=== PATIENT | female | born 1955 | race African-American/Black ===

== ENCOUNTER 2016-12-15 13:09 | Observation (INO) | payer OTHER ==
--- NOTE | 2016-12-15 14:14 | EKG ---
Test Reason : Blood Pressure : / mmHG Vent. Rate : 072 BPM Atrial Rate : 072 BPM P-R Int : 154 ms QRS Dur : 084 ms QT Int : 410 ms P-R-T Axes : 057 020 060 degrees QTc Int : 448 ms NORMAL SINUS RHYTHM NORMAL ECG WHEN COMPARED WITH ECG OF 07-AUG-2016 17:18, NONSPECIFIC T WAVE ABNORMALITY NO LONGER EVIDENT IN INFERIOR LEADS T WAVE INVERSION NO LONGER EVIDENT IN LATERAL LEADS Confirmed by YUDITH BLAND, CECILIA ([id number]) on 12/15/2016 2:14:18 PM Referred By: Confirmed By:CECILIA ZURITA MD
[2016-12-15 14:16] LABS: MCH 26.9 pg (25.7-33.7); MCHC 31.7 g/dl (32.0-36.0); MEAN CELL VOLUME 84.8 fl (80-96); MEAN PLT VOLUME 7.9 fl (7.5-11.1); PLATELET COUNT 190 K/MM3 (134-434); RDW 14.3 % (11.6-15.6); WHITE BLOOD COUNT 8.1 K/mm3 (4.0-10.0)
[2016-12-15] MEDS ORDERED: morphine CARPU-JECT 4 MG/1 ML DISP.SYRIN IVPUSH ONE (14:30)
--- NOTE | 2016-12-15 14:31 | PDOC ---
History of Present Illness - General History Source: Patient Exam Limitations: No Limitations - History of Present Illness Initial Comments: 12/15/16 14:45 The patient is a 60-year-old woman with a significant past medical history of hypertension, hypercholesterolemia, coronary artery disease (status post stents x12) and cerebrovascular accident who was sent to the emergency department by her Human Resources Recruiter, Dr. Lieberman for further evaluation for chest pain. As per patient, she states that she typically experiences chest pain that are left sided and radiated down her left arm. She states that today, she experienced left sided, con radiating constant chest pain associated with shortness of breath, which is atypical for her. She admits that she took 6 sublingual Nitroglycerin tablets with little to no relief. Patient denies any associated symptoms of diaphoresis, visual changes, lightheadedness, dizziness, leg pain/ swelling,nausea, vomiting, diarrhea. Allergies: No Known Drug Allergies. Nuts. Shellfish Past Surgical History: Stent Placements Social History: Tobacco use (Currently on Nicotine patch). No ETOH or recreational drug use. Primary Care Physician: Dr. Artem Menezes [phone] Human Resources Recruiter: Dr. Irving Lieberman [phone] <Dinora Melchor - Last Filed: 12/15/16 14:44> <René Bedolla - Last Filed: 12/15/16 17:48> <Torri Silver - Last Filed: 12/17/16 07:50> - General Chief Complaint: Chest Pain Stated Complaint: CHEST PAIN Time Seen by Provider: 12/15/16 13:34 Past History <Dinora Melchor - Last Filed: 12/15/16 14:44> <René Bedolla - Last Filed: 12/15/16 17:48> - Past Medical History Anemia: No Asthma: Yes Cancer: No Cardiac Disorders: Yes (12 stents) CVA: Yes COPD: No CHF: No Dementia: No Diabetes: Yes GI Disorders: No Disorders: No HTN: Yes Hypercholesterolemia: Yes Liver Disease: No Suicide Attempt (Hx): No Seizures: No Thyroid Disease: No - Surgical History Abdominal Surgery: No Appendectomy: No Cardiac Surgery: Yes (12 cardiac stents) Cholecystectomy: No Lung Surgery: No Neurologic Surgery: No Orthopedic Surgery: No - Immunization History Immunization Up to Date: Yes - Psycho/Social/Smoking Cessation Hx Anxiety: No Suicidal Ideation: No Smoking History: Current every day smoker Have you smoked in the past 12 months: Yes Number of Cigarettes Smoked Daily: 5 Information on smoking cessation initiated: No 'Breaking Loose' booklet given: 08/07/16 Hx Alcohol Use: No Drug/Substance Use Hx: No Substance Use Type: None Hx Substance Use Treatment: No <Torri Silver - Last Filed: 12/17/16 07:50> - Past Medical History Allergies/Adverse Reactions: Allergies Allergy/AdvReac Type Severity Reaction Status Date / Time cashew nut Allergy Verified 12/15/16 13:14 shellfish derived Allergy Verified 12/15/16 13:14 Home Medications: Ambulatory Orders Metformin HCl [Glucophage -] 1,000 mg PO BID 01/09/14 Oxycodone HCl [Roxicodone] 30 mg PO Q6H PRN 01/09/14 Clopidogrel Bisulfate [Plavix -] 75 mg PO DAILY tablet 03/02/15 Gabapentin [Neurontin] 600 mg PO BID 03/02/15 Nitroglycerin Sublingual [Nitrostat -] 0.4 mg SL Q5M PRN #0 tab 03/02/15 Ranolazine [Ranexa] 1,000 mg PO BID 04/09/15 Aspirin Coated [Ecotrin -] 81 mg PO DAILY tablet.ec 03/14/16 Nicotine Patch [Nicoderm Patch -] 21 mg TD DAILY #20 patch 03/14/16 Amlodipine Besylate [Norvasc -] 10 mg PO DAILY 12/15/16 Budesonide/Formeterol Fumarate [SYMBICORT 160/4.5mcg -] 2 inh PO BID 12/15/16 Bupropion HCl [Wellbutrin Sr] 150 mg PO BID 12/15/16 Levalbuterol Tartrate [Xopenex Hfa] 2 puff IH PRN 12/15/16 Losartan Potassium [Cozaar] 50 mg PO DAILY 12/15/16 Metoprolol Succinate [Toprol XL -] 50 mg PO BID 12/15/16 Rosuvastatin Calcium [Crestor] 20 mg PO DAILY 12/15/16 Review of Systems - Review of Systems Able to Perform ROS?: Yes Comments:: 12/15/16 14:45 GENERAL/CONSTITUTIONAL: No fever or chills. No weakness. HEAD, EYES, EARS, NOSE AND THROAT: No change in vision. No ear pain or discharge. No sore throat. CARDIOVASCULAR: Yes: Shortness of breath. Chest Pain. RESPIRATORY: Yes: Shortness of breath. No cough, wheezing, or hemoptysis. GASTROINTESTINAL: No nausea, vomiting, diarrhea or constipation. GENITOURINARY: No dysuria, frequency, or change in urination. MUSCULOSKELETAL: No joint or muscle swelling or pain. No neck or back pain. SKIN: No rash NEUROLOGIC: No headache, vertigo, loss of consciousness, or change in strength/ sensation. ENDOCRINE: No increased thirst. No abnormal weight change. HEMATOLOGIC/LYMPHATIC: No anemia, easy bleeding, or history of blood clots. ALLERGIC/IMMUNOLOGIC: No hives or skin allergy. <Dinora Melchor - Last Filed: 12/15/16 14:44> *Physical Exam - Vital Signs Last Vital Signs Temp Pulse Resp BP Pulse Ox 97.6 F 70 19 118/69 96 12/15/16 13:11 12/15/16 14:11 12/15/16 14:11 12/15/16 14:11 12/15/16 14:11 - Physical Exam Comments: 12/15/16 14:45 GENERAL: Awake, alert, and fully oriented, in no acute distress HEAD: No signs of trauma EYES: PERRLA, EOMI, sclera anicteric, conjunctiva clear ENT: Auricles normal inspection, hearing grossly normal, nares patent, oropharynx clear without exudates. Moist mucosa NECK: Normal ROM, supple, no lymphadenopathy, JVD, or masses LUNGS: Breath sounds equal, clear to auscultation bilaterally. No wheezes, and no crackles HEART: Regular rate and rhythm, normal S1 and S2, no murmurs, rubs or gallops ABDOMEN: Soft, nontender, normoactive bowel sounds. No guarding, no rebound. No masses EXTREMITIES: Normal range of motion, no edema. No clubbing or cyanosis. No cords, erythema, or tenderness NEUROLOGICAL: Cranial nerves II through XII grossly intact. Normal speec <Dinora Melchor - Last Filed: 12/15/16 14:44> - Vital Signs Last Vital Signs Temp Pulse Resp BP Pulse Ox 97.6 F 66 18 147/85 96 12/15/16 13:11 12/15/16 17:02 12/15/16 17:02 12/15/16 17:02 12/15/16 17:02 <René Bedolla - Last Filed: 12/15/16 17:48> - Vital Signs Last Vital Signs Temp Pulse Resp BP Pulse Ox 97.6 F 70 19 118/69 96 12/15/16 13:11 12/15/16 14:11 12/15/16 14:11 12/15/16 14:11 12/15/16 14:11 <Torri Silver - Last Filed: 12/17/16 07:50> Heart Score/ECG Review - ECG Impressions Comment:: EKG 13:17- NSR 72 bpm, no acute ST/T changes <Torri Silver - Last Filed: 12/17/16 07:50> ED Treatment Course - LABORATORY CBC & Chemistry Diagram: 12/15/16 14:00 12/15/16 14:00 - ADDITIONAL ORDERS Additional order review: Laboratory Results 12/15/16 14:00 Sodium 144 Potassium 4.6 Chloride 106 Carbon Dioxide 29 Anion Gap 9 BUN 22 H D Creatinine 1.1 H Creat Clearance w eGFR 51.02 Random Glucose 133 H Calcium 9.2 Total Bilirubin 0.2 AST 15 D ALT 19 D Alkaline Phosphatase 128 H D Creatine Kinase 45 Troponin I 0.04 Total Protein 6.5 Albumin 3.0 L 12/15/16 14:00 RBC 4.48 MCV 84.8 MCHC 31.7 L RDW 14.3 MPV 7.9 Neutrophils % Y Lymphocytes % Y <Dinora Melchor - Last Filed: 12/15/16 14:44> - LABORATORY CBC & Chemistry Diagram: 12/15/16 14:00 12/15/16 14:00 - ADDITIONAL ORDERS Additional order review: Laboratory Results 12/15/16 12/15/16 14:00 14:00 INR 1.09 Sodium 144 Potassium 4.6 Chloride 106 Carbon Dioxide 29 Anion Gap 9 BUN 22 H D Creatinine 1.1 H Creat Clearance w eGFR 51.02 Random Glucose 133 H Calcium 9.2 Total Bilirubin 0.2 AST 15 D ALT 19 D Alkaline Phosphatase 128 H D Creatine Kinase 45 Troponin I 0.04 Total Protein 6.5 Albumin 3.0 L 12/15/16 14:00 RBC 4.48 MCV 84.8 MCHC 31.7 L RDW 14.3 MPV 7.9 Neutrophils % 33.0 L D Lymphocytes % 65.0 H Monocytes % 2.0 L - Medications Given in the ED: ED Medications Discontinued Medications Generic Name Dose Route Start Last Admin Trade Name Nina PRN Reason Stop Dose Admin Morphine Sulfate 4 mg 12/15/16 14:30 12/15/16 14:46 Morphine Injection - IVPUSH 12/15/16 14:31 4 mg ONCE ONE Administration <René Bedolla - Last Filed: 12/15/16 17:48> - LABORATORY CBC & Chemistry Diagram: 12/15/16 14:00 12/16/16 05:35 - ADDITIONAL ORDERS Additional order review: 12/15/16 14:00 RBC 4.48 MCV 84.8 MCHC 31.7 L RDW 14.3 MPV 7.9 Neutrophils % Y Lymphocytes % Y - RADIOLOGY Radiology Studies Ordered: Category Date Time Status CHEST X-RAY PORTABLE* [RAD] Stat Radiology 12/15/16 13:34 Taken <Torri Silver - Last Filed: 12/17/16 07:50> Medical Decision Making - Medical Decision Making 12/15/16 15:12 Case d/w Dr. 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 Recommended admission on tele. I have given morphine for pain, as she has already taken 6 nitroglycerin tabs prior to arrival. Will start nitro drip and upgrade to ICU if pain is not controlled, as per Dr. Oro. Will admit to hospitalist. <Torri Silver - Last Filed: 12/17/16 07:50> *DC/Admit/Observation/Transfer - Attestations Scribe Attestion: 12/15/16 14:46 Documentation prepared by Dinora Melchor, acting as medical record assistant for Torri Silver MD. <Dinora Melchor - Last Filed: 12/15/16 14:44> - Discharge Dispostion Admit: Yes <René Bedolla - Last Filed: 12/15/16 17:48> <Torri Silver - Last Filed: 12/17/16 07:50> Diagnosis at time of Disposition: Chest pain Qualifiers: Chest pain type: unspecified Qualified Code(s): R07.9 - Chest pain, unspecified - Discharge Dispostion Disposition: HOME Condition at time of disposition: Improved - Referrals
[2016-12-15 14:39] LABS: BILIRUBIN,TOTAL 0.2 mg/dL (0.2-1.0); CALCIUM 9.2 mg/dL (8.5-10.1); CREATININE 1.1 mg/dL (0.55-1.02); TOT PROT 6.5 g/dl (6.4-8.2)
[2016-12-15 14:41] LABS: INR 1.09 (0.82-1.09)
[2016-12-15 14:42] LABS: TROPONIN I 0.04 ng/ml (0.00-0.05)
[2016-12-15] MEDS ORDERED: morphine CARPU-JECT 4 MG/1 ML DISP.SYRIN ONE (14:43)
--- NOTE | 2016-12-15 15:52 | PN ---
Progress Note (short form) - Note Progress Note: Pt was seen in the office today. She came in with complaint of severe substernal --left sided chest pain that started this am while at rest. She had taken multiple doses of SL NTG with minimal relief. EKG in the office showed nonspecific ST abnl not c/w acute STEMI and not clearly c/w ischemia. Pt. has a history of severe recurrent CAD with multiple PCI's and recurrent in-stent restenosis tx with brachytherapy. Last PCI was 08/08/16 PTCA with atherectomy of mRamus, previously 03/02/16 brachytherapy [id number]. Otherwise treated with aggressive medical management of presumed small vessel cad and chronic stable angina. She had recently enrolled in cardiac rehab. Her continued smoking was felt to be a large contributing factor to her recurrent CAD. 1st set of cardiac enzymes in ER wnl Give morphine for chest pain and monitor for relief If no relief would start NTG gtt If chest pain continues or cardiac enzymes elevated would admit to ICU and if enzymes elevated start heparin gtt Case reviewed with interventionalist at [facility] that did her prior cardiac caths, the feeling is that her pain is primarily due to small vessel CAD and that further cardiac cath and PCI would unlikely benefit her. Also CABG would unlikely benefit her. Depending on her clinical course on this admission will decide if further intervention is needed. Resume all home medications which include Aspirin 81 mg daily, Plavix 75 mg daily, Crestor 20 mg daily, Toprol-XL 50 mg b.i.d., losartan 25 mg daily, Ranexa 1000 mg b.i.d., Norvasc 5 mg daily, nitroglycerin sublingual p.r.n., Wellbutrin 150 mg b.i.d., metformin 500 mg b.i.d. Check echo
--- NOTE | 2016-12-15 15:54 | HP ---
PCP: Artem Menezes CHIEF COMPLAINT: Chest pain HISTORY OF PRESENT ILLNESS: This is a 60-year-old woman with a history of CAD, multiple stents and recurrent restenosis requiring brachytherapy, who comes to the ER today complaining of chest pain. She said she had an episode of sharp chest pain several days ago. She has not been experiencing chest pain or shortness of breath with exertion. She had been going to cardiac rehab but has not gone in the last 3 weeks. This morning, she developed tightness in the middle and left side of her chest. It did not radiate. She did not have nausea, diaphoresis or palpitations. She felt short of breath. She took several nitroglycerin SL with slight relief. She saw Dr. Oro in the office. EKG showed non-specific ST abnormalities. She was advised to go to the ER PAST MEDICAL HISTORY Hypertension CAD RI Hyperlipidemia CVA Asthma Sleep apnea Type 2 diabetes mellitus Stage 3 CKD PAST SURGICAL HISTORY Cardiac stents Allergies cashew nut Allergy (Verified 12/15/16 13:14) shellfish derived Allergy (Verified 12/15/16 13:14) HOME MEDICATIONS 3 Medication Instructions Recorded Metformin HCl [Glucophage -] 500 mg PO BID 01/09/14 Oxycodone HCl [Roxicodone] 30 mg PO Q6H PRN 01/09/14 Clopidogrel Bisulfate [Plavix -] 75 mg PO DAILY tablet 03/02/15 Gabapentin [Neurontin] 100 mg PO TID 03/02/15 Nitroglycerin Sublingual 0.4 mg SL Q5M PRN #0 tab 03/02/15 [Nitrostat -] Ranolazine [Ranexa] 1,000 mg PO BID 04/09/15 Aspirin Coated [Ecotrin -] 81 mg PO DAILY tablet.ec 03/14/16 Nicotine Patch [Nicoderm Patch -] 21 mg TD DAILY #20 patch 03/14/16 Amlodipine Besylate [Norvasc -] 5 mg PO DAILY 12/15/16 Bupropion HCl [Wellbutrin Sr] 150 mg PO BID 12/15/16 Losartan Potassium [Cozaar] 25 mg PO DAILY 12/15/16 Metoprolol Succinate [Toprol XL -] 50 mg PO BID 12/15/16 Rosuvastatin Calcium [Crestor] 20 mg PO HS 12/15/16 Social History: Smoking: Smokes "a cigarette some days" Alcohol: Denies Drugs: Denies Recent Travel: No Family History: Denies REVIEW OF SYSTEMS CONSTITUTIONAL: Absent: fever, chills, diaphoresis, generalized weakness, malaise, loss of appetite, weight change HEENT: Absent: rhinorrhea, nasal congestion, throat pain, throat swelling, difficulty swallowing, mouth swelling, ear pain, eye pain, visual changes CARDIOVASCULAR: Present: chest pain, peripheral edema. Absent: syncope, palpitations, lightheadedness RESPIRATORY: Present: shortness of breath. Absent: cough, dyspnea with exertion , orthopnea, wheezing, stridor, hemoptysis GASTROINTESTINAL: Absent: abdominal pain, abdominal distension, nausea, vomiting , diarrhea, constipation, melena, hematochezia GENITOURINARY: Absent: dysuria, frequency, urgency, hesitancy, hematuria, flank pain MUSCULOSKELETAL: Absent: myalgia, arthralgia, joint swelling, back pain, neck pain SKIN: Absent: rash, itching, pallor HEMATOLOGIC/IMMUNOLOGIC: Absent: easy bleeding, easy bruising, lymphadenopathy, frequent infections ENDOCRINE: Absent: unexplained weight gain, unexplained weight loss, heat intolerance, cold intolerance NEUROLOGIC: Absent: headache, focal weakness, paresthesias, dizziness, unsteady gait, seizure, mental status changes, bladder or bowel incontinence PSYCHIATRIC: Absent: anxiety, depression, suicidal or homicidal ideation, hallucinations. PHYSICAL EXAMINATION Vital Signs - 24 hr 12/15/16 12/15/16 13:11 14:11 Temperature 97.6 F Pulse Rate 78 Pulse Rate [ 70 Apical] Respiratory 18 19 Rate Blood Pressure 134/79 Blood Pressure 118/69 [Right] O2 Sat by Pulse 96 96 Oximetry (%) GENERAL: Awake, alert, and fully oriented, in no acute distress. HEAD: Normal with no signs of trauma. EYES: Pupils equal, round and reactive to light, extraocular movements intact, sclerae anicteric, conjunctivae clear. EARS, NOSE, THROAT: Ears normal, nares patent, oropharynx clear without exudates. Moist mucous membranes. NECK: Normal range of motion, supple without lymphadenopathy, JVD, or masses. LUNGS: Breath sounds equal, clear to auscultation bilaterally. No wheezes, and no crackles. No accessory muscle use. HEART: Regular rate and rhythm, normal S1 and S2 without murmur, rub or gallop. ABDOMEN: Obese, soft, nontender, not distended, normoactive bowel sounds, no guarding, no rebound, no masses. No hepatomegaly or splenomegaly. MUSCULOSKELETAL: Normal range of motion at all joints. No bony deformities or tenderness. No CVA tenderness. UPPER EXTREMITIES: 2+ pulses, warm, well-perfused. No cyanosis. No clubbing. Cap refill <2 seconds. No peripheral edema. LOWER EXTREMITIES: 2+ pulses, warm, well-perfused. No calf tenderness. No peripheral edema. NEUROLOGICAL: Cranial nerves II-XII intact. Normal speech. Gait not observed. PSYCHIATRIC: Cooperative. Good eye contact. Appropriate mood and affect. SKIN: Warm, dry, normal turgor, no rashes or lesions noted. Laboratory Results - last 24 hr 12/15/16 12/15/16 12/15/16 14:00 14:00 14:00 WBC 8.1 RBC 4.48 Hgb 12.1 Hct 38.0 MCV 84.8 MCHC 31.7 L RDW 14.3 Plt Count 190 MPV 7.9 Neutrophils % Y Lymphocytes % Y INR 1.09 Sodium 144 Potassium 4.6 Chloride 106 Carbon Dioxide 29 Anion Gap 9 BUN 22 H D Creatinine 1.1 H Creat Clearance w eGFR 51.02 Random Glucose 133 H Calcium 9.2 Total Bilirubin 0.2 AST 15 D ALT 19 D Alkaline Phosphatase 128 H D Creatine Kinase 45 Troponin I 0.04 Total Protein 6.5 Albumin 3.0 L Chest x-ray: No acute process EKG: Sinus rhythm, rate 72, no ischemic changes. ASSESSMENT/PLAN: This is a 60-year-old woman with a history of CAD, stents with recurrent restenosis requiring brachytherapy, RI, HTN, hyperlipidemia, type 2 DM, CVA, stage 3 CKD, asthma, sleep apnea who presented to the ER with chest tightness that started at rest this morning. Troponin is 0.04. 1. Chest pain - Improved with SLNTG and morphine 4 mg IVP - Observe on telemetry - Serial troponins - Continue aspirin, Plavix, Toprol XL, Cozaar, Norvasc, Crestor, Ranexa - SLNTG/morphine as needed for pain - Smoking cessation - Cardiology evaluation 2. CAD, history of RI - Has multiple stents with recurrent restenosis treated with brachytherapy - Has been treated medically for presumed small vessel CAD and chronic stable angina 3. Hypertension - Continue Cozaar, Norvasc, Toprol XL 4. Hyperlipidemia - Continue Crestor 5. Type 2 diabetes mellitus - Hold metformin - Fingersticks with Novolog sliding scale 6. History of CVA - Continue aspirin 7. Stage 3 CKD - Stable 8. Asthma - Stable 9. Obstructive sleep apnea 10. Nicotine dependence - Smoking cessation discussed - Nicotine patch 11. Obesity with BMI 35.5
[2016-12-15] MEDS ORDERED: morphine CARPU-JECT 2 MG/1 ML DISP.SYRIN IVPUSH PRN (16:11)
[2016-12-15] MEDS ORDERED: ONDANSETRON 4 MG/2 ML VIAL IVPB PRN (16:11)
[2016-12-15] MEDS ORDERED: NITROGLYCERIN SUBLINGUAL 1/150 0.4 MG TAB SL PRN (16:16)
[2016-12-15 17:17] LABS: PLATELET ESTIMATE ADEQUATE (NORMAL)
[2016-12-15] MEDS ORDERED: INSULIN (NOVOLOG) ASPART 100 UNITS/ML 10ML VIAL ONE (18:09)
[2016-12-15] MEDS ORDERED: morphine CARPU-JECT 2 MG/1 ML DISP.SYRIN ONE (21:18)
[2016-12-15] MEDS ORDERED: ROSUVASTATIN CA 20 MG TABLET (FP) PO SCH (22:00)
[2016-12-15] MEDS: INSULIN SLIDING SCALE (NOVOLOG) 1 VIAL SQ SCH ×2 (22:30→22:58)
[2016-12-15] MEDS: METOPROLOL SUCCINATE 50 MG TAB.SR.24H (FP) PO SCH (22:58)
[2016-12-15] MEDS: RANOLAZINE E.R. 1,000 MG TABLET (FP) PO SCH (22:58)
[2016-12-15 23:21] VITALS: BMI 40.9
[2016-12-16] MEDS: INSULIN SLIDING SCALE (NOVOLOG) 1 VIAL SQ SCH ×2 (06:56→11:48)
[2016-12-16 07:16] LABS: CALCIUM 8.5 mg/dL (8.5-10.1); CREATININE 0.9 mg/dL (0.55-1.02)
[2016-12-16] MEDS: RANOLAZINE E.R. 1,000 MG TABLET (FP) PO SCH (09:45)
[2016-12-16] MEDS: METOPROLOL SUCCINATE 50 MG TAB.SR.24H (FP) PO SCH (09:45)
--- NOTE | 2016-12-16 09:45 | PN ---
Progress Note, Physician Chief Complaint: no further chest pain Cardiac enzymes negative History of Present Illness: Echo pending - Current Medication List Current Medications: Active Medications Amlodipine Besylate (Norvasc -) 5 mg PO DAILY [facility] Aspirin (Ecotrin -) 81 mg PO DAILY [facility] Bupropion HCl (Wellbutrin Xl -) 300 mg PO DAILY [facility] Clopidogrel Bisulfate (Plavix -) 75 mg PO DAILY [facility] Insulin Aspart (Novolog Vial Sliding Scale -) 1 vial SQ ACHS CELESTE PRN Reason: Protocol Last Admin: 12/16/16 06:56 Dose: 2 units Losartan Potassium (Cozaar -) 25 mg PO DAILY [facility] Metoprolol Succinate (Toprol Xl -) 50 mg PO BID [facility] Last Admin: 12/15/16 22:58 Dose: 50 mg Morphine Sulfate (Morphine Injection -) 2 mg IVPUSH Q4H PRN PRN Reason: PAIN Last Admin: 12/15/16 21:24 Dose: 2 mg Nicotine (Nicoderm Patch -) 21 mg TD DAILY [facility] Nitroglycerin (Nitrostat -) 0.4 mg SL Q5M PRN PRN Reason: FOR CHEST PAIN Ondansetron HCl (Zofran Injection) 4 mg IVPB Q6H PRN PRN Reason: NAUSEA Ranolazine (Ranexa -) 1,000 mg PO BID [facility] Last Admin: 12/15/16 22:58 Dose: 1,000 mg Rosuvastatin Calcium (Crestor -) 20 mg PO [facility] Last Admin: 12/15/16 22:21 Dose: Not Given - Objective Vital Signs: Vital Signs Temperature 98.0 F 12/16/16 06:00 Pulse Rate 67 12/16/16 06:00 Respiratory Rate 18 12/16/16 06:00 Blood Pressure 117/71 12/16/16 06:00 O2 Sat by Pulse Oximetry (%) 94 L 12/15/16 22:00 Constitutional: Yes: No Distress, Calm Eyes: Yes: Conjunctiva Clear Cardiovascular: Yes: Regular Rate and Rhythm Respiratory: Yes: CTA Bilaterally Gastrointestinal: Yes: Soft (nontender), Abdomen, Obese Edema: No Neurological: Yes: Alert, Oriented ...Motor Strength: WNL Labs: CBC, BMP 12/16/16 05:35 INR, PTT INR 1.09 (0.82-1.09) 12/15/16 14:00 - ....Imaging EKG: Image Reviewed (NSR 72bpm, no acute ST changes) Assessment/Plan History of severe recurrent CAD with multiple PCI's and recurrent in-stent restenosis tx with brachytherapy. Last PCI was 08/08/16 PTCA with atherectomy of mRamus, previously 03/02/16 brachytherapy LCX-OM1. Otherwise treated with aggressive medical management of presumed small vessel cad and chronic stable angina now admitted again with episode of angina triggered by emotional distress at home. Cardiac enzymes are negative and she has not had angina since presentation. From a coronary standpoint, interventional cardiology has advised that no further interventions are advisable (unless NSTEMI) and that anatomy is not suitable for CABG. She has been intolerant of long acting nitrates and is otherwise on maximal medical therapy. REC: Await echo, doubt pericardial disease or sig change in EF. BP does not allow up titration of Norvasc, but can try to push Toprol to 75mg BID and try to push heart rate into the 60s If no recurrent angina plan for d/c later today or in AM
[2016-12-16] MEDS ORDERED: LOSARTAN POTASSIUM 25 MG TABLET PO SCH (10:00)
[2016-12-16] MEDS ORDERED: amLODIPine BESYLATE 5 MG TABLET (FP) PO SCH (10:00)
[2016-12-16] MEDS ORDERED: NICOTINE 21 MG/24 HOURS TOPICAL PATCH TD SCH (10:00)
[2016-12-16] MEDS ORDERED: METOPROLOL SUCCINATE 50 MG TAB.SR.24H (FP) PO SCH (10:00)
[2016-12-16] MEDS ORDERED: CLOPIDOGREL BISULFATE 75 MG TABLET (FP) PO SCH (10:00)
[2016-12-16] MEDS ORDERED: ASPIRIN COATED 81 MG TABLET.EC PO SCH (10:00)
--- NOTE | 2016-12-16 10:19 | PN ---
Physical Exam: SUBJECTIVE: Patient seen and examined at bedside. Pt. reports that she feels better today and does not have any chest pain. She also states that she is breathing better than yesterday. OBJECTIVE: Vital Signs Period Temp Pulse Resp BP Sys/Adan Pulse Ox Last 24 Hr 97.7 F-98.2 F 66-72 16-21 117-144/64-77 94-95 GENERAL: The patient is awake, alert, and fully oriented, in no acute distress. HEAD: Normal with no signs of trauma. EYES: PERRL, extraocular movements intact, sclera anicteric, conjunctiva clear. No ptosis. ENT: Ears normal, nares patent, oropharynx clear without exudates, moist mucous membranes. NECK: Trachea midline, full range of motion, supple. LUNGS: Breath sounds equal, clear to auscultation bilaterally, no wheezes, no crackles, no accessory muscle use. HEART: Regular rate and rhythm, S1, S2 without murmur, rub or gallop. ABDOMEN: Soft, nontender, nondistended, normoactive bowel sounds, no guarding, no rebound, no hepatosplenomegaly, no masses. EXTREMITIES: 2+ pulses, warm, well-perfused, no edema. NEUROLOGICAL: Cranial nerves II through XII grossly intact. Normal speech, gait not observed. PSYCH: Normal mood, normal affect. SKIN: Warm, dry, normal turgor, no rashes or lesions noted Laboratory Results - last 24 hr 12/15/16 12/15/16 12/15/16 17:56 20:33 22:40 Sodium Potassium Chloride Carbon Dioxide Anion Gap BUN Creatinine POC Glucometer 219.57955 276 Random Glucose Calcium Troponin I 0.04 12/16/16 12/16/16 12/16/16 02:00 05:28 05:35 Sodium 141 Potassium 4.3 Chloride 104 Carbon Dioxide 29 Anion Gap 8 BUN 19 H Creatinine 0.9 POC Glucometer 172 Random Glucose 172 H D Calcium 8.5 Troponin I 0.04 Active Medications Generic Name Dose Route Start Last Admin Trade Name Freq PRN Reason Stop Dose Admin Amlodipine Besylate 5 mg 12/16/16 10:00 12/16/16 09:44 Norvasc - PO 5 mg DAILY CELESTE Administration Aspirin 81 mg 12/16/16 10:00 12/16/16 09:43 Ecotrin - PO 81 mg DAILY CELESTE Administration Bupropion HCl 300 mg 12/16/16 10:00 12/16/16 09:45 Wellbutrin Xl - PO 300 mg DAILY CELESTE Administration Clopidogrel Bisulfate 75 mg 12/16/16 10:00 12/16/16 09:44 Plavix - PO 75 mg DAILY CELESTE Administration Insulin Aspart 1 vial 12/15/16 16:30 12/16/16 06:56 Novolog Vial Sliding Scale - SQ 2 units ACHS CELESTE Administration Protocol Losartan Potassium 25 mg 12/16/16 10:00 12/16/16 09:43 Cozaar - PO 25 mg DAILY CELESTE Administration Metoprolol Succinate 75 mg 12/16/16 10:00 Toprol Xl - PO BID CELESTE Morphine Sulfate 2 mg 12/15/16 16:11 12/15/16 21:24 Morphine Injection - IVPUSH 2 mg Q4H PRN Administration PAIN Nicotine 21 mg 12/16/16 10:00 12/16/16 09:43 Nicoderm Patch - TD 21 mg DAILY [facility] Administration Nitroglycerin 0.4 mg 12/15/16 16:16 Nitrostat - SL Q5M PRN FOR CHEST PAIN Ondansetron HCl 4 mg 12/15/16 16:11 Zofran Injection IVPB Q6H PRN NAUSEA Ranolazine 1,000 mg 12/15/16 22:00 12/16/16 09:45 Ranexa - PO 1,000 mg BID CELESTE Administration Rosuvastatin Calcium 20 mg 12/15/16 22:00 12/15/16 22:21 Crestor - PO Not Given HS [facility] ASSESSMENT/PLAN: Pt. is a 60 y/o female with a significant PMH for CAD with numerous stents in place for recurrent restenosis (last stenting 08/01), HTN, HLD, DM type II, CVA , CKD, and asthma, is in obs for chest pain. 1. Unstable angina -- Resolved; troponin series negative. -- Echo results pending. -- Continue aspirin, Plavix, Toprol XL, Cozaar, Norvasc, Crestor, Ranexa -- SLNTG/morphine as needed for pain -- Smoking cessation -- If patient remains asymptomatic; can discharge home this afternoon. 2. CAD, history of UT -- Has multiple stents with recurrent restenosis treated with brachytherapy -- Has been treated medically for presumed small vessel CAD and chronic stable angina -- Per cardiology, anginal pain most likely d/t small vessel CAD. Pt. is not a candidate for further stenting at this time. 3. Hypertension -- Continue Cozaar, Norvasc, Toprol XL 4. Hyperlipidemia -- Continue Crestor 5. Type 2 diabetes mellitus -- Hold metformin -- Fingersticks with Novolog sliding scale 6. History of CVA -- Continue aspirin 7. Stage 3 CKD -- Stable 8. Asthma -- Stable
[2016-12-16] MEDS ORDERED: INSULIN (NOVOLOG) ASPART 100 UNITS/ML 10ML VIAL ONE (11:36)
[2016-12-16 11:42] LABS: URINE APPEARANCE SLCLOUDY; URINE BILIRUBIN NEGATIVE (NEGATIVE); URINE BLOOD NEGATIVE (NEGATIVE); URINE COLOR YELLOW; URINE GLUCOSE (UA) NEGATIVE (NEGATIVE); URINE KETONE NEGATIVE (NEGATIVE); URINE LEUK ESTERASE NEGATIVE (NEGATIVE); URINE NITRITE NEGATIVE (NEGATIVE); URINE PROTEIN NEGATIVE (NEGATIVE); URINE UROBILINOGEN NEGATIVE E.U./dl (0.2-1.0)
[2016-12-16 11:52] LABS: URINE MARIJUANA THC NEGATIVE ng/ml (CUTOFF=50)
[2016-12-16] MEDS ORDERED: oxyCODONE HCL 5 MG TABLET PO PRN (11:52)
[2016-12-16] MEDS ORDERED: ACETAMINOPHEN 325 MG TABLET (FP) PO PRN (12:14)
[2016-12-16 14:19] VITALS: BP 149/86; PULSE 65; TEMP 98.2
--- NOTE | 2016-12-16 14:31 | DS ---
Physical Exam: SUBJECTIVE: Patient seen and examined at bedside. She is reporting that she feels much better and has not had any chest pain since yesterday. She is asking about discharge. OBJECTIVE: Vital Signs Period Temp Pulse Resp BP Sys/Adan Pulse Ox Last 24 Hr 97.7 F-98.2 F 65-72 16-21 117-156/64-86 93-95 PHYSICAL EXAM GENERAL: The patient is awake, alert, and fully oriented, in no acute distress. HEAD: Normal with no signs of trauma. EYES: PERRL, extraocular movements intact, sclera anicteric, conjunctiva clear. ENT: Ears normal, nares patent, oropharynx clear without exudates, moist mucous membranes. NECK: Trachea midline, full range of motion, supple. LUNGS: Breath sounds equal, clear to auscultation bilaterally, no wheezes, no crackles, no accessory muscle use. HEART: Regular rate and rhythm, S1, S2 without murmur, rub or gallop. ABDOMEN: Soft, nontender, nondistended, normoactive bowel sounds, no guarding, no rebound, no hepatosplenomegaly, no masses. EXTREMITIES: 2+ pulses, warm, well-perfused, no edema. NEUROLOGICAL: Cranial nerves II through XII grossly intact. Normal speech, gait not observed. PSYCH: Normal mood, normal affect. SKIN: Warm, dry, normal turgor, no rashes or lesions noted. LABS Laboratory Results - last 24 hr 12/15/16 12/15/16 12/15/16 17:56 20:33 22:40 Sodium Potassium Chloride Carbon Dioxide Anion Gap BUN Creatinine POC Glucometer 219.08725 276 Random Glucose Calcium Troponin I 0.04 Urine Color Urine Appearance Urine pH Ur Specific [place] Urine Protein Urine Glucose (UA) Urine Ketones Urine Blood Urine Nitrite Urine Bilirubin Urine Urobilinogen Ur Leukocyte Esterase Opiates Screen Methadone Screen Barbiturate Screen Phencyclidine Screen Ur Amphetamines Screen Ur MDA Confirmation U MDMA Confirm (GC/MS) Urine MDEA Ur MDEA Confirmation Methylenedioxyamph MDA MDMA (Ecstasy) Screen MDMA & Metabolite Benzodiazepines Screen Cocaine Screen U Marijuana (THC) Screen 12/16/16 12/16/16 12/16/16 02:00 05:28 05:35 Sodium 141 Potassium 4.3 Chloride 104 Carbon Dioxide 29 Anion Gap 8 BUN 19 H Creatinine 0.9 POC Glucometer 172 Random Glucose 172 H D Calcium 8.5 Troponin I 0.04 Urine Color Urine Appearance Urine pH Ur Specific [place] Urine Protein Urine Glucose (UA) Urine Ketones Urine Blood Urine Nitrite Urine Bilirubin Urine Urobilinogen Ur Leukocyte Esterase Opiates Screen Methadone Screen Barbiturate Screen Phencyclidine Screen Ur Amphetamines Screen Ur MDA Confirmation U MDMA Confirm (GC/MS) Urine MDEA Ur MDEA Confirmation Methylenedioxyamph MDA MDMA (Ecstasy) Screen MDMA & Metabolite Benzodiazepines Screen Cocaine Screen U Marijuana (THC) Screen 12/16/16 12/16/16 12/16/16 10:00 10:29 10:30 Sodium Potassium Chloride Carbon Dioxide Anion Gap BUN Creatinine POC Glucometer Random Glucose Calcium Troponin I Urine Color Yellow Urine Appearance Slcloudy Urine pH 5.0 Ur Specific [place] 1.021 Urine Protein Negative Urine Glucose (UA) Negative Urine Ketones Negative Urine Blood Negative Urine Nitrite Negative Urine Bilirubin Negative Urine Urobilinogen Negative Ur Leukocyte Esterase Negative Opiates Screen Positive Methadone Screen Negative Barbiturate Screen Negative Phencyclidine Screen Negative Ur Amphetamines Screen Negative Ur MDA Confirmation Cancelled U MDMA Confirm (GC/MS) Cancelled Urine MDEA Cancelled Ur MDEA Confirmation Cancelled Methylenedioxyamph MDA Cancelled MDMA (Ecstasy) Screen Cancelled Positive MDMA & Metabolite Cancelled Benzodiazepines Screen Negative Cocaine Screen Positive U Marijuana (THC) Screen Negative 12/16/16 11:43 Sodium Potassium Chloride Carbon Dioxide Anion Gap BUN Creatinine POC Glucometer 196 Random Glucose Calcium Troponin I Urine Color Urine Appearance Urine pH Ur Specific [place] Urine Protein Urine Glucose (UA) Urine Ketones Urine Blood Urine Nitrite Urine Bilirubin Urine Urobilinogen Ur Leukocyte Esterase Opiates Screen Methadone Screen Barbiturate Screen Phencyclidine Screen Ur Amphetamines Screen Ur MDA Confirmation U MDMA Confirm (GC/MS) Urine MDEA Ur MDEA Confirmation Methylenedioxyamph MDA MDMA (Ecstasy) Screen MDMA & Metabolite Benzodiazepines Screen Cocaine Screen U Marijuana (THC) Screen HOSPITAL COURSE: Date of Admission:12/15/16 Date of Discharge: 12/16/16 Consults: Dr. Lieberman ED course: The patient is a 60-year-old woman with a significant past medical history of hypertension, hypercholesterolemia, coronary artery disease (status post stents x12) and cerebrovascular accident who was sent to the emergency department by her District Captain, Dr. Lieberman for further evaluation for chest pain. She took 6 nitroglycerin tablets with no relief of her symptoms. Her first troponin in the ED was negative. She was given morphine and nitro in the ED for her symptoms. Given her PMH and presenting symptoms, she was placed in observation with serial troponins. Hospital Course: Pt. was in obs over night. Her serial troponins were negative and her vitals remained stable. She was given an extra dose of Metoprolol for added rate control (per cardiology goal in the 60's). Her EKG was NSR with a rate in the 70 's. No acute ST-T wave changes. Her echo showed no changes from her echo in 2016 ; RV and LV function are WNL and there is trace tricuspid regurg. Pt. Utox came back positive for cocaine and ecstasy. Informed both Dr. Oliov and the pt. of the results. Discharge Course: Pt. is improved from ED visit and will be discharged at this time. She reports no active chest pain. No medication changes were made at this time. Pt. was told to resume all home medications as she usually takes them and to follow up with cardiology as an outpatient. Minutes to complete discharge: 35 Discharge Summary Reason For Visit: CHEST PAIN Current Active Problems Chest pain (Acute) Condition: Improved - Instructions Diet, Activity, Other Instructions: You had an episode of angina. Your workup including troponins were normal. Your EKG, and echocardiogram showed no changes. We made no changes to your medications. Take all of your home medications as prescribed. Please follow up with your small wind energy installer for further management of your angina. Return to the hospital if you experience worsening chest pain, light headedness , palpitations. Referrals: Artem Menezes [Primary Care Provider] - Disposition: HOME - Home Medications Comprehensive Discharge Medication List: Ambulatory Orders Metformin HCl [Glucophage -] 1,000 mg PO BID 01/09/14 Oxycodone HCl [Roxicodone] 30 mg PO Q6H PRN 01/09/14 Clopidogrel Bisulfate [Plavix -] 75 mg PO DAILY tablet 03/02/15 Gabapentin [Neurontin] 600 mg PO BID 03/02/15 Nitroglycerin Sublingual [Nitrostat -] 0.4 mg SL Q5M PRN #0 tab 03/02/15 Ranolazine [Ranexa] 1,000 mg PO BID 06/24/15 Aspirin Coated [Ecotrin -] 81 mg PO DAILY tablet.ec 03/14/16 Nicotine Patch [Nicoderm Patch -] 21 mg TD DAILY #20 patch 03/14/16 Amlodipine Besylate [Norvasc -] 10 mg PO DAILY 12/15/16 Budesonide/Formeterol Fumarate [SYMBICORT 160/4.5mcg -] 2 inh PO BID 12/15/16 Bupropion HCl [Wellbutrin Sr] 150 mg PO BID 12/15/16 Levalbuterol Tartrate [Xopenex Hfa] 2 puff IH PRN 12/15/16 Losartan Potassium [Cozaar] 50 mg PO DAILY 12/15/16 Metoprolol Succinate [Toprol XL -] 50 mg PO BID 12/15/16 Rosuvastatin Calcium [Crestor] 20 mg PO DAILY 12/15/16 This patient is new to me today: Yes Date on this admission: 12/16/16 Emergency Visit: Yes ED Registration Date: 12/15/16 Care time: The patient presented to the Emergency Department on the above date and was hospitalized for further evaluation of their emergent condition. Critical Care patient: No - Discharge Referral Referred to [facility] Med P.C.: No
== END 2016-12-16 15:41 | disposition home or self-care (01) ==
LOC: JER 13:09 → JERBED 17:49 → J4S 21:43
PROVIDERS: ADMIT Internal Medicine; ATTEND Nurse Practitioner Acute Care
DX: I25.119 Atherosclerotic heart disease of native coronary artery with unspecified angina pectoris (principal); Z95.5 Presence of coronary angioplasty implant and graft; J45.909 Unspecified asthma, uncomplicated; F17.210 Nicotine dependence, cigarettes, uncomplicated; I12.9 Hypertensive chronic kidney disease with stage 1 through stage 4 chronic kidney disease, or unspecified chronic kidney disease; E11.22 Type 2 diabetes mellitus with diabetic chronic kidney disease; N18.3 Chronic kidney disease, stage 3 (moderate); Z79.84 Long term (current) use of oral hypoglycemic drugs; G47.30 Sleep apnea, unspecified; E66.9 Obesity, unspecified; Z68.41 Body mass index [BMI] 40.0-44.9, adult
CPT/HCPCS: 36415; 71010-TC; 80048; 80053; 80307; 81003; 82550; 84484; 85025; 85610; 93005; 93010; 93306-TC; 99285-25; G0378; G0480

== ENCOUNTER 2017-04-26 15:31 | Emergency (ER) | payer OTHER ==
[2017-04-26 15:37] VITALS: BMI 38.2
--- NOTE | 2017-04-26 15:49 | PDOC ---
Attending Attestation - Resident Resident Name: Sergio Tariq - HPI HPI: 04/26/17 16:33 Pt comes with SOB; she has a hx of COPD. CAD, DM, Stents in place. Last week her PMD Preethi started her on lasix and she remains with the SOB today. SHe was sent to r/o PE - Physicial Exam PE: 04/26/17 18:54 as above - Medical Decision Making 04/26/17 16:34 portable chest: CHest XR appears clear EKG: CTA: will be ordered if d-dimer is elevated Labs: D dimer is elevated; pt has a normal WBC 04/26/17 18:15 Pt will be sent for CTA chest to r/o PE 04/26/17 18:18 Pt will be signed out to the night ER doc
--- NOTE | 2017-04-26 15:57 | PDOC ---
History of Present Illness - General Chief Complaint: Shortness of Breath Stated Complaint: SOB (PCP SENT) Time Seen by Provider: 04/26/17 15:46 - History of Present Illness Initial Comments: 04/26/17 15:47 Ms. De Leon is a 61 year old female with a significant past medical history of heart attack, pulmonary embolism, and multiple stents who presents to the emergency department with 2 days of chest pain and a one week history of shortness of breath. Says that pain improved with her home nitro and that it does not radiate. Saw primary care doctor today and was advised to go to ER to investigate possibility of blood clot. Reports that shortness of breath has been increasing for the past week. Denies headache and dizziness. Denies fever, chills, nausea, vomit, diarrhea and constipation. Denies dysuria, frequency, urgency and hematuria. Allergies: Cashews and shellfish Past surgical history: Umbilical hernia repair as an Social history: approximately 40 pack year history of smoking, currently smokes 10-12 cigarettes / week. Drinks socially 1-2 drinks at a time. 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 04/26/17 16:10 04/26/17 20:05 Past History - Past Medical History Allergies/Adverse Reactions: Allergies Allergy/AdvReac Type Severity Reaction Status Date / Time cashew nut Allergy Verified 04/26/17 15:31 shellfish derived Allergy Verified 04/26/17 15:31 Home Medications: Ambulatory Orders Metformin HCl [Glucophage -] 500 mg PO BID 01/09/14 Oxycodone HCl [Roxicodone] 30 mg PO Q6H PRN 01/09/14 Clopidogrel Bisulfate [Plavix -] 75 mg PO DAILY tablet 03/02/15 Nitroglycerin Sublingual [Nitrostat -] 0.4 mg SL Q5M PRN #0 tab 03/02/15 Aspirin Coated [Ecotrin -] 81 mg PO DAILY tablet.ec 03/14/16 Amlodipine Besylate [Norvasc -] 10 mg PO DAILY 12/15/16 Budesonide/Formeterol Fumarate [SYMBICORT 160/4.5mcg -] 2 inh PO BID 12/15/16 Levalbuterol Tartrate [Xopenex Hfa] 2 puff IH PRN PRN 12/15/16 Losartan Potassium [Cozaar] 50 mg PO DAILY 12/15/16 Metoprolol Succinate [Toprol XL -] 75 mg PO BID 12/15/16 Rosuvastatin Calcium [Crestor] 20 mg PO DAILY 12/15/16 Oxycodone HCl [Oxycontin] 80 mg PO ASDIR 04/26/17 Anemia: No Asthma: Yes Cancer: No Cardiac Disorders: Yes (12 stents) CVA: Yes COPD: Yes CHF: No Dementia: No Diabetes: Yes (niddm) GI Disorders: No Disorders: No HTN: Yes Hypercholesterolemia: Yes Liver Disease: No Suicide Attempt (Hx): No Seizures: No Thyroid Disease: No - Surgical History Abdominal Surgery: Yes (hernia as a child) Appendectomy: No Cardiac Surgery: Yes (12 cardiac stents) Cholecystectomy: No Lung Surgery: No Neurologic Surgery: No Orthopedic Surgery: No - Immunization History Immunization Up to Date: Yes - Psycho/Social/Smoking Cessation Hx Anxiety: No Suicidal Ideation: No Smoking History: Current some day smoker Have you smoked in the past 12 months: Yes Number of Cigarettes Smoked Daily: 2 Information on smoking cessation initiated: Yes 'Breaking Loose' booklet given: 04/26/17 Hx Alcohol Use: No Drug/Substance Use Hx: No Substance Use Type: None Hx Substance Use Treatment: No Review of Systems - Review of Systems Comments:: 04/26/17 15:47 GENERAL/CONSTITUTIONAL: No fever or chills. No weakness. HEAD, EYES, EARS, NOSE AND THROAT: No change in vision. No ear pain or discharge. No sore throat. CARDIOVASCULAR: +Central chest pain improved with nitro, growing shortness of breath RESPIRATORY: No cough, wheezing, or hemoptysis. GASTROINTESTINAL: No nausea, vomiting, diarrhea or constipation. GENITOURINARY: No dysuria, frequency, or change in urination. MUSCULOSKELETAL: No joint or muscle swelling or pain. No neck or back pain. SKIN: No rash NEUROLOGIC: No headache, vertigo, loss of consciousness, or change in strength/ sensation. ENDOCRINE: No increased thirst. No abnormal weight change HEMATOLOGIC/LYMPHATIC: No anemia, easy bleeding, or history of blood clots. ALLERGIC/IMMUNOLOGIC: No hives or skin allergy. 04/26/17 16:13 04/26/17 20:05 *Physical Exam - Vital Signs Last Vital Signs Temp Pulse Resp BP Pulse Ox 97.4 F L 77 18 142/93 98 04/26/17 15:32 04/26/17 15:32 04/26/17 15:32 04/26/17 15:32 04/26/17 15:32 04/26/17 16:14 - Physical Exam Comments: 04/26/17 15:47 GENERAL: Awake, alert, and fully oriented, in no acute distress HEAD: No signs of trauma, normocephalic, atraumatic EYES: PERRLA, EOMI, sclera anicteric, conjunctiva clear ENT: Auricles normal inspection, hearing grossly normal, nares patent, oropharynx clear without exudates. Moist mucosa NECK: Normal ROM, supple, no lymphadenopathy, JVD, or masses LUNGS: +Tripoding, speaks full sentences, expiratory wheezes in all [place] HEART: Regular rate and rhythm, normal S1 and S2, no murmurs, rubs or gallops, peripheral pulses normal and equal bilaterally. ABDOMEN: Soft, nontender, normoactive bowel sounds. No guarding, no rebound. No masses EXTREMITIES: Normal inspection, Normal range of motion, no edema. No clubbing or cyanosis. NEUROLOGICAL: Cranial nerves II through XII grossly intact. Normal speech, normal gait, no focal sensorimotor deficits SKIN: Warm, Dry, normal turgor, no rashes or lesions noted. 04/26/17 16:14 04/26/17 20:05 ED Treatment Course - LABORATORY CBC & Chemistry Diagram: 04/26/17 16:40 04/26/17 16:40 Medical Decision Making - Medical Decision Making 04/26/17 20:06 Patient arrived in minimal distress complaining of shortness of breath with some chest pain relieved by nitro. SOB has been present for a week. Patient was given duoneb and oxygen with relief of SOB. Presented on advice of PCP for concern of pulmonary embolism. CBC BMP unimpressive with d-dimer in 300's. CTA ordered and resulted as clear. Discharging to home. 04/26/17 20:09 *DC/Admit/Observation/Transfer Diagnosis at time of Disposition: Shortness of breath - Discharge Dispostion Disposition: HOME Condition at time of disposition: Improved - Patient Instructions Additional Instructions: Thank you for coming in today. Please return if symptoms worsen. Follow-up as discussed with PCP - Attestations Physician Attestion: 04/26/17 20:06 I, Dr. Sergio Tariq, attest that this document has been prepared under my direction and personally reviewed by me in its entirety. I further attest, that it accurately reflects all work, treatment, procedures and medical decision -making performed by me.
[2017-04-26] MEDS ORDERED: ALBUTEROL SO4 2.5/IPRATROPIUM 0.5 INH SOL 3 ML VIAL.NEB. NEB ONE (16:03)
--- NOTE | 2017-04-26 16:23 | EKG ---
Test Reason : Blood Pressure : / mmHG Vent. Rate : 068 BPM Atrial Rate : 068 BPM P-R Int : 162 ms QRS Dur : 092 ms QT Int : 408 ms P-R-T Axes : 032 030 063 degrees QTc Int : 433 ms SINUS RHYTHM WITH IACD. NONSPECIFIC ST AND T WAVE ABNORMALITY BASELINE ARTIFACTS. WHEN COMPARED WITH ECG OF 15-DEC-2016 13:17, NO SIGNIFICANT CHANGE WAS FOUND Confirmed by ELIZABETH COLLADO MD ([id number]) on 04/26/2017 4:23:27 PM Referred By: Confirmed By:ELIZABETH COLLADO MD
[2017-04-26 16:59] LABS: BASOPHIL 0.5 % (0-2.0); EOSINOPHIL 2.1 % (0-4.5); MCH 27.2 pg (25.7-33.7); MCHC 32.4 g/dl (32.0-36.0); MEAN PLT VOLUME 8.1 fl (7.5-11.1); NEUTROPHILS 24.6 % (42.8-82.8); PLATELET COUNT 253 K/MM3 (134-434); RDW 14.4 % (11.6-15.6); WHITE BLOOD COUNT 8.8 K/mm3 (4.0-10.0)
[2017-04-26 17:13] LABS: INR 1.02 (0.82-1.09); PROTHROMBIN TIME (PATIENT) 11.2 SEC (9.98-11.88)
[2017-04-26 17:15] LABS: ACTIVATED PTT 34.4 SECONDS (26.9-34.4)
[2017-04-26 17:36] LABS: ALBUMIN 3.7 g/dl (3.4-5.0); ALK PHOS 152 U/L (45-117); ANION GAP 9 (8-16); BILIRUBIN,TOTAL 0.3 mg/dL (0.2-1.0); CALCIUM 9.3 mg/dL (8.5-10.1); CO2 31 mmol/L (21-32); CREATININE 1.2 mg/dL (0.55-1.02); GLUCOSE,RANDOM 131 mg/dL (74-106); SGOT/AST 19 U/L (15-37); SGPT/ALT 24 U/L (12-78)
[2017-04-26 20:22] VITALS: BP 138/89; PULSE 74; TEMP 97.7
== END 2017-04-26 20:22 | disposition home or self-care (01) ==
LOC: JER 15:31
PROC: 3E0F7GC Introduction of Other Therapeutic Substance into Respiratory Tract, Via Natural or Artificial Opening (ICD-10-PCS; principal; 2017-04-26)
DX: R06.02 Shortness of breath (principal); I25.2 Old myocardial infarction; I25.10 Atherosclerotic heart disease of native coronary artery without angina pectoris; I25.83 Coronary atherosclerosis due to lipid rich plaque; I10 Essential (primary) hypertension; Z95.5 Presence of coronary angioplasty implant and graft; J45.909 Unspecified asthma, uncomplicated; J44.9 Chronic obstructive pulmonary disease, unspecified; E11.9 Type 2 diabetes mellitus without complications; Z79.84 Long term (current) use of oral hypoglycemic drugs; E78.00 Pure hypercholesterolemia, unspecified; Z86.73 Personal history of transient ischemic attack (TIA), and cerebral infarction without residual deficits; Z86.711 Personal history of pulmonary embolism
CPT/HCPCS: 36415; 71010-TC; 71275-TC; 80053; 85025; 85379; 85610; 85730; 93005; 93010; 94640; 99284-25

== ENCOUNTER 2018-12-27 12:23 | Observation (INO) | payer OTHER ==
--- NOTE | 2018-12-27 13:32 | PDOC ---
Attending Attestation - HPI HPI: 12/27/18 13:56 The patient is a 60-year-old woman with a significant past medical history of hypertension, hypercholesterolemia, coronary artery disease (s/p stents x12) and CVA, who presents to the emergency department for complaint of intermittent chest pain, shortness of breath, and bilateral leg swelling that has been going on for about 4-5 weeks and worsened in the past week. She states she saw her hospice manager yesterday who recommended that she come into the ED, however patient was not able to come until today. Allergies: No Known Drug Allergies. Nuts. Shellfish Past Surgical History: Stent Placement Social History: Tobacco use (Currently on Nicotine patch). No ETOH or recreational drug use. Primary Care Physician: Dr. Artem Menezes [phone] Supervisor Files: Dr. Irving Lieberman [phone] <Helena Ovalle - Last Filed: 12/27/18 14:45> - Resident Resident Name: Torri Dominguez - ED Attending Attestation I have performed the following: I have examined & evaluated the patient, The case was reviewed & discussed with the resident, I agree w/resident's findings & plan, Exceptions are as noted - Physicial Exam PE: 12/27/18 16:31 Patient is awake and alert, obese, tachypneic and dyspneic; Normocephalic and atraumatic PERRLA, EOMI No JVD. Decreased air entry bilaterally; and expiratory wheezing is noted bilaterally; RRR +2 pitting edema bilaterally + - Medical Decision Making 12/27/18 16:33 Patient is a morbidly obese 63-year-old female with history of CAD, COPD, who presents with persistent dyspnea and pleuritic chest discomfort 1 week after undergoing a cardiac catheter with stenting. Patient was referred for PE rule out. Will obtain CTA of chest and lower extremity Doppler ultrasound. We'll administer Combivent and will consider Solu-Medrol or prednisone therapy depending on disposition. Will reconsult Dr. Lieberman regarding the CT results. <René Bedolla - Last Filed: 12/27/18 16:39> Attestations - Attestations 12/27/18 13:57 Documentation prepared by Helena Ovalle, acting as biomedical repair technician for René Bedolla MD <Helena Ovalle - Last Filed: 12/27/18 14:45>
--- NOTE | 2018-12-27 14:20 | PDOC ---
History of Present Illness - General Chief Complaint: Edema Stated Complaint: CAD S/P MULTIVESSEL Time Seen by Provider: 12/27/18 12:51 - History of Present Illness Initial Comments: 63F with PMH of PE, DE s/p multiple stents, DM, HTN, HLD, COPD, ANTONY, CVA/TIA sent by her repair manager for evaluation for PE. Patient reports chest pain, shortness of breath, and bilateral leg swelling that has been going on for about 4-5 weeks, but has worsened in the past week. She had a recent cardiac catheterization procedure on 12/20/18. Since that time she endorses feeling worse. The patient saw her repair manager yesterday who recommended that she come into the ED, however patient was not able to come until today. Currently endorsing 2/10 chest pain. Patient endorses associated vomiting when she has chest pain. She takes nitroglycerin when she feels chest pain; she last took 2 or 3 tablets at 6am this morning. Patient has had a PE in the past, but is unable to specify when or if there were any exacerbating factors. Denies hemoptysis, history of malignancy, or hormone use. Reports immobilization, bilateral leg pain (which she notes is chronic and has worsened bilaterally in the past week), and recent procedure (the cath on 12/20/18). Denies fever or chills. Past History - Past Medical History Allergies/Adverse Reactions: Allergies Allergy/AdvReac Type Severity Reaction Status Date / Time cashew nut Allergy Verified 12/27/18 12:25 shellfish derived Allergy Verified 12/27/18 12:25 Home Medications: Ambulatory Orders Oxycodone HCl [Roxicodone] 30 mg PO Q6H PRN 01/09/14 Nitroglycerin Sublingual [Nitrostat -] 0.4 mg SL Q5M PRN #0 tab 03/02/15 Aspirin Coated [Ecotrin -] 81 mg PO DAILY tablet.ec 03/14/16 Fluticasone/Vilanterol [Breo Ellipta 200-25 Mcg INH] 1 each IH DAILY 12/27/18 Furosemide [Lasix] 40 mg PO DAILY 12/27/18 Gabapentin 600 mg PO BID 12/27/18 Insulin Degludec [Tresiba Flextouch U-100] 34 unit SQ ASDIR 12/27/18 Levalbuterol HCl [Xopenex] 0.31 mg IH ASDIR 12/27/18 Losartan Potassium 50 mg PO DAILY 12/27/18 Losartan Potassium 50 mg PO DAILY 12/27/18 Pantoprazole Sodium 40 mg PO DAILY 12/27/18 Ranolazine [Ranexa] 1,000 mg PO BID 12/27/18 Rosuvastatin [Crestor -] 40 mg PO DAILY 12/27/18 Varenicline Tartrate [Chantix] 1 mg PO BID 12/27/18 Amlodipine Besylate 5 mg PO DAILY 12/28/18 Bupropion HCl [Wellbutrin Xl -] 150 mg PO BID 12/28/18 Clopidogrel Bisulfate [Plavix] 75 mg PO DAILY 12/28/18 Diltiazem HCl [Diltiazem 24Hr ER] 120 mg PO DAILY 12/28/18 Insulin NPH Hum/Reg Insulin Hm [Novolin 70-30 100 Unit/ml Vial] 100 units IM BID 12/28/18 Isosorbide Mononitrate [Isosorbide Mononitrate ER] 140 mg PO DAILY 12/28/18 Olmesartan Medoxomil [Benicar] 20 mg PO DAILY 12/28/18 Oxycodone HCl [Oxycontin] 80 mg PO BID 12/28/18 Umeclidinium Hunter [Incruse Ellipta] 1 inh IH DAILY 12/28/18 Anemia: No Asthma: Yes Cancer: No Cardiac Disorders: Yes (12 stents) CVA: Yes COPD: Yes CHF: No Dementia: No Diabetes: Yes (niddm) GI Disorders: No Disorders: No HTN: Yes Hypercholesterolemia: Yes Liver Disease: No Seizures: No Thyroid Disease: No - Surgical History Abdominal Surgery: Yes (hernia as a child) Appendectomy: No Cardiac Surgery: Yes (12 cardiac stents) Cholecystectomy: No Lung Surgery: No Neurologic Surgery: No Orthopedic Surgery: No - Immunization History Immunization Up to Date: Yes - Suicide/Smoking/Psychosocial Hx Smoking History: Current some day smoker Have you smoked in the past 12 months: Yes Number of Cigarettes Smoked Daily: 2 Information on smoking cessation initiated: No 'Breaking Loose' booklet given: 04/26/17 Hx Alcohol Use: No Drug/Substance Use Hx: No Substance Use Type: None Hx Substance Use Treatment: No Review of Systems - Review of Systems Comments:: Constitutional: no fever, no chills HEENT: no throat pain, no dysphagia Cardiovascular: +chest pain, no palpitations Respiratory: +cough, +shortness of breath Gastrointestinal: no abdominal pain, +vomiting Genitourinary: no dysuria, no frequency Musculoskeletal: +bilateral leg pain, +L. hip pain Skin: no rash, no itching Neurologic: no headache, no dizziness *Physical Exam - Vital Signs Last Vital Signs Temp Pulse Resp BP Pulse Ox 97.9 F 81 18 115/58 L 97 12/27/18 12:25 12/27/18 12:25 12/27/18 12:25 12/27/18 12:25 12/27/18 12:25 - Physical Exam Comments: General: Awake, alert, and fully oriented, in no acute distress Head: No signs of trauma Eyes: EOMI, sclera anicteric ENT: Moist mucus membranes Neck: Normal ROM, supple Lungs: Wheezes present diffusely Cardio: Regular rhythm, S1 and S2 present Abdomen: Soft, nontender. No guarding, no rebound, no masses Extremities: Normal range of motion, Distal pulses present, 2+ pitting edema SKIN: Warm, Dry, normal turgor Neurologic: Cranial nerves II through XII grossly intact. Normal speech Moderate Sedation - Procedure Monitoring Vital Signs: Procedure Monitoring Vital Signs Temperature 97.9 F 12/27/18 12:25 Pulse Rate 81 12/27/18 12:25 Respiratory Rate 18 12/27/18 12:25 Blood Pressure 115/58 L 12/27/18 12:25 O2 Sat by Pulse Oximetry (%) 97 12/27/18 12:25 ED Treatment Course - LABORATORY CBC & Chemistry Diagram: 12/28/18 06:00 12/28/18 06:00 - RADIOLOGY Radiology Studies Ordered: Category Date Time Status CHEST X-RAY PORTABLE* [RAD] Stat Radiology 12/27/18 13:57 Ordered Medical Decision Making - Medical Decision Making 63F with PMH of PE, DE s/p multiple stents, DM, HTN, HLD, COPD, ANTONY, CVA/TIA sent by her repair manager for evaluation for PE. Patient reports chest pain, shortness of breath, and bilateral leg swelling that has been going on for about 4-5 weeks, but has worsened in the past week. DDX including but not limited to PE, COPD exacerbation, CHF, Asthma exacerbation CBC, CMP, Cardiac Profile, PT/INR, PTT EKG: rate 81, QTc 469, "Sinus rhythm with occasional PVCs, low voltage QRS, Abnormal QRS-T angle, consider primary T wave abnormality. Abnormal ECG" Patient reports she is allergic to IV Contrast. Pre-medicated with 50mg Diphenhydramine and 125 solu-medrol 12/27/18 14:20 No anemia or leukocytosis Tpn=0.55, elevated from 0.1 on 12/19/18, however this is likely due to the recent cardiac procedure UFB=532.5 CXR: "mild bibasilar atelectasis" CTA and DVT studies negative for PE Spoke with Dr. Lieberman who recommends telemetry observation for this patient 12/27/18 19:[address] Avendaño who accepted patient for telemetry observation under Dr. Feldman 12/27/18 20:39 *DC/Admit/Observation/Transfer Diagnosis at time of Disposition: Unstable angina Chest pain Qualifiers: Chest pain type: unspecified Qualified Code(s): R07.9 - Chest pain, unspecified CAD (coronary artery disease) Qualifiers: Coronary Disease-Associated Artery/Lesion type: unspecified vessel or lesion type [place] vs. transplanted heart: [place] heart Associated angina: with stable angina Qualified Code(s): I25.118 - Atherosclerotic heart disease of [place] coronary artery with other forms of angina pectoris - Discharge Dispostion Condition at time of disposition: Guarded Decision to Admit order: Yes - Referrals - Patient Instructions - Post Discharge Activity
[2018-12-27 14:31] LABS: BASO % 1.1 % (0-2.0); EOS % 3.9 % (0-4.5); HEMATOCRIT 35.6 % (32.4-45.2); HEMOGLOBIN 12.1 GM/dL (10.7-15.3); LYMPH % 60.3 % (8-40); MCH 29.2 pg (25.7-33.7); MCHC 33.8 g/dl (32.0-36.0); MEAN CELL VOLUME 86.2 fl (80-96); MEAN PLT VOLUME 8.5 fl (7.5-11.1); MONO % 9.1 % (3.8-10.2); NEUT % 25.6 % (42.8-82.8); PLATELET COUNT 195 K/MM3 (134-434); RBC 4.13 M/mm3 (3.60-5.2); RDW 14.4 % (11.6-15.6); WHITE BLOOD COUNT 6.7 K/mm3 (4.0-10.0)
[2018-12-27 15:00] LABS: INR 1.1 (0.83-1.09)
[2018-12-27 15:03] LABS: ACTIVATED PTT 31.6 SECONDS (25.2-36.5)
[2018-12-27] MEDS ORDERED: ALBUTEROL SO4 2.5/IPRATROPIUM 0.5 INH SOL 3 ML VIAL.NEB. NEB ONE ×2 (15:05→15:08)
[2018-12-27 15:09] LABS: ALBUMIN 3.3 g/dl (3.4-5.0); ALK PHOS 92 U/L (45-117); ANION GAP 5 MMOL/L (8-16); BILIRUBIN,TOTAL 0.3 mg/dL (0.2-1); BLOOD UREA NITROGEN 27 mg/dL (7-18); CALCIUM 8.6 mg/dL (8.5-10.1); CHLORIDE 110 mmol/L (98-107); CO2 28 mmol/L (21-32); CREATININE 1.2 mg/dL (0.55-1.3); GLUCOSE,RANDOM 83 mg/dL (74-106); N-TERMINAL BNP 216.5 pg/ml (5-125); POTASSIUM 4.1 mmol/L (3.5-5.1); SGOT/AST 14 U/L (15-37); SGPT/ALT 18 U/L (13-61); SODIUM 142 mmol/L (136-145); TOT PROT 6.6 g/dl (6.4-8.2)
[2018-12-27 15:38] LABS: ANISOCYTOSIS 0; HELMET CELLS 0; HOWELL-JOLLY BODIES 0; MACROCYTOSIS 0; OVALOCYTE 0; PLATELET ESTIMATE NORMAL; ROULEAU 0; SICKELED CELLS 0; TARGET CELLS 0; TEAR DROP CELLS 0; TOXIC GRANULATION 0
[2018-12-27] MEDS ORDERED: methylPREDNISolone NA SUCC 125 MG/2 ML VIAL IVPUSH ONE (16:36)
[2018-12-27] MEDS ORDERED: EPINEPHrine/PF 1 MG/1 ML (1:1,000) AMPULE ONE (16:39)
[2018-12-27] MEDS ORDERED: methylPREDNISolone NA SUCC 125 MG/2 ML VIAL ONE ×2 (16:40→16:43)
--- NOTE | 2018-12-27 18:02 | CON.CARD ---
Cardiology Consult (text) - Consultation Consultation Note: Patient was referred to ER for further evaluation of chest pain. Attached below is my office note from 12/26/18 for further history. 63-year-old woman with the history of hypertension, hyperlipidemia, coronary artery disease with multiple prior stents, chronic angina, multiple episodes of in-stent restenosis, heavy smoking, cocaine use, this year underwent another PCI with two drug-eluting stents to restenosis of her OM1 lesion followed by acute stent thrombosis. She had acute renal insufficiency at the time thus cardiac catheterization was postponed until that and when catheterization was done she was found to have 100% stent thrombosis the recent stents. They were not revascularized out of concern because of her ongoing smoking and cocaine use, concern for another event of stent thrombosis thus she was medically managed and discharged home. On 06/13/18, PCI RCA again, Switched off Coreg and onto Cardizem CD. Just had another ACS and stent at [facility] last week.Diffuse Moderate LAD. Severe apical stenosis. Severe ostial D1, D2. Flush occlusion of ramus (stent)- distal vessel fills left to left, patent stent OM; multiple stents RCA, diffuse ISR. Had Laser atherectomy of ISR in the RCA followed by ballon PCIUsing CPAPREVIEW OF SYSTEMS:She continues to have chest pain and is using SLNTG very often. PAST MEDICAL HISTORY/PAST SURGICAL HISTORY: Hypertension, hyperlipidemia, diabetes type II which is uncontrolled, smoking, cocaine abuse, COPD, coronary artery disease with multiple interventions and PR as above, COPD, chronic diastolic heart failure.. CURRENT MEDICATIONS: Aspirin 81 mg daily, Plavix 75 mg daily, Lasix 40 mg daily , Ranexa 1000 mg b.i.d., isosorbide mononitrate 120 mg daily, gabapentin, crestor 40mg daily, amlodipine 10 mg daily, olmesartan 25 mg daily, metformin, lasix, Protonix, Welbutrin 150 BIDNot on beta casa due to wheezing and intermittent cocaine use. ALLERGIES: No known drug allergies. SOCIAL HISTORY: heavy smoker, quit 3, no alcohol. FAMILY HISTORY: No known history of PR or sudden cardiac . PHYSICAL EXAMINATION:Vital Signs: Blood pressure is 114/70. Heart rate is 82beats per minute. Respiratory rate is 16. General: nad, comfortableHEENT: No JVD. No carotid bruits.CVS: S1 and S2 normal, regular rate and rhythm, no murmur.Chest: slight exp wheezes throughout, no rales, or rhonchi.Abdomen: Soft, nontender, and nondistended. Bowel sounds are positive and normal. Extremities: trace edema. DP and PT pulses are 2+ bilateral.Neuro: CN II through XII intact, no focal deficits.Skin: Moist, no rash. DATA: EKG: Today- nsr 81, nsst abnmlNSR 71bpm, no acute changes.EKG-11/30/17- NSR 79bpm, PVC, nonspecific St depressions V4-V6, II, III, aVF no sig change from prior ekgsEKG 06/21/2017 Normal sinus rhythm, 86 beats per minute, ST depressions V3, V4, V5, V6, II, III and AVF possible inferior and lateral ischemia and anterior as well. ECHO 06/23/17:PW/CW Spectral/Color Flow Doppler: Mild to moderate MR. No AR. Mild TR. No CA. The estimated RVSP is 16 mmHg assuming an RAP of 10 mmHg. Theaortic valve peak gradient is 9 mmHg. There is E:A reversal consistent with left ventricular impaired relaxation.IMPRESSION: Technically difficult study.1. No pericardial effusion.2. Mild to moderate mitral regurgitation and mild tricuspid regurgitation.3. Grossly normal right ventricular systolic function.4. There is paradoxical septal motion of the left ventricle. 5. E:A reversal consistent with left ventricular impaired relaxation.6. Grossly normal left ventricular systolic function.cardiac cath 08/08/2016 [facility] Two-vessel CAD, ramus intermedius mid 80% to 90% in-stent restenosis, underwent successful interventional with PTCA and atherectomy PTCA, other residual CAD with a distal LAD of 90% to 95%, mid LAD 30% to 50%, distal left main less than 30%, RCA mid less than 30%, left circumflex proximal less than 30%, OM1 less than 30%, patent stents in the mid-RCA, distal RCA, mid LAD OM1.Last stress 06/30/2016 Modified [facility] protocol, stress ECG was negative, but target rate not achieved.- Data reviewed from her hospitalization including cardiac catheterization. IMPRESSION: 1. Coronary artery disease severe multivessel disease with stent thrombosis: and recent ISR RCA-Cont maximal medical Rx as above.-Try d/c Amlodipine, switch back to Cardizem CD 120 for added benefit of pulse lowering. May need to return to ER if chest pain continues. 2. Hypertension Adequately controlled.- cont current medical regimen 3. Hyperlipidemia.- Continue crestor 40 mg daily for goal LDL less than 70. 4. Risk factor modification.- Diabetes She will follow up with her PMD. - Recommend low-salt, low-cholesterol, and low-carbohydrate diet. - Smoking and cocaine cessation as above. 5. Mild edema: Cont Lasix
--- NOTE | 2018-12-27 20:39 | PN ---
Teaching Attending Note Name of Resident: Kole Avendaño ATTENDING PHYSICIAN STATEMENT I saw and evaluated the patient. I reviewed the resident's note and discussed the case with the resident. I agree with the resident's findings and plan as documented. SUBJECTIVE: Patient is a 63 year old woman with PMH of NIDDM, CVA, morbid obesity, COPD/ANTONY (on CPAP), PE (not on anticoagulation), cocaine use, tobacco use, diastolic CHF , hypertension, hyperlipidemia, coronary artery disease with multiple prior stents, chronic angina, multiple episodes of in-stent restenosis, this year underwent another PCI with two drug-eluting stents to restenosis of her OM1 lesion followed by acute stent thrombosis. She presents to the ER for complaint of intermittent chest pain, shortness of breath, and bilateral leg swelling that has been going on for about 4-5 weeks and worsened in the past week. She states she saw her rabble furnace tender yesterday who recommended that she come into the ER, however patient was not able to come until today. OBJECTIVE: Alert Vital Signs Period Temp Pulse Resp BP Sys/Adan Pulse Ox Last 24 Hr 97.9 F 81 18 115/58 97 HEENT: No Jaundice, eye redness or discharge, PERRLA, EOMI. Normocephalic, atraumatic. External ears are normal and hearing is grossly intact. No nasal discharge. Neck: Supple, nontender. No palpable adenopathy or thyromegaly. No JVD Chest: Good effort. Clear to auscultation and percussion. Heart: Regular. No S3, rub or murmur Abdomen: Not distended, soft, nontender and no HSM. No rebound or guarding. Normal bowel sounds. Ext: Peripheral pulses intact. Leg edema. Skin: Warm and dry. No petechiae, rash or ecchymosis. Neuro: Alert. Oriented x3. CN 2-12 grossly intact. Sensation grossly intact in all four extremities and DTR are symmetric. Psych: Emotionally labile. Sad mood; appropriate affect. Good insight. Home Medications Medication Instructions Recorded Oxycodone HCl [Roxicodone] 30 mg PO Q6H PRN 01/09/14 Nitroglycerin Sublingual 0.4 mg SL Q5M PRN #0 tab 03/02/15 [Nitrostat -] Aspirin Coated [Ecotrin -] 81 mg PO DAILY tablet.ec 03/14/16 Fluticasone/Vilanterol [Breo 1 each IH DAILY 12/27/18 Ellipta 200-25 Mcg INH] Furosemide [Lasix] 40 mg PO DAILY 12/27/18 Gabapentin 600 mg PO BID 12/27/18 Insulin Degludec [Tresiba 0 unit SQ ASDIR 12/27/18 Flextouch U-100] Levalbuterol HCl [Xopenex] 0.31 mg IH ASDIR 12/27/18 Losartan Potassium 50 mg PO DAILY 12/27/18 Losartan Potassium 50 mg PO DAILY 12/27/18 Pantoprazole Sodium 40 mg PO DAILY 12/27/18 Ranolazine [Ranexa] 1,000 mg PO DAILY 12/27/18 Rosuvastatin [Crestor -] 40 mg PO DAILY 12/27/18 Varenicline Tartrate [Chantix] 0.5 mg PO BID 12/27/18 Abnormal Lab Results 12/27/18 12/27/18 12/27/18 14:07 14:07 14:07 Neutrophils % 25.6 L Neutrophils % (Manual) 23.2 L Lymphocytes % 60.3 H Lymphocytes % (Manual) 64.7 H INR 1.10 H Chloride 110 H Anion Gap 5 L BUN 27 H AST 14 L Troponin I 0.55 H B-Natriuretic Peptide 216.5 H Albumin 3.3 L 12/27/18 19:00 Neutrophils % Neutrophils % (Manual) Lymphocytes % Lymphocytes % (Manual) INR Chloride Anion Gap BUN AST Troponin I 0.53 H B-Natriuretic Peptide Albumin ASSESSMENT AND PLAN: 1. Chest pain - No PE on CTA and no DVT on leg doppler. No acute ST-T wave changes on EKG. Though elevated troponin may be due to recent stent placement, will admit to telemetry to rule out ACS. Get ECHO, UA, repeat EKG and trend troponin. Continue lasix, daily standing weight and low salt diet. Cardiology consulted. Her multiple comorbid issues are likely causing depression - will get psychiatry consult and provide generous emotional support. 2. Hypoalbuminemia - Possibly due to combined effects of malnutrition and inflammation associated with comorbid chronic conditions. Will ensure adequate dietary protein intake and also consult pipe straightener. Will rule out proteinuria. 3. DM For now, we will hold the home diabetes drugs and implement sliding scale insulin regimen. Provide comprehensive diabetes care with patient teaching and counseling about the importance of adherence to prescribed diabetes regimen, euglycemia, eye care and foot care. 4. Tobacco Use Counseled on risks associated with tobacco use. We will provide patient all the necessary assistance to facilitate smoking cessation and prescribe Nicotine patch. 5. Morbid Obesity Counseled on the risks associated with obesity. Will provide patient all the necessary assistance, counseling and positive reinforcement to facilitate weight loss. Consult pipe straightener. 6. Hypertension - Restart outpatient antihypertensive drugs and revise regimen to ensure smooth [id number] good BP control. Nonpharmacologic measures to control hypertension like weight loss, salt restriction and exercise discussed. 7. DVT prophylaxis - Lovenox 40 mg SQ q 24 hours. 8. Advance directives - Full code
--- NOTE | 2018-12-27 21:23 | HP ---
CHIEF COMPLAINT: chest pain PCP: Dr. Menezes HISTORY OF PRESENT ILLNESS: Pt. is a 63 y.o. F with extensive comorbidities presents with worsening chest pain for the last week. Pt. states that over the last month she has been having intermittent chest pain associated with dyspnea, and lower extremity swelling. Last week Pt. went for a PCI and had symptomatic improvement. Pt. had Echo at that time which showed diffuse LAD stenosis, EF of 62% and LVH. Pt. was re-stented with a drug eluting stent and started on continued Plavix and Asa 81. Pt. was referred to the ED by Dr. Lieberman for observation in telemetry. Pt. endorses that she checks her sugar everyday( usually 150-170) and states that she takes 32 units of insulin and if her sugar is under 200 she does not take any Novolog. Pt. states that she is very sad about her decreasing quality of life and her dependance on others for assistance. Pt. is anxious about her increasing difficulty walking 2/2 pain and numbness/tingling. Pt. endorses dark red urine yesterday but states that it cleared up this morning. ( Of note Pt. had ALMA 2 weeks ago which delayed her PCI by 1 week). Pt. endorses a colonoscopy at 52 which was benign. Pt. states she is up to date on all her vaccines. Pt. endorses improving lower extremity swelling. Pt. endorses chronic lower back pain that radiates down both legs. Pt. states food liquid gets stuck midway down esophagus. Pt endorses stress incontinence associated with the feeling of incomplete voiding. Pt. was prescribed Pessary by her CONVENTION SERVICES MANAGER to minimal effect. Pt. denies any chest pain, shortness of breath, changes in bowel habits fevers, abdominal pain or overt suicidal ideation. Pt. did mention that she does not care if she dies on the table for surgery to fix her lower back pain as her quality of life is already so low. Pt. lives at home with her family. ER course was notable for: (1)EKG, Duplex, CTA (2)Troponin, Albuterol Tx., Lasix (3)Labs, Cardiology consult Recent Travel: No PAST MEDICAL HISTORY: HTN, HLD, CAD(x12-13 stents), CVA(no residual deficits), COPD, ANTONY (on CPAP), DM2, PE, herniated disc, sciatica, and Depression PAST SURGICAL HISTORY: Stents ( Last ~1 week ago at [facility] Social History: Smoking: On Chantix Alcohol: Denies Drugs: Hx. of Cocaine use and Opiate dependence Family History: Mom-Stomach cancer, HTN and SD; Father()-Prostate cancer ; Grandfather-Throat cancer and SD; Cousins and Aunts- Breast Cancer Allergies cashew nut Allergy (Verified 12/27/18 12:25) shellfish derived Allergy (Verified 12/27/18 12:25) HOME MEDICATIONS: Home Medications Medication Instructions Recorded Oxycodone HCl [Roxicodone] 30 mg PO Q6H PRN 01/09/14 Nitroglycerin Sublingual 0.4 mg SL Q5M PRN #0 tab 03/02/15 [Nitrostat -] Aspirin Coated [Ecotrin -] 81 mg PO DAILY tablet.ec 03/14/16 Fluticasone/Vilanterol [Breo 1 each IH DAILY 12/27/18 Ellipta 200-25 Mcg INH] Furosemide [Lasix] 40 mg PO DAILY 12/27/18 Gabapentin 600 mg PO BID 12/27/18 Insulin Degludec [Tresiba 0 unit SQ ASDIR 12/27/18 Flextouch U-100] Levalbuterol HCl [Xopenex] 0.31 mg IH ASDIR 12/27/18 Losartan Potassium 50 mg PO DAILY 12/27/18 Losartan Potassium 50 mg PO DAILY 12/27/18 Pantoprazole Sodium 40 mg PO DAILY 12/27/18 Ranolazine [Ranexa] 1,000 mg PO DAILY 12/27/18 Rosuvastatin [Crestor -] 40 mg PO DAILY 12/27/18 Varenicline Tartrate [Chantix] 0.5 mg PO BID 12/27/18 REVIEW OF SYSTEMS CONSTITUTIONAL: Absent: fever, chills, diaphoresis, generalized weakness, malaise, loss of appetite, weight change HEENT: difficulty swallowing Absent: rhinorrhea, nasal congestion, throat pain, throat swelling, mouth swelling, ear pain, eye pain, visual changes CARDIOVASCULAR: chest pain Absent: syncope, palpitations, irregular heart rate, lightheadedness, peripheral edema RESPIRATORY: shortness of breath, dyspnea with exertion, Absent: cough, orthopnea, wheezing, stridor, hemoptysis GASTROINTESTINAL: Absent: abdominal pain, abdominal distension, nausea, vomiting, diarrhea, constipation, melena, hematochezia GENITOURINARY: hematuria Absent: dysuria, frequency, urgency, hesitancy, flank pain, genital pain MUSCULOSKELETAL: back pain Absent: myalgia, arthralgia, joint swelling, neck pain SKIN: Absent: rash, itching, pallor HEMATOLOGIC/IMMUNOLOGIC: Absent: easy bleeding, easy bruising, lymphadenopathy, frequent infections ENDOCRINE: Absent: unexplained weight gain, unexplained weight loss, heat intolerance, cold intolerance NEUROLOGIC: unsteady gait, bladder incontinence Absent: headache, focal weakness or paresthesias, dizziness, seizure, mental status changes, PSYCHIATRIC: depression Absent: anxiety, suicidal or homicidal ideation, hallucinations. PHYSICAL EXAMINATION Vital Signs - 24 hr 12/27/18 12:25 Temperature 97.9 F Pulse Rate 81 Respiratory 18 Rate Blood Pressure 115/58 L O2 Sat by Pulse 97 Oximetry (%) GENERAL: Awake, alert, and fully oriented, in mild psychiatric distress. HEAD: Normal with no signs of trauma. EYES: Pupils equal, round and reactive to light, sclera anicteric, conjunctiva clear. No lid lag. EARS, NOSE, THROAT: Ears normal, nares patent, oropharynx clear without exudates. Moist mucous membranes. NECK: Normal range of motion, supple without lymphadenopathy, JVD, carotid bruit or masses. LUNGS: Decreased BS( d/y body habitus), mild ronchi, no wheezing, no accessory muscle use HEART: Regular rate and rhythm, normal S1 and S2 without murmur- limited d/t body habitus ABDOMEN: Soft, nontender, not distended, normoactive bowel sounds MUSCULOSKELETAL: No CVA tenderness. UPPER EXTREMITIES: 2+ radial pulses, warm, well-perfused. No cyanosis. No clubbing. No peripheral edema. LOWER EXTREMITIES: warm, well-perfused. No calf tenderness. Trace edema. NEUROLOGICAL: Normal speech. Gait not observed PSYCHIATRIC: Cooperative. Good eye contact. Tearful, endorses feeling sad most days of the week. SKIN: Warm, dry, normal turgor, no rashes or lesions noted, normal capillary refill. Laboratory Results - last 24 hr 12/27/18 12/27/18 12/27/18 14:07 14:07 14:07 WBC 6.7 RBC 4.13 Hgb 12.1 Hct 35.6 D MCV 86.2 MCH 29.2 MCHC 33.8 RDW 14.4 Plt Count 195 D MPV 8.5 Absolute Neuts (auto) 1.7 Neutrophils % 25.6 L Neutrophils % (Manual) 23.2 L Band Neutrophils % 0.0 Lymphocytes % 60.3 H Lymphocytes % (Manual) 64.7 H Monocytes % 9.1 Monocytes % (Manual) 8 Eosinophils % 3.9 D Eosinophils % (Manual) 4.0 Basophils % 1.1 Basophils % (Manual) 0.0 Myelocytes % (Man) 0 Promyelocytes % (Man) 0 Blast Cells % (Manual) 0 Nucleated RBC % 0 Metamyelocytes 0 Hypochromia 0 Toxic Granulation 0 Dohle Bodies 0 Platelet Estimate Normal Polychromasia 0 Poikilocytosis 0 Basophilic Stippling 0 Anisocytosis 0 Microcytosis 0 Macrocytosis 0 Spherocytes 0 Sickle Cells 0 Target Cells 0 Tear Drop Cells 0 Ovalocytes 0 Stomatocytes 0 Helmet Cells 0 [place] Bodies 0 [place] Rings 0 [place] Cells 0 Acanthocytes (Spur) 0 Rouleaux 0 Fragmented RBCs 0 Schistocytes 0 PT with INR 13.00 INR 1.10 H PTT (Actin FS) 31.6 Sodium 142 Potassium 4.1 Chloride 110 H Carbon Dioxide 28 Anion Gap 5 L BUN 27 H Creatinine 1.2 Creat Clearance w eGFR 45.67 Random Glucose 83 Calcium 8.6 Total Bilirubin 0.3 AST 14 L ALT 18 Alkaline Phosphatase 92 Creatine Kinase 63 Troponin I 0.55 H B-Natriuretic Peptide 216.5 H Total Protein 6.6 Albumin 3.3 L 12/27/18 19:00 WBC RBC Hgb Hct MCV MCH MCHC RDW Plt Count MPV Absolute Neuts (auto) Neutrophils % Neutrophils % (Manual) Band Neutrophils % Lymphocytes % Lymphocytes % (Manual) Monocytes % Monocytes % (Manual) Eosinophils % Eosinophils % (Manual) Basophils % Basophils % (Manual) Myelocytes % (Man) Promyelocytes % (Man) Blast Cells % (Manual) Nucleated RBC % Metamyelocytes Hypochromia Toxic Granulation Dohle Bodies Platelet Estimate Polychromasia Poikilocytosis Basophilic Stippling Anisocytosis Microcytosis Macrocytosis Spherocytes Sickle Cells Target Cells Tear Drop Cells Ovalocytes Stomatocytes Helmet Cells [place] Bodies [place] Rings [place] Cells Acanthocytes (Spur) Rouleaux Fragmented RBCs Schistocytes PT with INR INR PTT (Actin FS) Sodium Potassium Chloride Carbon Dioxide Anion Gap BUN Creatinine Creat Clearance w eGFR Random Glucose Calcium Total Bilirubin AST ALT Alkaline Phosphatase Creatine Kinase 53 Troponin I 0.53 H B-Natriuretic Peptide Total Protein Albumin ASSESSMENT/PLAN: Pt. is a 63 y.o. F w/ PMHx. of HTN, HLD, CAD(x12-13 stents), CVA(no residual deficits), COPD, ANTONY (on CPAP), DM2, PE, herniated disc, sciatica, and Depression presents with worsening chest pain s/p 1 week after PCI. #R/o ACS case discussed with Dr. Lieberman by ED resident, will hold Heparin c/w ASA and Plavix c/w home medications EKG does not show any ST segment changes Troponins trending down ).55-->0.53 Would benefit from knowing if baseline Troponin was measured 1 week ago? Is this a slow decline from a higher Tropinemia? How long is the natural decline of Troponin? #R/O PE/ DVT CTA negative Duplex negative #Depression c/w Wellbutrin f/u Psych consult- would benefit from an SSRI in addition to Wellbutrin #ALMA on CKD f/u UA If CKD would be stage 3a as Pt. has eGFR of ~45 for last 2 years. #DM2 ISS TIDAC BGM TIDAC f/u A1c Pt. interested in seeing an butadiene converter operator #Dysphagia Pt. states food liquid gets stuck midway down esophagus May benefit from Barium Swallow f/u Speech and Sw[place] reccomendations #HTN/HLD c/w home medications #FEN encourgage PO intake monitor electrolyte replete as needed encourage PO intake #DVT Ppx. SCDs Visit type - Emergency Visit Emergency Visit: Yes ED Registration Date: 12/27/18 Care time: The patient presented to the Emergency Department on the above date and was hospitalized for further evaluation of their emergent condition. - New Patient This patient is new to me today: Yes Date on this admission: 12/28/18 - Critical Care Critical Care patient: No
[2018-12-27] MEDS ORDERED: NITROGLYCERIN SUBLINGUAL 1/150 0.4 MG TAB SL PRN (22:17)
[2018-12-27] MEDS ORDERED: LEVALBUTEROL HCL 0.31 MG/3 ML VIAL.NEB IH SCH (22:30)
[2018-12-27] MEDS ORDERED: ALBUTEROL SO4 0.083% IH SOL 2.5 MG/3 ML VIAL.NEB. NEB PRN (22:40)
[2018-12-28] MEDS ORDERED: RANOLAZINE E.R. 1,000 MG TABLET (FP) PO ONE (03:24)
[2018-12-28 04:42] VITALS: BMI 40.8
[2018-12-28] MEDS ORDERED: ALPRAZolam 0.25 MG TABLET PO ONE (05:10)
[2018-12-28] MEDS: INSULIN SLIDING SCALE (NOVOLOG) 1 VIAL SQ SCH ×3 (06:46→17:01)
[2018-12-28 07:36] LABS: HEMATOCRIT 33.7 % (32.4-45.2); HEMOGLOBIN 11.1 GM/dL (10.7-15.3); MCH 28.1 pg (25.7-33.7); MCHC 32.9 g/dl (32.0-36.0); MEAN CELL VOLUME 85.4 fl (80-96); MEAN PLT VOLUME 8.6 fl (7.5-11.1); PLATELET COUNT 198 K/MM3 (134-434); RBC 3.94 M/mm3 (3.60-5.2); RDW 14.7 % (11.6-15.6); WHITE BLOOD COUNT 5.4 K/mm3 (4.0-10.0)
[2018-12-28 08:12] LABS: ANION GAP 7 MMOL/L (8-16); BLOOD UREA NITROGEN 24 mg/dL (7-18); CALCIUM 8.7 mg/dL (8.5-10.1); CHLORIDE 104 mmol/L (98-107); CO2 25 mmol/L (21-32); CREATININE 1.2 mg/dL (0.55-1.3); GLUCOSE,RANDOM 294 mg/dL (74-106); PHOSPHOROUS 2.8 mg/dL (2.5-4.9); POTASSIUM 4.3 mmol/L (3.5-5.1); SODIUM 136 mmol/L (136-145)
--- NOTE | 2018-12-28 09:32 | PN ---
Progress Note, Physician Chief Complaint: Seen and examined. Episodes of chest pain last evening. Required SLNTG Enzymes are flat. ECG NSR, VPC, no acute ST changes. TELE: NSR, rare VPCs - Current Medication List Current Medications: Active Medications Albuterol Sulfate (Ventolin 0.083% Nebulizer Soln -) 1 amp NEB Q6H PRN PRN Reason: SHORT OF BREATH/WHEEZING Amlodipine Besylate (Norvasc -) 5 mg PO DAILY [facility] Aspirin (Ecotrin -) 81 mg PO DAILY [facility] Clopidogrel Bisulfate (Plavix -) 75 mg PO DAILY [facility] Furosemide (Lasix -) 40 mg PO DAILY [facility] Gabapentin (Neurontin -) 600 mg PO BID [facility] Insulin Aspart (Novolog Vial Sliding Scale -) 1 vial SQ TIDAC [facility]; Protocol Last Admin: 12/28/18 06:46 Dose: 8 units Isosorbide Dinitrate (Isordil -) 10 mg PO BID [facility] Losartan Potassium (Cozaar -) 50 mg PO DAILY [facility] Nitroglycerin (Nitrostat -) 0.4 mg SL Q5M PRN PRN Reason: FOR CHEST PAIN Non-Formulary Medication (Fluticasone/Vilanterol [Breo Ellipta 200-25 Mcg Inh]) 1 each IH DAILY [facility] Oxycodone HCl (Roxicodone -) 30 mg PO Q6H PRN PRN Reason: BREAKTHROUGH PAIN Oxycodone HCl (Oxycontin -) 80 mg PO BID [facility] Pantoprazole Sodium (Protonix -) 40 mg PO DAILY [facility] Ranolazine (Ranexa -) 1,000 mg PO BID [facility] Rosuvastatin Calcium (Crestor -) 40 mg PO HS [facility] Varenicline (Chantix -) 0.5 mg PO BID [facility] - Objective Vital Signs: Vital Signs Temperature 98.1 F 12/28/18 05:30 Pulse Rate 90 12/28/18 05:30 Respiratory Rate 20 12/28/18 05:30 Blood Pressure 121/60 12/28/18 05:30 O2 Sat by Pulse Oximetry (%) 97 12/28/18 04:10 Constitutional: Yes: No Distress Eyes: Yes: Conjunctiva Clear Cardiovascular: Yes: Regular Rate and Rhythm Respiratory: Yes: CTA Bilaterally (no active wheezing.) Gastrointestinal: Yes: Soft Edema: No Neurological: Yes: Alert, Oriented ...Motor Strength: WNL Labs: CBC, BMP 03/14/19 06:00 12/28/18 06:00 INR, PTT INR 1.10 (0.83-1.09) H 12/27/18 14:07 Laboratory Tests 12/27/18 12/27/18 12/27/18 14:07 19:00 23:20 Creatine Kinase 63 53 51 Troponin I 0.55 H 0.53 H 0.48 H - ....Imaging EKG: Image Reviewed Assessment/Plan IMP: 1. CAD, s/p multiple MIs and multivessel PCI most recently ISR RCA w/ laser atherectomy and ballon PCI ([facility] several weeks ago) (Moderate LAD stenosis, severe apical LAD lesion; severe stenosis D1/D2; occluded ramus filling from L-->L collaterals) 2. Chronic HTN 3. Substance abuse (cocaine, last 2 days ago) 4. Smoker 5. Chronic angina with escalating symptoms over last several days. 6. Chronic diastolic CHF Plan was to manage residual disease medically given size of vessels and distal disease, now admitted for chest pain. REC: 1. Beta blockers are relatively contraindicated with recent and ongoing cocaine use (concern for unopposed alpha constriction). 2. To continue ASA/Plavix and high intensity statin. 3. Continue Ranexa 1000mg BID. Cannot use Diltiazem as it interacts with Ranexa. Continue Amlodipine 5mg daily. 4. Change Imdur to Isordil and titrate as symptoms and BP allow. 5. Maintain Losartan and current Lasix dose, euvolemic. 6. Echo today for wall motion, EF, evaluate pericardium (r/o post AK effusion, although ECG not suggestive pericarditis). CTA negative for pulmonary embolism. 7. Continue telemetry. 8. Needs substance abuse counselling and strong consideration for rehab 9. Counselled on smoking cessation. 10. Will review cath and anatomy with interventional cardiology. If angina refractory to medical therapy, may need to repeat cath.
[2018-12-28] MEDS ORDERED: RANOLAZINE E.R. 1,000 MG TABLET (FP) PO SCH (10:00)
[2018-12-28] MEDS ORDERED: RANOLAZINE E.R. 500 MG TABLET (FP) PO SCH (10:00)
[2018-12-28] MEDS ORDERED: PATIENT'S OWN MEDICATION (NON-FORMULARY) (Fluticasone/Vilanterol [Breo Ellipta 200-25 Mcg IH SCH (10:00)
--- NOTE | 2018-12-28 10:49 | EKG ---
Test Reason : Blood Pressure : / mmHG Vent. Rate : 091 BPM Atrial Rate : 091 BPM P-R Int : 178 ms QRS Dur : 110 ms QT Int : 398 ms P-R-T Axes : 033 010 089 degrees QTc Int : 489 ms SINUS RHYTHM WITH OCCASIONAL PREMATURE VENTRICULAR COMPLEXES OTHERWISE NORMAL ECG WHEN COMPARED WITH ECG OF 27-DEC-2018 12:24, NO SIGNIFICANT CHANGE WAS FOUND Confirmed by MARCIA PEREZ MD ([id number]) on 12/28/2018 10:48:42 AM Referred By: Confirmed By:MARCIA PEREZ MD
--- NOTE | 2018-12-28 10:53 | EKG ---
Test Reason : Blood Pressure : / mmHG Vent. Rate : 081 BPM Atrial Rate : 081 BPM P-R Int : 172 ms QRS Dur : 098 ms QT Int : 404 ms P-R-T Axes : 029 002 103 degrees QTc Int : 469 ms SINUS RHYTHM WITH OCCASIONAL PREMATURE VENTRICULAR COMPLEXES LOW VOLTAGE QRS ABNORMAL QRS-T ANGLE, CONSIDER PRIMARY T WAVE ABNORMALITY ABNORMAL ECG WHEN COMPARED WITH ECG OF 26-APR-2017 15:44, PREMATURE VENTRICULAR COMPLEXES ARE NOW PRESENT Confirmed by MARCIA PEREZ MD ([id number]) on 12/28/2018 10:53:27 AM Referred By: Confirmed By:MARCIA PEREZ MD
[2018-12-28] MEDS: VARENICLINE TARTRATE 0.5 MG TAB PO SCH ×2 (11:04→21:21)
[2018-12-28] MEDS: ASPIRIN COATED 81 MG TABLET.EC PO SCH (11:05)
[2018-12-28] MEDS: LOSARTAN POTASSIUM 50 MG TABLET (FP) PO SCH (11:05)
[2018-12-28] MEDS: FUROSEMIDE 40 MG TABLET (FP) PO SCH (11:06)
[2018-12-28] MEDS: GABAPENTIN 300 MG CAPSULE (FP) PO SCH ×2 (11:06→21:21)
[2018-12-28] MEDS: ISOSORBIDE DINITRATE 10 MG TABLET (FP) PO SCH ×2 (11:06→21:21)
[2018-12-28] MEDS: amLODIPine BESYLATE 5 MG TABLET (FP) PO SCH (11:07)
[2018-12-28] MEDS: oxyCODONE HCL 20 MG SUSTAINED ACTING TABLET PO SCH ×2 (11:07→21:19)
[2018-12-28] MEDS: CLOPIDOGREL BISULFATE 75 MG TABLET (FP) PO SCH (11:10)
[2018-12-28] MEDS: PANTOPRAZOLE 40 MG TABLET (FP) PO SCH (11:10)
[2018-12-28] MEDS: RANOLAZINE E.R. 1,000 MG TABLET (FP) PO SCH ×2 (11:11→21:21)
--- NOTE | 2018-12-28 12:00 | CON.PULM ---
Consult Consult Specialty:: PULMONARY Referred by:: Dr Lieberman Reason for Consultation:: CPAP settings - History of Present Illness Chief Complaint: chest pain History of Present Illness: 63yo female with h/o HTN, DM, CAD, COPD, ANTONY on home CPAP, h/o CVA former long time smoker, recent stent placement who was admitted with chest pain and shortness of breath. Chest pain similar to prior anginal pain associated with shortness of breath. Also reports increase in her leg swelling. No fevers, chills or sweats. +nonproductive cough and wheezing during these episodes but none currently. Reports compliance with her inhalers at home and CPAP at night. Stopped smoking after starting Chantix. 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: CVA, TIA Cardio/Vascular: Yes: CAD, HTN, Hyperlipdemia, MD Pulmonary: Yes: Asthma, Sleep Apnea Endocrine: Yes: Diabetes Mellitus - Past Surgical History Past Surgical History: Yes: Stent - Alcohol/Substance Use Hx Alcohol Use: No History of Substance Use: reports: None, Cocaine - Smoking History Smoking history: Current some day smoker Have you smoked in the past 12 months: Yes Aproximately how many cigarettes per day: 2 - Social History ADL: Support Services History of Recent Travel: No Home Medications - Allergies Allergies/Adverse Reactions: Allergies Allergy/AdvReac Type Severity Reaction Status Date / Time cashew nut Allergy Verified 12/27/18 12:25 shellfish derived Allergy Verified 12/27/18 12:25 - Home Medications Home Medications: Ambulatory Orders Oxycodone HCl [Roxicodone] 30 mg PO Q6H PRN 01/09/14 Nitroglycerin Sublingual [Nitrostat -] 0.4 mg SL Q5M PRN #0 tab 03/02/15 Aspirin Coated [Ecotrin -] 81 mg PO DAILY tablet.ec 03/14/16 Fluticasone/Vilanterol [Breo Ellipta 200-25 Mcg INH] 1 each IH DAILY 12/27/18 Furosemide [Lasix] 40 mg PO DAILY 12/27/18 Gabapentin 600 mg PO BID 12/27/18 Insulin Degludec [Tresiba Flextouch U-100] 0 unit SQ ASDIR 12/27/18 Levalbuterol HCl [Xopenex] 0.31 mg IH ASDIR 12/27/18 Losartan Potassium 50 mg PO DAILY 12/27/18 Losartan Potassium 50 mg PO DAILY 12/27/18 Pantoprazole Sodium 40 mg PO DAILY 12/27/18 Ranolazine [Ranexa] 1,000 mg PO BID 12/27/18 Rosuvastatin [Crestor -] 40 mg PO DAILY 12/27/18 Varenicline Tartrate [Chantix] 0.5 mg PO BID 12/27/18 Oxycodone HCl [Oxycontin] 80 mg PO BID 12/28/18 Review of Systems - Review of Systems Constitutional: denies: Chills, Fever Eyes: denies: Recent Change in Vision HENT: denies: Nasal Congestion, Throat Pain Neck: denies: Tenderness Cardiovascular: reports: Chest Pain, Edema, Shortness of Breath. denies: Palpitations Respiratory: reports: Cough, SOB on Exertion, Wheezing. denies: Hemoptysis Gastrointestinal: denies: Abdominal Pain, Nausea, Vomiting Genitourinary: denies: Dysuria, Hematuria Neurological: denies: Dizziness, Headache Endocrine: denies: Unexplained Weight Loss Physical Exam Vital Sings: Vital Signs Temperature 97.8 F 12/28/18 09:00 Pulse Rate 82 12/28/18 09:00 Respiratory Rate 20 12/28/18 09:00 Blood Pressure 142/72 12/28/18 09:00 O2 Sat by Pulse Oximetry (%) 97 12/28/18 04:10 Constitutional: Yes: Calm Eyes: Yes: Conjunctiva Clear, EOM Intact HENT: Yes: Atraumatic, Normocephalic Neck: Yes: Supple, Trachea Midline Cardiovascular: Yes: Regular Rate and Rhythm Respiratory: Yes: Diminished (distant breath sounds) ...Clubbing: No Gastrointestinal: Yes: Normal Bowel Sounds, Soft. No: Tenderness Edema: No Neurological: Yes: Alert, Oriented Labs: CBC, BMP 12/28/18 06:00 12/28/18 06:00 Imaging - Results Chest X-ray: Report Reviewed, Image Reviewed Cat Scan: Report Reviewed, Image Reviewed (no PE, mild atelectasis, no infiltrates) Problem List - Problems (1) CAD (coronary artery disease) Code(s): I25.10 - ATHSCL HEART DISEASE OF [place] CORONARY ARTERY W/O ANG PCTRS Qualifiers: Coronary Disease-Associated Artery/Lesion type: unspecified vessel or lesion type [place] vs. transplanted heart: [place] heart Associated angina: with stable angina Qualified Code(s): I25.118 - Atherosclerotic heart disease of [place] coronary artery with other forms of angina pectoris (2) COPD (chronic obstructive pulmonary disease) Code(s): J44.9 - CHRONIC OBSTRUCTIVE PULMONARY DISEASE, UNSPECIFIED Qualifiers: COPD type: chronic bronchitis (3) Chest pain Code(s): R07.9 - CHEST PAIN, UNSPECIFIED Qualifiers: Chest pain type: unspecified Qualified Code(s): R07.9 - Chest pain, unspecified (4) Diabetes Code(s): E11.9 - TYPE 2 DIABETES MELLITUS WITHOUT COMPLICATIONS Qualifiers: Diabetes mellitus type: type 2 Diabetes mellitus prison insulin use: without anesthesiology faculty use Diabetes mellitus complication status: with circulatory complication (5) History of CVA (cerebrovascular accident) Code(s): Z86.73 - PRSNL HX OF TIA (TIA), AND CEREB INFRC W/O RESID DEFICITS (6) Hyperlipidemia Code(s): E78.5 - HYPERLIPIDEMIA, UNSPECIFIED Qualifiers: Hyperlipidemia type: unspecified Qualified Code(s): E78.5 - Hyperlipidemia , unspecified (7) Hypertension Code(s): I10 - ESSENTIAL (PRIMARY) HYPERTENSION Qualifiers: Hypertension type: essential hypertension Qualified Code(s): I10 - Essential (primary) hypertension (8) Obesity Code(s): E66.9 - OBESITY, UNSPECIFIED (9) Sleep apnea Code(s): G47.30 - SLEEP APNEA, UNSPECIFIED (10) Type 2 diabetes mellitus Code(s): E11.9 - TYPE 2 DIABETES MELLITUS WITHOUT COMPLICATIONS Qualifiers: Diabetes mellitus complication status: with neurologic complications Diabetes mellitus complication detail: with polyneuropathy Assessment/Plan Chest Pain Extensive CAD +Troponins COPD Morbid Obesity Obstructive Sleep Apnea HTN DM h/o CVA - cardiac work up in progress - pt normally on Breo and Incruse as outpt but not on formulary - will start on Symbicort and Spiriva while inpatient - received medrol in the ER, can defer further steroids at this time - will order CPAP at night - DVT prophylaxis Thank you for this consult Sander Salomon MD
[2018-12-28] MEDS ORDERED: LEVALBUTEROL HCL 0.31 MG/3 ML VIAL.NEB IH PRN (12:05)
--- NOTE | 2018-12-28 12:46 | PN ---
Physical Exam: SUBJECTIVE: Patient seen and examined at bedside. No chest or other pain at time of encounter, did experience waxing/waning chest pain throughout night. Restarted on home pain meds. OBJECTIVE: Vital Signs Period Temp Pulse Resp BP Sys/Adan Pulse Ox Last 24 Hr 97.8 F-98.3 F 81-90 18-20 115-142/58-80 97-97 GENERAL: A&Ox3, NAD HEENT: NC/AT, PERRLA, EOMI, MMM NECK: Trachea midline, full range of motion, supple. LUNGS: CTA b/l HEART: RRR no m/r/g ABDOMEN: +bs, soft, NT, obese EXTREMITIES: 2+ pulses, warm, well-perfused, no pitting edema appreciated, Pt states legs are chronically swollen NEUROLOGICAL: travel rn, motor, sensory systems w/o focal deficit PSYCH: Anxious, depressed SKIN: Warm, dry, normal turgor, no rashes or lesions noted Laboratory Results - last 24 hr 12/27/18 12/27/18 12/27/18 14:07 14:07 14:07 WBC 6.7 RBC 4.13 Hgb 12.1 Hct 35.6 D MCV 86.2 MCH 29.2 MCHC 33.8 RDW 14.4 Plt Count 195 D MPV 8.5 Absolute Neuts (auto) 1.7 Neutrophils % 25.6 L Neutrophils % (Manual) 23.2 L Band Neutrophils % 0.0 Lymphocytes % 60.3 H Lymphocytes % (Manual) 64.7 H Monocytes % 9.1 Monocytes % (Manual) 8 Eosinophils % 3.9 D Eosinophils % (Manual) 4.0 Basophils % 1.1 Basophils % (Manual) 0.0 Myelocytes % (Man) 0 Promyelocytes % (Man) 0 Blast Cells % (Manual) 0 Nucleated RBC % 0 Metamyelocytes 0 Hypochromia 0 Toxic Granulation 0 Dohle Bodies 0 Platelet Estimate Normal Polychromasia 0 Poikilocytosis 0 Basophilic Stippling 0 Anisocytosis 0 Microcytosis 0 Macrocytosis 0 Spherocytes 0 Sickle Cells 0 Target Cells 0 Tear Drop Cells 0 Ovalocytes 0 Stomatocytes 0 Helmet Cells 0 Agrawal-Evans Bodies 0 [place] Rings 0 Jose Luis Cells 0 Acanthocytes (Spur) 0 Rouleaux 0 Fragmented RBCs 0 Schistocytes 0 PT with INR 13.00 INR 1.10 H PTT (Actin FS) 31.6 Sodium 142 Potassium 4.1 Chloride 110 H Carbon Dioxide 28 Anion Gap 5 L BUN 27 H Creatinine 1.2 Creat Clearance w eGFR 45.67 POC Glucometer Random Glucose 83 Calcium 8.6 Phosphorus Magnesium Total Bilirubin 0.3 AST 14 L ALT 18 Alkaline Phosphatase 92 Creatine Kinase 63 Troponin I 0.55 H B-Natriuretic Peptide 216.5 H Total Protein 6.6 Albumin 3.3 L 12/27/18 12/27/18 12/27/18 19:00 23:20 23:20 WBC RBC Hgb Hct MCV MCH MCHC RDW Plt Count MPV Absolute Neuts (auto) Neutrophils % Neutrophils % (Manual) Band Neutrophils % Lymphocytes % Lymphocytes % (Manual) Monocytes % Monocytes % (Manual) Eosinophils % Eosinophils % (Manual) Basophils % Basophils % (Manual) Myelocytes % (Man) Promyelocytes % (Man) Blast Cells % (Manual) Nucleated RBC % Metamyelocytes Hypochromia Toxic Granulation Dohle Bodies Platelet Estimate Polychromasia Poikilocytosis Basophilic Stippling Anisocytosis Microcytosis Macrocytosis Spherocytes Sickle Cells Target Cells Tear Drop Cells Ovalocytes Stomatocytes Helmet Cells Agrawal-Evans Bodies [place] Rings Jose Luis Cells Acanthocytes (Spur) Rouleaux Fragmented RBCs Schistocytes PT with INR INR PTT (Actin FS) Sodium Potassium Chloride Carbon Dioxide Anion Gap BUN Creatinine Creat Clearance w eGFR POC Glucometer Random Glucose Calcium Phosphorus Magnesium Total Bilirubin AST ALT Alkaline Phosphatase Creatine Kinase 53 51 Troponin I 0.53 H 0.48 H Cancelled B-Natriuretic Peptide Total Protein Albumin 12/28/18 12/28/18 12/28/18 06:00 06:00 06:39 WBC 5.4 RBC 3.94 Hgb 11.1 Hct 33.7 MCV 85.4 MCH 28.1 MCHC 32.9 RDW 14.7 Plt Count 198 MPV 8.6 Absolute Neuts (auto) Neutrophils % Neutrophils % (Manual) Band Neutrophils % Lymphocytes % Lymphocytes % (Manual) Monocytes % Monocytes % (Manual) Eosinophils % Eosinophils % (Manual) Basophils % Basophils % (Manual) Myelocytes % (Man) Promyelocytes % (Man) Blast Cells % (Manual) Nucleated RBC % Metamyelocytes Hypochromia Toxic Granulation Dohle Bodies Platelet Estimate Polychromasia Poikilocytosis Basophilic Stippling Anisocytosis Microcytosis Macrocytosis Spherocytes Sickle Cells Target Cells Tear Drop Cells Ovalocytes Stomatocytes Helmet Cells Agrawal-Evans Bodies [place] Rings [place] Cells Acanthocytes (Spur) Rouleaux Fragmented RBCs Schistocytes PT with INR INR PTT (Actin FS) Sodium 136 Potassium 4.3 Chloride 104 Carbon Dioxide 25 Anion Gap 7 L BUN 24 H Creatinine 1.2 Creat Clearance w eGFR 45.67 POC Glucometer 310 Random Glucose 294 H Calcium 8.7 Phosphorus 2.8 Magnesium 2.0 Total Bilirubin AST ALT Alkaline Phosphatase Creatine Kinase Troponin I B-Natriuretic Peptide Total Protein Albumin Active Medications Generic Name Dose Route Start Last Admin Trade Name Freq PRN Reason Stop Dose Admin Amlodipine Besylate 5 mg 12/28/18 10:00 12/28/18 11:07 Norvasc - PO 5 mg DAILY CELESTE Administration Aspirin 81 mg 12/28/18 10:00 12/28/18 11:05 Ecotrin - PO 81 mg DAILY CELESTE Administration Budesonide/Formoterol Fumarate 2 puff 12/28/18 12:15 Symbicort 160/4.5mcg - IH BID [facility] Clopidogrel Bisulfate 75 mg 12/28/18 10:00 12/28/18 11:10 Plavix - PO 75 mg DAILY CELESTE Administration Furosemide 40 mg 12/28/18 10:00 12/28/18 11:06 Lasix - PO 40 mg DAILY CELESTE Administration Gabapentin 600 mg 12/28/18 10:00 12/28/18 11:06 Neurontin - PO 600 mg BID CELESTE Administration Insulin Aspart 1 vial 12/28/18 07:00 12/28/18 06:46 Novolog Vial Sliding Scale - SQ 8 units TIDAC CELESTE Administration Protocol Isosorbide Dinitrate 10 mg 12/28/18 10:00 12/28/18 11:06 Isordil - PO 10 mg BID CELESTE Administration Levalbuterol HCl 0.31 mg 12/28/18 12:05 Xopenex IH Q8H PRN ASTHMA Losartan Potassium 50 mg 12/28/18 10:00 12/28/18 11:05 Cozaar - PO 50 mg DAILY CELESTE Administration Nitroglycerin 0.4 mg 12/27/18 22:17 Nitrostat - SL Q5M PRN FOR CHEST PAIN Oxycodone HCl 30 mg 12/28/18 08:56 Roxicodone - PO Q6H PRN BREAKTHROUGH PAIN Oxycodone HCl 80 mg 12/28/18 10:00 12/28/18 11:07 Oxycontin - PO 80 mg BID CELESTE Administration Pantoprazole Sodium 40 mg 12/28/18 10:00 12/28/18 11:10 Protonix - PO 40 mg DAILY CELESTE Administration Ranolazine 1,000 mg 12/28/18 10:00 12/28/18 11:11 Ranexa - PO 1,000 mg BID CELESTE Administration Rosuvastatin Calcium 40 mg 12/28/18 22:00 Crestor - PO HS CELESTE Tiotropium [place] 2 puff 12/28/18 12:15 Spiriva Respimat IH DAILY CELESTE Varenicline 0.5 mg 12/28/18 10:00 12/28/18 11:04 Chantix - PO 0.5 mg BID CELESTE Administration ASSESSMENT/PLAN: 63 y/o F w/ PMHx with h/o HTN, HLD, CAD x 12-13 stents placed most recently 1 w/ a at [facility], CVA w/o deficit, DM, COPD, ANTONY on home CPAP, PE, former long time smoker now on Chantix, DJD, disc herniation, sciatica, depression, p/w anginal CP, dyspnea, worsening leg swelling 1 week s/p PCI at [facility], troponins positive but downtrending serially, EKG w/o acute changes. #CV -cardiology consulted -Bblockade relatively contraindicated d/t cocaine use -cont ASA/Plavix/Crestor, no AC -Isordil no further Imdur -cont Ranexa; diltiazem contraindicated d/t interaction w/ Ranexa -cont Losartan and amlodipine -CTA negative for PE -for echo today -NTG SL PRN -repeat cath if angina does not respond to medical therapy as per cardiology #pulmonary -pulmonology consulted -Xopenex PRN/Symbicort/Spiriva -no further steroids at this time -CPAP at night -CTA negative for PE #MSK -home oxycodone/oxycontin for DJD #endocrine -SSI, BGM -home neurontin for diabetic neuropathy #addiction medicine -consultation for counseling and management of cocaine cessation and relationship of drug use to cardiac exacerbations #FEN -no IVF -monitor and correct electrolytes -diabetic diet #PPx -DVT: SCDs -GI: home Protonix #code -full #dispo -cont to monitor on telemetry Visit type - Emergency Visit Emergency Visit: No - New Patient This patient is new to me today: Yes Date on this admission: 12/28/18 - Critical Care Critical Care patient: No
--- NOTE | 2018-12-28 14:39 | PN ---
S Progress Note (SOAP) Subjective: pt referred for consultation for cocaine use in the context of cardiac disease, intermittent chest pain . Patient reports 200 $ cocaine via inhalation weekly . Most recent utox during this hospitalization + cocaine, + opiates . Denies other illicits . reports successful smoking cessation since taking Chantix . PMHX : HTN, DM, CAD, COPD, ANTONY on home CPAP, h/o CVA , s/p cardiac stenting. Reference #: [id number] Others' Prescriptions Patient Name: Damon De Leon Date: 1955 Address: [address] [place] [address] Sex: Female Rx Written Rx Dispensed Drug Quantity Days Supply Prescriber Name 11/24/2018 12/14/2018 oxycodone hcl 30 mg tablet 180 30 CabArtem dueñas MD 11/24/2018 12/12/2018 oxycontin er 80 mg tablet 60 30 CabArtem dueñas MD 11/07/2018 11/14/2018 oxycodone hcl 30 mg tablet 180 30 CabagnArtem lofton MD 11/07/2018 11/09/2018 oxycodone hcl er 80 mg tablet 60 30 CabArtem dueñas MD 09/28/2018 10/16/2018 oxycodone hcl 30 mg tablet 180 30 CabArtem dueñas MD 09/29/2018 10/12/2018 oxycodone hcl er 80 mg tablet 60 30 CabArtem dueñas MD 08/26/2018 09/18/2018 oxycodone hcl 30 mg tablet 180 30 CabArtem dueñas MD 08/26/2018 09/13/2018 oxycontin er 80 mg tablet 60 30 CabagnArtem lofton MD 08/11/2018 08/21/2018 oxycodone hcl 30 mg tablet 180 30 CabagnArtem lofton MD 08/14/2018 08/16/2018 oxycontin 80 mg tablet 60 30 CabagnArtem lofton MD 07/04/2018 07/22/2018 oxycodone hcl 30 mg tablet 180 30 CabArtem dueñas MD 07/17/2018 07/18/2018 oxycontin 80 mg tablet 60 30 CabArtem dueñas MD 06/05/2018 06/24/2018 oxycodone hcl 30 mg tablet 180 30 CabArtem dueñas MD 06/05/2018 06/20/2018 oxycodone hcl er 80 mg tablet 60 30 CabagnotArtem MD 05/17/2018 05/24/2018 oxycodone hcl 30 mg tablet 180 30 [place] Artem MD 05/17/2018 05/20/2018 oxycodone hcl er 80 mg tablet 60 30 CabagnotArtem MD 04/17/2018 04/26/2018 oxycodone hcl 30 mg tablet 180 30 [place] Artem MD 04/17/2018 04/22/2018 oxycodone hcl er 80 mg tablet 60 30 CabagnotArtem MD 03/17/2018 03/30/2018 oxycodone hcl 30 mg tablet 180 30 [place] Artem MD 03/17/2018 03/24/2018 oxycodone hcl er 80 mg tablet 60 30 CabagnotArtem MD 02/15/2018 03/01/2018 oxycodone hcl 30 mg tablet 180 30 [place] Artem MD 02/15/2018 02/23/2018 oxycodone hcl er 80 mg tablet 60 30 CabagnotArtem MD 01/17/2018 02/01/2018 oxycodone hcl 30 mg tablet 180 30 [place] Artem MD 01/17/2018 01/24/2018 oxycodone hcl er 80 mg tablet 60 30 CabagnotArtem MD 12/26/2017 01/04/2018 oxycodone hcl 30 mg tablet 180 30 [place] Artem MD Active Medications Amlodipine Besylate (Norvasc -) 5 mg PO DAILY [facility] Last Admin: 12/28/18 11:07 Dose: 5 mg Aspirin (Ecotrin -) 81 mg PO DAILY [facility] Last Admin: 12/28/18 11:05 Dose: 81 mg Budesonide/Formoterol Fumarate (Symbicort 160/4.5mcg -) 2 puff IH BID [facility] Clopidogrel Bisulfate (Plavix -) 75 mg PO DAILY [facility] Last Admin: 12/28/18 11:10 Dose: 75 mg Furosemide (Lasix -) 40 mg PO DAILY [facility] Last Admin: 12/28/18 11:06 Dose: 40 mg Gabapentin (Neurontin -) 600 mg PO BID [facility] Last Admin: 12/28/18 11:06 Dose: 600 mg Insulin Aspart ([facility]olog Vial Sliding Scale -) [facility] Last Admin: 12/28/18 12:31 Dose: 2 units Isosorbide Dinitrate (Isordil -) 10 mg PO BID [facility] Last Admin: 12/28/18 11:06 Dose: 10 mg Levalbuterol HCl (Xopenex) 0.31 mg IH Q8H PRN PRN Reason: ASTHMA Losartan Potassium (Cozaar -) 50 mg PO DAILY [facility] Last Admin: 12/28/18 11:05 Dose: 50 mg Nitroglycerin (Nitrostat -) 0.4 mg SL Q5M PRN PRN Reason: FOR CHEST PAIN Oxycodone HCl (Roxicodone -) 30 mg PO Q6H PRN PRN Reason: BREAKTHROUGH PAIN Oxycodone HCl (Oxycontin -) 80 mg PO BID [facility] Last Admin: 12/28/18 11:07 Dose: 80 mg Pantoprazole Sodium (Protonix -) 40 mg PO DAILY [facility] Last Admin: 12/28/18 11:10 Dose: 40 mg Ranolazine (Ranexa -) 1,000 mg PO BID [facility] Last Admin: 12/28/18 11:11 Dose: 1,000 mg Rosuvastatin Calcium (Crestor -) 40 mg PO HS [facility] Tiotropium [place] (Spiriva Respimat) 2 puff IH DAILY [facility] Varenicline (Chantix -) 0.5 mg PO BID [facility] Last Admin: 12/28/18 11:04 Dose: 0.5 mg Objective: wnwd , resting comfortably in bed . HEENT : NCAT EOMI O2 via NC Resp : no distress noted or reported. CBC, BMP 12/28/18 06:00 12/28/18 06:00 Vital Signs - 24 hr 12/28/18 12/28/18 12/28/18 04:10 05:30 09:00 Temperature 98.3 F 98.1 F 97.8 F Pulse Rate 89 90 82 Respiratory 20 20 20 Rate Blood Pressure 124/80 121/60 142/72 O2 Sat by Pulse 97 Oximetry (%) 12/28/18 12:00 Temperature Pulse Rate Respiratory Rate Blood Pressure O2 Sat by Pulse 98 Oximetry (%) Assessment: cocaine abuse Plan: discussed at length with patient , agreeable to go to [facility] outpatient clinic, which is close to her residence, upon d/c from this facility .
[2018-12-28] MEDS: TIOTROPIUM BROMIDE 2.5 MCG (SPIRIVA) RESPIMAT INHALER IH SCH (14:58)
[2018-12-28] MEDS: BUDESONIDE/FORMETEROL FUMARATE 160/4.5 mcg INHALER IH SCH ×2 (14:59→21:29)
[2018-12-28] MEDS: oxyCODONE HCL 5 MG TABLET PO PRN (15:13)
--- NOTE | 2018-12-28 15:46 | PN ---
Teaching Attending Note Name of Resident: River Stephens ATTENDING PHYSICIAN STATEMENT I saw and evaluated the patient. I reviewed the resident's note and discussed the case with the resident. I agree with the resident's findings and plan as documented. SUBJECTIVE: Pain free currently. No palpitations/nausea/diaphoresis. No fever/ chills/cough/sputum OBJECTIVE: Afebrile, Hemodynamically Stable. Last Vital Signs Temp Pulse Resp BP Pulse Ox 98.6 F 82 20 143/62 98 12/28/18 14:00 12/28/18 14:00 12/28/18 14:00 12/28/18 14:00 12/28/18 12:00 HEENT - Atraumatic, Normocephalic Heart - S1, S2, RRR Lungs - clear to auscultation Abdomen - Soft, non-tender. Bowel Sounds normal. Extremities - no calf tenderness. Trace edema + Laboratory Results - last 24 hr 12/27/18 12/27/18 12/27/18 14:07 19:00 23:20 WBC RBC Hgb Hct MCV MCH MCHC RDW Plt Count MPV Neutrophils % (Manual) 23.2 L Band Neutrophils % 0.0 Lymphocytes % (Manual) 64.7 H Monocytes % (Manual) 8 Eosinophils % (Manual) 4.0 Basophils % (Manual) 0.0 Myelocytes % (Man) 0 Promyelocytes % (Man) 0 Blast Cells % (Manual) 0 Metamyelocytes 0 Hypochromia 0 Toxic Granulation 0 Dohle Bodies 0 Platelet Estimate Normal Polychromasia 0 Poikilocytosis 0 Basophilic Stippling 0 Anisocytosis 0 Microcytosis 0 Macrocytosis 0 Spherocytes 0 Sickle Cells 0 Target Cells 0 Tear Drop Cells 0 Ovalocytes 0 Stomatocytes 0 Helmet Cells 0 Agrawal[place] Bodies 0 [place] Rings 0 Jose Luis Cells 0 Acanthocytes (Spur) 0 Rouleaux 0 Fragmented RBCs 0 Schistocytes 0 Sodium Potassium Chloride Carbon Dioxide Anion Gap BUN Creatinine Creat Clearance w eGFR POC Glucometer Random Glucose Calcium Phosphorus Magnesium Creatine Kinase 53 51 Troponin I 0.53 H 0.48 H 12/27/18 12/28/18 12/28/18 23:20 06:00 06:00 WBC 5.4 RBC 3.94 Hgb 11.1 Hct 33.7 MCV 85.4 MCH 28.1 MCHC 32.9 RDW 14.7 Plt Count 198 MPV 8.6 Neutrophils % (Manual) Band Neutrophils % Lymphocytes % (Manual) Monocytes % (Manual) Eosinophils % (Manual) Basophils % (Manual) Myelocytes % (Man) Promyelocytes % (Man) Blast Cells % (Manual) Metamyelocytes Hypochromia Toxic Granulation Dohle Bodies Platelet Estimate Polychromasia Poikilocytosis Basophilic Stippling Anisocytosis Microcytosis Macrocytosis Spherocytes Sickle Cells Target Cells Tear Drop Cells Ovalocytes Stomatocytes Helmet Cells Agrawal-[place] Bodies [place] Rings [place] Cells Acanthocytes (Spur) Rouleaux Fragmented RBCs Schistocytes Sodium 136 Potassium 4.3 Chloride 104 Carbon Dioxide 25 Anion Gap 7 L BUN 24 H Creatinine 1.2 Creat Clearance w eGFR 45.67 POC Glucometer Random Glucose 294 H Calcium 8.7 Phosphorus 2.8 Magnesium 2.0 Creatine Kinase Troponin I Cancelled 12/28/18 12/28/18 06:39 12:29 WBC RBC Hgb Hct MCV MCH MCHC RDW Plt Count MPV Neutrophils % (Manual) Band Neutrophils % Lymphocytes % (Manual) Monocytes % (Manual) Eosinophils % (Manual) Basophils % (Manual) Myelocytes % (Man) Promyelocytes % (Man) Blast Cells % (Manual) Metamyelocytes Hypochromia Toxic Granulation Dohle Bodies Platelet Estimate Polychromasia Poikilocytosis Basophilic Stippling Anisocytosis Microcytosis Macrocytosis Spherocytes Sickle Cells Target Cells Tear Drop Cells Ovalocytes Stomatocytes Helmet Cells Agrawal[place] Bodies [place] Rings [place] Cells Acanthocytes (Spur) Rouleaux Fragmented RBCs Schistocytes Sodium Potassium Chloride Carbon Dioxide Anion Gap BUN Creatinine Creat Clearance w eGFR POC Glucometer 310 151 Random Glucose Calcium Phosphorus Magnesium Creatine Kinase Troponin I Current Medications Generic Name Dose Route Start Last Admin Trade Name Freq PRN Reason Stop Dose Admin Amlodipine Besylate 5 mg 12/28/18 10:00 12/28/18 11:07 Norvasc - PO 5 mg DAILY CELESTE Administration Aspirin 81 mg 12/28/18 10:00 12/28/18 11:05 Ecotrin - PO 81 mg DAILY CELESTE Administration Budesonide/Formoterol Fumarate 2 puff 12/28/18 12:15 12/28/18 14:59 Symbicort 160/4.5mcg - IH 2 puff BID CELESTE Administration Clopidogrel Bisulfate 75 mg 12/28/18 10:00 12/28/18 11:10 Plavix - PO 75 mg DAILY CELESTE Administration Furosemide 40 mg 12/28/18 10:00 12/28/18 11:06 Lasix - PO 40 mg DAILY CELESTE Administration Gabapentin 600 mg 12/28/18 10:00 12/28/18 11:06 Neurontin - PO 600 mg BID CELESTE Administration Insulin Aspart 1 vial 12/28/18 07:00 12/28/18 12:31 Novolog Vial Sliding Scale - SQ 2 units TIDAC CELESTE Administration Protocol Isosorbide Dinitrate 10 mg 12/28/18 10:00 12/28/18 11:06 Isordil - PO 10 mg BID CELESTE Administration Levalbuterol HCl 0.31 mg 12/28/18 12:05 Xopenex IH Q8H PRN ASTHMA Losartan Potassium 50 mg 12/28/18 10:00 12/28/18 11:05 Cozaar - PO 50 mg DAILY CELESTE Administration Nitroglycerin 0.4 mg 12/27/18 22:17 Nitrostat - SL Q5M PRN FOR CHEST PAIN Oxycodone HCl 30 mg 12/28/18 08:56 12/28/18 15:13 Roxicodone - PO 30 mg Q6H PRN Administration BREAKTHROUGH PAIN Oxycodone HCl 80 mg 12/28/18 10:00 12/28/18 11:07 Oxycontin - PO 80 mg BID CELESTE Administration Pantoprazole Sodium 40 mg 12/28/18 10:00 12/28/18 11:10 Protonix - PO 40 mg DAILY CELESTE Administration Ranolazine 1,000 mg 12/28/18 10:00 12/28/18 11:11 Ranexa - PO 1,000 mg BID CELESTE Administration Rosuvastatin Calcium 40 mg 12/28/18 22:00 Crestor - PO HS [facility] Tiotropium [place] 2 puff 12/28/18 12:15 12/28/18 14:58 Spiriva Respimat IH 2 puff DAILY [facility]LE[facility] Administration Varenicline 0.5 mg 12/28/18 10:00 12/28/18 11:04 Chantix - PO 0.5 mg BID CELESTE Administration ASSESSMENT AND PLAN: 1. Chest Pain in patient with CAD s/p MIs/Multivessel PCI with laser atherectomy and balloon PCI at [facility] a few weeks ago. Possible unstable angina, currently pain-free CTA neg for PE Continue Aspirin, Plavix, Cozaar, Norvasc, Statin - ISMN converted to Isordyl by Cardiology. Beta Keron held due to recent cocaine use. Continue Ranexa. Diltiazem held by Cardiology due to interaction with Ranexa Further management/intervention as per Cardiology. 2. Polysubstance abuse including cocaine and tobacco - counselled. Addiction Medicine consulted. Continue Chantix. 3. HTN - continue Cozaar, Isordyl, Norvasc 4. Chronic Diastolic CHF - Stable - continue Lasix 5. COPD - Stable - normally on Breo and Incruze Ellipta - substituted for Spiriva, Symbicort by Pulm. 6. DM 2 - Continue Novolog sliding scale. Normally on Tresiba and 70/30 - if no Cardiology intervention, should resume on home insulin regimen. DVT Px - Heparin SQ
--- NOTE | 2018-12-28 15:53 | CON.PSY ---
Psychiatry Consult Chief Complaint: 63 year old female with chronic apin and cardiac illness. cocaine and other pain med use and abuse seen for Psych eval. Patient reports getting depressed secondary to Pain but, she self medicates ... Symptoms: reports: Irritability, Anxiety - Previous Psychiatric Treatment Outpatient: None Inpatient: None - Previous Substance Abuse Treatment Outpatient: None Inpatient: None - Current Medications Current Medications: Active Medications Amlodipine Besylate (Norvasc -) 5 mg PO DAILY [facility] Last Admin: 12/28/18 11:07 Dose: 5 mg Aspirin (Ecotrin -) 81 mg PO DAILY [facility] Last Admin: 12/28/18 11:05 Dose: 81 mg Budesonide/Formoterol Fumarate (Symbicort 160/4.5mcg -) 2 puff IH BID [facility] Last Admin: 12/28/18 14:59 Dose: 2 puff Clopidogrel Bisulfate (Plavix -) 75 mg PO DAILY [facility] Last Admin: 12/28/18 11:10 Dose: 75 mg Furosemide (Lasix -) 40 mg PO DAILY [facility] Last Admin: 12/28/18 11:06 Dose: 40 mg Gabapentin (Neurontin -) 600 mg PO BID [facility] Last Admin: 12/28/18 11:06 Dose: 600 mg Heparin Sodium (Porcine) (Heparin -) 5,000 unit SQ TID [facility] Insulin Aspart (Novolog Vial Sliding Scale -) 1 vial SQ TIDAC [facility]; Protocol Last Admin: 12/28/18 12:31 Dose: 2 units Isosorbide Dinitrate (Isordil -) 10 mg PO BID [facility] Last Admin: 12/28/18 11:06 Dose: 10 mg Levalbuterol HCl (Xopenex) 0.31 mg IH Q8H PRN PRN Reason: ASTHMA Losartan Potassium (Cozaar -) 50 mg PO DAILY [facility] Last Admin: 12/28/18 11:05 Dose: 50 mg Nitroglycerin (Nitrostat -) 0.4 mg SL Q5M PRN PRN Reason: FOR CHEST PAIN Oxycodone HCl (Roxicodone -) 30 mg PO Q6H PRN PRN Reason: BREAKTHROUGH PAIN Last Admin: 12/28/18 15:13 Dose: 30 mg Oxycodone HCl (Oxycontin -) 80 mg PO BID [facility] Last Admin: 12/28/18 11:07 Dose: 80 mg Pantoprazole Sodium (Protonix -) 40 mg PO DAILY [facility] Last Admin: 12/28/18 11:10 Dose: 40 mg Ranolazine (Ranexa -) 1,000 mg PO BID [facility] Last Admin: 12/28/18 11:11 Dose: 1,000 mg Rosuvastatin Calcium (Crestor -) 40 mg PO [facility] Tiotropium [place] (Spiriva Respimat) 2 puff IH DAILY [facility] Last Admin: 12/28/18 14:58 Dose: 2 puff Varenicline (Chantix -) 0.5 mg PO BID [facility] Last Admin: 12/28/18 11:04 Dose: 0.5 mg - Allergies Allergies: Allergies Allergy/AdvReac Type Severity Reaction Status Date / Time cashew nut Allergy Verified 12/27/18 12:25 shellfish derived Allergy Verified 12/27/18 12:25 - Current Living Status Usual Living Arrangement: Alone - Current Mental Status Evaluation Appearance: Well Groomed Attitude: Cooperative - Affect Affect: Full Range Appropriateness: Appropriate to Content - Mood Mood: Irritable - Speech/Language Expressive: Coherent - Psychomotor Activity Psychomotor Activity: Normal - Thought Process Thought Process: Intact - Thought Content Hallucinations: Absent Delusions: Absent - Self Perception Self Perception: No Impairment - Cognition Attention: Alert Orientation: Time Memory, Immediate Recall: Intact Memory, Short Term: 3/3 Memory, Remote with Promptin/3 - Concentration Serial Sevens Intact: No Simple Calculations Intact: Yes - Abstraction Proverb Interpretation: Intact Judgement: Minimally Impaired - Insight Insight: Intact - Impulse Control Impulse Control: Minimally Impaired - Suicidal Ideation Suicidal Ideation: No - Homicidal Ideation Homicidal Ideation: No Assessment/Plan 1) patient want to seek therapy in [place]. Does not want any anti depressants at this time.
[2018-12-28] MEDS ORDERED: PT OWN MED DRAWER 7, Y5N ONE (21:16)
[2018-12-28] MEDS: HEPARIN NA (PORCINE) 5,000 UNITS/ML 1ML VIAL SQ SCH (21:19)
[2018-12-28] MEDS ORDERED: ROSUVASTATIN CA 20 MG TABLET (FP) PO SCH (22:00)
[2018-12-29] MEDS: oxyCODONE HCL 5 MG TABLET PO PRN (05:53)
[2018-12-29] MEDS: HEPARIN NA (PORCINE) 5,000 UNITS/ML 1ML VIAL SQ SCH (05:54)
[2018-12-29] MEDS: INSULIN SLIDING SCALE (NOVOLOG) 1 VIAL SQ SCH (06:50)
[2018-12-29 07:02] VITALS: PULSE 75
--- NOTE | 2018-12-29 07:05 | ECHO ---
Name: CREBHARATHI, SHERAL Exam:Adult Echocardiogram Study Date: 12/28/2018 09:49 AM Age: 63 yrs Reason For Study: recent mi, pci, recurrent chest pain Height: 66 in Weight: 250 lb BSA: 2.2 m2 MMode/2D Measurements & Calculations IVSd: 1.2 cm Ao root diam: 2.8 cm LVIDd: 5.0 cm LA dimension: 3.5 cm LVIDs: 3.3 cm LVPWd: 1.1 cm LVPWs: 1.3 cm EDV(Teich): 117.7 ml ESV(Teich): 44.1 ml LVOT diam: 2.2 cm RV S Lorne: 22.5 cm/sec Doppler Measurements & Calculations MV E max lorne: 42.2 cm/sec Ao V2 max: 162.6 cm/sec MV A max lorne: 84.9 cm/sec Ao max P.6 mmHg MV E/A: 0.50 Ao V2 mean: 106.2 cm/sec MV dec time: 0.09 sec Ao mean P.5 mmHg Ao V2 VTI: 31.6 cm SD(I,D): 2.7 cm2 SD(V,D): 2.5 cm2 LV V1 max P.3 mmHg SV(LVOT): 85.1 ml LV V1 mean P.0 mmHg LV V1 max: 103.6 cm/sec LV V1 mean: 65.9 cm/sec LV V1 VTI: 22.0 cm TR max lorne: 278.3 cm/sec PA V2 max: 116.2 cm/sec TR max P.0 mmHg PA max P.4 mmHg PA V2 mean: 70.8 cm/sec PA mean P.4 mmHg PA V2 VTI: 19.1 cm Med Peak E' Lorne: 9.6 cm/sec Med E/e': 4.4 Lat Peak E' Lorne: 10.8 cm/sec Lat E/e': 3.9 Procedure A complete two-dimensional transthoracic echocardiogram was performed (2D, M-mode, Doppler and color flow Doppler). Left Ventricle The left ventricular size, thickness and function are normal. The left ventricular ejection fraction is normal. Ejection Fraction = 55-60%. The left ventricular wall motion is normal. Right Ventricle The right ventricle is normal in size and function. Atria Normal left and right atrial size and function. Mitral Valve There is no mitral regurgitation noted. Tricuspid Valve There is trace tricuspid regurgitation. There was insufficient TR detected to calculate RV systolic p ressure. Aortic Valve No hemodynamically significant valvular aortic stenosis. No aortic regurgitation is present. Pulmonic Valve There is no pulmonic valvular regurgitation. Great Vessels The aortic root is normal size. Pericardium/Pleura There is no pericardial effusion. Interpretation Summary The left ventricular size, thickness and function are normal The right ventricle is normal in size and function. There is trace tricuspid regurgitation. MD Raj Dixon 12/28/2018 12:28 PM
[2018-12-29 07:39] LABS: BASO % 0.2 % (0-2.0); EOS % 0.2 % (0-4.5); HEMOGLOBIN 11.5 GM/dL (10.7-15.3); LYMPH % 40.3 % (8-40); MCH 28.2 pg (25.7-33.7); MCHC 32.7 g/dl (32.0-36.0); MEAN CELL VOLUME 86.2 fl (80-96); MEAN PLT VOLUME 7.9 fl (7.5-11.1); MONO % 6.3 % (3.8-10.2); PLATELET COUNT 209 K/MM3 (134-434); RBC 4.06 M/mm3 (3.60-5.2); RDW 14.7 % (11.6-15.6); WHITE BLOOD COUNT 9.4 K/mm3 (4.0-10.0)
[2018-12-29 08:16] LABS: ANION GAP 5 MMOL/L (8-16); BLOOD UREA NITROGEN 25 mg/dL (7-18); CALCIUM 8.8 mg/dL (8.5-10.1); CHLORIDE 106 mmol/L (98-107); CO2 30 mmol/L (21-32); CREATININE 0.9 mg/dL (0.55-1.3); GLUCOSE,RANDOM 143 mg/dL (74-106); MAGNESIUM 2.2 mg/dL (1.8-2.4); PHOSPHOROUS 3.5 mg/dL (2.5-4.9); POTASSIUM 4.1 mmol/L (3.5-5.1); SODIUM 140 mmol/L (136-145)
--- NOTE | 2018-12-29 09:32 | PN ---
Progress Note, Physician Chief Complaint: seen and examined. No further chest pain. Seen by rehab medicine. Plan for outpatient rehab. Was ambulating yesterday, chest pain free. - Current Medication List Current Medications: Active Medications Amlodipine Besylate (Norvasc -) 5 mg PO DAILY [facility] Last Admin: 12/28/18 11:07 Dose: 5 mg Aspirin (Ecotrin -) 81 mg PO DAILY [facility] Last Admin: 12/28/18 11:05 Dose: 81 mg Budesonide/Formoterol Fumarate (Symbicort 160/4.5mcg -) 2 puff IH BID [facility] Last Admin: 12/28/18 21:29 Dose: 2 puff Clopidogrel Bisulfate (Plavix -) 75 mg PO DAILY [facility] Last Admin: 12/28/18 11:10 Dose: 75 mg Furosemide (Lasix -) 40 mg PO DAILY [facility] Last Admin: 12/28/18 11:06 Dose: 40 mg Gabapentin (Neurontin -) 600 mg PO BID [facility] Last Admin: 12/28/18 21:21 Dose: 600 mg Heparin Sodium (Porcine) (Heparin -) 5,000 unit SQ TID [facility] Last Admin: 12/29/18 05:54 Dose: 5,000 unit Insulin Aspart (Novolog Vial Sliding Scale -) 1 vial SQ TIDAC [facility]; Protocol Last Admin: 12/29/18 06:50 Dose: 2 units Isosorbide Dinitrate (Isordil -) 10 mg PO BID [facility] Last Admin: 12/28/18 21:21 Dose: 10 mg Levalbuterol HCl (Xopenex) 0.31 mg IH Q8H PRN PRN Reason: ASTHMA Losartan Potassium (Cozaar -) 50 mg PO DAILY [facility] Last Admin: 12/28/18 11:05 Dose: 50 mg Nitroglycerin (Nitrostat -) 0.4 mg SL Q5M PRN PRN Reason: FOR CHEST PAIN Oxycodone HCl (Roxicodone -) 30 mg PO Q6H PRN PRN Reason: BREAKTHROUGH PAIN Last Admin: 12/29/18 05:53 Dose: 30 mg Oxycodone HCl (Oxycontin -) 80 mg PO BID [facility] Last Admin: 12/28/18 21:19 Dose: 80 mg Pantoprazole Sodium (Protonix -) 40 mg PO DAILY [facility] Last Admin: 12/28/18 11:10 Dose: 40 mg Ranolazine (Ranexa -) 1,000 mg PO BID [facility] Last Admin: 12/28/18 21:21 Dose: 1,000 mg Rosuvastatin Calcium (Crestor -) 40 mg PO HS [facility] Last Admin: 12/28/18 21:21 Dose: 40 mg Tiotropium [place] (Spiriva Respimat) 2 puff IH DAILY [facility] Last Admin: 12/28/18 14:58 Dose: 2 puff Varenicline (Chantix -) 0.5 mg PO BID [facility] Last Admin: 12/28/18 21:21 Dose: 0.5 mg - Objective Vital Signs: Vital Signs Temperature 97.8 F 12/29/18 06:00 Pulse Rate 75 12/29/18 06:00 Respiratory Rate 20 12/29/18 06:00 Blood Pressure 120/60 12/29/18 06:00 O2 Sat by Pulse Oximetry (%) 98 12/29/18 00:28 Constitutional: Yes: No Distress, Calm Eyes: Yes: Conjunctiva Clear Cardiovascular: Yes: Regular Rate and Rhythm Respiratory: Yes: CTA Bilaterally Gastrointestinal: Yes: Soft, Abdomen, Obese Edema: No Neurological: Yes: Alert, Oriented Labs: CBC, BMP 12/29/18 06:50 12/29/18 06:50 INR, PTT INR 1.10 (0.83-1.09) H 12/27/18 14:07 Laboratory Tests 12/29/18 12/29/18 06:50 06:50 WBC 9.4 Hgb 11.5 Plt Count 209 BUN 25 H Creatinine 0.9 Magnesium 2.2 - ....Imaging EKG: Image Reviewed Assessment/Plan IMP: 1. CAD, s/p multiple MIs and multivessel PCI most recently ISR RCA w/ laser atherectomy and ballon PCI ([facility] several weeks ago) (Moderate LAD stenosis, severe apical LAD lesion; severe stenosis D1/D2; occluded ramus filling from L-->L collaterals) 2. Chronic HTN 3. Substance abuse (cocaine, last 2 days ago) 4. Smoker 5. Chronic angina with escalating symptoms over last several days in setting of cocaine use. 6. Chronic diastolic CHF Plan was to manage residual disease medically given size of vessels and distal disease, now admitted for chest pain. REC: 1. Beta blockers are relatively contraindicated with recent and ongoing cocaine use (concern for unopposed alpha constriction). 2. To continue ASA/Plavix and high intensity statin. 3. Continue Ranexa 1000mg BID. Cannot use Diltiazem as it interacts with Ranexa. Continue Amlodipine 5mg daily. 4. Continue Isordil. D/C Imdur. 5. Maintain Losartan and current Lasix dose, euvolemic. 6. Echo was repeated, normal. 7. Can d/c telemetry. 8. Outpatient drug rehab planned. 9. Counselled on smoking cessation. 10. Case reviewed with interventional cardiology: plan is for continued medical therapy and efforts at smoking and cocaine cessation. Plan for d/c later today: Med changes will be--> 1. Amlodipine decreased to 5mg daily and Imdur changed to Isordil. Please send the changes to her outpatient pharmacy.
[2018-12-29] MEDS: RANOLAZINE E.R. 1,000 MG TABLET (FP) PO SCH (10:07)
[2018-12-29] MEDS: ASPIRIN COATED 81 MG TABLET.EC PO SCH (10:07)
[2018-12-29] MEDS: ISOSORBIDE DINITRATE 10 MG TABLET (FP) PO SCH (10:07)
[2018-12-29] MEDS: amLODIPine BESYLATE 5 MG TABLET (FP) PO SCH (10:07)
[2018-12-29] MEDS: GABAPENTIN 300 MG CAPSULE (FP) PO SCH (10:07)
[2018-12-29] MEDS: CLOPIDOGREL BISULFATE 75 MG TABLET (FP) PO SCH (10:07)
[2018-12-29] MEDS: VARENICLINE TARTRATE 0.5 MG TAB PO SCH (10:08)
[2018-12-29] MEDS: LOSARTAN POTASSIUM 50 MG TABLET (FP) PO SCH (10:08)
[2018-12-29] MEDS: TIOTROPIUM BROMIDE 2.5 MCG (SPIRIVA) RESPIMAT INHALER IH SCH (10:12)
[2018-12-29] MEDS: oxyCODONE HCL 20 MG SUSTAINED ACTING TABLET PO SCH (10:12)
[2018-12-29] MEDS: PANTOPRAZOLE 40 MG TABLET (FP) PO SCH (10:12)
[2018-12-29] MEDS: BUDESONIDE/FORMETEROL FUMARATE 160/4.5 mcg INHALER IH SCH (10:12)
[2018-12-29] MEDS: FUROSEMIDE 40 MG TABLET (FP) PO SCH (11:18)
[2018-12-29 11:47] VITALS: BP 145/52; TEMP 98.3
--- NOTE | 2018-12-29 12:02 | DS ---
Physical Exam: SUBJECTIVE: Patient seen and examined at bedside. Chest pain, respiratory symptoms, and swelling entirely resolved. Patient feeling well. OBJECTIVE: Vital Signs Period Temp Pulse Resp BP Sys/Adan Pulse Ox Last 24 Hr 97.7 F-98.6 F 68-83 18-20 110-145/52-90 98-99 PHYSICAL EXAM GENERAL: A&Ox3, NAD HEENT: NC/AT, PERRLA, EOMI, MMM NECK: Trachea midline, full range of motion, supple. 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, motor, sensory systems w/o focal deficit PSYCH: significantly improved mood and affect SKIN: Warm, dry, normal turgor, no rashes or lesions noted LABS Laboratory Results - last 24 hr 12/28/18 12/28/18 12/29/18 12:29 16:56 06:26 WBC RBC Hgb Hct MCV MCH MCHC RDW Plt Count MPV Absolute Neuts (auto) Neutrophils % Lymphocytes % Monocytes % Eosinophils % Basophils % Nucleated RBC % Sodium Potassium Chloride Carbon Dioxide Anion Gap BUN Creatinine Creat Clearance w eGFR POC Glucometer 151 240 172 Random Glucose Calcium Phosphorus Magnesium 12/29/18 12/29/18 06:50 06:50 WBC 9.4 RBC 4.06 Hgb 11.5 Hct 35.0 MCV 86.2 MCH 28.2 MCHC 32.7 RDW 14.7 Plt Count 209 MPV 7.9 Absolute Neuts (auto) 4.9 Neutrophils % 53.0 D Lymphocytes % 40.3 H D Monocytes % 6.3 Eosinophils % 0.2 D Basophils % 0.2 Nucleated RBC % 0 Sodium 140 Potassium 4.1 Chloride 106 Carbon Dioxide 30 Anion Gap 5 L BUN 25 H Creatinine 0.9 Creat Clearance w eGFR 63.65 POC Glucometer Random Glucose 143 H Calcium 8.8 Phosphorus 3.5 Magnesium 2.2 HOSPITAL COURSE: Date of Admission:12/27/18 Patient is a 63 y/o F w/ PMHx with h/o HTN, HLD, CAD x 12-13 stents placed most recently 1 w/a at [facility], CVA w/o deficit, DM, COPD, ANTONY on home CPAP, PE, former long time smoker now on Chantix, DJD, cocaine use, disc herniation, sciatica, depression, p/w anginal CP, dyspnea, worsening leg swelling 1 week s/p PCI at [facility], troponins positive but downtrending serially, EKG w/o acute changes. Cardiology, pulmonology, addiction medicine, and psychiatry were consulted. CTA was negative. Cardiology managed the acute presentation through medical therapy and optimization of medications without invasive intervention in the inpatient setting. Pulmonology optimized COPD therapy. Patient was discharged for outpatient followup with pulmonology, cardiology, and primary medical care. Date of Discharge: 12/29/18 Minutes to complete discharge: 40 Discharge Summary Reason For Visit: UNSTABLE ANGINA PECTORIA,CHEST PAIN Condition: Stable - Instructions Diet, Activity, Other Instructions: You were admitted because of your chest pain and shortness of breath. Your chemical processing supervisor saw you and is ok with sending you home with home rehab. We have changed some of your home medications: Please STOP taking your diltiazem. Please STOP taking your Isosorbide mononitrate (Imdur). Please STOP taking your Benicar. You will begin taking a medication called Isosorbide dinatrate (Isordil). You will begin taking a medication called Losartan (Cozaar). You will begin taking Amlodipine (Norvasc) at a reduced dosage. New prescriptions have been provided to your pharmacy. Otherwise resume your home medications. Please follow up with Dr. Lieberman and Dr. Salomon as an outpatient at your earliest opportunity. If you experience any new or worsening chest pain, shortness of breath, leg swelling, fever, chills, or any other concerning symptoms, please return to the Emergency Department. Referrals: Irving Lieberman MD [Staff Physician] - Sander Salomon MD, MD [Staff Physician] - Disposition: HOME - Home Medications Comprehensive Discharge Medication List: Ambulatory Orders Oxycodone HCl [Roxicodone] 30 mg PO Q6H PRN 01/09/14 Nitroglycerin Sublingual [Nitrostat -] 0.4 mg SL Q5M PRN #0 tab 03/02/15 Aspirin Coated [Ecotrin -] 81 mg PO DAILY tablet.ec 03/14/16 Fluticasone/Vilanterol [Breo Ellipta 200-25 Mcg INH] 1 each IH DAILY 12/27/18 Furosemide [Lasix] 40 mg PO DAILY 12/27/18 Gabapentin 600 mg PO BID 12/27/18 Insulin Degludec [Tresiba Flextouch U-100] 34 unit SQ ASDIR 12/27/18 Levalbuterol HCl [Xopenex] 0.31 mg IH ASDIR 12/27/18 Pantoprazole Sodium 40 mg PO DAILY 12/27/18 Ranolazine [Ranexa] 1,000 mg PO BID 12/27/18 Rosuvastatin [Crestor -] 40 mg PO DAILY 12/27/18 Varenicline Tartrate [Chantix] 1 mg PO BID 12/27/18 Bupropion HCl [Wellbutrin Xl -] 150 mg PO BID 12/28/18 Clopidogrel Bisulfate [Plavix] 75 mg PO DAILY 12/28/18 Insulin NPH Hum/Reg Insulin Hm [Novolin 70-30 100 Unit/ml Vial] 100 units IM BID 12/28/18 Oxycodone HCl [Oxycontin] 80 mg PO BID 12/28/18 Umeclidinium [place] [Incruse Ellipta] 1 inh IH DAILY 12/28/18 Amlodipine Besylate [Norvasc -] 5 mg PO DAILY #30 tablet 12/29/18 Budesonide/Formeterol Fumarate [SYMBICORT 160/4.5mcg -] 2 puff IH BID inhaler 12/29/18 Clopidogrel Bisulfate [Plavix -] 75 mg PO DAILY tablet 12/29/18 Isosorbide Dinitrate [Isordil -] 10 mg PO BID #60 tablet 12/29/18 Levalbuterol HCl [Xopenex] 0.31 mg IH Q8H PRN vial.neb 12/29/18 Losartan Potassium 50 mg PO DAILY #30 tablet 12/29/18 Ranolazine [Ranexa -] 1,000 mg PO BID tab 12/29/18 Tiotropium [place] [Spiriva Respimat] 2 puff IH DAILY inhaler 12/29/18 This patient is new to me today: No Emergency Visit: No Critical Care patient: No - Discharge Referral Referred to [facility] No
--- NOTE | 2018-12-29 13:06 | PN ---
Teaching Attending Note Name of Resident: River Stephens ATTENDING PHYSICIAN STATEMENT I saw and evaluated the patient. I reviewed the resident's note and discussed the case with the resident. I agree with the resident's findings and plan as documented. SUBJECTIVE: Pain free since admission. No palpitations/nausea/diaphoresis. No fever/chills/cough/sputum OBJECTIVE: Afebrile, Hemodynamically Stable. Last Vital Signs Temp Pulse Resp BP Pulse Ox 98.3 F 75 18 145/52 L 98 12/29/18 10:12/29/18 10:00 12/29/18 10:12/29/18 10:12/29/18 00:28 HEENT - Atraumatic, Normocephalic Heart - S1, S2, RRR Lungs - clear to auscultation Abdomen - Soft, non-tender. Bowel Sounds normal. Extremities - no calf tenderness. Trace edema + Laboratory Results - last 24 hr 12/28/18 12/29/18 12/29/18 16:56 06:26 06:50 WBC 9.4 RBC 4.06 Hgb 11.5 Hct 35.0 MCV 86.2 MCH 28.2 MCHC 32.7 RDW 14.7 Plt Count 209 MPV 7.9 Absolute Neuts (auto) 4.9 Neutrophils % 53.0 D Lymphocytes % 40.3 H D Monocytes % 6.3 Eosinophils % 0.2 D Basophils % 0.2 Nucleated RBC % 0 Sodium Potassium Chloride Carbon Dioxide Anion Gap BUN Creatinine Creat Clearance w eGFR POC Glucometer 240 172 Random Glucose Calcium Phosphorus Magnesium 12/29/18 06:50 WBC RBC Hgb Hct MCV MCH MCHC RDW Plt Count MPV Absolute Neuts (auto) Neutrophils % Lymphocytes % Monocytes % Eosinophils % Basophils % Nucleated RBC % Sodium 140 Potassium 4.1 Chloride 106 Carbon Dioxide 30 Anion Gap 5 L BUN 25 H Creatinine 0.9 Creat Clearance w eGFR 63.65 POC Glucometer Random Glucose 143 H Calcium 8.8 Phosphorus 3.5 Magnesium 2.2 ASSESSMENT AND PLAN: 1. Chest Pain in patient with CAD s/p MIs/Multivessel PCI with laser atherectomy and balloon PCI at [facility] a few weeks ago. Possible unstable angina, currently pain-free CTA neg for PE Continue Aspirin, Plavix, Cozaar, Norvasc, Statin - ISMN converted to Isordyl by Cardiology. Beta Keron held due to recent cocaine use. Continue Ranexa. Diltiazem held by Cardiology due to interaction with Ranexa, and substituted for Amlodipine 5mg. Medically stable for discharge - further management as per Cardiology as an out- patient. 2. Polysubstance abuse including cocaine and tobacco - counselled. Addiction Medicine consulted - recommend [facility] out-patient clinic. Continue Chantix. 3. HTN - continue Cozaar, Isordyl, Norvasc 4. Chronic Diastolic CHF - Stable - continue Lasix 5. COPD - Stable - normally on Breo and Incruze Ellipta - substituted for Spiriva, Symbicort by Pulm. 6. DM 2 - Continue Novolog sliding scale. Normally on Tresiba and 70/30 - if no Cardiology intervention, should resume on home insulin regimen. DVT Px - Heparin SQ
== END 2018-12-29 11:49 | disposition home or self-care (01) ==
LOC: JER 12:23 → JERBED 20:38 → J4W 12-28 00:33
PROVIDERS: ADMIT Internal Medicine
PROC: 3E0333Z Introduction of Anti-inflammatory into Peripheral Vein, Percutaneous Approach (ICD-10-PCS; principal; 2018-12-27)
PROC: 3E033GC Introduction of Other Therapeutic Substance into Peripheral Vein, Percutaneous Approach (ICD-10-PCS; 2018-12-27)
PROC: 3E013VG Introduction of Insulin into Subcutaneous Tissue, Percutaneous Approach (ICD-10-PCS; 2018-12-27)
PROC: 3E013GC Introduction of Other Therapeutic Substance into Subcutaneous Tissue, Percutaneous Approach (ICD-10-PCS; 2018-12-27)
PROC: 3E0F7GC Introduction of Other Therapeutic Substance into Respiratory Tract, Via Natural or Artificial Opening (ICD-10-PCS; 2018-12-27)
DX: I25.110 Atherosclerotic heart disease of native coronary artery with unstable angina pectoris (principal); R07.9 Chest pain, unspecified; E78.5 Hyperlipidemia, unspecified; I11.0 Hypertensive heart disease with heart failure; I50.32 Chronic diastolic (congestive) heart failure; E11.22 Type 2 diabetes mellitus with diabetic chronic kidney disease; I12.9 Hypertensive chronic kidney disease with stage 1 through stage 4 chronic kidney disease, or unspecified chronic kidney disease; N18.3 Chronic kidney disease, stage 3 (moderate); N17.9 Acute kidney failure, unspecified; E11.65 Type 2 diabetes mellitus with hyperglycemia; J44.9 Chronic obstructive pulmonary disease, unspecified; G47.33 Obstructive sleep apnea (adult) (pediatric); F17.210 Nicotine dependence, cigarettes, uncomplicated; F14.10 Cocaine abuse, uncomplicated; R60.9 Edema, unspecified; T82.867A Thrombosis due to cardiac prosthetic devices, implants and grafts, initial encounter; Y71.2 Prosthetic and other implants, materials and accessory cardiovascular devices associated with adverse incidents; Y92.9 Unspecified place or not applicable; E66.01 Morbid (severe) obesity due to excess calories; Z68.41 Body mass index [BMI] 40.0-44.9, adult; Z79.4 Long term (current) use of insulin; Z86.73 Personal history of transient ischemic attack (TIA), and cerebral infarction without residual deficits; Z95.5 Presence of coronary angioplasty implant and graft; Z91.010 Allergy to peanuts; Z91.013 Allergy to seafood; Z79.82 Long term (current) use of aspirin; Z99.89 Dependence on other enabling machines and devices; R77.0 Abnormality of albumin
CPT/HCPCS: 36415; 71045-TC-FY; 71275-TC; 80048; 80053; 82550; 82962; 83735; 83880; 84100; 84484; 85025; 85027; 85610; 85730; 93005; 93010; 93306-TC; 93970-TC; 94640; 94660; 96372; 96374; 96375; 99282-25; G0378; J1644

== ENCOUNTER 2019-02-22 09:10 | Inpatient (IN) | payer OTHER ==
[2019-02-12 12:14] VITALS: BMI 38.9
--- NOTE | 2019-02-21 15:42 | HP ---
Admitting History and Physical - Admission Chief Complaint: Left hip osteoarthritis x years History of Present Illness: 63 year old female presents today in regard to her left hip. Longstanding history of left hip osteoarthritis. Patient complains of pain, limited ROM, difficulty ambulating and difficulty completing activities of daily living. Patient has failed conservative treatment options including PO medications, injections, exercise program and activity modifications. At this point, patient would like to proceed with surgical intervention - left total hip arthroplasty, MAKOplasty. - Past Medical History METAL TRIMMER: Yes: CVA, TIA Cardiovascular: Yes: CAD, HTN, Hyperlipdemia, [place] Pulmonary: Yes: Asthma, Sleep Apnea Gastrointestinal: Yes: GERD Musculoskeletal: Yes: Osteoarthritis Endocrine: Yes: Diabetes Mellitus - Past Surgical History Past Surgical History: Yes: Stent Additional Past Surgical History: See written history & physical. - Smoking History Smoking history: Current some day smoker Have you smoked in the past 12 months: Yes Aproximately how many cigarettes per day: 2 - Alcohol/Substance Use Hx Alcohol Use: No History of Substance Use: reports: None, Cocaine - Social History ADL: Support Services History of Recent Travel: No Home Medications - Allergies Allergies/Adverse Reactions: Allergies Allergy/AdvReac Type Severity Reaction Status Date / Time cashew nut Allergy Severe Swelling Verified 02/12/19 11:50 shellfish derived Allergy Severe Swelling Verified 02/12/19 11:50 - Home Medications Home Medications: Ambulatory Orders Oxycodone HCl [Roxicodone] 30 mg PO Q6H PRN 01/09/14 Nitroglycerin Sublingual [Nitrostat -] 0.4 mg SL Q5M PRN #0 tab 03/02/15 Aspirin Coated [Ecotrin -] 81 mg PO DAILY tablet.ec 03/14/16 Fluticasone/Vilanterol [Breo Ellipta 200-25 Mcg INH] 1 each IH DAILY 12/27/18 Furosemide [Lasix] 40 mg PO DAILY 12/27/18 Gabapentin 600 mg PO BID 12/27/18 Insulin Degludec [Tresiba Flextouch U-100] 32 unit SQ DAILY 12/27/18 Levalbuterol HCl [Xopenex] 0.31 mg IH ASDIR 12/27/18 Pantoprazole Sodium 40 mg PO DAILY 12/27/18 Ranolazine [Ranexa] 1,000 mg PO BID 12/27/18 Rosuvastatin [Crestor -] 40 mg PO DAILY 12/27/18 Bupropion HCl [Wellbutrin Xl -] 150 mg PO BID 12/28/18 Clopidogrel Bisulfate [Plavix] 75 mg PO DAILY 12/28/18 Oxycodone HCl [Oxycontin] 80 mg PO BID 12/28/18 Umeclidinium [place] [Incruse Ellipta] 1 inh IH DAILY 12/28/18 Amlodipine Besylate [Norvasc -] 5 mg PO DAILY #30 tablet 12/29/18 Isosorbide Dinitrate [Isordil -] 10 mg PO BID #60 tablet 12/29/18 Diltiazem Cd [Cardizem Cd -] 120 mg PO DAILY 02/12/19 Insulin Aspart [Novolog] 10 unit SQ BID PRN 02/12/19 Montelukast Sodium [Singulair] 10 mg PO HS 02/12/19 Nicotine [Nicotine Patch 21 mg/24 hr] 1 each TD DAILY 02/12/19 Tramadol HCl [Ultram] 50 mg PO Q4H PRN 02/12/19 Review of Systems - Review of Systems Musculoskeletal: reports: Decreased ROM (left hip), Joint Pain (left) Physical Examination Constitutional: Yes: Well Nourished, No Distress Eyes: Yes: Conjunctiva Clear HENT: Yes: Atraumatic, Normocephalic Neck: Yes: Supple Cardiovascular: Yes: Regular Rate and Rhythm Respiratory: Yes: Regular Gastrointestinal: Yes: Soft ...Rectal Exam: Yes: Deferred Musculoskeletal: Yes: Joint Stiffness (left hip) Assessment/Plan 63 year old female presents today in regard to her left hip. Longstanding history of left hip osteoarthritis. Patient complains of pain, limited ROM, difficulty ambulating and difficulty completing activities of daily living. Patient has failed conservative treatment options including PO medications, injections, exercise program and activity modifications. At this point, patient would like to proceed with surgical intervention - left total hip arthroplasty, MAKOplasty. Pros, cons, risks, benefits and alternatives of a left total hip arthroplasty, MAKOplasty were discussed with the patient at length. Patient confirms her understanding and consents to proceed with a left total hip arthroplasty, MAKOplasty.
[~2019-02-22 09:10] MED LIST: CEFAZOLIN 2 GM in DEXTROSE 5%-WATER - 50 ML IVPB ONE; CELECOXIB 200 MG CAPSULE PO ONE; GABAPENTIN 300 MG CAPSULE (FP) PO ONE; PANTOPRAZOLE 40 MG TABLET (FP) PO ONE; ROPIVICAINE 0.2%/MORPH PF/KETOROLAC - 51ML DISP.SYRINGE IA ONE; TRANEXAMIC ACID 1000 MG/10 ML VIAL IVPUSH ONE; oxyCODONE HCL 10 MG SUSTAINED ACTING TABLET PO ONE
[2019-02-22] MEDS ORDERED: CELECOXIB 200 MG CAPSULE ONE (10:52)
[2019-02-22] MEDS ORDERED: PANTOPRAZOLE 40 MG TABLET (FP) ONE (10:52)
[2019-02-22] MEDS ORDERED: oxyCODONE HCL 10 MG SUSTAINED ACTING TABLET ONE (10:52)
[2019-02-22] MEDS ORDERED: GABAPENTIN 300 MG CAPSULE (FP) ONE (10:52)
[2019-02-22] MEDS ORDERED: MIDAZOLAM HCL 2 MG/2 ML SINGLE DOSE VIAL ONE (12:07)
[2019-02-22] MEDS ORDERED: BUPIVACAINE HCL/PF (5 MG/ML) 30 ML VIAL IJ ONE (12:07)
[2019-02-22] MEDS ORDERED: TRANEXAMIC ACID 1000 MG/10 ML VIAL ONE (12:15)
[2019-02-22] MEDS ORDERED: ceFAZolin SODIUM 1 GM VIAL ONE (12:15)
[2019-02-22] MEDS ORDERED: VANCOMYCIN 1,000 MG VIAL (RESTRICTED TO ID ONLY) ONE (12:15)
[2019-02-22] MEDS ORDERED: ROPIVICAINE 0.2%/MORPH PF/KETOROLAC - 51ML DISP.SYRINGE IA ONE ×2 (13:07→15:34)
[2019-02-22] MEDS ORDERED: VANCOMYCIN 1,000 MG VIAL (RESTRICTED TO ID ONLY) IVPB ONE (15:00)
[2019-02-22] MEDS ORDERED: TRANEXAMIC ACID 1000 MG/10 ML VIAL IVPB ONE (15:05)
[2019-02-22] MEDS ORDERED: ACETAMINOPHEN INJECTION 100 ML IVPB ONE (15:57)
[2019-02-22] MEDS ORDERED: KETOROLAC TROMETHAMINE 30 MG/1 ML VIAL ONE (15:58)
[2019-02-22] MEDS ORDERED: traMADol HCL 50 MG TABLET ONE (15:58)
[2019-02-22] MEDS ORDERED: NITROGLYCERIN SUBLINGUAL 1/150 0.4 MG TAB SL PRN (16:20)
[2019-02-22] MEDS ORDERED: INSULIN (NOVOLOG) ASPART 100 UNITS/ML 10ML VIAL SQ PRN (16:20)
--- NOTE | 2019-02-22 16:20 | OP ---
Operative Note - Note: Operative Date: 02/22/19 Pre-Operative Diagnosis: left hip OA Operation: left ZOË DARWIN Post-Operative Diagnosis: Same as Pre-op Surgeon: Kwan [employer] Floorperson: Katrin Guzmán Anesthesia: Spinal Estimated Blood Loss (mls): 200
[2019-02-22] MEDS ORDERED: ONDANSETRON 4 MG/2 ML VIAL IVPUSH PRN ×2 (16:26→16:48)
[2019-02-22] MEDS ORDERED: MAGNESIUM HYDROX 2400MG/30ML ORAL SUSPENSION 30 ML CUP PO PRN (16:26)
[2019-02-22] MEDS ORDERED: MAG HYDROX/AL HYDROX/SIMETH 30 ML UNIT-DOSE CUP PO PRN (16:26)
[2019-02-22] MEDS: ACETAMINOPHEN 1000 MG/100 ML VIAL (NON FORMULARY) IVPB ONE ×2 (16:30→17:07)
[2019-02-22] MEDS ORDERED: LEVALBUTEROL HCL 0.31 MG/3 ML VIAL.NEB IH SCH (16:30)
[2019-02-22] MEDS ORDERED: LACTATED RINGERS SOLUTION 1,000 ML IV SCH (16:30)
[2019-02-22] MEDS: traMADol HCL 50 MG TABLET PO SCH ×3 (16:45→23:01)
[2019-02-22] MEDS ORDERED: PROMETHAZINE HCL 25 MG/1 ML VIAL IVPUSH PRN (16:48)
[2019-02-22] MEDS ORDERED: HYDROmorphone HCL CARPU-JECT 1 MG/1 ML DISP.SYRIN IVPB PRN (16:51)
[2019-02-22] MEDS ORDERED: oxyCODONE HCL 5 MG TABLET PO PRN (16:52)
[2019-02-22] MEDS: ACETAMINOPHEN 325 MG TABLET (FP) PO SCH ×2 (17:08→23:02)
[2019-02-22] MEDS ORDERED: ISOSORBIDE DINITRATE 20 MG TABLET (FP) PO SCH (18:00)
[2019-02-22] MEDS: CEFAZOLIN 2 GM/D5W 2 GM/50 ML ML IVPB SCH (18:01)
[2019-02-22] MEDS: ISOSORBIDE DINITRATE 10 MG TABLET (FP) PO SCH (19:20)
[2019-02-22] MEDS ORDERED: RANOLAZINE E.R. 500 MG TABLET (FP) ONE (20:55)
[2019-02-22] MEDS: GABAPENTIN 300 MG CAPSULE (FP) PO SCH (21:17)
[2019-02-22] MEDS: oxyCODONE HCL 40 MG SUSTAINED ACTING TABLET PO SCH (21:17)
[2019-02-22] MEDS: SENNOSIDES/DOCUSATE COMBO (SENNA PLUS) TABLET (UD) PO SCH (21:17)
[2019-02-22] MEDS: ASCORBIC ACID 500 MG TABLET (FP) PO SCH (21:18)
[2019-02-22] MEDS: MONTELUKAST NA 10 MG TABLET PO SCH (21:18)
[2019-02-22] MEDS: INSULIN (NOVOLOG) ASPART 100 UNITS/ML 10ML VIAL SQ SCH (21:18)
[2019-02-22] MEDS: RANOLAZINE E.R. 1,000 MG TABLET (FP) PO SCH (21:18)
[2019-02-23] MEDS: CEFAZOLIN 2 GM/D5W 2 GM/50 ML ML IVPB SCH (01:23)
[2019-02-23] MEDS: traMADol HCL 50 MG TABLET PO SCH ×4 (05:28→22:17)
[2019-02-23] MEDS: ACETAMINOPHEN 325 MG TABLET (FP) PO SCH ×4 (05:29→22:18)
[2019-02-23] MEDS: INSULIN (NOVOLOG) ASPART 100 UNITS/ML 10ML VIAL SQ SCH ×4 (08:23→22:16)
[2019-02-23] MEDS: ASPIRIN 325 MG TABLET PO SCH (08:24)
[2019-02-23 08:26] LABS: HEMOGLOBIN 11.3 GM/dl (10.7-15.3); MCHC 32.2 g/dl (32.0-36.0); MEAN CELL VOLUME 86.8 fl (80-96); MEAN PLT VOLUME 8.8 fl (7.5-11.1); PLATELET COUNT 199 K/MM3 (134-434); RBC 4.03 M/mm3 (3.60-5.2); RDW 13.5 % (11.6-15.6); WHITE BLOOD COUNT 10.3 K/mm3 (4.0-10.8)
[2019-02-23 08:32] LABS: CALCIUM 9.1 mg/dl (8.5-10); CREATININE 1.2 mg/dl (0.55-1.3); POTASSIUM 4.9 mmol/L (3.5-5.1)
[2019-02-23] MEDS ORDERED: RANOLAZINE E.R. 500 MG TABLET (FP) ONE ×2 (09:30→21:08)
[2019-02-23] MEDS ORDERED: PT OWN MED DRAWER 7, Y5N ONE ×3 (09:33→18:59)
[2019-02-23] MEDS: NICOTINE 21 MG/24 HOURS TOPICAL PATCH TD SCH ×2 (09:45→09:58)
[2019-02-23] MEDS: oxyCODONE HCL 40 MG SUSTAINED ACTING TABLET PO SCH ×2 (09:45→21:12)
[2019-02-23] MEDS: GABAPENTIN 300 MG CAPSULE (FP) PO SCH ×2 (09:45→21:12)
[2019-02-23] MEDS: ASCORBIC ACID 500 MG TABLET (FP) PO SCH ×2 (09:46→21:14)
[2019-02-23] MEDS: MULTIVITAMINS (DAILY MVI) TABLET (FP) PO SCH (09:46)
[2019-02-23] MEDS: FUROSEMIDE 40 MG TABLET (FP) PO SCH (09:46)
[2019-02-23] MEDS: PANTOPRAZOLE 40 MG TABLET (FP) PO SCH (09:46)
[2019-02-23] MEDS: SENNOSIDES/DOCUSATE COMBO (SENNA PLUS) TABLET (UD) PO SCH ×2 (09:46→21:13)
[2019-02-23] MEDS: CLOPIDOGREL BISULFATE 75 MG TABLET (FP) PO SCH (09:47)
[2019-02-23] MEDS: ROSUVASTATIN CA 40 MG TABLET PO SCH (09:47)
[2019-02-23] MEDS: amLODIPine BESYLATE 5 MG TABLET (FP) PO SCH (09:47)
[2019-02-23] MEDS: RANOLAZINE E.R. 1,000 MG TABLET (FP) PO SCH ×2 (09:47→21:13)
[2019-02-23] MEDS: ISOSORBIDE DINITRATE 10 MG TABLET (FP) PO SCH ×2 (09:48→18:30)
[2019-02-23] MEDS ORDERED: UMECLIDINIUM BROMIDE IH SCH (10:00)
[2019-02-23] MEDS ORDERED: PATIENT'S OWN MEDICATION (NON-FORMULARY) (Fluticasone/Vilanterol [Breo Ellipta 200-25 Mcg IH SCH (10:00)
[2019-02-23] MEDS ORDERED: INSULIN DEGLUDEC SQ SCH (10:00)
--- NOTE | 2019-02-23 10:52 | PN ---
Progress Note (short form) - Note Progress Note: ANESTHESIA POSTOP 63 YO female POD#1 s/p LTHA, Spinal anesthesia and PNB Patient sitting in chair in PT. No complaints. Tolerating PO. No pain. VSS, Afebrile Continue current care. Encouraged active participation in PT and use of IS. No anesthetic complications.
[2019-02-23] MEDS: MONTELUKAST NA 10 MG TABLET PO SCH (21:13)
[2019-02-24] MEDS: traMADol HCL 50 MG TABLET PO SCH ×3 (05:48→10:39)
[2019-02-24] MEDS: ACETAMINOPHEN 325 MG TABLET (FP) PO SCH ×2 (05:49→10:24)
[2019-02-24] MEDS: INSULIN (NOVOLOG) ASPART 100 UNITS/ML 10ML VIAL SQ SCH ×2 (07:00→11:36)
[2019-02-24 08:21] LABS: HEMATOCRIT 33.2 % (32.4-45.2); HEMOGLOBIN 10.8 GM/dl (10.7-15.3); MCH 28.2 pg (25.7-33.7); MCHC 32.6 g/dl (32.0-36.0); MEAN CELL VOLUME 86.6 fl (80-96); MEAN PLT VOLUME 8.5 fl (7.5-11.1); PLATELET COUNT 187 K/MM3 (134-434); RBC 3.83 M/mm3 (3.60-5.2); RDW 13.4 % (11.6-15.6); WHITE BLOOD COUNT 10.1 K/mm3 (4.0-10.8)
[2019-02-24] MEDS: ASPIRIN 325 MG TABLET PO SCH (08:55)
[2019-02-24 09:21] VITALS: TEMP 98.4
[2019-02-24] MEDS ORDERED: RANOLAZINE E.R. 500 MG TABLET (FP) ONE (10:19)
[2019-02-24] MEDS ORDERED: PT OWN MED DRAWER 7, Y5N ONE (10:21)
[2019-02-24] MEDS: ROSUVASTATIN CA 40 MG TABLET PO SCH (10:25)
[2019-02-24] MEDS: GABAPENTIN 300 MG CAPSULE (FP) PO SCH (10:26)
[2019-02-24] MEDS: ISOSORBIDE DINITRATE 10 MG TABLET (FP) PO SCH (10:26)
[2019-02-24] MEDS: FUROSEMIDE 40 MG TABLET (FP) PO SCH (10:26)
[2019-02-24] MEDS: NICOTINE 21 MG/24 HOURS TOPICAL PATCH TD SCH (10:27)
[2019-02-24] MEDS: oxyCODONE HCL 40 MG SUSTAINED ACTING TABLET PO SCH (10:27)
[2019-02-24] MEDS: amLODIPine BESYLATE 5 MG TABLET (FP) PO SCH (10:27)
[2019-02-24] MEDS: CLOPIDOGREL BISULFATE 75 MG TABLET (FP) PO SCH (10:28)
[2019-02-24] MEDS: SENNOSIDES/DOCUSATE COMBO (SENNA PLUS) TABLET (UD) PO SCH (10:28)
[2019-02-24] MEDS: ASCORBIC ACID 500 MG TABLET (FP) PO SCH (10:29)
[2019-02-24] MEDS: RANOLAZINE E.R. 1,000 MG TABLET (FP) PO SCH (10:29)
[2019-02-24] MEDS: MULTIVITAMINS (DAILY MVI) TABLET (FP) PO SCH (10:29)
[2019-02-24] MEDS: PANTOPRAZOLE 40 MG TABLET (FP) PO SCH (10:29)
--- NOTE | 2019-02-24 11:40 | PN ---
Progress Note (short form) - Note Progress Note: Pt seen and examined Tuesday (02/23/19) evening. Doing well. C/o pain but manageable. Ambulated with PT. Afebrile Selected Entries 02/25/19 20:02 Temperature 97.8 F Pulse Rate 78 Respiratory 18 Rate Blood Pressure 89/52 L Laboratory Tests 02/23/19 02/23/19 02/24/19 07:33 07:33 07:03 WBC 10.3 10.1 Hgb 11.3 10.8 Hct 35.0 33.2 Plt Count 199 187 Sodium 137 Potassium 4.9 Chloride 104 Carbon Dioxide 24 Anion Gap 9 BUN 26 H Creatinine 1.2 Gen: NAD LLE: c/d/i, NVID A/P 63yo female PDO#1 s/p ZOË DARWIN PT/OOB - WBAT LLE D/C home Tuesday
--- NOTE | 2019-02-24 11:54 | DS ---
Physical Examination Vital Signs: Vital Signs Temperature 98.4 F 02/24/19 08:15 Pulse Rate 87 02/24/19 08:15 Respiratory Rate 18 02/24/19 08:15 Blood Pressure 128/69 02/24/19 08:15 O2 Sat by Pulse Oximetry (%) 96 02/24/19 08:15 Labs: CBC, BMP 02/24/19 07:03 02/23/19 07:33 Discharge Summary Reason For Visit: LEFT HIP OSTEOARTHRITIS Current Active Problems Osteoarthritis of left hip (Acute) Procedures: Principal: left Ugo DARWIN Hospital Course: Admitted for elective surgery. Procedure performed without complications. Pt received postoperative antibiotic prophylaxis and DVT ppx. Ambulated with physical therapy. Stable for discharge home with outpatient followup. Condition: Stable - Instructions Diet, Activity, Other Instructions: Dr Sierra - Hip Replacement Instructions Keep the Aquacel dressing on until removed by Dr. Sierra in 10-14 days - it is antibacterial and waterproof and you can shower with it on. Call the office for a follow-up appointment with Dr. Sierra in 10-14 days. Take one Aspirin 325mg daily for 6 weeks to prevent blood clots in your legs. After 6 weeks resume your preop dose of 81mg daily. Take one Pantoprazole 40mg daily for 6 weeks to protect against heartburn and ulcers. Take Cephalexin (antibiotic) 3x/day for 10 days to help prevent skin infection. Take a multivitamin, stool softener and extra Vitamin C supplement daily. For pain: Resume your preoperative pain regimen. Call your pain management doctor for a follow up appointment. Activity: You can put as much weight on the operative leg as you want. For the first 6 weeks, all you need to do is walk around the house, go up/down stairs, and sit down/get up. After 6 weeks when everything is healed (and bone has grown into the implant) you will be sent for more intensive outpatient physical therapy. Always use a walker or cane for balance and to prevent falls. Expect to see swelling / bruising from the operative site all the way down to your toes. Wear the Compression stocking on the operative side during the day to minimize how much swelling there is in your foot/ankle. Don't wear the stocking at night. You don't have to wear the stocking on the other side. Disposition: [facility]/HOME HEALTH CARE - Home Medications Comprehensive Discharge Medication List: Ambulatory Orders Oxycodone HCl [Roxicodone] 30 mg PO Q6H PRN 01/09/14 Nitroglycerin Sublingual [Nitrostat -] 0.4 mg SL Q5M PRN #0 tab 03/02/15 Fluticasone/Vilanterol [Breo Ellipta 200-25 Mcg INH] 1 each IH DAILY 12/27/18 Furosemide [Lasix] 40 mg PO DAILY 12/27/18 Gabapentin 600 mg PO BID 12/27/18 Insulin Degludec [Tresiba Flextouch U-100] 32 unit SQ DAILY 12/27/18 Levalbuterol HCl [Xopenex] 0.31 mg IH ASDIR 12/27/18 Pantoprazole Sodium 40 mg PO DAILY 12/27/18 Ranolazine [Ranexa] 1,000 mg PO BID 12/27/18 Rosuvastatin [Crestor -] 40 mg PO DAILY 12/27/18 Bupropion HCl [Wellbutrin Xl -] 150 mg PO BID 12/28/18 Clopidogrel Bisulfate [Plavix] 75 mg PO DAILY 12/28/18 Umeclidinium [place] [Incruse Ellipta] 1 inh IH DAILY 12/28/18 Amlodipine Besylate [Norvasc -] 5 mg PO DAILY #30 tablet 12/29/18 Isosorbide Dinitrate [Isordil -] 10 mg PO BID #60 tablet 12/29/18 Diltiazem Cd [Cardizem Cd -] 120 mg PO DAILY 02/12/19 Insulin Aspart [Novolog] 10 unit SQ BID PRN 02/12/19 Montelukast Sodium [Singulair] 10 mg PO HS 02/12/19 Nicotine [Nicotine Patch 21 mg/24 hr] 1 each TD DAILY 02/12/19 Ascorbic Acid [Vitamin C -] 500 mg PO BID tablet 02/24/19 Aspirin [ASA -] 325 mg PO DAILY@0800 tablet 02/24/19 Cephalexin Monohydrate [Keflex -] 500 mg PO TID #30 capsule 02/24/19 Multivitamins [Multivit ([facility] Formulary)] 1 tab PO DAILY tab 02/24/19 Oxycodone HCl 30 mg PO Q6H PRN #30 tablet MDD 4 02/24/19 Oxycodone HCl [Oxycontin] 80 mg PO BID #30 tab.er.12h MDD 2 02/24/19 Pantoprazole Sodium [Protonix -] 40 mg PO DAILY #40 tablet.ec 02/24/19 Sennosides/Docusate Sodium [Pericolace -] 2 tablet PO BID tablet 02/24/19
[2019-02-24] MEDS ORDERED: BUDESONIDE 0.5 MG/2 ML INH SUSP VIAL NEB ONE (12:30)
[2019-02-24] MEDS ORDERED: LEVALBUTEROL HCL 0.31 MG/3 ML VIAL.NEB IH PRN (12:37)
[2019-02-24 13:36] VITALS: BP 100/64; PULSE 89
--- NOTE | 2019-02-27 08:37 | SPEC ---
DATE OF OPERATION: 02/22/2019 PREOPERATIVE DIAGNOSIS: Left hip osteoarthritis. POSTOPERATIVE DIAGNOSIS: Left hip osteoarthritis. PROCEDURE PERFORMED: Left total hip replacement with MAKOplasty robotic navigation. SURGEON: Alvarado Cueto M.D. VP GLOBAL: HCAZ Garner ANESTHESIA: Spinal plus sedation. ESTIMATED BLOOD LOSS: 200 mL. COMPLICATIONS: None. DISPOSITION: The patient was transferred to the PACU in stable condition. IMPLANTS USED: Antoinette Accolade II size 11 femoral component, Antoinette Trident II 56-mm acetabular component with acetabular screws, MDM bipolar head ball and liner with inner 28-mm ceramic +0-mm offset head ball. INDICATIONS: This is a 63-year-old female who presented to the office complaining of severe bilateral hip pain, which she has had for years. The patient was diagnosed with severe bilateral hip osteoarthritis. The left was more painful than the right, but both hips had severely degenerated, and she had significant pain and ambulatory dysfunction despite years of conservative management. She was therefore indicated for a total hip replacement. The risks, benefits and alternatives to the procedure were explained to the patient in great detail, and she elected to proceed with the surgery. DESCRIPTION OF PROCEDURE: On the day of surgery, the patient was taken to the operating room and placed on the OR table. Spinal anesthesia was administered by the anesthesiologist. The patient was then positioned in the lateral decubitus position on the table and all bony prominences were padded. An axillary roll was placed. The operative hip was then prepped and draped in the usual sterile fashion and intravenous antibiotics were given for infection prophylaxis. A surgical time-out was then performed with the team, and the patients identity, procedure, side, availability of implants, and the administration of antibiotics were confirmed. An approximately 15-cm longitudinal incision was made through the skin centered on the greater trochanter of the hip. This dissection was carried down through the subcutaneous tissues to the deep fascia. This fascia was then incised and a Cobra was placed around the inferior femoral neck. Electrocautery was used to reflect the anterior 40% of the gluteus medius and minimus starting at the musculotendinous junction and leaving a cuff for closure. This was reflected to reveal the capsule of the hip joint. An anterior capsulectomy was performed and the femoral head and neck were visualized. Grade 4 changes were noted diffusely throughout the joint. At this point, three small stab incisions were made superior to the main incision along the iliac crest. Three self-drilling Steinmann pins were then placed and the HistoPathway pelvic array was attached. Reference points on the limb were then entered into the robotic device and the limb length deficiency, offset, and femoral neck resection level were then calculated by the software. The hip was then dislocated with traction and external rotation. An oscillating saw was used to make the femoral neck cut at the level previously templated, and the femoral head was removed. Attention was then turned to the acetabulum. Retractors were then placed around the acetabulum and the labrum was removed. An acetabular checkpoint pin and the HistoPathway software were used to register the contours of the acetabulum. The acetabulum was then reamed in a single stage to the preoperatively templated size using the HistoPathway robotic arm. The appropriately sized cup was then impacted and had solid fixation as well as the preset inclination and version of 40 and 20 degrees, respectively. A polyethylene liner was then placed in the cup. Attention was then turned back to the femur, which was externally rotated for improved visualization. A femoral neck elevator was used to present the femoral neck cut, a box osteotome was used to enter the femoral canal, and a canal finder was used to go down the femoral shaft. The Carlos broaches were used sequentially until the optimal scratch fit was achieved. This correlated with the preoperatively templated size. From here, several different offset head and neck configurations were tested until excellent stability and length were obtained. These measurements were quantified using the HistoPathway software. All trial components were then removed, the femur was copiously irrigated, and the final components were placed. Leg length and stability were checked again and found to be excellent. Irrigation was performed again. Wound closure was started by repairing the abductor muscles with a no. 2 FiberWire stitch in a Krackow configuration passed through bone tunnels in the greater trochanter and tied over a bony bridge. This repair was then reinforced with a 0 V-Loc 180 barbed suture. Next, no. 1 Polysorb and 0 V-Loc 180 were used to close the fascia. The deep subcutaneous tissue was closed with no. 1 Polysorb sutures, and 2-0 Polysorb was used for the superficial subcutaneous tissue. The skin was closed using both 3-0 V-Loc 90 suture in a running subcuticular fashion and SwiftSet skin adhesive. The HistoPathway array and pins were removed from the iliac crest and the stab incision sites were irrigated and closed with 4-0 Polysorb sutures and SwiftSet skin adhesive. Once this was completed, a sterile dressing was applied. The patient was then awakened and taken to the PACU in stable condition. ALVARADO CUETO M.D. [id number]
--- NOTE | 2019-02-27 13:06 | PATH ---
Surgical Pathology Report Patient Name: IAN MANCINI Med. Rec. #: [id number] /Age/Gender: 1955 (Age: 63) / F Account: [id number] Location: [facility] Taken: 02/22/2019 Received: 02/22/2019 Reported: 02/26/2019 Physicians: Kwan Sierra M.D. Specimen(s) Received LEFT FEMORAL HEAD Clinical History Left hip osteoarthritis Final Diagnosis BONE, FEMORAL HEAD, LEFT, TOTAL HIP REPLACEMENT MAKOPASTY: BONE WITH DEGENERATIVE JOINT DISEASE, SYNOVIUM, AND SCANT SKELETAL MUSCLE. Electronically Signed Desi Larikn M.D. Gross Description Received in formalin, labeled "left femoral head," is a 5 x 5 x 3 cm. femoral head with attached 1 cm femoral neck. The margin of resection is smooth. Focal areas of eburnation measuring 3 x 2 cm are identified. The remaining articular surface is smooth. The underlying trabecular bone is yellow and hard. A credit representative section is submitted in one cassette, following decalcification. MLAliciaZ/02/23/2019 alexandrea/02/23/2019
== END 2019-02-24 13:40 | disposition home health service (06) | DRG 470 ==
LOC: FM/S 09:10
PROVIDERS: ADMIT Student in an Organized Health Care Education/Training Program; ATTEND Student in an Organized Health Care Education/Training Program
PROC: 8E0W0CZ Robotic Assisted Procedure of Trunk Region, Open Approach (ICD-10-PCS; 2019-02-22)
PROC: 0SRB0JZ Replacement of Left Hip Joint with Synthetic Substitute, Open Approach (ICD-10-PCS; principal; 2019-02-22 13:57)
DX: M16.12 Unilateral primary osteoarthritis, left hip (principal); I25.10 Atherosclerotic heart disease of native coronary artery without angina pectoris; E11.9 Type 2 diabetes mellitus without complications; I10 Essential (primary) hypertension; E78.5 Hyperlipidemia, unspecified; I25.2 Old myocardial infarction; G47.30 Sleep apnea, unspecified; K21.9 Gastro-esophageal reflux disease without esophagitis; M19.90 Unspecified osteoarthritis, unspecified site; F17.210 Nicotine dependence, cigarettes, uncomplicated; Z86.73 Personal history of transient ischemic attack (TIA), and cerebral infarction without residual deficits
CPT/HCPCS: 36415; 73502-TC-LT-FY; 73700-TC-RT; 80048; 82962; 85027; 86803; 87389; 88305-TC; 88311-TC; 94640; 94760; 97116-GP; 97163-GP; J0131

== ENCOUNTER 2019-02-25 19:06 | Inpatient (IN) | payer OTHER ==
[2019-02-25] MEDS ORDERED: PATIENT'S OWN MEDICATION (NON-FORMULARY) (Insulin Aspart [Novolog] 10 UNIT) SQ PRN (20:18)
[2019-02-25] MEDS ORDERED: PATIENT'S OWN MEDICATION (NON-FORMULARY) (Oxycodone Hcl [Roxicodone] 30 MG) PO PRN (20:18)
[2019-02-25] MEDS ORDERED: NITROGLYCERIN SUBLINGUAL 1/150 0.4 MG TAB SL PRN (20:18)
[2019-02-25] MEDS ORDERED: PATIENT'S OWN MEDICATION (NON-FORMULARY) (Oxycodone Hcl [Oxycodone Hcl] 30 MG) PO PRN (20:18)
[2019-02-25] MEDS ORDERED: GABAPENTIN 300 MG CAPSULE (FP) PO ONE (20:18)
[2019-02-25] MEDS ORDERED: MAGNESIUM HYDROX 2400MG/30ML ORAL SUSPENSION 30 ML CUP PO PRN (20:25)
[2019-02-25] MEDS ORDERED: ONDANSETRON 4 MG/2 ML VIAL IVPUSH PRN (20:25)
[2019-02-25] MEDS ORDERED: MAG HYDROX/AL HYDROX/SIMETH 30 ML UNIT-DOSE CUP PO PRN (20:25)
[2019-02-25] MEDS ORDERED: LACTATED RINGERS SOLUTION 1,000 ML IV SCH (20:30)
[2019-02-25] MEDS ORDERED: LEVALBUTEROL HCL 0.31 MG/3 ML VIAL.NEB IH SCH (20:30)
[2019-02-25] MEDS ORDERED: oxyCODONE HCL 5 MG TABLET PO PRN (21:09)
[2019-02-25] MEDS: ASCORBIC ACID 500 MG TABLET (FP) PO SCH (21:20)
[2019-02-25] MEDS: SENNOSIDES/DOCUSATE COMBO (SENNA PLUS) TABLET (UD) PO SCH (21:20)
[2019-02-25] MEDS: RANOLAZINE E.R. 500 MG TABLET (FP) PO SCH (21:20)
[2019-02-25] MEDS: CEPHALEXIN MONOHYDRATE 500 MG CAPSULE (UD) PO SCH (21:21)
[2019-02-25] MEDS: MONTELUKAST NA 10 MG TABLET PO SCH (21:21)
[2019-02-25] MEDS ORDERED: INSULIN (NOVOLOG) ASPART 100 UNITS/ML 10ML VIAL SQ PRN (21:26)
--- NOTE | 2019-02-25 21:34 | CONSULT ---
Consult Consult Specialty:: Hospital Medicine Referred by:: Dr. Sierra Reason for Consultation:: Hypotension, Inability to ambulate - History of Present Illness Chief Complaint: R- Hip Pain, Frequent Falls History of Present Illness: This is a 63 y/o woman s/p L- THR (02/23/12). Who was transferred from [facility] ED to [place] M/S floor s/p fall x2 today with right hip pain and difficulty ambulating. Patient was uncooperative during the exam, unwilling to provide further HPI. Per transfer records- patient reports falling twice while ambulating to the bathroom. Patient reported right hip pain. Patient denied hitting head or LOC. 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: CVA (no residual deficits), TIA Cardio/Vascular: Yes: CAD, CHF, HTN, Hyperlipdemia, OR, Other (PE) Pulmonary: Yes: Asthma, COPD, Sleep Apnea Gastrointestinal: Yes: GERD Psych: Yes: Depression Musculoskeletal: Yes: Osteoarthritis, Other (herniated discs) Endocrine: Yes: Diabetes Mellitus - Past Surgical History Past Surgical History: Yes: Stent (x13) - Alcohol/Substance Use Hx Alcohol Use: No History of Substance Use: reports: Cocaine, Prescription - Smoking History Smoking history: Current some day smoker Have you smoked in the past 12 months: Yes Aproximately how many cigarettes per day: 2 - Social History Usual Living Arrangement: Alone ADL: Support Services History of Recent Travel: No Home Medications - Allergies Allergies/Adverse Reactions: Allergies Allergy/AdvReac Type Severity Reaction Status Date / Time cashew nut Allergy Severe Swelling Verified 02/12/19 11:50 shellfish derived Allergy Severe Swelling Verified 02/12/19 11:50 - Home Medications Home Medications: Ambulatory Orders Oxycodone HCl [Roxicodone] 30 mg PO Q6H PRN 01/09/14 Nitroglycerin Sublingual [Nitrostat -] 0.4 mg SL Q5M PRN #0 tab 03/02/15 Fluticasone/Vilanterol [Breo Ellipta 200-25 Mcg INH] 1 each IH DAILY 12/27/18 Furosemide [Lasix] 40 mg PO DAILY 12/27/18 Gabapentin 600 mg PO BID 12/27/18 Insulin Degludec [Tresiba Flextouch U-100] 32 unit SQ DAILY 12/27/18 Levalbuterol HCl [Xopenex] 0.31 mg IH ASDIR 12/27/18 Pantoprazole Sodium 40 mg PO DAILY 12/27/18 Ranolazine [Ranexa] 1,000 mg PO BID 12/27/18 Rosuvastatin [Crestor -] 40 mg PO DAILY 12/27/18 Bupropion HCl [Wellbutrin Xl -] 150 mg PO BID 12/28/18 Clopidogrel Bisulfate [Plavix] 75 mg PO DAILY 12/28/18 Umeclidinium [place] [Incruse Ellipta] 1 inh IH DAILY 12/28/18 Amlodipine Besylate [Norvasc -] 5 mg PO DAILY #30 tablet 12/29/18 Isosorbide Dinitrate [Isordil -] 10 mg PO BID #60 tablet 12/29/18 Diltiazem Cd [Cardizem Cd -] 120 mg PO DAILY 02/12/19 Insulin Aspart [Novolog] 10 unit SQ BID PRN 02/12/19 Montelukast Sodium [Singulair] 10 mg PO HS 02/12/19 Nicotine [Nicotine Patch 21 mg/24 hr] 1 each TD DAILY 02/12/19 Ascorbic Acid [Vitamin C -] 500 mg PO BID tablet 02/24/19 Aspirin [ASA -] 325 mg PO DAILY@0800 tablet 02/24/19 Cephalexin Monohydrate [Keflex -] 500 mg PO TID #30 capsule 02/24/19 Multivitamins [Multivit ([facility] Formulary)] 1 tab PO DAILY tab 02/24/19 Oxycodone HCl 30 mg PO Q6H PRN #30 tablet MDD 4 02/24/19 Oxycodone HCl [Oxycontin] 80 mg PO BID #30 tab.er.12h MDD 2 02/24/19 Pantoprazole Sodium [Protonix -] 40 mg PO DAILY #40 tablet.ec 02/24/19 Sennosides/Docusate Sodium [Pericolace -] 2 tablet PO BID tablet 02/24/19 Family Disease History - Family Disease History Family History: Unable to Obtain Review of Systems - Review of Systems Constitutional: reports: No Symptoms Eyes: reports: No Symptoms HENT: reports: No Symptoms Neck: reports: No Symptoms Cardiovascular: reports: No Symptoms Respiratory: reports: No Symptoms Gastrointestinal: reports: No Symptoms Genitourinary: reports: No Symptoms Breasts: reports: No Symptoms Reported Musculoskeletal: reports: Joint Pain Integumentary: reports: Bruising (b/l knees) Neurological: reports: Weakness Endocrine: reports: No Symptoms Hematology/Lymphatic: reports: No Symptoms Psychiatric: reports: No Symptoms Pain Intensity: 4 Physical Exam Vital Signs: Vital Signs Temperature 97.8 F 02/25/19 20:02 Pulse Rate 74 02/25/19 20:26 Respiratory Rate 18 02/25/19 20:26 Blood Pressure 88/46 L 02/25/19 20:26 O2 Sat by Pulse Oximetry (%) Constitutional: Yes: No Distress, Obese, Other (uncooperative) Eyes: Yes: Conjunctiva Clear, PERRL HENT: Yes: WNL, Atraumatic, Normocephalic Neck: Yes: WNL, Supple, Trachea Midline Cardiovascular: Yes: WNL, Regular Rate and Rhythm, S1, S2 Respiratory: Yes: Diminished (base), On Nasal O2, Rhonchi Gastrointestinal: Yes: WNL, Normal Bowel Sounds, Soft, Abdomen, Obese Renal/: Yes: WNL Breast(s): Yes: WNL Musculoskeletal: Yes: Other Edema: No Peripheral Pulses WNL: Yes Integumentary: Yes: Other (abrasion to B/L Knees) Wound/Incision: Yes: Dressing Dry and Intact Neurological: Yes: Lethargy ...Motor Strength: WNL Psychiatric: Yes: Agitated Imaging - Results Chest X-ray: Image Reviewed EKG: Image Reviewed Problem List - Problems (1) Hypotension Code(s): I95.9 - HYPOTENSION, UNSPECIFIED (2) Fall at home Code(s): W19.XXXA - UNSPECIFIED FALL, INITIAL ENCOUNTER; Y92.009 - UNSP PLACE IN UNSP NON-INSTITUT (PRIVATE) RESIDENCE PLACE (3) CAD (coronary artery disease) Code(s): I25.10 - ATHSCL HEART DISEASE OF [place] CORONARY ARTERY W/O ANG PCTRS Qualifiers: Coronary Disease-Associated Artery/Lesion type: unspecified vessel or lesion type [place] vs. transplanted heart: [place] heart Associated angina: with stable angina Qualified Code(s): I25.118 - Atherosclerotic heart disease of [place] coronary artery with other forms of angina pectoris (4) Chronic diastolic congestive heart failure Code(s): I50.32 - CHRONIC DIASTOLIC (CONGESTIVE) HEART FAILURE (5) Asthma Code(s): J45.909 - UNSPECIFIED ASTHMA, UNCOMPLICATED Qualifiers: Asthma severity: mild intermittent Asthma complication type: uncomplicated (6) Diabetes Code(s): E11.9 - TYPE 2 DIABETES MELLITUS WITHOUT COMPLICATIONS Qualifiers: Diabetes mellitus type: type 2 Diabetes mellitus care home insulin use: without care home use Diabetes mellitus complication status: with circulatory complication (7) Hyperlipidemia Code(s): E78.5 - HYPERLIPIDEMIA, UNSPECIFIED Qualifiers: Hyperlipidemia type: unspecified Qualified Code(s): E78.5 - Hyperlipidemia , unspecified (8) Hypertension Code(s): I10 - ESSENTIAL (PRIMARY) HYPERTENSION Qualifiers: Hypertension type: essential hypertension Qualified Code(s): I10 - Essential (primary) hypertension (9) Sleep apnea Code(s): G47.30 - SLEEP APNEA, UNSPECIFIED (10) History of CVA (cerebrovascular accident) Code(s): Z86.73 - PRSNL HX OF TIA (TIA), AND CEREB INFRC W/O RESID DEFICITS (11) Status post angioplasty with stent Code(s): Z95.9 - PRESENCE OF CARDIAC AND VASCULAR IMPLANT AND GRAFT, UNSP Assessment/Plan This is a 63 y/o woman with a PMHx of: HTN, CAD, OR x2 (Stents x13), Chronic Diastolic HF, DM, CVA (no residual deficits), Asthma, ANTONY, PE, Depression, Herniated Discs, Sciatica. Who was admitted for s/p fall, difficulty ambulating s/p L-THR (02/22/19), Postural Hypotension. Plan: 1. Ortho: R- Hip Pain s/p L- THR Xrays done at [facility]: right hip degenerative changes, left hip s/p THR no acute injury Continue Ortho regimen PT Incentive Spirometer Would avoid Opioids secondary to patient's lethargy and hypotension Consider STR Fall Precautions DVT ppx- SCDs, Asa 2. Cardiovascular: Postural Hypotension Chronic Diastolic HF CAD HTN OR Likely secondary to medication use vs dehydration Cardiac Monitoring NS bolus given in [facility]ED Continue gentle IVF monitor closely for fluid overload Hold Antihypertensive meds secondary to Postural Hypotension Orthostatics Chest Xray image- increased interstitial markings EKG- NSR with prolonged QT Avoid prolonged QT meds Continue Plavix, Rosuvastatin Repeat CBC, BMP in am 3. Endocrine: Diabetes Mellitus stable Monitor BGMs Continue home meds 4. Pulmonary: Asthma ANTONY stable Continue home meds CPAP HS 5. Psych: Depression Continue Wellbutrin Visit type - Emergency Visit Emergency Visit: No - New Patient This patient is new to me today: Yes Date on this admission: 02/25/19 - Critical Care Critical Care patient: No
[2019-02-25] MEDS ORDERED: PATIENT'S OWN MEDICATION (NON-FORMULARY) (Gabapentin [Gabapentin] 600 MG) PO SCH (22:00)
[2019-02-25] MEDS: INSULIN SLIDING SCALE (NOVOLOG) 1 VIAL SQ SCH (22:31)
[2019-02-26] MEDS: GABAPENTIN 300 MG CAPSULE (FP) PO SCH ×3 (03:30→21:09)
[2019-02-26] MEDS: SENNOSIDES/DOCUSATE COMBO (SENNA PLUS) TABLET (UD) PO SCH ×3 (03:30→21:10)
[2019-02-26] MEDS: CEPHALEXIN MONOHYDRATE 500 MG CAPSULE (UD) PO SCH ×4 (03:30→21:09)
[2019-02-26] MEDS: oxyCODONE HCL 40 MG SUSTAINED ACTING TABLET PO SCH ×3 (03:30→21:10)
[2019-02-26] MEDS ORDERED: LACTATED RINGERS SOLUTION 1,000 ML IV SCH (03:44)
[2019-02-26] MEDS: INSULIN SLIDING SCALE (NOVOLOG) 1 VIAL SQ SCH ×4 (06:27→22:33)
[2019-02-26] MEDS ORDERED: ACETAMINOPHEN 1000 MG/100 ML VIAL (NON FORMULARY) IVPB PRN (07:56)
[2019-02-26] MEDS ORDERED: ASPIRIN 325 MG TABLET PO SCH (08:00)
[2019-02-26] MEDS ORDERED: SODIUM CHLORIDE 500 ML IV STA (08:11)
[2019-02-26 08:29] LABS: HEMATOCRIT 26.5 % (32.4-45.2); HEMOGLOBIN 8.4 GM/dl (10.7-15.3); MCH 27.3 pg (25.7-33.7); MCHC 31.7 g/dl (32.0-36.0); MEAN CELL VOLUME 85.9 fl (80-96); MEAN PLT VOLUME 8.5 fl (7.5-11.1); PLATELET COUNT 142 K/MM3 (134-434); RBC 3.08 M/mm3 (3.60-5.2); RDW 13.6 % (11.6-15.6); WHITE BLOOD COUNT 9.2 K/mm3 (4.0-10.8)
[2019-02-26 08:42] LABS: CALCIUM 8.4 mg/dl (8.5-10); CREATININE 2.5 mg/dl (0.55-1.3); POTASSIUM 4.5 mmol/L (3.5-5.1)
[2019-02-26] MEDS ORDERED: PT OWN MED DRAWER 7, Y5N ONE (09:44)
[2019-02-26] MEDS: CLOPIDOGREL BISULFATE 75 MG TABLET (FP) PO SCH (09:55)
[2019-02-26] MEDS: ROSUVASTATIN CA 40 MG TABLET PO SCH (09:55)
[2019-02-26] MEDS: PANTOPRAZOLE 40 MG TABLET (FP) PO SCH (09:57)
[2019-02-26] MEDS: ASCORBIC ACID 500 MG TABLET (FP) PO SCH ×2 (09:57→21:10)
[2019-02-26] MEDS ORDERED: amLODIPine BESYLATE 5 MG TABLET (FP) PO SCH (10:00)
[2019-02-26] MEDS ORDERED: ISOSORBIDE DINITRATE 10 MG TABLET (FP) PO SCH (10:00)
[2019-02-26] MEDS ORDERED: MULTIVITAMINS (DAILY MVI) TABLET (FP) PO SCH (10:00)
[2019-02-26] MEDS ORDERED: PATIENT'S OWN MEDICATION (NON-FORMULARY) (Fluticasone/Vilanterol [Breo Ellipta 200-25 Mcg IH SCH (10:00)
[2019-02-26] MEDS ORDERED: UMECLIDINIUM BROMIDE IH SCH (10:00)
[2019-02-26] MEDS ORDERED: FUROSEMIDE 40 MG TABLET (FP) PO SCH (10:00)
[2019-02-26] MEDS ORDERED: INSULIN DEGLUDEC SQ SCH (10:00)
[2019-02-26] MEDS: NICOTINE 21 MG/24 HOURS TOPICAL PATCH TD SCH (10:01)
[2019-02-26] MEDS: RANOLAZINE E.R. 500 MG TABLET (FP) PO SCH ×2 (10:17→21:09)
[2019-02-26] MEDS ORDERED: SODIUM CHLORIDE 1,000 ML IV STA (11:28)
--- NOTE | 2019-02-26 14:10 | CON.CARD ---
Consult Consult Specialty:: Cardiology Referred by:: Medicine Reason for Consultation:: hypotension - History of Present Illness Chief Complaint: fall History of Present Illness: 63F h/o CAD, diastolic CHF, HTN, HLD, prior [place] s/p L THR 02/22 presents with fall , hypotension, anemia. Recently discharged, s/p fall x 2 and difficulty ambulating, R hip pain and pain/heavy weight in her leg. No dizziness, lightheadedness, syncope. sees Dr. Lieberman for cardio. Received IVF, Hgb 11.3->8.4 with [facility]. 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: CVA (no residual deficits), TIA Cardio/Vascular: Yes: CAD, CHF, HTN, Hyperlipdemia, [place], Other (PE) Pulmonary: Yes: Asthma, COPD, Sleep Apnea Gastrointestinal: Yes: GERD Psych: Yes: Depression Musculoskeletal: Yes: Osteoarthritis, Other (herniated discs) Endocrine: Yes: Diabetes Mellitus - Past Surgical History Past Surgical History: Yes: Stent (x13) - Alcohol/Substance Use Hx Alcohol Use: No History of Substance Use: reports: Cocaine, Prescription - Smoking History Smoking history: Current some day smoker Have you smoked in the past 12 months: Yes Aproximately how many cigarettes per day: 2 - Social History Usual Living Arrangement: Alone ADL: Support Services History of Recent Travel: No Home Medications - Allergies Allergies/Adverse Reactions: Allergies Allergy/AdvReac Type Severity Reaction Status Date / Time cashew nut Allergy Severe Swelling Verified 02/12/19 11:50 shellfish derived Allergy Severe Swelling Verified 02/12/19 11:50 - Home Medications Home Medications: Ambulatory Orders Oxycodone HCl [Roxicodone] 30 mg PO Q6H PRN 01/09/14 Nitroglycerin Sublingual [Nitrostat -] 0.4 mg SL Q5M PRN #0 tab 03/02/15 Fluticasone/Vilanterol [Breo Ellipta 200-25 Mcg INH] 1 each IH DAILY 12/27/18 Furosemide [Lasix] 40 mg PO DAILY 12/27/18 Gabapentin 600 mg PO BID 12/27/18 Insulin Degludec [Tresiba Flextouch U-100] 32 unit SQ DAILY 12/27/18 Levalbuterol HCl [Xopenex] 0.31 mg IH ASDIR 12/27/18 Pantoprazole Sodium 40 mg PO DAILY 12/27/18 Ranolazine [Ranexa] 1,000 mg PO BID 12/27/18 Rosuvastatin [Crestor -] 40 mg PO DAILY 12/27/18 Bupropion HCl [Wellbutrin Xl -] 150 mg PO BID 12/28/18 Clopidogrel Bisulfate [Plavix] 75 mg PO DAILY 12/28/18 Umeclidinium [place] [Incruse Ellipta] 1 inh IH DAILY 12/28/18 Amlodipine Besylate [Norvasc -] 5 mg PO DAILY #30 tablet 12/29/18 Isosorbide Dinitrate [Isordil -] 10 mg PO BID #60 tablet 12/29/18 Diltiazem Cd [Cardizem Cd -] 120 mg PO DAILY 02/12/19 Insulin Aspart [Novolog] 10 unit SQ BID PRN 02/12/19 Montelukast Sodium [Singulair] 10 mg PO HS 02/12/19 Nicotine [Nicotine Patch 21 mg/24 hr] 1 each TD DAILY 02/12/19 Ascorbic Acid [Vitamin C -] 500 mg PO BID tablet 02/24/19 Aspirin [ASA -] 325 mg PO DAILY@0800 tablet 02/24/19 Cephalexin Monohydrate [Keflex -] 500 mg PO TID #30 capsule 02/24/19 Multivitamins [Multivit ([facility] Formulary)] 1 tab PO DAILY tab 02/24/19 Oxycodone HCl 30 mg PO Q6H PRN #30 tablet MDD 4 02/24/19 Oxycodone HCl [Oxycontin] 80 mg PO BID #30 tab.er.12h MDD 2 02/24/19 Pantoprazole Sodium [Protonix -] 40 mg PO DAILY #40 tablet.ec 02/24/19 Sennosides/Docusate Sodium [Pericolace -] 2 tablet PO BID tablet 02/24/19 Family Disease History - Family Disease History Family History: Unremarkable Review of Systems - Review of Systems Constitutional: reports: No Symptoms Eyes: reports: No Symptoms HENT: reports: No Symptoms Neck: reports: No Symptoms Cardiovascular: reports: No Symptoms Respiratory: reports: No Symptoms Gastrointestinal: reports: No Symptoms Genitourinary: reports: No Symptoms Musculoskeletal: reports: Joint Pain Integumentary: reports: No Symptoms Neurological: reports: No Symptoms Endocrine: reports: No Symptoms Hematology/Lymphatic: reports: No Symptoms Psychiatric: reports: No Symptoms Vital Signs: Vital Signs Temperature 98.8 F 02/26/19 06:23 Pulse Rate 88 02/26/19 11:28 Respiratory Rate 18 02/26/19 10:00 Blood Pressure 96/46 L 02/26/19 11:28 O2 Sat by Pulse Oximetry (%) 97 02/26/19 08:05 Constitutional: Yes: Well Nourished, No Distress, Calm Eyes: Yes: Conjunctiva Clear, EOM Intact HENT: Yes: Atraumatic, Normocephalic Neck: Yes: Supple, Trachea Midline Respiratory: Yes: Regular, CTA Bilaterally Gastrointestinal: Yes: Normal Bowel Sounds, Soft Cardiovascular: Yes: Regular Rate and Rhythm JVD: No Carotid Bruit: No PMI: Non-Displaced Heart Sounds: Yes: S1, S2 Musculoskeletal: Yes: Back Pain Extremities: No: Cold Edema: No Peripheral Pulses WNL: Yes Peripheral Pulses: 2+ Left Doralis Pedis, 2+ Right Dorsalis Pedis Integumentary: No: Jaundice Neurological: Yes: Alert, Oriented Psychiatric: No: Agitated - Other Data Labs, Other Data: CBC, BMP 02/26/19 07:03 02/26/19 07:03 Assessment/Plan EKG: sinus, nl intervals, no ischemic changes Tele: sinus hypotension, anemia - likely due to anemia, post op 02/22 from [facility]R - s/p IVF, plan to transfuse PRBC as well - hold antihypertensives for low BP s/p L THR - on 02/22 - manage per ortho [facility] - likely prerenal in setting of anemia Chronic diastolic HF - appears euvolemic - monitor volume status, receiving IVF, PRBC - IV lasix PRN - hold home lasix CAD s/p multiple PCI - asymptomatic - continue aspirin, plavix, ranexa, statin - hold isordil for low BP HTN - holding home meds for low BPs DM - manage per primary
--- NOTE | 2019-02-26 14:29 | PN ---
"Physical Exam: Patient was admitted by Dr. Kwan Sierra. He has requested the hospitalist service assume the care of this patient. SUBJECTIVE: Patient seen and examined oob to chair. Feels achy all over which she attributes to falling at home. Denies chest pain, SOB. Admits when she was home she ate and drank very little. She had a cup of coconut water and no other fluids that she can recall. She cannot recall any food that she ate. She denies fever, sweats, chills. Says she vomited at home, no diarrhea. OBJECTIVE: Vital Signs Period Temp Pulse Resp BP Sys/Adan Pulse Ox Last 24 Hr 97.8 F-99 F 74-143 17-18 80-119/31-70 95-97 GENERAL: The patient is awake, alert, and fully oriented, in no acute distress. LUNGS: Mild diffuse wheezing HEART: Regular rate and rhythm, S1, S2 ABDOMEN: Soft, nontender, nondistended LOWER EXTREMITIES: 2+ pulses, warm, well-perfused, no edema; superficial abrasions to both knees NEUROLOGICAL: Cranial nerves II through XII grossly intact. Normal speech, gait not observed. PSYCH: Normal mood, normal affect. Laboratory Results - last 24 hr 02/25/19 02/26/19 02/26/19 21:00 06:16 07:03 WBC 9.2 RBC 3.08 L Hgb 8.4 L Hct 26.5 L D MCV 85.9 MCH 27.3 MCHC 31.7 L RDW 13.6 Plt Count 142 MPV 8.5 Sodium Potassium Chloride Carbon Dioxide Anion Gap BUN Creatinine Est GFR (CKD-EPI)AfAm Est GFR (CKD-EPI)NonAf POC Glucometer 132 153 Random Glucose Calcium Blood Type Antibody Screen Crossmatch 02/26/19 02/26/19 02/26/19 07:03 10:30 11:41 WBC RBC Hgb Hct MCV MCH MCHC RDW Plt Count MPV Sodium 132 L Potassium 4.5 Chloride 103 Carbon Dioxide 20 L Anion Gap 9 BUN 51 H D Creatinine 2.5 H Est GFR (CKD-EPI)AfAm 23.26 Est GFR (CKD-EPI)NonAf 20.07 POC Glucometer 148 Random Glucose 158 H Calcium 8.4 L Blood Type A POSITIVE Antibody Screen Negative Crossmatch See Detail Active Medications Generic Name Dose Route Start Last Admin Trade Name Freq PRN Reason Stop Dose Admin Acetaminophen 1,000 mg 02/26/19 07:56 Ofirmev Injection - IVPB Q6H PRN PAIN LEVEL 1-5 Al Hydroxide/Mg Hydroxide 30 ml 02/25/19 20:25 Mylanta Oral Suspension - PO Q4H PRN DYSPEPSIA Amlodipine Besylate 5 mg 02/26/19 10:00 02/26/19 09:57 Norvasc - PO Not Given DAILY [facility] Ascorbic Acid 500 mg 02/25/19 22:00 02/26/19 09:57 Vitamin C - PO 500 mg BID [facility] Administration Aspirin 325 mg 02/26/19 08:00 02/26/19 09:00 Asa - PO 325 mg DAILY@0800 [facility] Administration Bupropion HCl 150 mg 02/25/19 22:00 02/26/19 09:57 Wellbutrin Xl - PO 150 mg BID [facility] Administration Cephalexin HCl 500 mg 02/25/19 22:00 02/26/19 06:26 Keflex - PO 500 mg TID [facility] Administration Clopidogrel Bisulfate 75 mg 02/26/19 10:00 02/26/19 09:55 Plavix - PO 75 mg DAILY [facility] Administration Diltiazem HCl 120 mg 02/26/19 10:00 02/26/19 09:55 Cardizem Cd - PO Not Given DAILY [facility] Furosemide 40 mg 02/26/19 10:00 02/26/19 09:59 Lasix - PO Not Given DAILY [facility] Gabapentin 600 mg 02/25/19 22:00 02/26/19 09:59 Neurontin - PO 600 mg BID [facility] Administration Insulin Aspart 1 vial 02/25/19 22:00 02/26/19 11:42 Novolog Vial Sliding Scale - SQ Not Given ACHS [facility] Protocol Insulin Aspart 10 units 02/25/19 21:26 Novolog Vial SQ BIDAC PRN GIVE IF GLUCOSE OVER 200 Isosorbide Dinitrate 10 mg 02/26/19 10:00 02/26/19 10:00 Isordil - PO 10 mg BIDISORDIL [facility] Administration Levalbuterol HCl 0.31 mg 02/25/19 20:30 Xopenex IH ASDIR [facility] Magnesium Hydroxide 30 ml 02/25/19 20:25 Milk Of Magnesia - PO PRN PRN CONSTIPATION Montelukast Sodium 10 mg 02/25/19 22:00 02/25/19 21:21 Singulair - PO 10 mg HS [facility] Administration Multivitamins/Minerals/Vitamin C 1 tab 02/26/19 10:00 02/26/19 10:17 Tab-A-Vit - PO 1 tab DAILY [facility] Administration Nicotine 21 mg 02/26/19 10:00 02/26/19 10:01 Nicoderm Patch - TD Not Given DAILY [facility] Nitroglycerin 0.4 mg 02/25/19 20:18 Nitrostat - SL Q5M PRN FOR CHEST PAIN Non-Formulary Medication 1 each 02/26/19 10:00 Fluticasone/Vilanterol [Breo Ellipta 200-25 Mcg Inh] IH DAILY [facility] Non-Formulary Medication 32 unit 02/26/19 10:00 Insulin Degludec [Tresiba Flextouch U-100] SQ DAILY [facility] Non-Formulary Medication 1 inh 02/26/19 10:00 Umeclidinium Gunlock [Incruse Ellipta] IH DAILY [facility] Ondansetron HCl 4 mg 02/25/19 20:25 Zofran Injection IVPUSH Q6H PRN NAUSEA Oxycodone HCl 80 mg 02/25/19 22:00 02/26/19 09:56 Oxycontin - PO Not Given BID [facility] Oxycodone HCl 30 mg 02/25/19 21:09 Roxicodone - PO Q6H PRN PAIN LEVEL 4 - 6 Pantoprazole Sodium 40 mg 02/26/19 10:00 02/26/19 09:57 Protonix - PO 40 mg DAILY [facility] Administration Ranolazine 1,000 mg 02/25/19 22:00 02/26/19 10:17 Ranexa - PO 1,000 mg BID [facility] Administration Rosuvastatin Calcium 40 mg 02/26/19 10:00 02/26/19 09:55 Crestor - PO 40 mg DAILY [facility] Administration Senna/Docusate Sodium 2 tablet 02/25/19 22:00 02/26/19 09:56 Pericolace - PO 2 tablet BID [facility] Administration ASSESSMENT/PLAN 63 year-old female with a PMH significant for HTN, HLD, CAD s/p IA x 2, multiple stents, recurrent stenosis, CVA, Type II NIDDM, COPD (current smoker), ANTONY, and cocaine/opioid dependency. Underwent left total hip arthroplasty on 02/[address] Sierra and was discharged on 02/24/19. On 02/25/19 patient presented to the [facility] ED after several falls at home. She was transferred from [facility] to [facility] on 02/25/19. s/p Left total hip arthroplasty --POD #4 --imaging at [facility] reviewed by Dr. Sierra:pelvis and bilateral hip/femur xrays reviewed in [facility] PACS system - no fracture or dislocation. No acute changes left hip. Severe arthritis right hip. Acute blood loss anemia Hypotension --Hgb 8.4 on admission in hemoconcentrated state, was 10.8 two days ago --given 1.5L NS --transfuse 2U PRBC, goal Hgb >8 due to cardiac history --monitor respiratory status closely --cxr in am Acute kidney injury --BUN/Cr 51/2.5 on admission; Cr 1.2 baseline --likely low volume (dehydration +/- anemia)-->low BP-->renal hypoperfusion --IV fluids, transfuse 2U --repeat labs in am Coronary artery disease s/p multiple stents --12/28/18 Echo: LV normal, EF 55-60%; RV normal; trace TR --continue aspirin, plavix, ranexa, statin --hold isosordil for low BP Hypertension --hypotensive, hold home anti-hypertensives Hyperlipidemia --continue statin COPD --mild wheezing on exam --duonebs TID scheduled Type II NIDDM --Novolog sliding scale coverage FEN Fluids: PO intake adequate Electrolytes: replete as indicated Nutrition: low sodium, diabetic DVT prophylaxis: ASA 325mg + Plavix per surgery Physical therapy Dispo: continues to require inpatient care. Full code. 9.5 at [facility], 8.4 on admission; was 10.8 on 02/24 --given cardiac history, will transfuse 2U PRBC 1. CAD, s/p multiple MIs and multivessel PCI most recently ISR RCA w/ laser atherectomy and ballon PCI ([facility] several weeks ago) (Moderate LAD stenosis, severe apical LAD lesion; severe stenosis D1/D2; occluded ramus filling from L-->L collaterals) 2. Chronic HTN 3. Substance abuse (cocaine, last 2 days ago) 4. Smoker 5. Chronic angina with escalating symptoms over last several days in setting of cocaine use. 6. Chronic diastolic CHF Plan was to manage residual disease medically given size of vessels and distal disease, now admitted for chest pain. REC: 1. Beta blockers are relatively contraindicated with recent and ongoing cocaine use (concern for unopposed alpha constriction). 2. To continue ASA/Plavix and high intensity statin. 3. Continue Ranexa 1000mg BID. Cannot use Diltiazem as it interacts with Ranexa. Continue Amlodipine 5mg daily. 4. Continue Isordil. D/C Imdur. 5. Maintain Losartan and current Lasix dose, euvolemic. 6. Echo was repeated, normal. 7. Can d/c telemetry. 8. Outpatient drug rehab planned. 9. Counselled on smoking cessation. 10. Case reviewed with interventional cardiology: plan is for continued medical therapy and efforts at smoking and cocaine cessation. Plan for d/c later today: Med changes will be--> 1. Amlodipine decreased to 5mg daily and Imdur changed to Isordil. Please send the changes to her outpatient pharmacy. The Drug Utilization Report below displays all of the controlled substance prescriptions, if any, that your patient has filled in the last twelve months. The information displayed on this report is compiled from pharmacy submissions to the Department, and accurately reflects the information as submitted by the pharmacies. This report was requested by: Ani Dexter | Reference #: [id number] Others' Prescriptions Patient Name: Damon De Leon Date: 1955 Address: [address] [place] [address] Sex: Female Rx Written Rx Dispensed Drug Quantity Days Supply Prescriber Name 02/09/2019 02/10/2019 tramadol hcl 50 mg tablet 30 5 Kwan Sierra) 01/19/2019 02/09/2019 oxycodone hcl 30 mg tablet 180 30 Artem Menezes MD 01/19/2019 02/05/2019 oxycontin er 80 mg tablet 60 30 Artem Menezes MD 12/27/2018 01/11/2019 oxycodone hcl 30 mg tablet 180 30 Artem Menezes MD 12/27/2018 01/06/2019 oxycontin er 80 mg tablet 60 30 CabagnotArtem MD 11/24/2018 12/14/2018 oxycodone hcl 30 mg tablet 180 30 CabagnotArtem MD 11/24/2018 12/12/2018 oxycontin er 80 mg tablet 60 30 CabagnotArtem MD 11/07/2018 11/14/2018 oxycodone hcl 30 mg tablet 180 30 CabagnotArtem MD 11/07/2018 11/09/2018 oxycodone hcl er 80 mg tablet 60 30 CabagnotArtem MD 09/28/2018 10/16/2018 oxycodone hcl 30 mg tablet 180 30 CabagnotArtem MD 09/29/2018 10/12/2018 oxycodone hcl er 80 mg tablet 60 30 CabagnotArtem MD 08/26/2018 09/18/2018 oxycodone hcl 30 mg tablet 180 30 CabagnotArtem MD 08/26/2018 09/13/2018 oxycontin er 80 mg tablet 60 30 CabagnotArtem MD 08/11/2018 08/21/2018 oxycodone hcl 30 mg tablet 180 30 CabagnotArtem MD 08/14/2018 08/16/2018 oxycontin er 80 mg tablet 60 30 CabagnotArtem MD 07/04/2018 07/22/2018 oxycodone hcl 30 mg tablet 180 30 CabagnotArtem MD 07/17/2018 07/18/2018 oxycontin er 80 mg tablet 60 30 CabagnotArtem MD 06/05/2018 06/24/2018 oxycodone hcl 30 mg tablet 180 30 CabagnotArtem MD 06/05/2018 06/20/2018 oxycodone hcl er 80 mg tablet 60 30 CabagnotArtem MD 05/17/2018 05/24/2018 oxycodone hcl 30 mg tablet 180 30 CabagnotArtem MD 05/17/2018 05/20/2018 oxycodone hcl er 80 mg tablet 60 30 CabagnotArtem MD 04/17/2018 04/26/2018 oxycodone hcl 30 mg tablet 180 30 CabagnotArtem MD 04/17/2018 04/22/2018 oxycodone hcl er 80 mg tablet 60 30 CabagnotArtem MD 03/17/2018 03/30/2018 oxycodone hcl 30 mg tablet 180 30 Artem Menezes MD 03/17/2018 03/24/2018 oxycodone hcl er 80 mg tablet 60 30 Artem Menezes MD 02/15/2018 03/01/2018 oxycodone hcl 30 mg tablet 180 30 Artem Menezes MD Visit type - Emergency Visit Emergency Visit: Yes ED Registration Date: 02/25/19 Care time: The patient presented to the Emergency Department on the above date and was hospitalized for further evaluation of their emergent condition. - New Patient This patient is new to me today: Yes Date on this admission: 02/26/19 - Critical Care Critical Care patient: No"
--- NOTE | 2019-02-26 14:35 | PN ---
Progress Note (short form) - Note Progress Note: 63 yo female s/p Pat CAMP DARWIN 02/22/19, did well postop and discharged home . At home she had weakness of the legs and inability to ambulate and fell twice. BIBA to [facility] and transferred back to [facility]. From [facility] ER attending note: Patient is a 63 y/o woman with a PMH of DM, HTN, asthma, AK x 2 and cardiac stents x 13. She was BIBA to the ED s/p falling twice this morning while attempting to ambulate to the bathroom. She fell down to her knees in the bathroom, but she did not directly impact either hip. Patient presented with bilateral superficial abrasions to her knees and right hip pain. Pt was hypotensive to 87/50 upon ED arrival. Patient was discharged from [facility] yesterday s/p left hip replacement performed this past . Denies LOC or head strike. Re-evaluation time: 14:46 Re-evaluation Initially came in crying and screaming b/c she was in pain, but now after 4mg of Morphine she is a bit sleepy. Able to arouse pt, and she follows commands appropriately. Significant other and pt both feel uncomfortable going home, and she feels unsafe at home due to fall risk. Re-evaluation time: 15:00 Re-evaluation Surgeon Dr. Kwan Sierra at [facility] performed the patient's hip replacement surgery, pt does not feel comfortable going home, will discuss plan of care with surgeon. Re-evaluation time: 15:03 Re-evaluation Received call from Dr. Sierra, discussed case and recommends transfer back to [facility]. Re-evaluation time: 15:18 Re-evaluation Patient signed transfer paper. Re-evaluation time: 15:51 Re-evaluation Case discussed with orthopedist Lennie HILL at [facility] who is master control engineer for practice, but she does not have admitting privileges at [facility]. She will talk to Dr. Sierra. Re-evaluation time: 16:52 Re-evaluation Spoke to the nurse fish hatchery manager at [facility]. She received report from visiting home RN this morning and was under the impression that patient would be sent directly to [facility]. Explained to her that EMS brought her to [facility] and that she needs transfer for continuity of care. Re-evaluation time: 18:05 Re-evaluation Patient's BP was 94/58, I personally gave report to EMS crew for transport. Re-evaluation time: 18:14 Re-evaluation Patient and family now stating that she may have taken wrong medications/doses at home, she can not say which medication she may have taken incorrectly. Will relay this to Dr. Sierra. Pt continues to be sleepy but arousable and is oriented when she is not asleep. Re-evaluation time: 18:28 Re-evaluation Discussed case with patient's sister over the phone. She also thinks patient may have taken extra medications but cannot tell me which. Re-evaluation time: 19:44 Re-evaluation Waited for Dr. Sierra to call back. No answer. Spoke to Susan Davis RN who has received patient. Relayed to her that family and patient told as she was leaving that pt may have taken more medications than she was supposed to. RN had already been aware because pt's partner mentioned to her what he had told me. Pt seen and examined by me on the floor. Awake/alert. Comfortable in chair eating lunch. Cardiology consulted and is seeing patient. 1U PRBC pending. Pt states he left hip feels OK. The right (arthritic) hip hurts more. Was able to stand and get OOB today. BP improved after fluid bolus. Afebrile Selected Entries 02/26/19 14:00 Temperature 99.2 F Pulse Rate 87 Respiratory 19 Rate Blood Pressure 102/53 L O2 Sat by Pulse 96 Oximetry (%) Oxygen Delivery Room Air Method Laboratory Tests 02/23/19 02/23/19 02/24/19 07:33 07:33 07:03 WBC 10.3 10.1 Hgb 11.3 10.8 Hct 35.0 33.2 Plt Count 199 187 Sodium 137 Potassium 4.9 Chloride 104 Carbon Dioxide 24 Anion Gap 9 BUN 26 H Creatinine 1.2 Random Glucose 223 H 02/26/19 02/26/19 07:03 07:03 WBC 9.2 Hgb 8.4 L Hct 26.5 L D Plt Count 142 Sodium 132 L Potassium 4.5 Chloride 103 Carbon Dioxide 20 L Anion Gap 9 BUN 51 H D Creatinine 2.5 H Random Glucose 158 H Gen: NAD LLE: c/d/i, NVID Bilateral knees - superficial prepatellar abrasions with dry gauze dressings in place. Pelvis and bilateral hip/femur xrays reviewed in [facility] PACS system - no fracture or dislocation. No acute changes left hip. Severe arthritis right hip. A/P 63yo female s/p L DARWIN 02/22/19, with postop weakness/falls, acute blood loss anemia from major surgery, obesity, opioid dependence, acute renal insufficiency , hypotension Medical and cardiology input appreciated. 1U PRBC pending Will need eventual SNF placement as she cannot manage at home PT when able - WBAT LLE Continue ASA 325mg + Plavix for DVT ppx
[2019-02-26] MEDS ORDERED: FUROSEMIDE 40 MG/4 ML INJECTABLE VIAL IVPUSH ONE ×3 (14:45→21:00)
[2019-02-26] MEDS ORDERED: MAGNESIUM SULF 50% (8.12 MEQ/2 ML-1 GM VIAL) IVPB ONE (16:43)
[2019-02-26] MEDS ORDERED: ALBUTEROL SO4 2.5/IPRATROPIUM 0.5 INH SOL 3 ML VIAL.NEB. NEB SCH (20:00)
--- NOTE | 2019-02-26 20:31 | HP ---
The consultation performed by SERGIO Cortes on 02/25/19 is incorporated herein as a History and Physical. Visit type - Emergency Visit Emergency Visit: Yes ED Registration Date: 02/25/19 Care time: The patient presented to the Emergency Department on the above date and was hospitalized for further evaluation of their emergent condition. - New Patient This patient is new to me today: Yes Date on this admission: 02/26/19 - Critical Care Critical Care patient: No
[2019-02-26] MEDS: MONTELUKAST NA 10 MG TABLET PO SCH (21:09)
[2019-02-27] MEDS: INSULIN SLIDING SCALE (NOVOLOG) 1 VIAL SQ SCH (06:39)
--- NOTE | 2019-02-27 07:58 | PN ---
Physical Exam: SUBJECTIVE: Patient seen and examined OBJECTIVE: Vital Signs Period Temp Pulse Resp BP Sys/Adan Pulse Ox Last 24 Hr 98.1 F-99.2 F 80-143 18-20 91-131/31-70 95-98 GENERAL: The patient is awake, alert, and fully oriented, in no acute distress. HEAD: Normal with no signs of trauma. EYES: PERRL, extraocular movements intact, sclera anicteric, conjunctiva clear. No ptosis. ENT: Ears normal, nares patent, oropharynx clear without exudates, moist mucous membranes. NECK: Trachea midline, full range of motion, supple. LUNGS: Breath sounds equal, clear to auscultation bilaterally, no wheezes, no crackles, no accessory muscle use. HEART: Regular rate and rhythm, S1, S2 without murmur, rub or gallop. ABDOMEN: Soft, nontender, nondistended, normoactive bowel sounds, no guarding, no rebound, no hepatosplenomegaly, no masses. EXTREMITIES: 2+ pulses, warm, well-perfused, no edema. NEUROLOGICAL: Cranial nerves II through XII grossly intact. Normal speech, gait not observed. PSYCH: Normal mood, normal affect. SKIN: Warm, dry, normal turgor, no rashes or lesions noted Laboratory Results - last 24 hr 02/26/19 02/26/19 02/26/19 07:03 07:03 10:30 WBC 9.2 RBC 3.08 L Hgb 8.4 L Hct 26.5 L D MCV 85.9 MCH 27.3 MCHC 31.7 L RDW 13.6 Plt Count 142 MPV 8.5 Sodium 132 L Potassium 4.5 Chloride 103 Carbon Dioxide 20 L Anion Gap 9 BUN 51 H D Creatinine 2.5 H Est GFR (CKD-EPI)AfAm 23.26 Est GFR (CKD-EPI)NonAf 20.07 POC Glucometer Random Glucose 158 H Calcium 8.4 L Magnesium Blood Type A POSITIVE Antibody Screen Negative Crossmatch See Detail 02/26/19 02/26/19 02/26/19 11:41 15:17 17:02 WBC RBC Hgb Hct MCV MCH MCHC RDW Plt Count MPV Sodium Potassium Chloride Carbon Dioxide Anion Gap BUN Creatinine Est GFR (CKD-EPI)AfAm Est GFR (CKD-EPI)NonAf POC Glucometer 148 219 Random Glucose Calcium Magnesium 1.9 Blood Type Antibody Screen Crossmatch 02/26/19 02/27/19 22:31 06:34 WBC RBC Hgb Hct MCV MCH MCHC RDW Plt Count MPV Sodium Potassium Chloride Carbon Dioxide Anion Gap BUN Creatinine Est GFR (CKD-EPI)AfAm Est GFR (CKD-EPI)NonAf POC Glucometer 177 156 Random Glucose Calcium Magnesium Blood Type Antibody Screen Crossmatch Active Medications Generic Name Dose Route Start Last Admin Trade Name Freq PRN Reason Stop Dose Admin Acetaminophen 1,000 mg 02/26/19 07:56 Ofirmev Injection - IVPB Q6H PRN PAIN LEVEL 1-5 Al Hydroxide/Mg Hydroxide 30 ml 02/25/19 20:25 Mylanta Oral Suspension - PO Q4H PRN DYSPEPSIA Albuterol/Ipratropium 1 amp 02/26/19 20:00 02/26/19 20:03 Duoneb - NEB 1 amp RTID [facility] Administration Aspirin 325 mg 02/27/19 10:00 Asa - PO DAILY [facility] Bupropion HCl 150 mg 02/25/19 22:00 02/26/19 21:10 Wellbutrin Xl - PO 150 mg BID [facility] Administration Clopidogrel Bisulfate 75 mg 02/26/19 10:00 02/26/19 09:55 Plavix - PO 75 mg DAILY [facility] Administration Gabapentin 600 mg 02/25/19 22:00 02/26/19 21:09 Neurontin - PO 600 mg BID [facility] Administration Insulin Aspart 1 vial 02/25/19 22:00 02/27/19 06:39 Novolog Vial Sliding Scale - SQ 1 units ACHS [facility] Administration Protocol Magnesium Hydroxide 30 ml 02/25/19 20:25 Milk Of Magnesia - PO PRN PRN CONSTIPATION Montelukast Sodium 10 mg 02/25/19 22:00 02/26/19 21:09 Singulair - PO 10 mg HS [facility] Administration Nicotine 21 mg 02/26/19 10:00 02/26/19 10:01 Nicoderm Patch - TD Not Given DAILY [facility] Nitroglycerin 0.4 mg 02/25/19 20:18 Nitrostat - SL Q5M PRN FOR CHEST PAIN Ondansetron HCl 4 mg 02/25/19 20:25 Zofran Injection IVPUSH Q6H PRN NAUSEA Oxycodone HCl 30 mg 02/25/19 21:09 Roxicodone - PO Q6H PRN PAIN LEVEL 4 - 6 Oxycodone HCl 40 mg 02/26/19 14:01 02/26/19 21:10 Oxycontin - PO 40 mg BID [facility] Administration Pantoprazole Sodium 40 mg 02/26/19 10:00 02/26/19 09:57 Protonix - PO 40 mg DAILY [facility] Administration Ranolazine 1,000 mg 02/25/19 22:00 02/26/19 21:09 Ranexa - PO 1,000 mg BID [facility] Administration Rosuvastatin Calcium 40 mg 02/26/19 10:00 02/26/19 09:55 Crestor - PO 40 mg DAILY [facility] Administration Senna/Docusate Sodium 2 tablet 02/25/19 22:00 02/26/19 21:10 Pericolace - PO 2 tablet BID [facility] Administration ASSESSMENT/PLAN:
[2019-02-27 08:20] LABS: HEMATOCRIT 31.7 % (32.4-45.2); HEMOGLOBIN 10.6 GM/dl (10.7-15.3); MCH 29.5 pg (25.7-33.7); MCHC 33.6 g/dl (32.0-36.0); MEAN CELL VOLUME 87.8 fl (80-96); MEAN PLT VOLUME 8.2 fl (7.5-11.1); PLATELET COUNT 166 K/MM3 (134-434); RBC 3.61 M/mm3 (3.60-5.2); RDW 13.2 % (11.6-15.6); WHITE BLOOD COUNT 11.2 K/mm3 (4.0-10.8)
[2019-02-27 08:51] LABS: CALCIUM 8.5 mg/dl (8.5-10); CREATININE 1.3 mg/dl (0.55-1.3); MAGNESIUM 1.9 mg/dL (1.8-2.4); POTASSIUM 4.1 mmol/L (3.5-5.1)
[2019-02-27] MEDS: ROSUVASTATIN CA 40 MG TABLET PO SCH (09:48)
[2019-02-27] MEDS: CLOPIDOGREL BISULFATE 75 MG TABLET (FP) PO SCH (09:49)
[2019-02-27] MEDS: RANOLAZINE E.R. 500 MG TABLET (FP) PO SCH (09:49)
[2019-02-27] MEDS: PANTOPRAZOLE 40 MG TABLET (FP) PO SCH (09:49)
[2019-02-27] MEDS: oxyCODONE HCL 40 MG SUSTAINED ACTING TABLET PO SCH (09:49)
[2019-02-27] MEDS: GABAPENTIN 300 MG CAPSULE (FP) PO SCH (09:49)
[2019-02-27] MEDS: SENNOSIDES/DOCUSATE COMBO (SENNA PLUS) TABLET (UD) PO SCH (09:49)
[2019-02-27] MEDS: NICOTINE 21 MG/24 HOURS TOPICAL PATCH TD SCH (09:51)
[2019-02-27] MEDS ORDERED: ASPIRIN 325 MG TABLET PO SCH (10:00)
[2019-02-27] MEDS ORDERED: ASPIRIN 81 MG CHEWABLE TABLETS PO SCH (10:00)
--- NOTE | 2019-02-27 11:24 | DS ---
Physical Exam: SUBJECTIVE: Patient seen and examined oob to chair. Feels much stronger today following transfusion of 2 units. Nursing staff reports steady gait compared to yesterday. OBJECTIVE: Vital Signs Period Temp Pulse Resp BP Sys/Adan Pulse Ox Last 24 Hr 98.1 F-99.2 F 80-88 18-20 96-131/46-67 96-98 PHYSICAL EXAM GENERAL: The patient is awake, alert, and fully oriented, in no acute distress. LUNGS: Mild diffuse wheezing HEART: Regular rate and rhythm, S1, S2 ABDOMEN: Soft, nontender, nondistended LOWER EXTREMITIES: 2+ pulses, warm, well-perfused, no edema; superficial abrasions to both knees NEUROLOGICAL: Cranial nerves II through XII grossly intact. Normal speech, gait not observed. PSYCH: Normal mood, normal affect. LABS Laboratory Results - last 24 hr 02/26/19 02/26/19 02/26/19 10:30 11:41 15:17 WBC RBC Hgb Hct MCV MCH MCHC RDW Plt Count MPV Sodium Potassium Chloride Carbon Dioxide Anion Gap BUN Creatinine Est GFR (CKD-EPI)AfAm Est GFR (CKD-EPI)NonAf POC Glucometer 148 Random Glucose Calcium Magnesium 1.9 Blood Type A POSITIVE Antibody Screen Negative Crossmatch See Detail 02/26/19 02/26/19 02/27/19 17:02 22:31 06:34 WBC RBC Hgb Hct MCV MCH MCHC RDW Plt Count MPV Sodium Potassium Chloride Carbon Dioxide Anion Gap BUN Creatinine Est GFR (CKD-EPI)AfAm Est GFR (CKD-EPI)NonAf POC Glucometer 219 177 156 Random Glucose Calcium Magnesium Blood Type Antibody Screen Crossmatch 02/27/19 02/27/19 07:58 07:58 WBC 11.2 H RBC 3.61 Hgb 10.6 L Hct 31.7 L D MCV 87.8 MCH 29.5 MCHC 33.6 RDW 13.2 Plt Count 166 MPV 8.2 Sodium 138 Potassium 4.1 Chloride 105 Carbon Dioxide 24 Anion Gap 9 BUN 33 H Creatinine 1.3 Est GFR (CKD-EPI)AfAm 51.28 Est GFR (CKD-EPI)NonAf 44.24 POC Glucometer Random Glucose 160 H Calcium 8.5 Magnesium 1.9 Blood Type Antibody Screen Crossmatch HOSPITAL COURSE: Date of Admission:02/25/19 Date of Discharge: 02/27/19 Pre hospital course 63 year-old female with a PMH significant for HTN, HLD, CAD s/p AK x 2, multiple stents, recurrent stenosis, CVA, Type II NIDDM, COPD (current smoker), ANTONY, and cocaine/opioid dependency. Underwent left total hip arthroplasty on 02/[address] Sierra and was discharged on 02/24/19. On 02/25/19 patient presented to the [place] ED after several falls at home. She was [facility] from [facility] to [facility] on 02/25/19. Subsequent hospital course s/p Left total hip arthroplasty --POD #4 --imaging at [facility] reviewed by Dr. Sierra:pelvis and bilateral hip/femur xrays reviewed in [facility] PACS system - no fracture or dislocation. No acute changes left hip. Severe arthritis right hip. Acute blood loss anemia Hypotension --Hgb 8.4 on admission, was 10.8 two days ago --transfused 2U PRBC with good response-->10.6, BP improved, weakness resolved Acute kidney injury --Cr 2.5 on admission, likely low volume (dehydration +/- anemia)-->low BP--> renal hypoperfusion --IV fluids, transfused 2U --Cr 1.3 at time of discharge Coronary artery disease s/p multiple stents --12/28/18 Echo: LV normal, EF 55-60%; RV normal; trace TR --continued aspirin, plavix, ranexa, statin --held isosordil for low BP Hypertension --hypotensive on admission but normotensive after transfusion --continued to hold isosordil, diltiazem, and amlodipine at the time of discharge; instructions given to SNF medical team to monitor BP closely and restart meds as indicated Hyperlipidemia --continued statin COPD --mild wheezing --duonebs TID scheduled Type II NIDDM --Novolog sliding scale coverage Minutes to complete discharge: 35 Discharge Summary Reason For Visit: LEFT HIP PAIN Current Active Problems Chronic diastolic congestive heart failure (Acute) Fall at home (Acute) Hypotension (Acute) Condition: Improved - Instructions Diet, Activity, Other Instructions: Please make your attending physician/provider aware: patient is normally on three anti-hypertensives that were held during this admission due to low blood pressure. These medications are: diltiazem 120mg daily, amlodipine 5mg daily, and isosorbide 10mg BID. Disposition: RETIREMENT FACILITY - Home Medications Comprehensive Discharge Medication List: Ambulatory Orders Oxycodone HCl [Roxicodone] 30 mg PO Q6H PRN 01/09/14 Nitroglycerin Sublingual [Nitrostat -] 0.4 mg SL Q5M PRN #0 tab 03/02/15 Fluticasone/Vilanterol [Breo Ellipta 200-25 Mcg INH] 1 each IH DAILY 12/27/18 Furosemide [Lasix] 40 mg PO DAILY 12/27/18 Gabapentin 600 mg PO BID 12/27/18 Insulin Degludec [Tresiba Flextouch U-100] 32 unit SQ DAILY 12/27/18 Levalbuterol HCl [Xopenex] 0.31 mg IH ASDIR 12/27/18 Pantoprazole Sodium 40 mg PO DAILY 12/27/18 Ranolazine [Ranexa] 1,000 mg PO BID 12/27/18 Rosuvastatin [Crestor -] 40 mg PO DAILY 12/27/18 Bupropion HCl [Wellbutrin Xl -] 150 mg PO BID 12/28/18 Clopidogrel Bisulfate [Plavix] 75 mg PO DAILY 12/28/18 Umeclidinium [place] [Incruse Ellipta] 1 inh IH DAILY 12/28/18 Insulin Aspart [Novolog] 10 unit SQ BID PRN 02/12/19 Montelukast Sodium [Singulair] 10 mg PO HS 02/12/19 Nicotine [Nicotine Patch 21 mg/24 hr] 1 each TD DAILY 02/12/19 Ascorbic Acid [Vitamin C -] 500 mg PO BID tablet 02/24/19 Aspirin [ASA -] 325 mg PO DAILY@0800 tablet 02/24/19 Multivitamins [Multivit ([facility] Formulary)] 1 tab PO DAILY tab 02/24/19 Pantoprazole Sodium [Protonix -] 40 mg PO DAILY #40 tablet.ec 02/24/19 Sennosides/Docusate Sodium [Pericolace -] 2 tablet PO BID tablet 02/24/19 oxyCODONE SR [Oxycontin] 40 mg PO BID #60 tab.er.12h MDD 2 02/27/19 This patient is new to me today: No Emergency Visit: Yes ED Registration Date: 02/25/19 Care time: The patient presented to the Emergency Department on the above date and was hospitalized for further evaluation of their emergent condition. Critical Care patient: No - Discharge Referral Referred to [facility] No
--- NOTE | 2019-02-27 12:14 | EKG ---
Test Reason : Blood Pressure : / mmHG Vent. Rate : 080 BPM Atrial Rate : 080 BPM P-R Int : 188 ms QRS Dur : 112 ms QT Int : 434 ms P-R-T Axes : 036 003 076 degrees QTc Int : 500 ms NORMAL SINUS RHYTHM PROLONGED QT ABNORMAL ECG WHEN COMPARED WITH ECG OF 28-DEC-2018 02:50, PREMATURE VENTRICULAR COMPLEXES ARE NO LONGER PRESENT Confirmed by MD Augustine Daniel ([id number]) on 02/27/2019 12:13:42 PM Referred By: Confirmed By:River Augustine MD
[2019-02-27 13:12] VITALS: BP 133/64; PULSE 64; TEMP 98.6
== END 2019-02-27 13:15 | DRG 315 ==
LOC: FM/S 19:06
PROVIDERS: ADMIT Internal Medicine; ATTEND Student in an Organized Health Care Education/Training Program
DX: I95.89 Other hypotension (principal); I50.32 Chronic diastolic (congestive) heart failure; D62 Acute posthemorrhagic anemia; E87.1 Hypo-osmolality and hyponatremia; N17.9 Acute kidney failure, unspecified; Z68.41 Body mass index [BMI] 40.0-44.9, adult; F11.20 Opioid dependence, uncomplicated; F14.20 Cocaine dependence, uncomplicated; E66.8 Other obesity; I25.10 Atherosclerotic heart disease of native coronary artery without angina pectoris; E78.5 Hyperlipidemia, unspecified; I25.2 Old myocardial infarction; J45.909 Unspecified asthma, uncomplicated; E86.0 Dehydration; F32.9 Major depressive disorder, single episode, unspecified; G47.33 Obstructive sleep apnea (adult) (pediatric); J44.9 Chronic obstructive pulmonary disease, unspecified; I45.81 Long QT syndrome; K21.9 Gastro-esophageal reflux disease without esophagitis; E11.9 Type 2 diabetes mellitus without complications; I11.0 Hypertensive heart disease with heart failure; S80.212A Abrasion, left knee, initial encounter; S80.211A Abrasion, right knee, initial encounter; W18.39XA Other fall on same level, initial encounter; Y92.098 Other place in other non-institutional residence as the place of occurrence of the external cause; Z96.642 Presence of left artificial hip joint; Z95.9 Presence of cardiac and vascular implant and graft, unspecified; Z86.711 Personal history of pulmonary embolism
CPT/HCPCS: 36415; 36430; 36511; 71045-TC-FY; 80048; 82962; 83735; 85027; 86850; 86900; 86901; 86922; 93005; 94640; 97116-GP; 97163-GP; J7030; P9038; P9058

== ENCOUNTER 2019-03-06 06:46 | Observation (INO) | payer OTHER ==
[2019-03-06 07:04] VITALS: BMI 32.3
--- NOTE | 2019-03-06 07:30 | PDOC ---
History of Present Illness - General Chief Complaint: Chest Pain Stated Complaint: CHEST PAIN Time Seen by Provider: 03/06/19 07:29 History Source: Patient Exam Limitations: No Limitations - History of Present Illness Initial Comments: 03/06/19 07:39 63 yo F with PMhx of CAD (12 stents), IDDM, HTN, HLD, and TIA presents with two day history of worsening chest pain. SHe describes constant 7/10 substernal chest tightness that radiates down left arm that worsens with activity to and can occur at rest. She took some nitro today prior to arrival with minimal improvement. Pain is not associated with diaphoresis, nausea or relieved by rest. She is on ASA and Plavix at home. Pain not related to food. Pain is not reproducible on palpation. She had recent left hip replacement 02/22/19 and was sent here from rehab. Her last stent was [address] 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 Last echo was recent prior to surgery. Unsure of her last stress test. She denies RAMOS, SOB, abdominal pain, fever, chills, recent illness, or sick contacts. Presenting Symptoms: Chest Pain Timing/Duration: reports: constant, getting worse Severity/Quality: reports: moderate Location: reports: substernal Chest Pain Radiation: reports: arms, shoulders Activities at Onset: reports: exertion Prior Chest Pain/Cardiac Workup: reports: Echocardiography, Heart Attack, Stress Test Modifying Factors: improves with: exercise, nitroglycerin Nitro Today/Relief: Yes: 0.4 mg x 2 Aspirin Received prior to arrival (Core Measure): Yes: 81 mg x 1, provided by EMS Beta Keron given by EMS (Core Measure): No Beta Keron taken at Home (Core Measure): No Beta Keron indicated at this time? (Core Measure): No Associated Symptoms: Yes: Shortness of Breath Past History - Travel Traveled outside of the country in the last 30 days: No Close contact w/someone who was outside of country & ill: No - Past Medical History Allergies/Adverse Reactions: Allergies Allergy/AdvReac Type Severity Reaction Status Date / Time cashew nut Allergy Severe Swelling Verified 03/06/19 07:04 shellfish derived Allergy Severe Swelling Verified 03/06/19 07:04 Home Medications: Ambulatory Orders Oxycodone HCl [Roxicodone] 30 mg PO Q6H PRN 01/09/14 Nitroglycerin Sublingual [Nitrostat -] 0.4 mg SL Q5M PRN #0 tab 03/02/15 Furosemide [Lasix] 40 mg PO DAILY 12/27/18 Gabapentin 600 mg PO BID 12/27/18 Insulin Degludec [Tresiba Flextouch U-100] 32 unit SQ DAILY 12/27/18 Levalbuterol HCl [Xopenex] 0.31 mg IH ASDIR 12/27/18 Pantoprazole Sodium 40 mg PO DAILY 12/27/18 Ranolazine [Ranexa] 1,000 mg PO BID 12/27/18 Rosuvastatin [Crestor -] 40 mg PO DAILY 12/27/18 Bupropion HCl [Wellbutrin Xl -] 150 mg PO BID 12/28/18 Clopidogrel Bisulfate [Plavix] 75 mg PO DAILY 12/28/18 Umeclidinium [place] [Incruse Ellipta] 1 inh IH DAILY 12/28/18 Montelukast Sodium [Singulair] 10 mg PO HS 02/12/19 Ascorbic Acid [Vitamin C -] 500 mg PO BID tablet 02/24/19 Aspirin [ASA -] 325 mg PO DAILY@0800 tablet 02/24/19 Multivitamins [Multivit ([facility] Formulary)] 1 tab PO DAILY tab 02/24/19 oxyCODONE SR [Oxycontin] 40 mg PO BID #60 tab.er.12h MDD 2 02/27/19 Docusate Sodium [Colace] 200 mg PO BID 03/06/19 Melatonin 3 mg PO HS 03/06/19 Sennosides [Senna] 2 tab PO BID 03/06/19 Anemia: No Asthma: Yes Cancer: No Cardiac Disorders: Yes (12 STENTS) CVA: Yes (TIA IN THE PAST) COPD: Yes CHF: No Dementia: No Diabetes: Yes (IDDM) GI Disorders: No Disorders: No HTN: Yes Hypercholesterolemia: Yes Liver Disease: No Seizures: No Thyroid Disease: No - Surgical History Abdominal Surgery: Yes (HERNIA ACHILD) Appendectomy: No Cardiac Surgery: Yes (12 cardiac stents-LAST STENT 1 YEAR AGO) Cholecystectomy: No Lung Surgery: No Neurologic Surgery: No Orthopedic Surgery: No - Reproductive History Is Patient Now?: No - Immunization History Immunization Up to Date: Yes - Suicide/Smoking/Psychosocial Hx Smoking History: Former smoker Have you smoked in the past 12 months: Yes Number of Cigarettes Smoked Daily: 3 Information on smoking cessation initiated: No 'Breaking Loose' booklet given: 04/26/17 Hx Alcohol Use: No Drug/Substance Use Hx: No Substance Use Type: None Hx Substance Use Treatment: No Patient Lives Alone: No Lives with/in: spouse/SO Cardiac Specific PMH - Complaint Specific PMHX Angina: Yes Cardiac Arrhythmia: No Cardiac Stent: Yes Myocardial Infarction: Yes Pacemaker: No Pulmonary Embolus: No Valvular Heart Disease: No Review of Systems - Review of Systems Able to Perform ROS?: Yes Is the patient limited Icelandic proficient: No Constitutional: No: Diaphoresis, Fever, Loss of Appetite HEENTM: No: Recent change in vision Respiratory: Yes: SOB with Exertion. No: Cough, Orthopnea Cardiac (ROS): Yes: Chest Pain, Edema, Chest Tightness ABD/GI: No: Diarrhea, Nausea, Vomiting : No: Burning, Dysuria Musculoskeletal: Yes: Joint Pain (s/p hip replacement 02/22/19) *Physical Exam - Vital Signs Last Vital Signs Temp Pulse Resp BP Pulse Ox 97.9 F 109 H 18 115/88 100 03/06/19 11:34 03/06/19 11:34 03/06/19 11:34 03/06/19 11:34 03/06/19 11:34 - Physical Exam General Appearance: Yes: Appropriately Dressed, Mild Distress HEENT: positive: K[place]HI[place], Normal Voice Neck: positive: Supple Respiratory/Chest: positive: Lungs Clear, Normal Breath Sounds. negative: Respiratory Distress, Accessory Muscle Use Cardiovascular: positive: Regular Rhythm, Regular Rate, S1, S2, Edema. negative : JVD, Murmur Vascular Pulses: Dorsalis-Pedis (R): 2+, Doralis-Pedis (L): 2+ Gastrointestinal/Abdominal: positive: Normal Bowel Sounds, Soft. 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 NML intact, Fully Oriented, Alert, Normal Mood/ Affect Heart Score/ECG Review - History History: Moderately suspicious - Electrocardiogram EKG: Normal - Age Age: 45-65 - Risk Factors Risk Factors Heart Score: Yes Hx Hypercholesterolemia, Yes Hx Hypertension, Yes Hx Diabetes, Yes Smoking History, Yes Positive family hx of cardiac disease, Yes Hx Obesity Based on the list above the patient has:: >/=3 risk factors or Hx atherosclerotic disease - ECG Intrepretation Rhythm: PVC(s) - [place]: Normal - ECG Impressions Normal ECG: No Eligibility Checklist For AMI - INCLUSION CRITERIA Prolonged (>30 minutes)ischemic pain: Yes 12 Lead ECG indicates AMI: No ST elevation >1 mm in at least 2 limb leads: No ST elevation>2 mm in at least 2 contiguous precordial leads: No LBBB with clinical symptoms consistent with an AMI: No - EXCLUSION CRITERIA Active internal bleeding or hx of hemorrhagic diathesis: No Known bleeding diathesis: No Major surgery or serious trauma within the previous 6 weeks: Yes History of cerebrovascular accident(CVA): Yes History of central nervous system structural abnormality: No History of malignant hypertension or uncontrolled HTN: No Hemostatic defects secondary to severe hepatic/renal disease: No Diabetic hemorrhagic retinopathy: No or recent delivery(within 6 weeks): No Patients currently receiving oral anticoagulants(INR>2): No ED Treatment Course - LABORATORY CBC & Chemistry Diagram: 03/06/19 08:16 03/06/19 08:16 - ADDITIONAL ORDERS Additional order review: Laboratory Results 03/06/19 03/06/19 03/06/19 08:16 08:16 08:16 PT with INR 14.10 H INR 1.19 H Sodium 139 Potassium 3.9 Chloride 106 Carbon Dioxide 28 Anion Gap 5 L BUN 14 Creatinine 0.9 Est GFR (CKD-EPI)AfAm 79.98 Est GFR (CKD-EPI)NonAf 69.01 Random Glucose 118 H Calcium 8.7 Magnesium Total Bilirubin 0.3 AST 18 ALT 22 Alkaline Phosphatase 91 Creatine Kinase 82 Troponin I 0.12 H Total Protein 5.9 L Albumin 2.5 L Blood Type A POSITIVE Antibody Screen Negative 03/06/19 08:00 PT with INR INR Sodium Potassium Chloride Carbon Dioxide Anion Gap BUN Creatinine Est GFR (CKD-EPI)AfAm Est GFR (CKD-EPI)NonAf Random Glucose Calcium Magnesium 1.5 L Total Bilirubin AST ALT Alkaline Phosphatase Creatine Kinase Troponin I Total Protein Albumin Blood Type Antibody Screen 03/06/19 08:16 RBC 3.91 MCV 86.1 MCHC 32.9 RDW 14.6 MPV 7.9 Neutrophils % 52.9 Lymphocytes % 37.0 Monocytes % 7.7 Eosinophils % 1.5 D Basophils % 0.9 D - RADIOLOGY Radiology Studies Ordered: Category Date Time Status CHEST CTA [CT] Stat CT Scan 03/06/19 09:14 Completed DUPLEX VASCUL US-1 LEG [US] Stat Ultrasound 03/06/19 07:58 Completed - Medications Given in the ED: ED Medications Discontinued Medications Generic Name Dose Route Start Last Admin Trade Name Freq PRN Reason Stop Dose Admin Aspirin 162 mg 03/06/19 08:00 03/06/19 08:18 Asa - PO 03/06/19 08:01 162 mg ONCE ONE Administration Hydromorphone HCl 0.5 mg 03/06/19 10:32 03/06/19 10:39 Dilaudid Injection - IVPUSH 03/06/19 10:33 0.5 mg ONCE ONE Administration Morphine Sulfate 4 mg 03/06/19 08:00 03/06/19 08:18 Morphine Injection - IVPUSH 03/06/19 08:01 4 mg ONCE ONE Administration Morphine Sulfate 2 mg 03/06/19 09:20 03/06/19 09:27 Morphine Injection - IVPUSH 03/06/19 09:21 2 mg ONCE ONE Administration Medical Decision Making - Medical Decision Making 03/06/19 08:08 63 yo F with extensive cardiac history and multiple ACS factors presents with chest pain. Will begin work up to r/o ACS. * shelter monitor, EKG done. * Nitro x 3 and AsA given by EMS. * Cardiac profile, CBC, CMP, PT/INR and Mag sent. * CXR * LE swellling; will obtain LE doppler r/o DVT. * Morphine 4mg x1 for pain. * Nitro PRN * House Mover Helper consulted; Dr. Lieberman 03/06/19 09:14 * patient is high risk for PE and sinus arrhythmia on EKG; will send for CTA * troponin 0.12 , Mag 1.5 03/06/19 12:50 -patient signed out to Dr. Erica Hays. *DC/Admit/Observation/Transfer Diagnosis at time of Disposition: Chest pain Qualifiers: Chest pain type: unspecified Qualified Code(s): R07.9 - Chest pain, unspecified - Discharge Dispostion Condition at time of disposition: Fair - Referrals Referrals: Ricardo Olivas MD [Primary Care Provider] - - Patient Instructions - Post Discharge Activity
[2019-03-06] MEDS ORDERED: morphine CARPU-JECT 4 MG/1 ML DISP.SYRIN IVPUSH ONE (08:00)
[2019-03-06] MEDS ORDERED: ASPIRIN 81 MG CHEWABLE TABLETS PO ONE (08:00)
--- NOTE | 2019-03-06 08:03 | PDOC ---
Attending Attestation - Resident Resident Name: Gary Tate - ED Attending Attestation I have performed the following: I have examined & evaluated the patient, The case was reviewed & discussed with the resident, I agree w/resident's findings & plan - HPI HPI: 03/06/19 07:58 63-year-old female with history of hypertension, diabetes, high cholesterol, known extensive CAD with 12 stents in the past most recently earlier this year, status post left total hip replacement on 02/22 complicated by falls and hemoglobin drop, admitted 02/25 through 02/27 for transfusion, presents now from rehabilitation facility with worsening chest pain and dyspnea on exertion. Patient first started feeling these symptoms about 4-5 weeks ago, before her surgery. Describes her usual chest pressure radiating to her left arm, no loss of consciousness. Left leg has been more swollen since the surgery, denies any fevers or chills. - Physicial Exam PE: 03/06/19 08:00 Blood pressure normal, O2 sat 100% on room air, respiratory rate 18, heart rate about 100 Alert, speaking full sentences, obese, lying in stretcher in no acute distress No notable JVD Heart is overall irregular to auscultation, lungs with wheezes at the bases Abdomen benign Left hip surgical sites without obvious surrounding evidence of infection, dressings in place 2+ pitting edema to the left leg versus trace on the right, no tenderness 2+ distal pulses. - Medical Decision Making 03/06/19 08:01 63-year-old female with known extensive CAD with stents in the past presents with chest pain and dyspnea on exertion progressive over the last few weeks. Hemodynamically stable here but with slight irregular tachycardia, question ectopy versus new onset atrial fibrillation, given history rule out ACS, given recent surgical intervention consider PE. Labs, EKG, chest x-ray Aspirin Left lower extremity Doppler --> CTA chest Will need telemetry admission, consultation with Dr. Lieberman her terminal supervisor 03/06/19 08:20 repeat EKG with notable sinus arrhythmia. 03/06/19 09:21 trop 0.12, has had elevated trop in the past. Cr normal, proceed with CTA still with some CP, will give additional morphine. HD unchanged. 03/06/19 12:57 negative PE, clinically unchanged. 2nd trop ordered. proceed with tele admit. 03/06/19 13:30 case d/w Dr. Lieberman, who knows patient well. Agrees with obs tele for trop trending. Heart Score/ECG Review #1 ECG reviewed & interpreted by me at: 06:53 General ECG Interpretation: Sinus Rhythm (PVC and APC noted), Normal Rate (78), Normal Intervals (qtc 421), No acute ischemic changes Compared to previous ECG there are: No significant change (c/w 02/25/19) #2 ECG reviewed & interpreted by me at: 07:59 03/06/19 08:17 irregular sinus rhythm at 84, ? sinus arrhythmia. PVC again noted, no acute ischemic changes
[2019-03-06] MEDS ORDERED: ASPIRIN 81 MG CHEWABLE TABLETS ONE (08:08)
[2019-03-06] MEDS ORDERED: morphine SULFATE 4 MG/ML VIAL ONE ×2 (08:08→21:08)
[2019-03-06 08:32] LABS: BASO % 0.9 % (0-2.0); EOS % 1.5 % (0-4.5); HEMATOCRIT 33.6 % (32.4-45.2); HEMOGLOBIN 11.1 GM/dL (10.7-15.3); MCH 28.3 pg (25.7-33.7); MCHC 32.9 g/dl (32.0-36.0); MEAN CELL VOLUME 86.1 fl (80-96); MEAN PLT VOLUME 7.9 fl (7.5-11.1); MONO % 7.7 % (3.8-10.2); NEUT % 52.9 % (42.8-82.8); PLATELET COUNT 279 K/MM3 (134-434); RBC 3.91 M/mm3 (3.60-5.2); RDW 14.6 % (11.6-15.6); WHITE BLOOD COUNT 8.6 K/mm3 (4.0-10.0)
[2019-03-06 08:49] LABS: INR 1.19 (0.83-1.09); PROTHROMBIN TIME (PATIENT) 14.1 SEC (9.7-13.0)
[2019-03-06 09:04] LABS: ALBUMIN 2.5 g/dl (3.4-5.0); BILIRUBIN,TOTAL 0.3 mg/dL (0.2-1); CALCIUM 8.7 mg/dL (8.5-10.1); CREATININE 0.9 mg/dL (0.55-1.3); POTASSIUM 3.9 mmol/L (3.5-5.1); TOT PROT 5.9 g/dl (6.4-8.2)
[2019-03-06] MEDS ORDERED: morphine CARPU-JECT 2 MG/1 ML DISP.SYRIN IVPUSH ONE (09:20)
[2019-03-06] MEDS ORDERED: MORPHINE SULFATE 2 MG/ML VIAL ONE (09:22)
[2019-03-06] MEDS ORDERED: HYDROmorphone HCL CARPU-JECT 2 MG/1 ML DISP.SYRIN IVPUSH ONE (10:32)
[2019-03-06] MEDS ORDERED: HYDROmorphone HCl 2 MG/ML VIAL ONE (10:37)
--- NOTE | 2019-03-06 13:32 | EKG ---
Test Reason : Blood Pressure : / mmHG Vent. Rate : 084 BPM Atrial Rate : 084 BPM P-R Int : 178 ms QRS Dur : 106 ms QT Int : 374 ms P-R-T Axes : 031 028 067 degrees QTc Int : 441 ms SINUS RHYTHM WITH MARKED SINUS ARRHYTHMIA WITH OCCASIONAL PREMATURE VENTRICULAR COMPLEXES OTHERWISE NORMAL ECG WHEN COMPARED WITH ECG OF 06-MAR-2019 06:53, PREMATURE ATRIAL COMPLEXES ARE NO LONGER PRESENT Confirmed by MD WILBER, JUS ([id number]) on 03/06/2019 1:31:32 PM Referred By: Confirmed By:JUS MERINO MD
--- NOTE | 2019-03-06 13:34 | HP ---
CHIEF COMPLAINT: Chest pain PCP: Dr. Menezes [employer] Tester: Dr. Lieberman HISTORY OF PRESENT ILLNESS: 63yo F with significant history of known CAD s/p multiple PCI, HLD, HTN, T2DM , and previous cocaine abuse who presents today after experiencing L anterior sharp severe chest pain which woke her up during the night. Pt reports she normally has stable anginal symptoms that resolve with rest, however this episode was not resolving. She reports it feels similar to when she needed coronary stenting prior. Pt states her chest pain started to progress and she experienced some radiation of her chest pain down her arm. She also endorsed some diaphoresis during this episode. When seen in the ED pt has had continuous chest pain since initiation, however it has subsided slightly since her the beginning of her visit here. Pt reports in October 2018 she received a coronary catherization for angiography and did not receive any coronary stents at the time. Pt was seen in December 2018 for chest pain which at the time it was decided to medically manage her symptoms by optimizing her Ranexa and other cardiac medications. Since then pt had received a L hip replacement in 02/22/2019 for which she has been attending SNF rehab for. She denies any shortness of breath during this time, however she does note that she has had some increasing CARNES which has worsened her exercise tolerance. Pt has been compliant with her medications and has not used any cocaine since her previous time in Pt denies RAMOS, diplopia, f/c/n/v/diarrhea/constipation, lightheadedness, shortness of breath, cough, palpitations, abdominal pain, worsened back pain, dysuria, polyuria, current LExt edema. 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 of Cocaine use and Opiate dependence; has not used cocaine since end of January 2019 Family History: Mom-Stomach cancer, HTN and [place] Father()-Prostate cancer Grandfather-Throat cancer and [place] Cousins and Aunts- Breast Cancer Allergies cashew nut Allergy (Severe, Verified 03/06/19 07:04) Swelling shellfish derived Allergy (Severe, Verified 03/06/19 07:04) Swelling HOME MEDICATIONS: Home Medications Medication Instructions Recorded Oxycodone HCl [Roxicodone] 30 mg PO Q6H PRN 01/09/14 Nitroglycerin Sublingual 0.4 mg SL Q5M PRN #0 tab 03/02/15 [Nitrostat -] Furosemide [Lasix] 40 mg PO DAILY 12/27/18 Gabapentin 600 mg PO BID 12/27/18 Insulin Degludec [Tresiba 32 unit SQ DAILY 12/27/18 Flextouch U-100] Levalbuterol HCl [Xopenex] 0.31 mg IH ASDIR 12/27/18 Pantoprazole Sodium 40 mg PO DAILY 12/27/18 Ranolazine [Ranexa] 1,000 mg PO BID 12/27/18 Rosuvastatin [Crestor -] 40 mg PO DAILY 12/27/18 Bupropion HCl [Wellbutrin Xl -] 150 mg PO BID 12/28/18 Clopidogrel Bisulfate [Plavix] 75 mg PO DAILY 12/28/18 Umeclidinium [place] [Incruse 1 inh IH DAILY 12/28/18 Ellipta] Montelukast Sodium [Singulair] 10 mg PO HS 02/12/19 Ascorbic Acid [Vitamin C -] 500 mg PO BID tablet 02/24/19 Aspirin [ASA -] 325 mg PO DAILY@0800 tablet 02/24/19 Multivitamins [Multivit ([facility] 1 tab PO DAILY tab 02/24/19 Formulary)] oxyCODONE SR [Oxycontin] 40 mg PO BID #60 tab.er.12h MDD 2 02/27/19 Docusate Sodium [Colace] 200 mg PO BID 03/06/19 Melatonin 3 mg PO HS 03/06/19 Sennosides [Senna] 2 tab PO BID 03/06/19 REVIEW OF SYSTEMS As per HPI PHYSICAL EXAMINATION Vital Signs - 24 hr 03/06/19 03/06/19 06:52 11:34 Temperature 98.1 F 97.9 F Pulse Rate 101 H Pulse Rate [ 109 H Right] Respiratory 18 18 Rate Blood Pressure 131/87 Blood Pressure 115/88 [Right Arm] O2 Sat by Pulse 100 100 Oximetry (%) GENERAL: NAD, awake, alert, and fully oriented HEENT: NC/AT, EOMI, CHIKI, sclera anicteric, MMM NECK: No JVD, no carotid bruit LUNGS: CTA bilaterally. No wheezes, and no crackles. No accessory muscle use. HEART: RRR, normal S1 and S2 without murmur. Nonreproducible pain with palpation of chest wall ABDOMEN: Soft, nontender, not distended, normoactive bowel sounds, no guarding, no hepatojugular reflux EXTREMITIES: 2+ pulses, warm, well-perfused. No calf tenderness. No peripheral edema. NEUROLOGICAL: Nonfocal exam with strength and sensation intact. Normal speech. Normal gait. PSYCHIATRIC: Cooperative. Good eye contact. Appropriate mood and affect. SKIN: Warm, dry, no rashes or lesions noted Laboratory Results - last 24 hr 03/06/19 03/06/19 03/06/19 08:00 08:16 08:16 WBC 8.6 RBC 3.91 Hgb 11.1 Hct 33.6 MCV 86.1 MCH 28.3 MCHC 32.9 RDW 14.6 Plt Count 279 D MPV 7.9 Absolute Neuts (auto) 4.6 Neutrophils % 52.9 Lymphocytes % 37.0 Monocytes % 7.7 Eosinophils % 1.5 D Basophils % 0.9 D Nucleated RBC % 0 PT with INR INR Sodium 139 Potassium 3.9 Chloride 106 Carbon Dioxide 28 Anion Gap 5 L BUN 14 Creatinine 0.9 Est GFR (CKD-EPI)AfAm 79.98 Est GFR (CKD-EPI)NonAf 69.01 Random Glucose 118 H Calcium 8.7 Magnesium 1.5 L Total Bilirubin 0.3 AST 18 ALT 22 Alkaline Phosphatase 91 Creatine Kinase 82 Troponin I 0.12 H Total Protein 5.9 L Albumin 2.5 L Blood Type Antibody Screen 03/06/19 03/06/19 08:16 08:16 WBC RBC Hgb Hct MCV MCH MCHC RDW Plt Count MPV Absolute Neuts (auto) Neutrophils % Lymphocytes % Monocytes % Eosinophils % Basophils % Nucleated RBC % PT with INR 14.10 H INR 1.19 H Sodium Potassium Chloride Carbon Dioxide Anion Gap BUN Creatinine Est GFR (CKD-EPI)AfAm Est GFR (CKD-EPI)NonAf Random Glucose Calcium Magnesium Total Bilirubin AST ALT Alkaline Phosphatase Creatine Kinase Troponin I Total Protein Albumin Blood Type A POSITIVE Antibody Screen Negative ASSESSMENT/PLAN: ? Unstable angina CAD s/p 12 stents T2DM HTn HLD Hx of substance abuse Recent L Hip Replacement --Dr. Lieberman consulted; okay with admitting for medical management --Troponin 0.12 x2; continue to trend to peak --ASA 81mg and Plavix 75mg qdaily to continue --Nitrostat PRN ordered with BP parameters for chest pain --Lovenox 90mg BID ordered --Continue Ranexa 1gm BID --Pt normally on Tresiba; no real substitution --Will BGM ACHS alongside of sliding scale --Consider starting Levemir for long-term coverage once 24h insulin requirements noted --Continue Crestor 40mg qDaily --Continue rest of home medications FEN: Fluids: none currently Electrolyte abnormalities: HypoMg (replete 1 gm) Nutrition: Diabetic/Sodium controlled PPX: DVT - Already on therapeutic lovenox GI - Alreadyo n Protonix therapy Dispo: Telemetry Case discussed with Dr. Troy Rebollar, DO - IM PGY-2 Visit type - Emergency Visit Emergency Visit: Yes ED Registration Date: 03/06/19 Care time: The patient presented to the Emergency Department on the above date and was hospitalized for further evaluation of their emergent condition. - New Patient This patient is new to me today: Yes Date on this admission: 03/06/19 - Critical Care Critical Care patient: No
--- NOTE | 2019-03-06 13:54 | PDOC ---
*Physical Exam - Vital Signs Last Vital Signs Temp Pulse Resp BP Pulse Ox 97.9 F 109 H 18 115/88 100 03/06/19 11:34 03/06/19 11:34 03/06/19 11:34 03/06/19 11:34 03/06/19 11:34 - Physical Exam Comments: 03/06/19 13:14 Patient's care endorsed to me by Dr. Tate at the end of his shift. 63YOF with extensive h/o CAD, s/p 12 stents placed, HTN, HLD, smoking, TIA, and recent hip replacement (has been in rehab) who p/w 10/10 chest pain radiating to LUE. Needs to be admitted given her history. ED Treatment Course - LABORATORY CBC & Chemistry Diagram: 03/06/19 08:16 03/07/19 06:00 - ADDITIONAL ORDERS Additional order review: Laboratory Results 03/06/19 03/06/19 03/06/19 08:16 08:16 08:16 PT with INR 14.10 H INR 1.19 H Sodium 139 Potassium 3.9 Chloride 106 Carbon Dioxide 28 Anion Gap 5 L BUN 14 Creatinine 0.9 Est GFR (CKD-EPI)AfAm 79.98 Est GFR (CKD-EPI)NonAf 69.01 Random Glucose 118 H Calcium 8.7 Magnesium Total Bilirubin 0.3 AST 18 ALT 22 Alkaline Phosphatase 91 Creatine Kinase 82 Troponin I 0.12 H Total Protein 5.9 L Albumin 2.5 L Blood Type A POSITIVE Antibody Screen Negative 03/06/19 08:00 PT with INR INR Sodium Potassium Chloride Carbon Dioxide Anion Gap BUN Creatinine Est GFR (CKD-EPI)AfAm Est GFR (CKD-EPI)NonAf Random Glucose Calcium Magnesium 1.5 L Total Bilirubin AST ALT Alkaline Phosphatase Creatine Kinase Troponin I Total Protein Albumin Blood Type Antibody Screen 03/06/19 08:16 RBC 3.91 MCV 86.1 MCHC 32.9 RDW 14.6 MPV 7.9 Neutrophils % 52.9 Lymphocytes % 37.0 Monocytes % 7.7 Eosinophils % 1.5 D Basophils % 0.9 D - Medications Given in the ED: ED Medications Discontinued Medications Generic Name Dose Route Start Last Admin Trade Name Freq PRN Reason Stop Dose Admin Aspirin 162 mg 03/06/19 08:00 03/06/19 08:18 Asa - PO 03/06/19 08:01 162 mg ONCE ONE Administration Hydromorphone HCl 0.5 mg 03/06/19 10:32 03/06/19 10:39 Dilaudid Injection - IVPUSH 03/06/19 10:33 0.5 mg ONCE ONE Administration Morphine Sulfate 4 mg 03/06/19 08:00 03/06/19 08:18 Morphine Injection - IVPUSH 03/06/19 08:01 4 mg ONCE ONE Administration Morphine Sulfate 2 mg 03/06/19 09:20 03/06/19 09:27 Morphine Injection - IVPUSH 03/06/19 09:21 2 mg ONCE ONE Administration *DC/Admit/Observation/Transfer Diagnosis at time of Disposition: Chest pain - Discharge Dispostion Condition at time of disposition: Stable - Referrals - Patient Instructions - Post Discharge Activity
[2019-03-06] MEDS ORDERED: NITROGLYCERIN SUBLINGUAL 1/150 0.4 MG TAB SL PRN ×2 (13:59→19:21)
[2019-03-06] MEDS ORDERED: ENOXAPARIN NA (PORCINE) 100 MG/1 ML DISP.SYRIN SQ ONE ×2 (15:00→15:49)
[2019-03-06] MEDS ORDERED: MAGNESIUM SULF 50% (8.12 MEQ/2 ML-1 GM VIAL) IVPB ONE (15:00)
--- NOTE | 2019-03-06 15:43 | CON.CARD ---
Cardiology Consult (text) - Consultation Consultation Note: Chief Complaint: cp History of Present Illness: 63F h/o CAD, diastolic CHF, HTN, HLD, prior SC/pci (nstemi and pci about 2 mos ago s/p L THR 02/22 presents with cp from rehab. Reports chronic anginal cp sxs with left chest heaviness but past 1-2 days has been worse with some radiation to left arm as well. Intermittent episodes, no cp now. No sob palps dizzy loc pnd orthopnea le edema. Sees Dr. Lieberman for cardio. - Past Medical History [employer]: Yes: CVA (no residual deficits), TIA Cardio/Vascular: Yes: CAD, CHF, HTN, Hyperlipdemia, SC, Other (PE) Pulmonary: Yes: Asthma, COPD, Sleep Apnea Gastrointestinal: Yes: GERD Psych: Yes: Depression Musculoskeletal: Yes: Osteoarthritis, Other (herniated discs) Endocrine: Yes: Diabetes Mellitus - Past Surgical History Past Surgical History: Yes: Stent (x13) - Alcohol/Substance Use Hx Alcohol Use: No History of Substance Use: reports: Cocaine, Prescription - Smoking History Smoking history: Current some day smoker Have you smoked in the past 12 months: Yes Aproximately how many cigarettes per day: 2 - Social History Usual Living Arrangement: Alone ADL: Support Services History of Recent Travel: No Home Medications - Allergies Allergies/Adverse Reactions: Allergies Allergy/AdvReac Type Severity Reaction Status Date / Time cashew nut Allergy Severe Swelling Verified 03/06/19 07:04 shellfish derived Allergy Severe Swelling Verified 03/06/19 07:04 - Home Medications Home Medications Medication Instructions Recorded Oxycodone HCl [Roxicodone] 30 mg PO Q6H PRN 01/09/14 Nitroglycerin Sublingual 0.4 mg SL Q5M PRN #0 tab 03/02/15 [Nitrostat -] Furosemide [Lasix] 40 mg PO DAILY 12/27/18 Gabapentin 600 mg PO BID 12/27/18 Insulin Degludec [Tresiba 32 unit SQ DAILY 12/27/18 Flextouch U-100] Levalbuterol HCl [Xopenex] 0.31 mg IH ASDIR 12/27/18 Pantoprazole Sodium 40 mg PO DAILY 12/27/18 Ranolazine [Ranexa] 1,000 mg PO BID 12/27/18 Rosuvastatin [Crestor -] 40 mg PO DAILY 12/27/18 Bupropion HCl [Wellbutrin Xl -] 150 mg PO BID 12/28/18 Clopidogrel Bisulfate [Plavix] 75 mg PO DAILY 12/28/18 Umeclidinium [place] [Incruse 1 inh IH DAILY 12/28/18 Ellipta] Montelukast Sodium [Singulair] 10 mg PO HS 02/12/19 Ascorbic Acid [Vitamin C -] 500 mg PO BID tablet 02/24/19 Aspirin [ASA -] 325 mg PO DAILY@0800 tablet 02/24/19 Multivitamins [Multivit ([facility] 1 tab PO DAILY tab 02/24/19 Formulary)] oxyCODONE SR [Oxycontin] 40 mg PO BID #60 tab.er.12h MDD 2 02/27/19 Docusate Sodium [Colace] 200 mg PO BID 03/06/19 Melatonin 3 mg PO HS 03/06/19 Sennosides [Senna] 2 tab PO BID 03/06/19 Family Disease History - Family Disease History Family History: Unremarkable Review of Systems - Review of Systems Constitutional: reports: No Symptoms Eyes: reports: No Symptoms HENT: reports: No Symptoms Neck: reports: No Symptoms Gastrointestinal: reports: No Symptoms Genitourinary: reports: No Symptoms Musculoskeletal: reports: Joint Pain Integumentary: reports: No Symptoms Neurological: reports: No Symptoms Endocrine: reports: No Symptoms Hematology/Lymphatic: reports: No Symptoms Psychiatric: reports: No Symptoms Vital Signs: Vital Signs Period Temp Pulse Resp BP Sys/Adan Pulse Ox Last 24 Hr 97.9 F-98.1 F 101-109 18-18 115-131/87-88 100-100 Constitutional: Yes: Well Nourished, No Distress, Calm Eyes: Yes: Conjunctiva Clear HENT: Yes: Atraumatic, Normocephalic Neck: Yes: Supple, Trachea Midline Respiratory: Yes: Regular, CTA Bilaterally Gastrointestinal: Yes: Normal Bowel Sounds, Soft Cardiovascular: Yes: Regular Rate and Rhythm JVD: No Carotid Bruit: No PMI: Non-Displaced Heart Sounds: Yes: S1, S2 Extremities: No: Cold Edema: No Peripheral Pulses: 2+ Left Doralis Pedis, 2+ Right Dorsalis Pedis Integumentary: No: Jaundice diaphoresis Neurological: Yes: Alert, Oriented Psychiatric: No: Agitated - Other Data Labs, Other Data: Laboratory Last Values WBC 8.6 K/mm3 (4.0-10.0) 03/06/19 08:16 RBC 3.91 M/mm3 (3.60-5.2) 03/06/19 08:16 Hgb 11.1 GM/dL (10.7-15.3) 03/06/19 08:16 Hct 33.6 % (32.4-45.2) 03/06/19 08:16 MCV 86.1 fl (80-96) 03/06/19 08:16 MCH 28.3 pg (25.7-33.7) 03/06/19 08:16 MCHC 32.9 g/dl (32.0-36.0) 03/06/19 08:16 RDW 14.6 % (11.6-15.6) 03/06/19 08:16 Plt Count 279 K/MM3 (134-434) D 03/06/19 08:16 MPV 7.9 fl (7.5-11.1) 03/06/19 08:16 Absolute Neuts (auto) 4.6 K/mm3 (1.5-8.0) 03/06/19 08:16 Neutrophils % 52.9 % (42.8-82.8) 03/06/19 08:16 Lymphocytes % 37.0 % (8-40) 03/06/19 08:16 Monocytes % 7.7 % (3.8-10.2) 03/06/19 08:16 Eosinophils % 1.5 % (0-4.5) D 03/06/19 08:16 Basophils % 0.9 % (0-2.0) D 03/06/19 08:16 Nucleated RBC % 0 % (0-0) 03/06/19 08:16 PT with INR 14.10 SEC (9.7-13.0) H 03/06/19 08:16 INR 1.19 (0.83-1.09) H 03/06/19 08:16 Sodium 139 mmol/L (136-145) 03/06/19 08:16 Potassium 3.9 mmol/L (3.5-5.1) 03/06/19 08:16 Chloride 106 mmol/L (98-107) 03/06/19 08:16 Carbon Dioxide 28 mmol/L (21-32) 03/06/19 08:16 Anion Gap 5 MMOL/L (8-16) L 03/06/19 08:16 BUN 14 mg/dL (7-18) 03/06/19 08:16 Creatinine 0.9 mg/dL (0.55-1.3) 03/06/19 08:16 Est GFR (CKD-EPI)AfAm 79.98 03/06/19 08:16 Est GFR (CKD-EPI)NonAf 69.01 03/06/19 08:16 Random Glucose 118 mg/dL (74-106) H 03/06/19 08:16 Calcium 8.7 mg/dL (8.5-10.1) 03/06/19 08:16 Magnesium 1.5 mg/dL (1.8-2.4) L 03/06/19 08:00 Total Bilirubin 0.3 mg/dL (0.2-1) 03/06/19 08:16 AST 18 U/L (15-37) 03/06/19 08:16 ALT 22 U/L (13-61) 03/06/19 08:16 Alkaline Phosphatase 91 U/L (45-117) 03/06/19 08:16 Creatine Kinase 82 U/L (26-192) 03/06/19 08:16 Troponin I 0.12 ng/ml (0.00-0.05) H 03/06/19 13:20 Total Protein 5.9 g/dl (6.4-8.2) L 03/06/19 08:16 Albumin 2.5 g/dl (3.4-5.0) L 03/06/19 08:16 Blood Type A POSITIVE 03/06/19 08:16 Antibody Screen Negative 03/06/19 08:16 EKG: sinus, nl intervals, no ischemic changes, pvc cta chest: no pe, no chf a/p: 63F h/o CAD, diastolic CHF, HTN, HLD, prior SC/pci (nstemi and pci about 2 mos ago s/p L THR 02/22 presents with cp from rehab. cp, CAD s/p multiple PCI: -here anginal cp symptoms. No signs acs. Trops borderline range with flat trend and nl ck, similar to prior baseline values, not c/w acs. -ecg w/o ischemic changes -continue aspirin, plavix, ranexa, statin -prior admit norvasc and nitrate held due to low bp in setting of anemia. bp improved now, will resume these meds as may help her anginal sxs. -monitor on tele Chronic diastolic HF - appears euvolemic - cont prior home lasix dose HTN -cont home meds
[2019-03-06] MEDS ORDERED: MAGNESIUM 1GM/D5W - 1 GM/100 ML IVPB IVPB ONE (15:49)
[2019-03-06 16:06] VITALS: TEMP 97.8
[2019-03-06] MEDS ORDERED: amLODIPine BESYLATE 5 MG TABLET (FP) ONE (16:26)
[2019-03-06] MEDS ORDERED: ISOSORBIDE MONONITRATE 60 MG TAB.SR.24H (FP) PO ONE (16:26)
[2019-03-06] MEDS: amLODIPine BESYLATE 2.5 MG TABLET (FP) PO SCH (16:33)
[2019-03-06] MEDS: ISOSORBIDE MONONITRATE 30 MG TAB.SR.24H (FP) PO SCH (16:33)
--- NOTE | 2019-03-06 16:41 | PN ---
Teaching Attending Note Name of Resident: Mack Rebollar ATTENDING PHYSICIAN STATEMENT I saw and evaluated the patient. I reviewed the resident's note and discussed the case with the resident. I agree with the resident's findings and plan as documented. SUBJECTIVE: No Chest Pain currently. No palpitations/cough/sputum/hemoptysis/ fever/chills/dyspnea. OBJECTIVE: Afebrile, Hemodynamically Stable. Last Vital Signs Temp Pulse Resp BP Pulse Ox 97.8 F 96 H 18 153/92 98 03/06/19 16:05 03/06/19 16:05 03/06/19 16:05 03/06/19 16:05 03/06/19 16:05 HEENT - Atraumatic, Normocephalic. Heart - S1, S2, RRR Lungs - clear to auscultations. Abdomen - soft, non-tender. Bowel Sounds normal. Extremities - soft, non-tender. Bowel Sounds normal. Extremities - mild edema. No calf tenderness MS - L hip surgical dressing. Decreased ROM about L hip. Laboratory Results - last 24 hr 03/06/19 03/06/19 03/06/19 08:00 08:16 08:16 WBC 8.6 RBC 3.91 Hgb 11.1 Hct 33.6 MCV 86.1 MCH 28.3 MCHC 32.9 RDW 14.6 Plt Count 279 D MPV 7.9 Absolute Neuts (auto) 4.6 Neutrophils % 52.9 Lymphocytes % 37.0 Monocytes % 7.7 Eosinophils % 1.5 D Basophils % 0.9 D Nucleated RBC % 0 PT with INR INR Sodium 139 Potassium 3.9 Chloride 106 Carbon Dioxide 28 Anion Gap 5 L BUN 14 Creatinine 0.9 Est GFR (CKD-EPI)AfAm 79.98 Est GFR (CKD-EPI)NonAf 69.01 Random Glucose 118 H Calcium 8.7 Magnesium 1.5 L Total Bilirubin 0.3 AST 18 ALT 22 Alkaline Phosphatase 91 Creatine Kinase 82 Troponin I 0.12 H Total Protein 5.9 L Albumin 2.5 L Blood Type Antibody Screen 03/06/19 03/06/19 03/06/19 08:16 08:16 13:20 WBC RBC Hgb Hct MCV MCH MCHC RDW Plt Count MPV Absolute Neuts (auto) Neutrophils % Lymphocytes % Monocytes % Eosinophils % Basophils % Nucleated RBC % PT with INR 14.10 H INR 1.19 H Sodium Potassium Chloride Carbon Dioxide Anion Gap BUN Creatinine Est GFR (CKD-EPI)AfAm Est GFR (CKD-EPI)NonAf Random Glucose Calcium Magnesium Total Bilirubin AST ALT Alkaline Phosphatase Creatine Kinase Troponin I 0.12 H Total Protein Albumin Blood Type A POSITIVE Antibody Screen Negative Current Medications Generic Name Dose Route Start Last Admin Trade Name Freq PRN Reason Stop Dose Admin Amlodipine Besylate 2.5 mg 03/06/19 15:45 Norvasc - PO DAILY [facility] Aspirin 81 mg 03/07/19 10:00 Ecotrin - PO DAILY [facility] Bupropion HCl 150 mg 03/06/19 22:00 Wellbutrin Xl - PO BID [facility] Clopidogrel Bisulfate 75 mg 03/07/19 10:00 Plavix - PO DAILY [facility] Docusate Sodium 200 mg 03/06/19 22:00 Colace - PO BID [facility] Enoxaparin Sodium 90 mg 03/06/19 22:00 Lovenox - SQ BID [facility] Gabapentin 600 mg 03/06/19 22:00 Neurontin - PO BID [facility] Insulin Aspart 1 vial 03/06/19 16:30 Novolog Vial Sliding Scale - SQ ACHS [facility] Protocol Isosorbide Mononitrate 30 mg 03/06/19 15:45 Imdur - PO DAILY [facility] Melatonin 3 mg 03/06/19 22:00 Melatonin PO HS [facility] Montelukast Sodium 10 mg 03/06/19 22:00 Singulair - PO HS [facility] Nitroglycerin 0.4 mg 03/06/19 08:45 Nitrostat - SL Q5M PRN FOR CHEST PAIN Oxycodone HCl 5 mg 03/06/19 13:57 Roxicodone - PO Q6H PRN PAIN LEVEL 6-10 Pantoprazole Sodium 40 mg 03/07/19 10:00 Protonix - PO DAILY [facility] Ranolazine 1,000 mg 03/06/19 22:00 Ranexa - PO BID [facility] Rosuvastatin Calcium 40 mg 03/06/19 22:00 Crestor - PO HS [facility] Senna 2 tab 03/06/19 22:00 Senna - PO BID [facility] Home Medications Medication Instructions Recorded Oxycodone HCl [Roxicodone] 30 mg PO Q6H PRN 01/09/14 Nitroglycerin Sublingual 0.4 mg SL Q5M PRN #0 tab 03/02/15 [Nitrostat -] Furosemide [Lasix] 40 mg PO DAILY 12/27/18 Gabapentin 600 mg PO BID 12/27/18 Insulin Degludec [Tresiba 32 unit SQ DAILY 12/27/18 Flextouch U-100] Levalbuterol HCl [Xopenex] 0.31 mg IH ASDIR 12/27/18 Pantoprazole Sodium 40 mg PO DAILY 12/27/18 Ranolazine [Ranexa] 1,000 mg PO BID 12/27/18 Rosuvastatin [Crestor -] 40 mg PO DAILY 12/27/18 Bupropion HCl [Wellbutrin Xl -] 150 mg PO BID 12/28/18 Clopidogrel Bisulfate [Plavix] 75 mg PO DAILY 12/28/18 Umeclidinium [place] [Incruse 1 inh IH DAILY 12/28/18 Ellipta] Montelukast Sodium [Singulair] 10 mg PO HS 02/12/19 Ascorbic Acid [Vitamin C -] 500 mg PO BID tablet 02/24/19 Aspirin [ASA -] 325 mg PO DAILY@0800 tablet 02/24/19 Multivitamins [Multivit ([facility] 1 tab PO DAILY tab 02/24/19 Formulary)] oxyCODONE SR [Oxycontin] 40 mg PO BID #60 tab.er.12h MDD 2 02/27/19 Docusate Sodium [Colace] 200 mg PO BID 03/06/19 Melatonin 3 mg PO HS 03/06/19 Sennosides [Senna] 2 tab PO BID 03/06/19 ASSESSMENT AND PLAN: 63 year old female with history of HTN, DM 2, HLD, TIA, COPD, ANTONY (uses CPAP at night), CAD s/p PCI/Stents (12), 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 1. ACS/Unstable Angina on background of CAD s/p PCI/Stents ECG - Sinus Arrhythmia. PVCs, no acute changes. Troponin 0.12 CTA - negative for PE. LE Duplex neg for DVT. These studies done due to recent Orthopedic hip surgery 02/22/19 Started on ACS treatment with Lovenox, Nitrostat, Morphine. Continue Aspirin, Plavix, Imdur, Crestor, Ranexa. Does not appear to be on BB or WILLIAM-I. Further management as per Cardiology 2. DM 2 - Maintain on sliding scale insulin. Tresiba held. 3. HLD - Continue Crestor. 4. s/p L THR 02/22/19 - Oxy PRN. Will consult Dr. Sierra (was scheduled for out- patient appt with him today but unable to make it due to this ED visit and admission) for post op eval, surgical dressing change, and incision site evaluation. 5. COPD - appears stable. Continue Bronchodilator Inhalers. 6. Hx Substance Abuse (cocaine) - denies recent use - will request Utox. 7. Hypomagnesemia - will replete. 8. ANTONY - Continue CPAP at night. Continue CPAP at night. 9. Depression - stable. Continue Wellbutrin. 10. HTN - resumed on home meds Imdur and Norvasc (held on prior admission due to borderline BP). 11. Bilateral Renal Cysts and 4mm non-obstructing L renal stone on Imaging - Asymptomatic. For out-patient Urology follow up. DVT Px - on Lovenox (treatment dose) GI Px - PPI.
[2019-03-06] MEDS: INSULIN SLIDING SCALE (NOVOLOG) 1 VIAL SQ SCH ×2 (17:00→23:48)
[2019-03-06] MEDS ORDERED: NITROGLYCERIN SUBLINGUAL 1/150 0.4 MG TAB ONE ×2 (17:11→18:25)
[2019-03-06] MEDS: NITROGLYCERIN SUBLINGUAL 1/150 0.4 MG TAB SL PRN ×2 (17:15→18:29)
[2019-03-06] MEDS ORDERED: oxyCODONE HCL 5 MG TABLET ONE (20:17)
[2019-03-06] MEDS: oxyCODONE HCL 5 MG TABLET PO PRN (20:20)
[2019-03-06] MEDS ORDERED: morphine SULFATE 4 MG/ML VIAL IVPUSH ONE (20:42)
[2019-03-06] MEDS ORDERED: MELATONIN 5 MG TABLETS PO ONE (20:59)
[2019-03-06] MEDS ORDERED: NITROPRUSSIDE SODIUM 50,000 MCG in SODIUM CHLORIDE 248 ML IVPB SCH (21:00)
--- NOTE | 2019-03-06 21:04 | PN ---
Progress Note (short form) - Note Progress Note: Evaluated patient and she reports she is still having pain. Pain did not get better with pushes of nitro. Spoke with Dr. huitron, started patient on nitro drip and gave one time morphine. Will continue to monitor patient. Troponin .12> .12> .13, EKG without any acute changes Patient slept through the night, woke up with pain, another morphine 3 mg given. repeat EKG ordered. Please follow up with Cardiology.
[2019-03-06] MEDS ORDERED: NITROPRUSSIDE SODIUM 50,000 MCG in DEXTROSE 5%-WATER - 248 ML IVPB SCH (21:15)
[2019-03-06] MEDS ORDERED: NITROGLYCERIN 25MG/D5W 250ML 25 MG/250 ML ML IVPB SCH (21:15)
[2019-03-06] MEDS ORDERED: ROSUVASTATIN CA 40 MG TABLET PO SCH (22:00)
[2019-03-06] MEDS ORDERED: MELATONIN 1 MG TABLET PO SCH (22:00)
[2019-03-06] MEDS ORDERED: MONTELUKAST NA 10 MG TABLET PO SCH (22:00)
[2019-03-06] MEDS ORDERED: DOCUSATE SODIUM 100 MG CAPSULE (FP) PO ONE (22:46)
[2019-03-06] MEDS ORDERED: MONTELUKAST NA 10 MG TABLET ONE (22:46)
[2019-03-06] MEDS: DOCUSATE SODIUM 100 MG CAPSULE (FP) PO SCH (23:55)
[2019-03-06] MEDS: ENOXAPARIN NA (PORCINE) 100 MG/1 ML DISP.SYRIN SQ SCH (23:55)
[2019-03-06] MEDS: RANOLAZINE E.R. 1,000 MG TABLET (FP) PO SCH (23:55)
[2019-03-06] MEDS: GABAPENTIN 300 MG CAPSULE (FP) PO SCH (23:55)
[2019-03-06] MEDS: SENNOSIDES 8.6MG TABLET (FP) PO SCH (23:55)
[2019-03-07] MEDS ORDERED: NITROGLYCERIN SUBLINGUAL 1/150 0.4 MG TAB ONE (03:37)
[2019-03-07] MEDS ORDERED: oxyCODONE HCL 5 MG TABLET ONE (03:37)
[2019-03-07] MEDS: oxyCODONE HCL 5 MG TABLET PO PRN (03:39)
[2019-03-07] MEDS ORDERED: morphine SULFATE 4 MG/ML VIAL IVPUSH ONE (04:25)
[2019-03-07] MEDS ORDERED: morphine SULFATE 4 MG/ML VIAL ONE (04:44)
[2019-03-07] MEDS: INSULIN SLIDING SCALE (NOVOLOG) 1 VIAL SQ SCH ×2 (06:24→11:33)
[2019-03-07 07:20] LABS: CREATININE 0.9 mg/dL (0.55-1.3); MAGNESIUM 1.6 mg/dL (1.8-2.4); POTASSIUM 4.2 mmol/L (3.5-5.1)
[2019-03-07] MEDS ORDERED: MAGNESIUM SULF 50% (8.12 MEQ/2 ML-1 GM VIAL) IVPB ONE ×2 (08:06→09:30)
[2019-03-07] MEDS ORDERED: amLODIPine BESYLATE 5 MG TABLET (FP) ONE (08:31)
[2019-03-07] MEDS ORDERED: ENOXAPARIN NA (PORCINE) 100 MG/1 ML DISP.SYRIN SQ ONE (09:00)
[2019-03-07] MEDS: ISOSORBIDE MONONITRATE 30 MG TAB.SR.24H (FP) PO SCH (09:04)
[2019-03-07] MEDS: RANOLAZINE E.R. 1,000 MG TABLET (FP) PO SCH (09:04)
[2019-03-07] MEDS: SENNOSIDES 8.6MG TABLET (FP) PO SCH (09:04)
[2019-03-07] MEDS: GABAPENTIN 300 MG CAPSULE (FP) PO SCH (09:04)
[2019-03-07] MEDS: amLODIPine BESYLATE 2.5 MG TABLET (FP) PO SCH (09:04)
[2019-03-07] MEDS: DOCUSATE SODIUM 100 MG CAPSULE (FP) PO SCH (09:04)
[2019-03-07] MEDS: ENOXAPARIN NA (PORCINE) 100 MG/1 ML DISP.SYRIN SQ SCH (09:04)
[2019-03-07] MEDS ORDERED: MAGNESIUM SULF 50% (8.12 MEQ/2 ML-1 GM VIAL) ONE (09:09)
[2019-03-07] MEDS ORDERED: CLOPIDOGREL BISULFATE 75 MG TABLET (FP) PO SCH (10:00)
[2019-03-07] MEDS ORDERED: ASPIRIN COATED 81 MG TABLET.EC PO SCH (10:00)
[2019-03-07] MEDS ORDERED: PANTOPRAZOLE 40 MG TABLET (FP) PO SCH (10:00)
--- NOTE | 2019-03-07 10:42 | PN ---
Progress Note (short form) - Note Progress Note: s: denies chest pain this AM. Had episodes overnight, improved with morphine. is on nitro gtt. no sob, palps, dizziness Denies recent cocaine use Current Medications Amlodipine Besylate (Norvasc -) 2.5 mg PO DAILY [facility] Last Admin: 03/07/19 09:04 Dose: 2.5 mg Aspirin (Ecotrin -) 81 mg PO DAILY [facility] Last Admin: 03/07/19 09:04 Dose: 81 mg Bupropion HCl (Wellbutrin Xl -) 150 mg PO BID [facility] Last Admin: 03/07/19 09:04 Dose: 150 mg Clopidogrel Bisulfate (Plavix -) 75 mg PO DAILY [facility] Last Admin: 03/07/19 09:04 Dose: 75 mg Docusate Sodium (Colace -) 200 mg PO BID [facility] Last Admin: 03/07/19 09:04 Dose: 200 mg Enoxaparin Sodium (Lovenox -) 90 mg SQ BID [facility] Last Admin: 03/07/19 09:04 Dose: 90 mg Gabapentin (Neurontin -) 600 mg PO BID [facility] Last Admin: 03/07/19 09:04 Dose: 600 mg Insulin Aspart (Novolog Vial Sliding Scale -) 1 vial SQ [facility]; Protocol Last Admin: 03/07/19 06:24 Dose: Not Given Isosorbide Dinitrate (Isordil -) 10 mg PO BID [facility] Melatonin (Melatonin) 3 mg PO [facility] Last Admin: 03/06/19 23:55 Dose: Not Given Montelukast Sodium (Singulair -) 10 mg PO [facility] Last Admin: 03/06/19 23:55 Dose: 10 mg Nitroglycerin (Nitrostat -) 0.4 mg SL Q5M PRN PRN Reason: FOR CHEST PAIN Oxycodone HCl (Roxicodone -) 5 mg PO Q6H PRN PRN Reason: PAIN LEVEL 6-10 Last Admin: 03/07/19 03:39 Dose: 5 mg Pantoprazole Sodium (Protonix -) 40 mg PO DAILY [facility] Last Admin: 03/07/19 09:04 Dose: 40 mg Ranolazine (Ranexa -) 1,000 mg PO BID [facility] Last Admin: 03/07/19 09:04 Dose: 1,000 mg Rosuvastatin Calcium (Crestor -) 40 mg PO [facility] Last Admin: 03/06/19 23:55 Dose: 40 mg Senna (Senna -) 2 tab PO BID [facility] Last Admin: 03/07/19 09:04 Dose: 2 tab Vital Signs Period Temp Pulse Resp BP Sys/Adan Pulse Ox Last 24 Hr 97.8 F-97.9 F 91-119 18-25 91-170/50-105 94-100 Constitutional: Yes: Well Nourished, No Distress, Calm Eyes: Yes: Conjunctiva Clear HENT: Yes: Atraumatic, Normocephalic Neck: Yes: Supple, Trachea Midline Respiratory: Yes: Regular, CTA Bilaterally Gastrointestinal: Yes: Normal Bowel Sounds, Soft Cardiovascular: Yes: Regular Rate and Rhythm JVD: No Carotid Bruit: No PMI: Non-Displaced Heart Sounds: Yes: S1, S2 Extremities: No: Cold Edema: No Peripheral Pulses: 2+ Left Doralis Pedis, 2+ Right Dorsalis Pedis Integumentary: No: Jaundice diaphoresis Neurological: Yes: Alert, Oriented Psychiatric: No: Agitated EKG: sinus, nl intervals, no ischemic changes, pvc cta chest: no pe, no chf tele: sinus, sinus tachycardia a/p: 63F h/o CAD, diastolic CHF, HTN, HLD, prior NH/pci (nstemi and pci about 2 mos ago s/p L THR 02/22 presents with cp from rehab. cp, CAD s/p multiple PCI: -here anginal cp symptoms. No signs acs. Trops borderline range with flat trend and nl ck, similar to prior baseline values, not c/w acs. -ecg w/o ischemic changes -continue aspirin, plavix, ranexa, statin - unlikely ACS - dc lovenox, nitro gtt - changed imdur to isordil - was on in the past for medical management. uptitrate as tolerated after nitro gtt weaned off - prior similar episodes have been in setting of cocaine use. denies, utox pending - d/w interventional cardiology - defer cath at this point, medical management recommended - echo - monitoring on tele Chronic diastolic HF - appears euvolemic - cont prior home lasix dose HTN -cont home meds
[2019-03-07] MEDS ORDERED: ISOSORBIDE MONONITRATE 60 MG TAB.SR.24H (FP) PO ONE (11:52)
--- NOTE | 2019-03-07 12:58 | EKG ---
Test Reason : Blood Pressure : / mmHG Vent. Rate : 078 BPM Atrial Rate : 078 BPM P-R Int : 164 ms QRS Dur : 096 ms QT Int : 370 ms P-R-T Axes : 027 011 087 degrees QTc Int : 421 ms POOR DATA QUALITY, INTERPRETATION MAY BE ADVERSELY AFFECTED SINUS RHYTHM WITH OCCASIONAL PREMATURE VENTRICULAR COMPLEXES AND PREMATURE ATRIAL COMPLEXES NONSPECIFIC T WAVE ABNORMALITY ABNORMAL ECG WHEN COMPARED WITH ECG OF 25-FEB-2019 20:48, PREMATURE VENTRICULAR COMPLEXES ARE NOW PRESENT PREMATURE ATRIAL COMPLEXES ARE NOW PRESENT QT HAS SHORTENED Confirmed by YUDITH BLAND, CECILIA ([id number]) on 03/07/2019 12:57:58 PM Referred By: Confirmed By:CECILIA ZURITA MD
--- NOTE | 2019-03-07 13:03 | EKG ---
Test Reason : Blood Pressure : / mmHG Vent. Rate : 117 BPM Atrial Rate : 117 BPM P-R Int : 178 ms QRS Dur : 102 ms QT Int : 352 ms P-R-T Axes : 017 030 092 degrees QTc Int : 491 ms SINUS TACHYCARDIA T WAVE ABNORMALITY, CONSIDER LATERAL ISCHEMIA ABNORMAL ECG WHEN COMPARED WITH ECG OF 06-MAR-2019 07:59, PREMATURE VENTRICULAR COMPLEXES ARE NO LONGER PRESENT T WAVE INVERSION NOW EVIDENT IN LATERAL LEADS Confirmed by YUDITH BLAND, CECILIA ([id number]) on 03/07/2019 1:02:40 PM Referred By: Confirmed By:CECILIA ZURITA MD
--- NOTE | 2019-03-07 13:04 | EKG ---
Test Reason : Blood Pressure : / mmHG Vent. Rate : 112 BPM Atrial Rate : 112 BPM P-R Int : 170 ms QRS Dur : 100 ms QT Int : 338 ms P-R-T Axes : 021 -03 097 degrees QTc Int : 461 ms SINUS TACHYCARDIA NONSPECIFIC T WAVE ABNORMALITY ABNORMAL ECG WHEN COMPARED WITH ECG OF 06-MAR-2019 18:54, NO SIGNIFICANT CHANGE WAS FOUND Confirmed by CECILIA ZURITA MD ([id number]) on 03/07/2019 1:04:39 PM Referred By: Confirmed By:CECILIA ZURITA MD
[2019-03-07 14:56] VITALS: BP 115/63; PULSE 108
--- NOTE | 2019-03-07 16:26 | ECHO ---
Name: IAN MANCINI Exam:Adult Echocardiogram Study Date: 03/07/2019 01:49 PM Age: 63 yrs Reason For Study: CHEST PAIN Height: 66 in Weight: 238 lb BSA: 2.2 m2 MMode/2D Measurements & Calculations IVSd: 1.2 cm Ao root diam: 3.6 cm LVIDd: 4.4 cm LA dimension: 3.9 cm LVIDs: 3.0 cm ACS: 2.0 cm LVPWd: 0.91 cm IVSs: 1.3 cm LVPWs: 1.3 cm EDV(Teich): 86.0 ml ESV(Teich): 34.5 ml Doppler Measurements & Calculations MV E max avery: 32.6 cm/sec Ao V2 max: 146.9 cm/sec Ao max P.7 mmHg Ao V2 mean: 112.5 cm/sec Ao mean P.5 mmHg Ao V2 VTI: 24.2 cm TR max avery: 255.5 cm/sec TR max P.2 mmHg Procedure A two-dimensional transthoracic echocardiogram with color flow and Doppler was performed. The study w as technically difficult with many images being suboptimal in quality. Left Ventricle The left ventricular size, thickness and function are normal. The left ventricle is not well visualiz ed. The left ventricular ejection fraction is normal. Septal motion is consistent with conduction abnormality . Regional wall motion abnormalities cannot be excluded due to limited visualization. Right Ventricle The right ventricle is not well visualized. Atria The left atrium is mildly dilated. The right atrium is mildly dilated. Mitral Valve There is mild mitral valve thickening. There is no mitral valve stenosis. There is mild mitral regurg itation. Tricuspid Valve The tricuspid valve is not well visualized. There is no tricuspid stenosis. There is mild tricuspid regurgitation. Right ventricular systolic pressure is normal. Aortic Valve The aortic valve is not well visualized. There is mild to moderate aortic valve thickening. No hemody namically significant valvular aortic stenosis. No aortic regurgitation is present. Pulmonic Valve The pulmonic valve is not well visualized. Great Vessels The aortic root is normal size. Pericardium/Pleura There is no pericardial effusion. Interpretation Summary Septal motion is consistent with conduction abnormality. The left ventricular ejection fraction is normal. The left ventricular size, thickness and function are normal The left atrium is mildly dilated. The right atrium is mildly dilated. There is mild to moderate aortic valve thickening. The aortic valve is not well visualized. There is mild tricuspid regurgitation. Right ventricular systolic pressure is normal. The right ventricle is not well visualized. The study was technically difficult with many images being suboptimal in quality. Regional wall motion abnormalities cannot be excluded due to limited visualization. The left ventricle is not well visualized. There is mild mitral regurgitation. MD Fernando Bowers 03/07/2019 04:26 PM
--- NOTE | 2019-03-07 16:38 | DS ---
Physical Exam: SUBJECTIVE: Patient seen and examined at bedside- no acute events overnight patient had CP ovvernight however was relieved by nitro drip; patients trops peaked - OBJECTIVE: Vital Signs Period Temp Pulse Resp BP Sys/Adan Pulse Ox Last 24 Hr 91-119 18-25 91-170/50-105 94-100 PHYSICAL EXAM GENERAL: The patient is awake, alert, and fully oriented, in no acute distress. EYES:PEERLA: EOMI no scleral icterus NECK:no JVD; no lymphadenoapthy LUNGS: CTA B/L; no rales, rhonchi or wheezing ABDOMEN: Soft, nontender, nondistended, normoactive bowel sounds, no guarding, no rebound, no hepatosplenomegaly, no masses. EXTREMITIES: 2+ pulses, warm, well-perfused, no edema. PSYCH: Normal mood, normal affect. SKIN: Warm, dry, normal turgor, no rashes or lesions noted. LABS Laboratory Results - last 24 hr 03/06/19 03/06/19 03/06/19 16:37 18:40 23:45 Sodium Potassium Chloride Carbon Dioxide Anion Gap BUN Creatinine Est GFR (CKD-EPI)AfAm Est GFR (CKD-EPI)NonAf POC Glucometer 115 114 Random Glucose Calcium Magnesium Creatine Kinase 95 Troponin I 0.13 H 03/07/19 03/07/19 03/07/19 06:00 06:00 06:23 Sodium 140 Potassium 4.2 Chloride 105 Carbon Dioxide 29 Anion Gap 6 L BUN 10 Creatinine 0.9 Est GFR (CKD-EPI)AfAm 79.98 Est GFR (CKD-EPI)NonAf 69.01 POC Glucometer 126 Random Glucose 125 H Calcium 9.0 Magnesium 1.6 L Creatine Kinase Troponin I 0.12 H 03/07/19 11:31 Sodium Potassium Chloride Carbon Dioxide Anion Gap BUN Creatinine Est GFR (CKD-EPI)AfAm Est GFR (CKD-EPI)NonAf POC Glucometer 106 Random Glucose Calcium Magnesium Creatine Kinase Troponin I HOSPITAL COURSE: Date of Admission:03/06/19 63yo F with significant history of known CAD s/p multiple PCI, HLD, HTN, T2DM, and previous cocaine abuse who presents today after experiencing L anterior sharp severe chest pain which woke her up during the night. Pt reports she normally has stable anginal symptoms that resolve with rest, however this episode was not resolving. She reports it feels similar to when she needed coronary stenting prior. Pt states her chest pain started to progress and she experienced some radiation of her chest pain down her arm. She also endorsed some diaphoresis during this episode. When seen in the ED pt has had continuous chest pain since initiation, however it has subsided slightly since her the beginning of her visit here. Pt reports in October 2018 she received a coronary catherization for angiography and did not receive any coronary stents at the time. Pt was seen in December 2018 for chest pain which at the time it was decided to medically manage her symptoms by optimizing her Ranexa and other cardiac medications. Since then pt had received a L hip replacement in 02/22/2019 for which she has been attending SNF rehab for. She denies any shortness of breath during this time, however she does note that she has had some increasing CARNES which has worsened her exercise tolerance. Pt has been compliant with her medications and has not used any cocaine since her previous time in Pt denies RAMOS, diplopia, f/c/n/v/diarrhea/constipation, lightheadedness, shortness of breath, cough, palpitations, abdominal pain, worsened back pain, dysuria, polyuria, current LExt edema. pateints troponins peaked at 0.13 and pateint has no EKG changes- she was seen by her cardiolgosit patient was placed on a nitro drip with improvement; she was switched from imdur to isordil and amlodipine was restarted. echo showed slight conduction abnormality however spoke to patients cushion gum applicator who said it was fine and to f/u within one week- patient was d/c back to rehab Date of Discharge: 03/07/19 Minutes to complete discharge: 35 Discharge Summary Reason For Visit: CORONARY ART DISEASE,ELEVATED TROPONIN LEVEL Condition: Stable - Instructions Diet, Activity, Other Instructions: You came to the hospital with complaints of worsening chest pains. We did multiple EKGS and monitored your cardiac enzymes, which were slightly elevated however, remained the same each time. You were seen by the cushion gum applicator who did not feel any intervention was necessary at this time and to treat you medically. We did an echocardiogram of your heart We gave you medication, your symptoms improved and you were stable to be discharged home Please resume all of your home medications except: Do not take your Imdur, instead please take Isordil 10mg twice a day We added another medication Amlodipine 2.5mg to be taken daily Please follow up with Dr. Olivas, within one week Please follow up with Dr. Lieberman within one week Please avoid beta blockers *if you begin to experience worsening chest pains, shortness of breath, nausea/ vomiting please return to the emergency room immediately Referrals: Irving Lieberman MD [Staff Physician] - 1 Week Ricardo Olivas MD [Primary Care Provider] - 1 Week Disposition: HOME - Home Medications Comprehensive Discharge Medication List: Ambulatory Orders Oxycodone HCl [Roxicodone] 30 mg PO Q6H PRN 01/09/14 Nitroglycerin Sublingual [Nitrostat -] 0.4 mg SL Q5M PRN #0 tab 03/02/15 Furosemide [Lasix] 40 mg PO DAILY 12/27/18 Gabapentin 600 mg PO BID 12/27/18 Insulin Degludec [Tresiba Flextouch U-100] 32 unit SQ DAILY 12/27/18 Levalbuterol HCl [Xopenex] 0.31 mg IH ASDIR 12/27/18 Pantoprazole Sodium 40 mg PO DAILY 12/27/18 Ranolazine [Ranexa] 1,000 mg PO BID 12/27/18 Rosuvastatin [Crestor -] 40 mg PO DAILY 12/27/18 Bupropion HCl [Wellbutrin Xl -] 150 mg PO BID 12/28/18 Clopidogrel Bisulfate [Plavix] 75 mg PO DAILY 12/28/18 Umeclidinium [place] [Incruse Ellipta] 1 inh IH DAILY 12/28/18 Montelukast Sodium [Singulair] 10 mg PO HS 02/12/19 Ascorbic Acid [Vitamin C -] 500 mg PO BID tablet 02/24/19 Aspirin [ASA -] 325 mg PO DAILY@0800 tablet 02/24/19 Multivitamins [Multivit ([facility] Formulary)] 1 tab PO DAILY tab 02/24/19 oxyCODONE SR [Oxycontin] 40 mg PO BID #60 tab.er.12h MDD 2 02/27/19 Docusate Sodium [Colace] 200 mg PO BID 03/06/19 Melatonin 3 mg PO HS 03/06/19 Sennosides [Senna] 2 tab PO BID 03/06/19 Amlodipine Besylate [Norvasc -] 2.5 mg PO DAILY #30 tablet 03/07/19 Isosorbide Dinitrate [Isordil] 10 mg PO BID #60 tablet 03/07/19 Problem List - Problems (1) Chest pain Code(s): R07.9 - CHEST PAIN, UNSPECIFIED (2) Angina at rest Code(s): I20.8 - OTHER FORMS OF ANGINA PECTORIS This patient is new to me today: Yes Date on this admission: 03/07/19 Emergency Visit: Yes ED Registration Date: 03/06/19 Care time: The patient presented to the Emergency Department on the above date and was hospitalized for further evaluation of their emergent condition. Critical Care patient: No - Discharge Referral Referred to [facility] Med [facility] No
[2019-03-07] MEDS ORDERED: ISOSORBIDE DINITRATE 10 MG TABLET (FP) PO SCH (18:00)
--- NOTE | 2019-03-07 18:58 | PN ---
Teaching Attending Note Name of Resident: Arely Mayorga ATTENDING PHYSICIAN STATEMENT I saw and evaluated the patient. I reviewed the resident's note and discussed the case with the resident. I agree with the resident's findings and plan as documented. SUBJECTIVE: Chest pain overnight requiring Nitro drip. No palpitations/cough/ sputum/hemoptysis/fever/chills/dyspnea. OBJECTIVE: Afebrile, Hemodynamically Stable. Last Vital Signs Temp Pulse Resp BP Pulse Ox 97.8 F 108 H 18 115/63 98 03/06/19 16:05 03/07/19 14:56 03/07/19 14:56 03/07/19 14:56 03/07/19 14:56 Heart - S1, S2, RRR Lungs - clear to auscultations. Abdomen - soft, non-tender. Bowel Sounds normal. Extremities - soft, non-tender. Bowel Sounds normal. Extremities - mild edema. No calf tenderness MS - L hip surgical dressing. Decreased ROM about L hip. Laboratory Results - last 24 hr 03/06/19 03/06/19 03/07/19 18:40 23:45 06:00 Sodium 140 Potassium 4.2 Chloride 105 Carbon Dioxide 29 Anion Gap 6 L BUN 10 Creatinine 0.9 Est GFR (CKD-EPI)AfAm 79.98 Est GFR (CKD-EPI)NonAf 69.01 POC Glucometer 114 Random Glucose 125 H Calcium 9.0 Magnesium 1.6 L Creatine Kinase 95 Troponin I 0.13 H 03/07/19 03/07/19 03/07/19 06:00 06:23 11:31 Sodium Potassium Chloride Carbon Dioxide Anion Gap BUN Creatinine Est GFR (CKD-EPI)AfAm Est GFR (CKD-EPI)NonAf POC Glucometer 126 106 Random Glucose Calcium Magnesium Creatine Kinase Troponin I 0.12 H Discharge Medications Medication Instructions Recorded Oxycodone HCl [Roxicodone] 30 mg PO Q6H PRN 01/09/14 Nitroglycerin Sublingual 0.4 mg SL Q5M PRN #0 tab 03/02/15 [Nitrostat -] Furosemide [Lasix] 40 mg PO DAILY 12/27/18 Gabapentin 600 mg PO BID 12/27/18 Insulin Degludec [Tresiba 32 unit SQ DAILY 12/27/18 Flextouch U-100] Levalbuterol HCl [Xopenex] 0.31 mg IH ASDIR 12/27/18 Pantoprazole Sodium 40 mg PO DAILY 12/27/18 Ranolazine [Ranexa] 1,000 mg PO BID 12/27/18 Rosuvastatin [Crestor -] 40 mg PO DAILY 12/27/18 Bupropion HCl [Wellbutrin Xl -] 150 mg PO BID 12/28/18 Clopidogrel Bisulfate [Plavix] 75 mg PO DAILY 12/28/18 Umeclidinium [place] [Incruse 1 inh IH DAILY 12/28/18 Ellipta] Montelukast Sodium [Singulair] 10 mg PO HS 02/12/19 Ascorbic Acid [Vitamin C -] 500 mg PO BID tablet 02/24/19 Aspirin [ASA -] 325 mg PO DAILY@0800 tablet 02/24/19 Multivitamins [Multivit ([facility] 1 tab PO DAILY tab 02/24/19 Formulary)] oxyCODONE SR [Oxycontin] 40 mg PO BID #60 tab.er.12h MDD 2 02/27/19 Docusate Sodium [Colace] 200 mg PO BID 03/06/19 Melatonin 3 mg PO HS 03/06/19 Sennosides [Senna] 2 tab PO BID 03/06/19 Amlodipine Besylate [Norvasc -] 2.5 mg PO DAILY #30 tablet 03/07/19 Isosorbide Dinitrate [Isordil] 10 mg PO BID #60 tablet 03/07/19 ASSESSMENT AND PLAN: 63 year old female with history of HTN, DM 2, HLD, TIA, COPD, ANTONY (uses CPAP at night), CAD s/p PCI/Stents (12), 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 1. ACS/Unstable Angina on background of CAD s/p PCI/Stents ECG - Sinus Arrhythmia. PVCs, no acute changes. Troponin 0.12 - Flat CTA - negative for PE. LE Duplex neg for DVT. Started on ACS treatment with Lovenox, Nitrostat, Morphine. Continue Aspirin, Plavix, Crestor, Ranexa. Imdur changed to Isordil by Cardiology. Given recurrent CP overnight, patient was started on Nitro gtt, stopped by Cardio this AM. Cardio recommends no further intervention with flat troponins suggestive of non- ischemic cause for elevated troponins as per Cardio. Echo - normal LV and EF, septal wall motion suggestive of conduction abnormality - discussed with Cardio - recommends discharge with out-patient follow up. BB and WILLIAM-I deferred by Cardiology 2. DM 2 - resume home medications 3. HLD - Continue Crestor. 4. s/p L THR 02/22/19 - Oxy PRN. Will refer to Dr. Sierra (was scheduled for out- patient appt with him today but unable to make it due to this ED visit and admission) for post op eval, surgical dressing change, and incision site evaluation. 5. COPD - appears stable. Continue Bronchodilator Inhalers. 6. Hx Substance Abuse (cocaine) - denies recent use - refuses Utox. 7. Hypomagnesemia - will replete 8. ANTONY - Continue CPAP at night. Continue CPAP at night. 9. Depression - stable. Continue Wellbutrin. 10. HTN - resumed on home med Norvasc. Imdur changed to Isordil. 11. Bilateral Renal Cysts and 4mm non-obstructing L renal stone on Imaging - Asymptomatic. For out-patient Urology follow up. 12. Chronic Diastolic CHF - Continue Lasix. Evaluated by Cardiology and cleared for discharge.
== END 2019-03-07 17:30 | disposition home or self-care (01) ==
LOC: JER 06:46 → JERBED 13:30
PROC: 3E033NZ Introduction of Analgesics, Hypnotics, Sedatives into Peripheral Vein, Percutaneous Approach (ICD-10-PCS; principal; 2019-03-06)
PROC: 3E033GC Introduction of Other Therapeutic Substance into Peripheral Vein, Percutaneous Approach (ICD-10-PCS; 2019-03-06)
PROC: 3E013GC Introduction of Other Therapeutic Substance into Subcutaneous Tissue, Percutaneous Approach (ICD-10-PCS; 2019-03-06)
DX: R07.9 Chest pain, unspecified (principal); E11.9 Type 2 diabetes mellitus without complications; E78.5 Hyperlipidemia, unspecified; I50.32 Chronic diastolic (congestive) heart failure; I25.10 Atherosclerotic heart disease of native coronary artery without angina pectoris; I25.2 Old myocardial infarction; G47.33 Obstructive sleep apnea (adult) (pediatric); F32.9 Major depressive disorder, single episode, unspecified; J44.9 Chronic obstructive pulmonary disease, unspecified; E83.42 Hypomagnesemia; F14.21 Cocaine dependence, in remission; N28.1 Cyst of kidney, acquired; N20.0 Calculus of kidney; R77.8 Other specified abnormalities of plasma proteins; Z99.89 Dependence on other enabling machines and devices; Z87.891 Personal history of nicotine dependence; Z91.013 Allergy to seafood; Z91.048 Other nonmedicinal substance allergy status; Z79.4 Long term (current) use of insulin; Z95.5 Presence of coronary angioplasty implant and graft; Z86.73 Personal history of transient ischemic attack (TIA), and cerebral infarction without residual deficits; Z79.01 Long term (current) use of anticoagulants; Z98.2 Presence of cerebrospinal fluid drainage device; Z96.642 Presence of left artificial hip joint
CPT/HCPCS: 36415; 71275-TC; 80048; 80053; 82550; 82962; 83735; 84484; 85025; 85610; 86850; 86900; 86901; 93005; 93010; 93306-TC; 93971-TC; 96372; 96374; 96375; 96376; 99285-25; G0378

== ENCOUNTER 2020-07-03 09:06 | Inpatient (IN) | payer OTHER ==
--- NOTE | 2020-07-03 09:26 | PDOC ---
History of Present Illness - General Chief Complaint: Chest Pain Stated Complaint: CHEST PAIN Time Seen by Provider: 07/03/20 09:25 History Source: Patient Exam Limitations: No Limitations - History of Present Illness Initial Comments: 07/03/20 09:26 Cards: Dr. Luisana Em: Dr. Salomon HPI: 64yo F hx CAD s/p PCI with 13 stents, diastolic CHF (on lasix), COPD (nebs, CPAP, no home O2) presenting with progressively worsening anginal symptoms and exertional fatigue over the past 2 weeks. Patient was seen yesterday by cardiology, dynamic T wave inversions in I and aVF, anginal symptoms. Sent in due to acute worsening of her anginal symptoms today. Reports intermittent trouble with her COPD / wheezing, but does not feel that this is c/w her COPD exacerbations. Progressively worsening CARNES (breathing comfortably in bed) that has progressed to stopping after 5-10 steps to catcher her breath. She also reports being unable to carry any weight without worsening shortness of breath. Denies any fevers, chills, cough (baseline with clear sputum), leg swelling / pain (edema is actually improved). Sent in by her porter sample case for tele monitoring and cardiac workup given concern for ACS vs CHF vs COPD. All: NKDA Meds: Per chart PMH: As above PSH: Per chart SHx: +Cocaine and tobacco Past History - Travel History Traveled outside of the country in the last 30 days: No Close contact w/someone who was outside of country & ill: No - Medical History Allergies/Adverse Reactions: Allergies Allergy/AdvReac Type Severity Reaction Status Date / Time cashew nut Allergy Severe Swelling Verified 07/03/20 10:24 shellfish derived Allergy Severe Swelling Verified 07/03/20 10:24 Home Medications: Ambulatory Orders Furosemide [Lasix] 40 mg PO DAILY 12/27/18 Gabapentin 600 mg PO BID 12/27/18 Pantoprazole Sodium 40 mg PO DAILY 12/27/18 Ranolazine [Ranexa] 1,000 mg PO BID 12/27/18 Rosuvastatin [Crestor -] 40 mg PO DAILY 12/27/18 Montelukast Sodium [Singulair] 10 mg PO HS 02/12/19 Amlodipine Besylate [Norvasc -] 10 mg PO DAILY 07/03/20 Aspirin 81 mg PO DAILY 07/03/20 Bupropion HCl [Wellbutrin Xl] 300 mg PO DAILY 07/03/20 Carvedilol 12.5 mg PO BID 07/03/20 Insulin Degludec [Tresiba Flextouch U-100] 34 unit SQ DAILY 07/03/20 Isosorbide Mononitrate [Isosorbide Mononitrate ER] 30 mg PO BID 07/03/20 Levalbuterol HCl [Xopenex] 0.31 mg IH DAILY 07/03/20 Melatonin 3 mg PO HS 07/03/20 Nitroglycerin Sublingual [Nitrostat -] 0.4 mg SL ASDIR 07/03/20 Oxycodone HCl [Oxycontin] 80 mg PO BID 07/03/20 Oxycodone HCl [Roxicodone] 30 mg PO Q6H 07/03/20 Ticagrelor [Brilinta] 90 mg PO BID 07/03/20 Umeclidinium [place] [Incruse Ellipta] 62.5 mcg IH DAILY 07/03/20 Anemia: No Asthma: Yes Cancer: No Cardiac Disorders: Yes (12 STENTS) CVA: Yes (TIA IN THE PAST) COPD: Yes CHF: No Dementia: No Diabetes: Yes GI Disorders: No Disorders: No HTN: Yes Hypercholesterolemia: Yes Liver Disease: No Seizures: No Thyroid Disease: No - Surgical History Abdominal Surgery: Yes (HERNIA ACHILD) Appendectomy: No Cardiac Surgery: Yes (12 cardiac stents-LAST STENT 1 YEAR AGO) Cholecystectomy: No Lung Surgery: No Neurologic Surgery: No Orthopedic Surgery: No - Reproductive History Is Patient Now?: No - Immunization History Immunization Up to Date: Yes - Psycho-Social/Smoking History Smoking History: Unknown if ever smoked Have you smoked in the past 12 months: No Number of Cigarettes Smoked Daily: 3 Information on smoking cessation initiated: No 'Breaking Loose' booklet given: 04/26/17 - Substance Abuse Hx (Audit-C & DAST Scrn) How often the patient has a drink containing alcohol: Never Score: In Men: 4 or > Positive; In Women: 3 or > Positive: 0 Screen Result (Pos requires Nsg. Audit-10AR): Negative In the last yr the pt used illegal drug/Rx for NonMed reason: No Score: Yes response is considered Positive: 0 Screen Result (Positive result requires Nsg. DAST-10): Negative Review of Systems - Review of Systems Able to Perform ROS?: Yes Is the patient limited Croatian proficient: Yes Constitutional: No: Chills, Fever, Weakness HEENTM: No: Recent change in vision, Nose Congestion, Throat Pain Respiratory: Yes: Shortness of Breath, SOB with Exertion, Productive cough (clear sputum). No: Cough, SOB at Rest, Wheezing Cardiac (ROS): Yes: Chest Pain, Edema (improved today). No: Irregular Heart Rate, Lightheadedness, Palpitations, Syncope, Chest Tightness ABD/GI: No: Constipated, Diarrhea, Nausea, Vomiting : No: Burning, Dysuria, Frequency Musculoskeletal: No: Back Pain, Muscle Pain, Muscle Weakness, Neck Pain Integumentary: No: Bruising, Pruritus, Rash Neurological: No: Headache, Numbness, Tingling, Weakness Psychiatric: No: Stressors, Change in Appetite Endocrine: No: Increased Thirst, Increased Urine, Change in Weight Hematologic/Lymphatic: No: Anemia, Blood Clots, Easy Bleeding All Other Systems: Reviewed and Negative *Physical Exam - Vital Signs Last Vital Signs Temp Pulse Resp BP Pulse Ox 98.2 F 67 16 102/62 97 07/03/20 09:10 07/03/20 09:10 07/03/20 09:10 07/03/20 09:10 07/03/20 09:10 - Physical Exam 07/03/20 09:38 Vitals reviewed, notable for AFHDS GEN: Well appearing, appears stated age, NAD, comfortable. AAOx3. HEENT: NCAT, EOMI, PERRL. Sclera anicteric, non-injected. No facial asymmetry. Moist mucous membranes. Normal voice. Trachea midline. CV: RRR, S1/S2, no murmurs / rubs / gallops appreciated. Chest wall non-tender. LUNG: CTABL, normal work of breathing. Scattered intermittent wheezes. No rales or rhonchi. No cough. Speaking full sentences. GI: Soft, NTND, +BS, no guarding, no rebound. No masses. EXTREMITIES: 2+ distal pulses. No clubbing / cyanosis / edema. No gross deformity in any extremity. SKIN: Warm, dry, no rashes appreciated, non-jaundiced. PSYCH: Normal mood and affect. Cooperative and appropriate. NEURO: CN grossly intact. Moving all extremities well. Normal strength and sensation grossly. ED Treatment Course - LABORATORY CBC & Chemistry Diagram: 07/04/20 08:55 07/04/20 08:55 Medical Decision Making - Medical Decision Making 07/03/20 09:39 64yo F hx CAD s/p PCI, diastolic CHF (on lasix), COPD presenting with progressively worsening anginal symptoms and exertional fatigue. Cornering for r/o ACS, CHF exacerbation, vs COPD exacerbation. - CBC, CMP, Cardiac Profile, BNP - CXR, EKG - Tele Monitoring - Utox - COVID EKbpm, NSR with PVCs, normal axis, QTc 437, no ST elevations t-wave inversion in lead I consistent with prior Dispo: Admit Tele Discharge - Discharge Information Problems reviewed: Yes Clinical Impression/Diagnosis: Chest pain, rule out acute myocardial infarction Condition: Guarded - Admission Yes - Follow up/Referral - Patient Discharge Instructions - Post Discharge Activity
[2020-07-03 09:44] LABS: BASO % 0.8 % (0-2.0); EOS % 1.3 % (0-4.5); HEMATOCRIT 39.5 % (32.4-45.2); HEMOGLOBIN 12.5 GM/dL (10.7-15.3); LYMPH % 57.3 % (8-40); MCHC 31.6 g/dl (32.0-36.0); MEAN CELL VOLUME 85.3 fl (80-96); MEAN PLT VOLUME 7.9 fl (7.5-11.1); MONO % 9.3 % (3.8-10.2); NEUT % 31.3 % (42.8-82.8); PLATELET COUNT 225 K/MM3 (134-434); RBC 4.63 M/mm3 (3.60-5.2); RDW 15.2 % (11.6-15.6); WHITE BLOOD COUNT 7.2 K/mm3 (4.0-10.0)
--- NOTE | 2020-07-03 10:04 | PN ---
Progress Note (short form) - Note Progress Note: Patient referred to ER for 1-2 months worsening CARNES and exertional fatigue she feels is a "blockage". This has continued despite efforts to manage as outpatient with progressive titration of her antianginal regimen. PMH: CAD s/p multivessel PCIs and NSTEMIS, history of smoking, HTN, COPD In office yesterday, mild expiratory wheezing, ECG unchanged with Nonspecific T wave changes I, AvL, V5/V6 I'm not sure if her sx represent mild volume overload ("cardiac asthma") vs exacerbation of her COPD vs true unstable angina and management of this persistent sx has become difficult and no longer manageable as outpatient. REC: 1. Labs with BNP/cardiac enzymes and CXR 2. Full consult to follow with Dr. Dixon. Case d/w ER attending.
--- OUTSIDE RECORDS SUMMARY | 2020-07-03 10:06 | XMS ---
:1955 Author Organization [facility] Care Team Providers Name Role Phone Yovanny Jones MD Unavailable Unavailable Stanton Starr MD Unavailable Unavailable Viri Jimenez MD Unavailable Unavailable Leah Fortune DO Unavailable Unavailable Yunus, Adnan Unavailable Yunus, Adnan Unavailable Yunus, Adnan Unavailable Yunus, Adnan Unavailable Yunus, Adnan Unavailable Yunus, Adnan Unavailable Yunus, Adnan Unavailable Marcio Kaba MD Unavailable Unavailable SAMANTHA BENAVIDES Unavailable Unavailable Josh Barbosa MD Unavailable Unavailable Tona Ayala MD Unavailable Unavailable MD Anisha Unavailable Unavailable MD Eryn Unavailable Unavailable MIKEY Cabral Unavailable Unavailable MD Josey Unavailable Unavailable Anupama Ashraf MD Unavailable Unavailable MIKEY CASON Unavailable Unavailable MD Kamini Unavailable Unavailable Re-disclosure Warning The records that you are about to access may contain information from federally- assisted alcohol or drug abuse programs. If such information is present, then the following federally mandated warning applies: This information has been disclosed to you from records protected by federal confidentiality rules (42 CFR part 2). The federal rules prohibit you from making any further disclosure of this information unless further disclosure is expressly permitted by the written consent of the person to whom it pertains or as otherwise permitted by 42 CFR part 2. A general authorization for the release of medical or other information is NOT sufficient for this purpose. The Federal rules restrict any use of the information to criminally investigate or prosecute any alcohol or drug abuse patient.The records that you are about to access may contain highly sensitive health information, the redisclosure of which is protected by Article 27-F of the [facility] Public Health law. If you continue you may haveaccess to information: Regarding HIV / AIDS; Provided by facilities licensed or operated by the [facility] Office of Mental Health; or Provided by the [facility] Office for People With Developmental Disabilities. If such information is present, then the following [facility] mandated warning applies: This information has been disclosed to you from confidential records which are protected by state law. State law prohibits you from making any further disclosure of this information without the specific written consent of the person to whom it pertains, or as otherwise permitted by law. Any unauthorized further disclosure in violation of state law may result in a fine or chcf sentence or both. A general authorization for the release of medical or other information is NOT sufficient authorization for further disclosure. 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 Observation Data S ource(s) Description CPR [place]art CPR [facility]MAC[facility] (The Skilled [facility]) Advance No completed [place] [facility] Advance No completed [place] [facility] Advance No completed [place] [facility] Allergies and Adverse Reactions Type Description Substance Reaction Status Data Source(s ) Food allergy Shellfish Shellfish [facility] Food allergy Cashew Cashew FACE [place] [facility] Miscellaneous shellfish shellfish SIGMACARE ( The allergy derived derived [facility] Home of the [facility]) Miscellaneous cashew nut cashew nut SIGMACARE ( The allergy [place] of the [facility]) Drug allergy Iodinated Iodinated LIP SWELLING [place] Contrast- Oral Contrast- Oral [place] Hospit al and IV Dye and IV Dye Drug allergy Shellfish Shellfish [facility] Drug allergy IV Dye, Iodine IV Dye, Iodine [facility] Food allergy Shellfish Shellfish [facility] Encounters Encounter Providers Location Date Indications Data Source(s ) Outpatient Attender: 04/02/2020 Z00.00 Z12.31 [facility] [address] MAKAYLA, 06:00:00 AM N64.89 [facility] Care ZVIAdmitter: EDT [facility] MAKAYLAZinaer: SAMANTHA BENAVIDES Z00. Z12. N64.89 Inpatient Attender: Nathanaeltyler [address] [place] [address] 11/30/2019 07:20:00 SIGMACARE (The nus PM EST - 12/10/2019 [place] [facility] of the 11:16:00 AM EST [facility]) Patient discharged. Inpatient Attender: Marcio Kaba 10/15/2019 05:26:00 CP R/O ACS [place] MDAttender: Leah PM EST - 10/16/[address] [facility] DOAttender: 05:24:00 PM EST Jerry CabralAdmitter: Leah [facility]O [facility] Patient discharged. Inpatient Attender: Josh Suárez 10/06/2019 07:47:00 CHES T PAIN [place] MDAttender: Augusto VELAZQUEZ [facility] 10/07/2019 [facility] MDAdmitter: 06:29:00 PM EST Josh Suárez MD CHEST PAIN Patient discharged. Inpatient Attender: Tona Ayala 04/30/2019 CHEST PAIN [place] MDAttender: Oziel Lancaster 10:26:00 PM EDT - [facility] MDAttender: Sarah Ashraf 05/03/2019 MDAttender: MITA 08:51:00 PM EDT [facility] Sarah Ashraf MD CHEST PAIN AL Patient discharged. Inpatient Attender: Ricardo Santillan [address] 02/27/2019 01:00:00 SIGMACARE (The n PM EDT - 03/06/2019 [place] [facility] of the 06:05:00 AM EDT [facility]) Patient discharged. Emergency Attender: Stanton Starr 02/25/2019 LEG PAIN, ASTHMA [place] MDConsultant: Cecil 12:25:00 PM EDT - ([facility]) [facility] Eryn BLAND 02/25/2019 06:59:00 PM EDT LEG PAIN, ASTHMA ([facility]) Inpatient Attender: Josh Barbosa 12/19/2018 10:25:00 CHEST PAIN [place] MDAttender: Viri VELAZQUEZ EST - 12/21/2018 [place] [facility] MDAttender: 04:33:00 PM EST Yovanny Jones MDAdmitter: Viri Jimenez MD CHEST PAIN [place] [facility] Functional Status Medications Medication Brand Start Product Dose Route Administrative Pharmacy [facility] Indications Reaction Description Data Name Date Form Instructions Instructions Source(s) isosorbide 342956 isosorb ken SIGMACARE mononitrate 17693 2019 ed mononitrate (The ER 30 mg 06:56: ER 30 mg [place] tablet,exte 26 AM tablet,exten Home of nded EST ded release the release 24 24 hr [facility]) bupropion 362577 bupropio n SIGMACARE HCl XL 150 45982 2019 ed HCl XL 150 (T he mg 24 hr 06:54: mg 24 hr [place] tablet, 57 AM tablet, Home of extended EST extended the release release [facility]) Tuberculin 649802 Tubercu allie SIGMACARE Syringe 14397 2019 ed Syringe 1 mL ( e (syringe 02:27: Rampart (disposable 07 AM Home of )) 1 mL [facility]) furosemide Furose furosem ken SIGMACARE 40 mg mide 2019 ed 40 mg tablet (The tablet 40 MG 02:00: Rampart Oral 00 PM Home of Tablet EST [facility]) docusate 966371 docusate SIGMACARE sodium 100 19459 2019 ed sodium 100 (T he mg tablet 02:00: mg tablet [place] 00 PM Home of EST [facility]) senna 8.6 998983 senna 8. 6 mg SIGMACARE mg tablet 11513 2019 ed tablet (The 02:00: Rampart 00 PM Home of [facility]) rosuvastati 031534 rosuva statin SIGMACARE n 40 mg 24981 2019 ed 40 mg tablet (Th e tablet 02:00: Rampart 00 PM Home of [facility] the [facility]) montelukast 764015 mani ukast SIGMACARE 10 mg 52472 2019 ed 10 mg tablet (The tablet 02:00: Rampart 00 PM Home of [facility] the [facility]) Fleet Enema Sodium Fleet Enema SIGMACARE (sodium Phosph 2019 ed 19 gram-7 (The phosphates) ate, 01:34: gram/118 mL [place]ampart 19 gram-7 Dibasi 21 PM Home of gram/118 mL c 59.3 EST the MG/ML [facility]) Phosph ate, Monoba sic 161 MG/ML Enema [Fleet Enema] oxycodone 980264 oxycodon e ER SIGMACARE ER 80 mg 49891 2019 ed 80 mg (The tablet,jeremi 10:16: tablet,jeremi h [place] h 36 AM resistant,ex Home o f resistant,e EST tended the xtended release 12 Evange lica release 12 hr [facility] n hr [facility]) oxycodone 384945 oxycodon e 30 SIGMACARE 30 mg 53125 2019 ed mg tablet (The tablet 10:16: [place]art 35 AM Home of [facility]) Incruse 465509 Incruse SI GMACARE Ellipta 18467 2019 ed Ellipta 62.5 (Th e (umeclidini 10:08: mcg/actuati o [place] ) 62.5 14 AM n powder for Ho me of mcg/actuati EST inhalation th e on powder angelica [facility] inhalation [facility]) tizanidine 324307 tizanid ine 4 SIGMACARE 4 mg tablet 69151 2019 ed mg tablet (T he 10:08: [place]ampart 14 AM Home of [facility]) Brilinta 675298 Brilinta 90 SIGMACARE (ticagrelor 70256 2020 ed mg tablet (T he ) 90 mg 10:08: [place]ampart tablet 14 AM Home of EST [facility]) ranolazine 094600 ranolaz ine SIGMACARE ER 1,000 mg 10643 2019 ed ER 1,000 mg (The tablet,exte 10:08: tablet,exte n [place] nded 14 AM ded Home of release,12 EST release,12 the hr hr [facility]) levalbutero 638433 levalb uterol SIG[facility]ARE l HFA 45 78607 2019 ed HFA 45 (The mcg/actuati 10:08: mcg/actuati o [place] on aerosol 14 AM n aerosol Angie e of inhaler EST inhaler [facility]) pantoprazol pantop pantop razole SIGMACARE e 40 mg razole 2019 ed 40 mg (The tablet,henrry 40 MG 10:08: tablet,del ay [place]art yed release Delaye 14 AM ed release Home of d EST [facility] e Oral [facility]) nitroglycer 373503 nitrog lyceri SIGMACARE in 0.4 mg 59875 2019 ed n 0.4 mg (The sublingual 10:08: sublingual [place] tablet 14 AM tablet Home of EST [facility]) isosorbide 284655 isosorb ken SIGMACARE mononitrate 47669 2019 ed mononitrate (The ER 30 mg 10:08: ER 30 mg [place] tablet,exte 14 AM tablet,exten Home of nded EST ded release the release 24 24 hr [facility]) aspirin 81 467864 aspirin 81 SIGMACARE mg 45874 2019 ed mg (The tablet,henrry 10:08: tablet,henrry y [place] yed release 13 AM ed release H ome of EST the [facility]) bupropion 612507 bupropio n SIGMACARE HCl XL 150 18891 2019 ed HCl XL 150 (T he mg 24 hr 10:08: mg 24 hr [place] tablet, 13 AM tablet, Home of extended EST extended the release release angelic a [facility]) Breo 105060 Breo Ellipta SIGMACARE Ellipta 66392 2019 ed 200 mcg-25 (The (fluticason 10:08: mcg/dose [place] e 13 AM powder for Home of furoate-tera EST inhalation th e anterol) Evangelica 200 mcg-25 l Luthera n mcg/dose [facility]) powder for inhalation esomeprazol 404038 esomep razole [facility] e magnesium 45694 2019 ed magnesium 20 (The 20 mg 10:08: mg [place] capsule,del 13 AM capsule,henrry Home of ayed EST yed release the release [facility]) carvedilol carved carvedi lol SIGMACARE 3.125 mg ilol 2019 ed 3.125 mg (The tablet 3.125 10:08: tablet [place] MG 13 AM Home of Oral EST the Tablet [facility]) Tresiba 3 ML Tresiba SIGM ACARE FlexTouch insuli 2019 ed FlexTouch (Th e U-200 n 10:08: U-200 [place] (insulin deglud 13 AM insulin 200 H ome of degludec) ec 200 EST unit/mL (3 th e insulin 200 UNT/ML mL) Evange lica unit/mL (3 Pen subcutaneous l Cheondoism mL) Inject pen [facility]) subcutaneou or s pen [Tresi ba] Admelog 302142 Admelog SI GMACARE SoloStar 66682 2019 ed SoloStar (The U-100 10:08: U-100 [place] Insulin 13 AM Insulin Home of (insulin EST lispro 100 the lispro) unit/mL Evangelic a lispro 100 subcutaneous l Cheondoism unit/mL pen [facility]) subcutaneou s pen gabapentin 349834 gabapen tin SIGMACARE 600 mg 96371 2019 ed 600 mg (The tablet 10:08: tablet [place] 13 AM Home of EST the [facility]) amlodipine 172931 amlodip ine 5 SIGMACARE 5 mg tablet 99179 2019 ed mg tablet (T he 10:08: Rampart 12 AM Home of [facility]) fondaparinu 069816 fondap arinux SIGMACARE x 2.5 51398 2019 ed 2.5 mg/0.5 (The mg/0.5 mL 10:08: mL [place] subcutaneou 12 AM subcutaneous Home of s solution EST solution the syringe syringe [facility] a [facility]) ipratropium 178640 ipratr opium SIGMACARE 0.5 03939 2019 ed 0.5 (The mg-albutero 10:08: mg-albutero l [place] l 3 mg (2.5 12 AM 3 mg (2.5 mg Home of mg base)/3 EST base)/3 mL the mL nebulization [facility] ica nebulizatio [facility]) celecoxib 433407 celecoxi b SIGMACARE 100 mg 96133 2019 ed 100 mg (The capsule 10:08: capsule [place] 11 AM Home of [facility]) acetaminoph 714891 acetam inophe SIGMACARE en 325 mg 14263 2019 ed n 325 mg (The tablet 10:08: tablet [place] 11 AM Home of [facility]) Tuberculin 752557 Tubercu allie SIGMACARE Syringe 80496 2019 ed Syringe 1 mL ( e (syringe 09:45: Rampart (disposable 02 AM Home of )) 1 mL [facility]) 12 HR Oxycod 10/16/ TABLET 80 mg ORAL active White Oxycodone one 2018 12 HR [place] Hydrochlori Hcl 03:23: SUSTAINE Ho spital de 80 MG 00 PM D Extended EST RELEASE Release Oral Tablet [Oxycontin] Oxycodone Hcl 12 HR Oxycod 10/16/ TABLET 30 mg ORAL active White Oxycodone one 2018 [place] Hydrochlori Hcl 03:23: Hospit al de 30 MG 00 PM Extended EST Release Oral Tablet [Oxycontin] Oxycodone Hcl 24 HR Metopr 10/16/ TABLET 100 ORAL active White metoprolol olol 2018 24 HR mg [place] succinate Succin 03:23: SUSTAINE Ho spital 100 MG ate 00 PM D Extended EST RELEASE Release Oral Tablet Metoprolol Succinate Heparin complet White 2019 ed [place] 07:20: Hospital 00 PM EDT Heparin complet White 2019 ed [place] 07:20: Hospital 00 PM EDT melatonin 3 100888 melato cody 3 SIGMACARE mg tablet 10183 2018 ed mg tablet (The 10:45: [place] 35 AM Home of EDT the [facility]) Aspercreme Lidoca 02/28/ complet Aspercr pancho SIGMACARE (lidocaine) ine 2018 ed (lidocaine) ( The (lidocaine) 0.04 06:01: 4 % topical [place] 4 % topical MG/MG 10 AM patch Home of patch Medica EDT the [place] Evangelica Patch l [facility]) creme with Lidoca ine] Aspercreme Lidoca 02/28/ complet Aspercr pancho SIGMACARE (lidocaine) ine 2018 ed (lidocaine) ( The (lidocaine) 0.04 06:01: 4 % topical [place] 4 % topical MG/MG 09 AM patch Home of patch Medica EDT the [place] Evangelica Patch [facility]) creme with Lidoca ine] Pro-Stat 880102 complet Pro-Stat [facility]ARE Sugar Free 07529 2018 ed Sugar Free (T he (amino 05:55: 15 gram-100 [place] acids-prote 03 AM kcal/30 mL H ome of in EDT oral liquid the hydrolys) Evangelica 15 gram-100 l Delta an kcal/30 mL [facility]) oral liquid oxycodone 806774 complet oxycodon e 30 SIGMACARE 30 mg 40999 2018 ed mg tablet (The tablet 03:55: [place]ampart 09 AM Home of EDT the [facility]) oxycodone 5 Oxycod complet oxycod one 5 SIGMACARE mg tablet one 2018 ed mg tablet (The Hydroc 03:45: [place] hlorid 32 AM Home of e 5 MG EDT the Oral angelica Tablet [facility]) Nitrostat Nitrog Nitrosta t SIGMACARE (nitroglyce lyceri 2019 ed 0.4 mg (The rin) 0.4 mg n 0.4 11:37: sublingual [place] sublingual MG 29 AM tablet Home o f tablet [place] EDT the gual Evangelica Tablet [facility] [Nitro [facility]) stat] Tresiba 126627 Tresiba SI GMACARE FlexTouch 53956 2018 ed FlexTouch (The U-100 11:37: U-100 [place] (insulin 28 AM insulin 100 Angie e of degludec) EDT unit/mL (3 the insulin 100 mL) Evangeli ca unit/mL (3 subcutaneous l Cheondoism mL) [facility]) subcutaneou s pen Vitamin C Ascorb Vitamin C SIGMACARE (ascorbic ic 2019 ed 500 mg (The acid Acid 11:37: tablet [place] (vitamin 500 MG 28 AM Home of c)) 500 mg Oral EDT the tablet Tablet [facility]) aspirin 325 Aspiri aspiri n 325 SIGMACARE mg tablet n 325 2018 ed mg tablet (The MG 11:37: [place] Oral 28 AM Home of Tablet EDT [facility]) multivitami 259961 multiv itamin SIGMACARE n tablet 29940 2019 ed tablet (The 11:37: [place] 28 AM Home of EDT the [facility]) [place]but[place] 928933 [place] [address] 2018 ed SR 150 mg (The (bupropion 11:37: tablet, 12 [place] hcl) 150 mg 28 AM hr Home of tablet, 12 EDT sustained-re t he hr lease [facility] sustained-r [facility] an [facility]) montelukast mani mani ukast SIGMACARE 10 mg ukast 2019 ed 10 mg tablet (The tablet 10 MG 11:37: [place] Oral 28 AM Home of Tablet EDT the [facility]) clopidogrel clopid clopid ogrel SIGMACARE 75 mg ogrel 2018 ed 75 mg tablet (The tablet 75 MG 11:37: [place] Oral 28 AM Home of Tablet EDT the Evangelica [facility]) Novolog 3 ML 02/27/ complet Novolog SIGM ACARE PenFill Insuli 2019 ed PenFill (The U-100 n, 11:37: U-100 Insulin Aspart 28 AM Insulin Home o f (insulin , EDT aspart 100 the aspart Human unit/mL Evangelic a u-100) 100 subcutaneous l Lut heran aspart 100 UNT/ML cartridg [facility]) unit/mL Cartri subcutaneou dge s cartridg [NovoL og] Incruse 7 02/27/ complet Incruse SIGM ACARE Ellipta ACTUAT 2019 ed Ellipta 62.5 (T he (umeclidini umecli 11:37: mcg/actua greta [place] ) 62.5 dinium 28 AM n powder for Home of mcg/actuati 0.0625 EDT inhalation the on powder MG/ACT Evangeli ca for UAT [facility] inhalation [facility]) Powder Inhale r [Incru se] Crestor Rosuva 02/27/ complet Crestor 40 SIGMACARE (rosuvastat statin 2018 ed mg tablet ( The in) 40 mg calciu 11:37: rg tablet m 40 28 AM Home of MG EDT the Oral Evangelica Tablet [facility] [[facility]) or] Ranexa 12 HR 02/27/ complet Ranexa 1,000 [facility] (ranolazine ranola 2019 ed mg (The ) 1,000 mg zine 11:37: tablet,exten tablet,exte 1000 28 AM ded release Home of nded MG EDT the release Extend Evangelica ed [facility]) e Oral Tablet [Ranex a] Xopenex [id number] 02/27/ Xopenex 0. 31 [facility] (levalbuter 53440 2019 ed mg/3 mL (The ol hcl) 11:37: solution for [place] 0.31 mg/3 28 AM nebulization H ome of mL solution EDT the for Evangelica nebulizatio [facility]) furosemide Furose 02/27/ complet furosem ken SIGMACARE 40 mg mide 2018 ed 40 mg tablet (The tablet 40 MG 11:37: [place] Oral 28 AM Home of Tablet EDT the [facility]) gabapentin gabape 02/27/ complet gabapen tin SIGMACARE 600 mg ntin 2019 ed 600 mg (The tablet 600 MG 11:37: tablet [place] Oral 28 AM Home of Tablet EDT the [facility]) OxyContin 522544 02/27/ complet OxyConti n 40 SIGMACARE (oxycodone) 74599 2019 ed mg (The 40 mg 11:37: tablet,crush [place] tablet,jeremi 27 AM resistant,ex Home of h EDT tended the resistant,e release [facility]ang [facility]ica [facility]) senna 8.6 sennos complet senna 8. 6 mg SIGMACARE mg tablet ides, 2019 ed tablet (The FDC 11:37: [place] 8.6 MG 27 AM Home of Oral EDT the Tablet [facility]) pantoprazol pantop complet pantop razole SIGMACARE e 40 mg razole 2019 ed 40 mg (The tablet,henrry 40 MG 11:37: tablet,del ay [place] yed release Delaye 27 AM ed release Home of d EDT the Releas [facility] e Oral [facility]) docusate 457508 complet docusate SIG[facility]ARE sodium 100 59006 2018 ed sodium 100 (T he mg tablet 11:37: mg tablet [place] 26 AM Home of EDT the [facility]) Losartan Losart 08/20/ TABLET 50 mg ORAL complet W ann marie Potassium an 2017 ed [place] 50 MG Oral Potass 11:27: Hospi eli Tablet ium 00 AM [Cozaar] EST Losartan Losart 08/20/ TABLET 50 mg ORAL complet W ann [place] Potassium an 2018 ed [place] 50 MG Oral Potass 11:27: Hospi eli Tablet ium 00 AM [Cozaar] EST 24 HR Nicoti 08/20/ PATCH 1 TRANSD complet Whit e Nicotine ne 2018 {[facility] ed [place] 0.875 MG/HR 11:27: h} Hospit al Transdermal 00 AM Patch EST 24 HR Nicoti 08/20/ PATCH 1 TRANSD complet Whit e Nicotine ne 2018 {Pat ERMAL ed [place] 0.875 MG/HR 11:27: h} Hospit al Transdermal 00 AM Patch EST 24 HR Nicoti 08/20/ PATCH 1 TRANSD complet Whit e Nicotine ne 2018 {[facility] ERMAL ed [place] 0.875 MG/HR 11:27: h} Hospit al Transdermal 00 AM Patch EST 24 HR Diltia 08/20/ CAPSULE 240 ORAL complet Whit e Diltiazem zem 2018 mg ed [place] Hydrochlori Hcl 11:27: Hospit al de 240 MG 00 AM Extended EST Release Oral Capsule Diltiazem Hcl 24 HR [place] 08/20/ CAPSULE 240 ORAL complet Whit e Diltiazem zem 2018 mg ed [place] Hydrochlori Hcl 11:27: Hospit al de 240 MG 00 AM Extended EST Release Oral Capsule Diltiazem Hcl Losartan [place]art 08/20/ TABLET 50 mg ORAL complet W ann marie Potassium an 2017 ed [place] 50 MG Oral Potass 11:27: Hospi eli Tablet ium 00 AM [Cozaar] EST 24 HR [place]ilt[place] 08/20/ CAPSULE 240 ORAL complet Whit e Diltiazem zem 2018 mg ed [place] Hydrochlori Hcl 11:27: Hospit al de 240 MG 00 AM Extended EST Release Oral Capsule Diltiazem Hcl 24 HR Nicoti 08/20/ PATCH 1 complet Daily White Nicotine ne 2018 {[facility] ed [place] 0.875 MG/HR (Nicod 12:00: h} Hosp ital Transdermal erm 00 AM Patch 21MG/2 EDT Nicotine 4 Hr (Nicoderm Patch* 21MG/24 Hr ) 21 Patch*) 21 Mg/24 Mg/24 Hour Hour Patch.td24, Patch. 1 Patch td24, Transderm. 1 Patch Transd erm. 24 HR Diltia 08/20/ CAPSULE 240 complet Daily Whi te Diltiazem zem 2018 mg ed [place] Hydrochlori Hcl 12:00: Hospit al de 240 MG (Tiaza 00 AM Extended c EDT Release 240MG Oral Capsa* Capsule ) 240 Diltiazem Mg Hcl (Tiazac Capsul 240MG e.sa, Capsa*) 240 240 Mg Mg Oral Capsule.sa, 240 Mg Oral 24 HR [place]ilt[place] 08/20/ CAPSULE 240 complet Daily Whi te Diltiazem zem 2018 mg ed [place] Hydrochlori Hcl 12:00: Hospit al de 240 MG (Tiaza 00 AM Extended c EDT Release 240MG Oral Capsa* Capsule ) 240 Diltiazem Mg Hcl (Tiazac Capsul 240MG e.sa, Capsa*) 240 240 Mg Mg Oral Capsule.sa, 240 Mg Oral 24 HR Nicoti 08/20/ PATCH 1 complet Daily White Nicotine ne 2018 {[facility] ed [place] 0.875 MG/HR (Nicod 12:00: h} Hosp ital Transdermal erm 00 AM Patch 21MG/2 EDT Nicotine 4 Hr (Nicoderm Patch* 21MG/24 Hr ) 21 Patch*) 21 Mg/24 Mg/24 Hour Hour Patch.td24, Patch. 1 Patch td24, Transderm. 1 Patch Transd erm. Losartan Losart 08/20/ TABLET 50 mg complet Daily White Potassium an 2017 ed [place] 50 MG Oral Potass 12:00: Hospi eli Tablet ium 00 AM [Cozaar] (Cozaa EDT Losartan r*) 50 Potassium Mg Tab (Cozaar*) 50 Mg Tab Losartan Losart 08/20/ TABLET 50 mg complet Daily White Potassium an 2017 ed [place] 50 MG Oral Potass 12:00: Hospi eli Tablet ium 00 AM [Cozaar] (Cozaa EDT Losartan r*) 50 Potassium Mg Tab (Cozaar*) 50 Mg Tab Rosuvastati Rosuva 07/23/ TABLET 40 mg ORAL active White n calcium statin 2016 [place] 40 MG Oral Calciu 10:34: Hospi eli Tablet m 00 AM [Crestor] EDT Rosuvastati n Calcium Rosuvastati Rosuva 07/23/ TABLET 40 mg ORAL active White n calcium statin 2016 [place] 40 MG Oral Calciu 10:34: Hospi eli Tablet m 00 AM [Crestor] EDT Rosuvastati n Calcium carvedilol Carved 07/23/ TABLET 25 mg ORAL complet White 25 MG Oral ilol 2016 ed [place] Tablet 08:47: Hospital [Coreg] 00 AM Carvedilol EDT 24 HR Isosor 07/23/ TABLET, 30 mg ORAL complet Whi te Isosorbide bide 2017 EXTENDED ed Plain s Mononitrate Mononi 08:47: RELEASE H ospital 30 MG trate 00 AM Extended EDT Release Oral Tablet carvedilol Carved 07/23/ TABLET 25 mg ORAL complet White 25 MG Oral ilol 2016 ed [place] Tablet 08:47: Hospital [Coreg] 00 AM Carvedilol EDT 24 HR Isosor 07/23/ TABLET, 30 mg ORAL complet Whi te Isosorbide bide 2016 EXTENDED ed Plain [place] Mononitrate Mononi 08:47: RELEASE H ospital 30 MG trate 00 AM Extended EDT Release Oral Tablet 24 HR Isosor 07/23/ TABLET, 30 mg ORAL complet Whi te Isosorbide bide 2016 EXTENDED ed [place] Mononitrate Mononi 08:47: RELEASE H ospital 30 MG trate 00 AM Extended EDT Release Oral Tablet carvedilol Carved 07/23/ TABLET 25 mg ORAL complet White 25 MG Oral ilol 2016 ed [place] Tablet 08:47: Hospital [Coreg] 00 AM Carvedilol EDT Aspirin 81 Aspiri 10/ TABLET, 81 mg ORAL active White MG Delayed n 2016 DELAYED [place] Release 08:47: RELEASE Hospita l Oral Tablet 00 AM EDT Aspirin 81 Aspiri 07/23/ TABLET, 81 mg ORAL active White MG Delayed n 2016 DELAYED [place] Release 08:47: RELEASE Hospita l Oral Tablet 00 AM EDT clopidogrel Clopid 07/23/ TABLET 75 mg ORAL complet White 75 MG Oral ogrel 2017 ed [place] Tablet Bisulf 08:47: Hospital Clopidogrel ate 00 AM Bisulfate EDT clopidogrel Clopid 07/23/ TABLET 75 mg ORAL complet White 75 MG Oral ogrel 2017 ed [place] Tablet Bisulf 08:47: Hospital Clopidogrel ate 00 AM Bisulfate EDT clopidogrel Clopid 07/23/ TABLET 75 mg complet Malia ly White 75 MG Oral ogrel 2017 ed [place] Tablet [facility]ulf 12:00: Hospital Clopidogrel ate 00 AM Bisulfate (Clopi EDT (Clopidogre dogrel l) 75 Mg ) 75 Tablet Mg Tablet clopidogrel Clopid 07/23/ TABLET 75 mg complet Malia ly White 75 MG Oral ogrel 2017 ed [place] Tablet Bisulf 12:00: Hospital Clopidogrel ate 00 AM Bisulfate (Clopi EDT (Clopidogre dogrel l) 75 Mg ) 75 Tablet Mg Tablet carvedilol Carved 07/23/ TABLET 25 mg complet Twic e A Day White 25 MG Oral ilol 2016 ed [place] Tablet (Coreg 12:00: Hospital [Coreg] *) 25 00 AM Carvedilol Mg EDT (Coreg*) 25 Tab, Mg Tab, 25 25 Mg Mg Oral Oral Aspirin 81 Aspiri 10/ TABLET, 81 mg complet Malia ly White MG Delayed n 2016 DELAYED ed [place] Release (Ecotr 12:00: RELEASE Hospi eli Oral Tablet in 00 AM Aspirin 81MG EDT (Ecotrin Tablet 81MG *) 81 Tablet*) 81 Mg Mg Tablet Tablet.dr jaime 24 HR Isosor 07/23/ TABLET, 30 mg complet Daily it Isosorbide bide 2016 EXTENDED ed [place] Mononitrate Mononi 12:00: RELEASE H ospital 30 MG trate 00 AM Extended (Imdur EDT Release 30MG*) Oral Tablet 30 Mg Isosorbide Tab.er Mononitrate .24h, (Imdur 30 Mg 30MG*) 30 Oral Mg Tab.er.24h, 30 Mg Oral Aspirin 81 Aspiri 07/23/ TABLET, 81 mg complet Malia ly White MG Delayed n 2016 DELAYED ed [place] Release (Ecotr 12:00: RELEASE Hospi eli Oral Tablet in 00 AM Aspirin 81MG EDT (Ecotrin Tablet 81MG *) 81 Tablet*) 81 Mg Mg Tablet Tablet.dr jaime carvedilol Carved 07/23/ TABLET 25 mg complet Twic e A Day White 25 MG Oral ilol 2016 ed [place] Tablet (Coreg 12:00: Hospital [Coreg] *) 25 00 AM Carvedilol Mg EDT (Coreg*) 25 Tab, Mg Tab, 25 25 Mg Mg Oral Oral 24 HR Isosor 07/23/ TABLET, 30 mg complet Daily it Isosorbide bide 2016 EXTENDED ed [place] Mononitrate Mononi 12:00: RELEASE H ospital 30 MG trate 00 AM Extended (Imdur EDT Release 30MG*) Oral Tablet 30 Mg Isosorbide Tab.er Mononitrate .24h, (Imdur 30 Mg 30MG*) 30 Oral Mg Tab.er.24h, 30 Mg Oral Rosuvastati Rosuva 07/23/ TABLET 40 mg complet Malia ly White n calcium statin 2016 ed [place] 40 MG Oral Calciu 12:00: Hospi eli Tablet m 00 AM [Crestor] (Crest EDT Rosuvastati or*) n Calcium 40 Mg (Crestor*) Tablet 40 Mg Tablet Rosuvastati Rosuva 07/23/ TABLET 40 mg complet Malia ly White n calcium statin 2016 ed [place] 40 MG Oral Calciu 12:00: Hospi eli Tablet m 00 AM [Crestor] (Crest EDT Rosuvastati or*) n Calcium 40 Mg (Crestor*) Tablet 40 Mg Tablet Fluticasone 1 RESPIR active Whit e /Vilanterol ATORY [place] ([facility] ATION) clopidogrel Clopid TABLET 75 mg ORAL complet White 75 MG Oral ogrel ed [place] Tablet [facility] Clopidogrel ate Bisulfate 24 HR Buprop TABLET, 300 ORAL active White Bupropion ion EXTENDED mg [place] Hydrochlori Hcl RELEASE Hospi eli de 300 MG Extended Release Oral Tablet Bupropion Hcl Oxycodone Oxycod TABLET 1 complet Every 4 White Hydrochlori one {Caps ed Hours as Ethan ins de 30 MG Hcl 30 ule} needed for Hos pital Oral Tablet Mg Back Pain Oxycodone Tablet Hcl 30 Mg Tablet celecoxib Celeco CAPSULE 200 ORAL complet Wh ite 200 MG Oral xib mg ed [place] [facility] [Celebrex] Celecoxib carvedilol Carved TABLET 25 mg ORAL complet W ann marie 25 MG Oral ilol ed [place] [facility]t [facility] [Coreg] Carvedilol Losartan Losart TABLET 1 ORAL complet Whit e Potassium an {Caps ed [place] 25 MG Oral Potass ule} Hospita l Tablet ium [Cozaar] 12 HR Buprop SUSTAINE 150 complet Daily Whit e Bupropion ion D mg ed [place] Hydrochlori Hcl RELEASE Hospi eli de 150 MG (Wellb TABLET Extended utrin Release Sr*) Oral Tablet 150 Mg [Wellbutrin Tabsr ] Bupropion Hcl (Wellbutrin Sr*) 150 Mg Tabsr Prednisone Predni TABLET 20 mg ORAL complet W ann marie 20 MG Oral sone ed [place] [facility] Fluticasone 1 RESPIR active Whit e /Vilanterol ATORY [place] ([facility] ATION) Amlodipine Amlodi TABLET 5 mg ORAL active Whi te 5 MG Oral pine [place] Tablet [facility] [Norvasc] te Amlodipine Besylate benzonatate Benzon CAPSULE 100 ORAL complet White 100 MG Oral atate mg ed [place] Capsule [facility] [Tessalon Perles] Benzonatate Umeclidiniu Umecli 1 RESPIR complet W nan marie m [place] dinium ATORY ed [place] Bromid ([facility] e ATION) montelukast Mani TABLET 10 mg ORAL complet White 10 MG Oral ukast ed [place] Tablet [facility] [Singulair] Montelukast Sodium Fluticasone 1 complet Daily Whit e /Vilanterol ed [place] ([facility] Ellipta 200-25 Mcg Inh) 200 Mcg-25 Mcg/Dose Blst.w.dev 24 HR Diltia SUSTAINE 1 complet Daily Whit e Diltiazem zem D {Caps ed [place] Hydrochlori Hcl RELEASE ule} Hospi eli de 120 MG (Dilti CAPSULE Extended azem Release 24HR Oral Er) Capsule 120 Mg Diltiazem Cap.sr Hcl .24h, (Diltiazem 1 Tab 24HR Er) Oral 120 Mg Cap.sr.24h, 1 Tab Oral Oxycodone Oxycod TABLET 1 ORAL active Whit e Hydrochlori one {Caps [place] de 30 MG Hcl ule} Hospital Oral Tablet Oxycodone Hcl Cholecalcif Cholec TABLET 1000 ORAL complet W ann marie harley 1000 alcife ed [place] UNT Oral rol Hospital Tablet Nitroglycer Nitrog SUBLINGU 1 SUBLIN complet White in 0.4 MG lyceri AL {Caps GUAL ed [place] Sublingual n TABLET ule} Hospita l Tablet 12 HR Buprop TABLET, 1 ORAL complet White Bupropion ion EXTENDED {Caps ed [place] Hydrochlori Hcl RELEASE ule} Hospi eli de 150 MG Extended Release Oral Tablet Bupropion Hcl 24 HR Diltia SUSTAINE 120 ORAL complet White Diltiazem zem D mg ed [place] Hydrochlori Hcl RELEASE Hospi eli de 120 MG CAPSULE Extended Release Oral Capsule Diltiazem Hcl 12 HR Buprop TABLET, 1 complet Twice A Day White Bupropion ion EXTENDED {Caps ed [place] Hydrochlori Hcl RELEASE ule} Hospi eli de 150 MG (Bupro Extended pion Release Hcl Oral Tablet Sr) Bupropion 150 Mg Hcl Tablet (Bupropion .er, 1 Hcl Sr) 150 Tab Mg Oral Tablet.er, 1 Tab Oral 12 HR Buprop SUSTAINE 150 ORAL complet White Bupropion ion D mg ed [place] Hydrochlori Hcl RELEASE Hospi eli de 150 MG TABLET Extended Release Oral Tablet [Wellbutrin ] Bupropion Hcl Furosemide Furose TABLET 1 ORAL complet Wh ite 40 MG Oral mide {Caps ed [place] Tablet ule} Hospital 12 HR Buprop TABLET, 1 ORAL complet White Bupropion ion EXTENDED {Caps ed [place] Hydrochlori Hcl RELEASE ule} Hospi eli de 150 MG Extended Release Oral Tablet Bupropion Hcl varenicline Vareni 1 ORAL complet Whi te Varenicline jones {[facility] ed [place] ule} Hospital Insulin PRE-FILL complet White Degludec ED PEN ed [place] [facility] benzonatate Benzon CAPSULE 100 ORAL complet White 100 MG Oral atate mg ed [place] Capsule [facility] [Harley Peterson] Benzonatate Oxycodone Oxycod TABLET 1 complet Every 4 White Hydrochlori one {[facility] ed Hours as Ethan ins de 30 MG Hcl 30 ule} needed for Hos pital Oral Tablet Mg Back Pain Oxycodone Tablet Hcl 30 Mg Tablet Amlodipine Amlodi TABLET 5 mg ORAL complet Wh ite 5 MG Oral pine ed [place] Tablet [facility] [[facility]] te Amlodipine Besylate Amlodipine Amlodi TABLET 5 mg ORAL complet Wh ite 5 MG Oral pine ed [place] Tablet [facility] [[facility]] te Amlodipine Besylate 24 HR Isosor TABLET, 60 mg ORAL complet [place] Isosorbide bide EXTENDED ed [place] Mononitrate Mononi RELEASE Hos pital 60 MG trate Extended Release Oral Tablet Heparin Hepari complet White n [facility] Losartan Losart TABLET 1 complet Daily Whi te Potassium an {[facility] ed [place] 25 MG Oral Potass ule} Hospita l Tablet ium [Cozaar] (Cozaa Losartan r) 25 Potassium Mg (Cozaar) 25 Tablet Mg Tablet, , 1 1 Tab Oral Tab Oral montelukast Mani TABLET 10 mg ORAL active W ann marie 10 MG Oral ukast [place] Tablet Sodium [facility] [Singulair] Montelukast Sodium Losartan Losart TABLET 1 ORAL complet Whit e Potassium an {[facility] ed [place] 25 MG Oral Potass ule} Hospita l Tablet ium [Cozaar] Furosemide Furose TABLET 1 complet Daily W ann marie 40 MG Oral mide {[facility] ed [place] Tablet (Lasix ule} Hospital Furosemide *) 40 (Lasix*) 40 Mg Tab Mg Tab Multivitami Multiv TABLET 1 ORAL complet W ann marie ns itamin {[facility] ed [place] s ule} Hospital 24 HR Isosor TABLET, 1 ORAL complet White Isosorbide bide EXTENDED {[facility] ed Plai ns Mononitrate Mononi RELEASE ule} Hos pital 120 MG trate Extended Release Oral Tablet 24 HR Buprop TABLET, 150 ORAL complet White Bupropion ion EXTENDED mg ed [place] Hydrochlori Hcl RELEASE Hospi eli de 150 MG Extended Release Oral Tablet Bupropion Hcl 200 ACTUAT Levalb AEROSOL, 1 RESPIR active White Levalbutero uterol SPRAY ATORY Plai ns l 0.045 ([facility] Hospital MG/ACTUAT ATION) Metered Dose Inhaler [Xopenex] 12 HR Oxycod TABLET 1 complet Twice A Day White Oxycodone one 12 HR {Caps ed [place] Hydrochlori Hcl SUSTAINE ule} Hosp ital de 80 MG (Oxyco D Extended ntin RELEASE Release Tabsr* Oral Tablet ) 80 [Oxycontin] Mg Oxycodone Tab.sr Hcl .12h (Oxycontin Tabsr*) 80 Mg Tab.sr.12h 12 HR Buprop TABLET, 1 ORAL complet White Bupropion ion EXTENDED {Caps ed [place] Hydrochlori Hcl RELEASE ule} Hospi eli de 150 MG Extended Release Oral Tablet Bupropion Hcl pantoprazol Pantop TABLET, 1 complet Daily White e 40 MG razole DELAYED {Caps ed [place] Delayed Sodium RELEASE ule} Hospita l Release 40 Mg Oral Tablet Tablet Pantoprazol .dr sanders Sodium 40 Mg Tablet. gabapentin Gabape TABLET 1 ORAL active Whi te 600 MG Oral ntin {Caps [place] Tablet ule} [facility] Gabapentin 24 HR Isosor TABLET, 60 mg ORAL active White Isosorbide bide EXTENDED [place] [facility] Mononitrate Mononi RELEASE Hos pital 60 MG trate Extended Release Oral Tablet Varenicline 1 complet Twice A Da y White (Chantix) {Caps ed [place] 0.5 Mg ule} [facility] (11)-1 Mg (42) Tab.ds.pk Prednisone Predni TABLET 1 ORAL complet Wh ite 20 MG Oral sone {Caps ed [place] Tablet ule} [facility] 3 ML Insuli INJECTIO complet for Fsbs Wh ite Insulin, n N ed Greater Than Ethan ins Aspart, Aspart 200 [facility] Human 100 (Novol UNT/ML Pen og Injector Flexpe [NovoLog] n Insulin U-100/ Aspart Ml*) (Novolog 100 Flexpen Unit/M U-100/Ml*) l Inj 100 Unit/Ml Inj Furosemide Furose TABLET 1 ORAL complet Wh ite 40 MG Oral mide {Caps ed [place] Tablet ule} Hospital gabapentin Gabape TABLET 1 complet Twice A Day White 600 MG Oral ntin {Caps ed [place] Tablet 600 Mg ule} [facility] Gabapentin Tablet 600 Mg Tablet 24 HR Isosor TABLET, 1 complet Daily White Isosorbide bide EXTENDED {Caps ed Plai ns Mononitrate Mononi RELEASE ule} Hos pital 120 MG trate Extended (Imdur Release 120MG* Oral Tablet ) 120 Isosorbide Mg Mononitrate Tab.er (Imdur .24h 120MG*) 120 Mg Tab.er.24h Insulin PRE-FILL 32 SUBCUT complet Whi te Degludec ED PEN ANEOUS ed [place] [facility] 200 ACTUAT Levalb AEROSOL, 1 RESPIR active White Levalbutero uterol SPRAY ATORY Plai ns l 0.045 ([facility]HAL Hospital MG/ACTUAT ATION) Metered Dose Inhaler [Xopenex] Prednisone Predni TABLET 1 complet Twice A Day White 20 MG Oral sone {Caps ed [place] Tablet (Delta ule} Hospital Prednisone sone) (Deltasone) 20 Mg 20 Mg Tablet Tablet, 1 , 1 Tab Oral Tab Oral 24 HR Isosor TABLET, 30 mg ORAL complet White Isosorbide bide EXTENDED ed [place] Mononitrate Mononi RELEASE Hos pital 30 MG trate Extended Release Oral Tablet Fluticasone Flutic 1 RESPIR complet W ann marie /Vilanterol asone/ ATORY ed [place] Vilant ([facility] harley ATION) Acetaminoph Oxycod TABLET 1 ORAL active ite en 325 MG / one {[facility] Oxycodone Hcl/Ac ule} [facility] Hydrochlori etamin de 7.5 MG ophen Oral Tablet 7.5-32 [Percocet] 5 Mg Oxycodone Tab* Hcl/Acetami nophen 7.5-325 Mg Tab* Furosemide Furose TABLET 20 mg ORAL active ite 20 MG Oral mide [place] Tablet [facility] celecoxib Celeco CAPSULE 200 ORAL complet Wh ite 200 MG Oral xib mg ed [place] Capsule [facility] [Celebrex] Celecoxib 12 HR [place] TABLET 1 ORAL active White ranolazine zine 12 HR {[facility] [place] 1000 MG SUSTAINE ule} [facility] Extended D Release RELEASE Oral Tablet [Ranexa] Ranolazine Diclofenac Diclof GEL 1 TOPICA complet ite Sodium 0.01 enac {Appl L ed [place] MG/MG Sodium icato Hospital Topical Gel r} [Voltaren] 24 HR Isosor TABLET, 30 mg ORAL active White Isosorbide bide EXTENDED [place] [facility] Mononitrate Mononi RELEASE Hos pital 30 MG trate Extended Release Oral Tablet Rosuvastati Rosuva TABLET 40 mg ORAL complet White n calcium statin ed [place] 40 MG Oral Calciu Hospita l Tablet m [Crestor] Rosuvastati n Calcium 12 HR Buprop SUSTAINE 150 ORAL complet White Bupropion ion D mg ed [place] Hydrochlori Hcl RELEASE Hospi eli de 150 MG TABLET Extended Release Oral Tablet [Wellbutrin ] Bupropion Hcl Cholecalcif Cholec TABLET 1000 ORAL complet W ann marie harley 1000 alcife ed [place] UNT Oral rol [facility] Tablet 24 HR Diltia SUSTAINE 120 ORAL complet White Diltiazem zem D mg ed [place] Hydrochlori Hcl RELEASE Hospi eli de 120 MG CAPSULE Extended Release Oral Capsule Diltiazem Hcl pantoprazol Pantop TABLET, 1 ORAL active W ann marie e 40 MG razole DELAYED {Caps [place] Delayed Sodium RELEASE ule} Hospita l Release Oral Tablet Pantoprazol e Sodium 24 HR Diltia SUSTAINE 1 ORAL complet White Diltiazem zem D {Caps ed [place] Hydrochlori Hcl RELEASE ule} Hospi eli de 120 MG CAPSULE Extended Release Oral Capsule Diltiazem Hcl 24 HR Buprop TABLET, 300 ORAL active White Bupropion ion EXTENDED mg [place] Hydrochlori Hcl RELEASE Hospi eli de 300 MG Extended Release Oral Tablet Bupropion Hcl 24 HR Isosor TABLET, 60 mg ORAL complet [place] Isosorbide bide EXTENDED ed [place] Mononitrate Mononi RELEASE Hos pital 60 MG trate Extended Release Oral Tablet Umeclidiniu 1 complet Daily Whit e m [place] ed [place] ([facility]) 62.5 Mcg/Actuati on Blst.w.dev, 1 Inh Inhalation pantoprazol Pantop TABLET, 1 complet Daily White e 40 MG razole DELAYED {Caps ed [place] Delayed Sodium RELEASE ule} Hospita l Release 40 Mg Oral Tablet Tablet Pantoprazol .dr sanders Sodium 40 Mg Tablet. 24 HR Isosor TABLET, 30 mg ORAL complet [place] Isosorbide bide EXTENDED ed [place] Mononitrate Mononi RELEASE Hos pital 30 MG trate Extended Release Oral Tablet Insulin PRE-FILL complet White Degludec ED PEN ed [place] ([facility] Flextouch U-200) 200 Unit/Ml (3 Ml) Insuln.pen tizanidine Tizani TABLET 2 ORAL complet Wh ite 4 MG Oral dine {[facility] Tablet Hcl ule} Hospital Tizanidine Hcl gabapentin Gabape TABLET 1 complet Twice A Day White 600 MG Oral ntin {[facility] Tablet [facility] Mg ule} Hospital Gabapentin Tablet 600 Mg Tablet Multivitami TABLET 1 ORAL active Whit e ns {[facility]} [facility] 24 HR Isosor TABLET, 30 mg ORAL complet [place] Isosorbide bide EXTENDED ed [place] Mononitrate Mononi RELEASE Hos pital 30 MG trate Extended Release Oral Tablet benzonatate Benzon CAPSULE 100 ORAL active W ann marie 100 MG Oral atate mg [place] Capsule [facility] [[facility]] Benzonatate varenicline Vareni 1 ORAL complet Whi te Varenicline jones {[facility]} [facility] Insulin PRE-FILL 32 complet Daily Whit e Degludec ED [facility] Flextouch U-200) 200 Unit/Ml (3 Ml) Insuln.pen, 32 Units Sub-Q Insulin UNSPECIF active [facility] Aspirin 81 Aspiri TABLET, 81 mg ORAL complet White MG Delayed n DELAYED ed [place] Release RELEASE Hospital Oral Tablet pantoprazol Pantop TABLET, 1 ORAL active W ann marie e 40 MG razole DELAYED {[facility] Delayed Sodium RELEASE ule} Hospita l Release Oral Tablet Pantoprazol e Sodium pantoprazol Pantop TABLET, 1 ORAL complet White e 40 MG razole DELAYED {[facility] Delayed Sodium RELEASE ule} Hospita l Release Oral Tablet Pantoprazol e Sodium 12 HR [place] TABLET 1 complet Twice A Day White ranolazine zine 12 HR {[facility] 1000 MG (Ranex SUSTAINE ule} Hospit al Extended a D Release 1000MG RELEASE Oral Tablet Tabsr* [Ranexa] ) Ranolazine 1,000 (Ranexa Mg 1000MG Tab.sr Tabsr*) .12h 1,000 Mg Tab.sr.12h 12 HR Buprop SUSTAINE 150 complet Daily Whit e Bupropion ion D mg ed [place] Hydrochlori Hcl RELEASE Hospi eli de 150 MG (Wellb TABLET Extended utrin Release Sr*) Oral Tablet 150 Mg [Wellbutrin Tabsr ] Bupropion Hcl (Wellbutrin Sr*) 150 Mg Tabsr 12 HR Oxycod TABLET 1 ORAL complet White Oxycodone one 12 HR {Caps ed [place] Hydrochlori Hcl SUSTAINE ule} Hosp ital de 80 MG D Extended RELEASE Release Oral Tablet [Oxycontin] Oxycodone Hcl Insulin PRE-FILL 32 complet Daily Whit e Degludec ED PEN ed [place] ([facility] Flextouch U-200) 200 Unit/Ml (3 Ml) Insuln.pen, 32 Units Sub-Q celecoxib Celeco CAPSULE 200 ORAL complet Wh ite 200 MG Oral xib mg ed [place] Capsule [facility] [Celebrex] Celecoxib Insulin UNSPECIF complet White Degludec IED [facility] 24 HR Diltia SUSTAINE 1 ORAL complet White Diltiazem zem D {Caps ed [place] Hydrochlori Hcl RELEASE ule} Hospi eli de 120 MG CAPSULE Extended Release Oral Capsule Diltiazem Hcl 12 HR Oxycod TABLET 1 ORAL active White Oxycodone one 12 HR {Caps [place] Hydrochlori Hcl SUSTAINE ule} Hosp ital de 80 MG D Extended RELEASE Release Oral Tablet [Oxycontin] Oxycodone Hcl Diclofenac Diclof GEL 1 TOPICA complet Wh ite Sodium 0.01 enac {Appl L ed [place] MG/MG Sodium icato [facility] Topical Gel r} [Voltaren] carvedilol Carved TABLET 6.25 ORAL active Whi te 6.25 MG ilol mg [place] Oral Tablet [facility] [Coreg] Carvedilol Prednisone Predni TABLET 1 ORAL complet Wh ite 20 MG Oral sone {Caps ed [place] Tablet ule} Hospital gabapentin Gabape TABLET 1 ORAL complet Wh ite 600 MG Oral ntin {Caps ed [place] Tablet ule} Hospital Gabapentin 12 HR Buprop TABLET, 1 complet Twice A Day White Bupropion ion EXTENDED {Caps ed [place] Hydrochlori Hcl RELEASE ule} Hospi eli de 150 MG (Bupro Extended pion Release Hcl Oral Tablet Sr) Bupropion 150 Mg Hcl Tablet (Bupropion .er, 1 Hcl Sr) 150 Tab Mg Oral Tablet.er, 1 Tab Oral montelukast Mani TABLET 10 mg ORAL active W ann marie 10 MG Oral ukast [place] Tablet [facility] [Singulair] Montelukast Sodium carvedilol Carved TABLET 25 mg ORAL complet W ann marie 25 MG Oral ilol ed [place] Tablet [facility] [Coreg] Carvedilol Losartan Losart TABLET 1 ORAL complet Whit e Potassium an {Caps ed [place] 25 MG Oral Potass ule} Hospita l Tablet ium [Cozaar] carvedilol Carved TABLET 6.25 ORAL complet Wh ite 6.25 MG ilol mg ed [place] Oral Tablet [facility] [Coreg] Carvedilol Cholecalcif Cholec TABLET 1000 complet Twice A Day White harley 1000 alcife ed [place] UNT Oral [facility] Tablet (Vitam Cholecalcif in D3 harley Tablet (Vitamin D3 *) Tablet*) 1,000 1,000 Unit Unit Tablet Tablet Nitroglycer Nitrog SUBLINGU 1 SUBLIN active White in 0.4 MG lyceri AL {Caps GUAL [place] Sublingual n TABLET ule} Hospita l Tablet Furosemide Furose TABLET 20 mg ORAL active Wh ite 20 MG Oral mide [place] [facility]t [facility] Prednisone Predni TABLET 20 mg ORAL complet W ann marie 20 MG Oral sone ed [place] Tablet [facility] 3 ML Insuli INJECTIO active White Insulin, n N [place] Aspart, [facility] Human 100 UNT/ML Pen Injector [NovoLog] Insulin Aspart Cholecalcif Cholec TABLET 1000 ORAL complet W ann marie harley 1000 alcife ed [place] UNT Oral [facility] Tablet 200 ACTUAT Levalb AEROSOL, 1 complet as ne eded [place] Levalbutero uterol SPRAY ed for For Pl ains l 0.045 (Xopen [facility]ness Of Ho spital MG/ACTUAT ex Hfa Breath Metered Inhale Dose r Inhaler Mdi*) [Xopenex] 45 Levalbutero Mcg/Ac l (Xopenex tuatio Hfa Inhaler n Mdi*) 45 Hfa.ae Mcg/Actuati r.ad on Hfa.aer.ad Oxycodone Oxycod TABLET 1 ORAL complet Whi te Hydrochlori one {Caps ed [place] de 30 MG Hcl ule} [facility] Oral Tablet Oxycodone Hcl 12 HR [place] TABLET 1 complet Twice A Day White ranolazine zine 12 HR {Caps ed [place] 1000 MG (Ranex SUSTAINE ule} Hospit al Extended a D Release 1000MG RELEASE Oral Tablet Tabsr* [Ranexa] ) Ranolazine 1,000 (Ranexa Mg 1000MG Tab.sr Tabsr*) .12h 1,000 Mg Tab.sr.12h Furosemide Furose TABLET 1 complet Daily W ann marie 40 MG Oral mide {Caps ed [place] Tablet (Lasix ule} Hospital Furosemide *) 40 (Lasix*) 40 Mg Tab Mg Tab 24 HR Isosor TABLET, 60 mg ORAL complet [place] Isosorbide bide EXTENDED ed [place] [facility] Mononitrate Mononi RELEASE Hos pital 60 MG trate Extended Release Oral Tablet Fluticasone 1 complet Daily Whit e /Vilanterol ed [place] ([facility] 200-25 Mcg Inh) 200 Mcg-25 Mcg/Dose Blst.w.dev Prednisone Predni TABLET 20 mg ORAL complet W ann marie 20 MG Oral sone ed [place] Tablet Hospital Amlodipine Amlodi TABLET 10 mg ORAL active Wh ite 10 MG Oral pine [place] [facility] Amlodipine te Besylate Umeclidiniu 1 complet Daily Whit e m [place] ed [place] ([facility]) 62.5 Mcg/Actuati on Blst.w.dev, 1 Inh Inhalation Multivitami TABLET 1 ORAL active Whit e ns {Caps [place] ule} Hospital 12 HR [place] TABLET 1 ORAL active White ranolazine zine 12 HR {Caps [place] 1000 MG SUSTAINE ule} [facility] Extended D Release RELEASE Oral Tablet [Ranexa] Ranolazine Ticagrelor Ticagr TABLET 90 mg ORAL active Wh ite 90 MG Oral elor [place] Tablet [facility] [Brilinta] Prednisone Predni TABLET 1 ORAL complet Wh ite 20 MG Oral sone {Caps ed [place] Tablet ule} Hospital 24 HR Buprop TABLET, 150 ORAL complet White Bupropion ion EXTENDED mg ed [place] Hydrochlori Hcl RELEASE Hospi eli de 150 MG Extended Release Oral Tablet Bupropion Hcl Diclofenac Diclof GEL 1 TOPICA complet Wh ite Sodium 0.01 enac {Appl L ed [place] MG/MG Sodium icato Hospital Topical Gel r} [Voltaren] 24 HR Isosor TABLET, 1 ORAL complet White Isosorbide bide EXTENDED {Caps ed Plai ns Mononitrate Mononi RELEASE ule} Hos pital 120 MG trate Extended Release Oral Tablet 12 HR [place] TABLET 1 ORAL complet White ranolazine zine 12 HR {Caps ed [place] 1000 MG SUSTAINE ule} [facility] Extended D Release RELEASE Oral Tablet [Ranexa] Ranolazine Umeclidiniu 1 RESPIR complet Whi te m [place] ATORY ed [place] (INHAL [facility]) 3 ML Insuli INJECTIO complet for Fsbs Wh ite Insulin, n N ed Greater Than Ethan ins Aspart, Aspart 200 Hospital Human 100 (Novol UNT/ML Pen og Injector Flexpe [NovoLog] n Insulin U-100/ Aspart Ml*) (Novolog 100 Flexpen Unit/M U-100/Ml*) l Inj 100 Unit/Ml Inj Umeclidiniu 1 RESPIR complet Whi te m [place] ATORY ed [place] (INHAL [facility]) 24 HR Diltia SUSTAINE 1 complet Daily Whit e Diltiazem zem D {Caps ed [place] Hydrochlori Hcl RELEASE ule} Hospi eli de 120 MG (Dilti CAPSULE Extended azem Release 24HR Oral Er) Capsule 120 Mg Diltiazem Cap.sr Hcl .24h, (Diltiazem 1 Tab 24HR Er) Oral 120 Mg Cap.sr.24h, 1 Tab Oral Insulin PRE-FILL complet [facility] Degludec ED PEN ed [place] [facility] Cholecalcif Cholec TABLET 1000 complet Twice A Day White harley 1000 alcife ed [place] UNT Oral rol [facility] Tablet (Vitam Cholecalcif in D3 harley Tablet (Vitamin D3 *) Tablet*) 1,000 1,000 Unit Unit Tablet Tablet Varenicline 1 complet Twice A Da y White (Chantix) {[facility] ed [place] 0.5 Mg ule} Hospital (11)-1 Mg (42) Tab.ds.pk Nitroglycer Nitrog SUBLINGU 1 SUBLIN active White in 0.4 MG lyceri AL {[facility] GUAL [place] Sublingual n TABLET ule} Hospita l Tablet 24 HR Isosor TABLET, 30 mg ORAL complet [facility] Isosorbide bide EXTENDED ed [place] Mononitrate Mononi RELEASE Hos pital 30 MG trate Extended Release Oral Tablet 24 HR Isosor TABLET, 1 complet Daily White Isosorbide bide EXTENDED {Caps ed Plai ns Mononitrate Mononi RELEASE ule} Hos pital 120 MG trate Extended (Imdur Release 120MG* Oral Tablet ) 120 Isosorbide Mg Mononitrate Tab.er (Imdur .24h 120MG*) 120 Mg Tab.er.24h 24 HR Buprop TABLET, 150 ORAL complet White Bupropion ion EXTENDED mg ed [place] Hydrochlori Hcl RELEASE Hospi eli de 150 MG Extended Release Oral Tablet Bupropion Hcl Nitroglycer Nitrog SUBLINGU 1 complet as n eeded White in 0.4 MG lyceri AL {[facility] ed for For Plai ns Sublingual n 0.4 TABLET ule} Anginal Hos pital Tablet Mg Chest Pain Nitroglycer Tab.more in 0.4 Mg bl Tab.subl Insulin PRE-FILL complet [facility] Degludec ED PEN ed [place] [facility] 3 ML Insuli INJECTIO complet White Insulin, n N ed [place] [facility] Human 100 UNT/ML Pen Injector [NovoLog] Insulin Aspart 24 HR Diltia SUSTAINE 120 ORAL complet White Diltiazem zem D mg ed [place] Hydrochlori Hcl RELEASE Hospi eli de 120 MG CAPSULE Extended Release Oral Capsule Diltiazem Hcl Insulin PRE-FILL complet [facility] Degludec ED PEN ed [place] ([facility] Flextouch U-200) 200 Unit/Ml (3 Ml) Insuln.pen Insulin PRE-FILL 32 SUBCUT complet Whi te Degludec ED PEN ANEOUS ed [facility] 24 HR Isosor TABLET, 60 mg ORAL complet [facility] Isosorbide bide EXTENDED ed [place] Mononitrate Mononi RELEASE Hos pital 60 MG trate Extended Release Oral Tablet 12 HR Buprop SUSTAINE 150 ORAL complet White Bupropion ion D mg ed [place] Hydrochlori Hcl RELEASE Hospi eli de 150 MG TABLET Extended Release Oral Tablet [Wellbutrin ] Bupropion Hcl Furosemide Furose TABLET 1 ORAL complet Wh ite 40 MG Oral mide {[facility] [place] Tablet ule} [facility] Prednisone Predni TABLET 1 complet Twice A Day White 20 MG Oral sone {[facility] ed [place] Tablet (Delta ule} [facility] Prednisone sone) (Deltasone) 20 Mg 20 Mg Tablet Tablet, 1 , 1 Tab Oral Tab Oral Nitroglycer Nitrog SUBLINGU 1 complet as n eeded White in 0.4 MG lyceri AL {[facility] ed for [facility] Sublingual n 0.4 TABLET ule} Anginal Hos pital Tablet Mg Chest Pain Nitroglycer Tab.more in 0.4 Mg bl Tab.subl 12 HR Oxycod TABLET 1 complet Twice A Day White Oxycodone one 12 HR {[facility] ed [place] Hydrochlori Hcl SUSTAINE ule} Hosp ital de 80 MG (Oxyco D Extended ntin RELEASE Release Tabsr* Oral Tablet ) 80 [Oxycontin] Mg Oxycodone Tab.sr Hcl .12h (Oxycontin Tabsr*) 80 Mg Tab.sr.12h Insulin PRE-FILL 32 SUBCUT complet Whi te Degludec ED PEN [facility] Losartan Losart TABLET 1 complet Daily Whi te Potassium an {Caps ed [place] 25 MG Oral Potass ule} Hospita l Tablet ium [Cozaar] (Cozaa Losartan r) 25 Potassium Mg (Cozaar) 25 Tablet Mg Tablet, , 1 1 Tab Oral Tab Oral Insulin UNSPECIF 32 SUBCUT active Whit e Degludec IED [facility] gabapentin Gabape TABLET 1 ORAL active i te 600 MG Oral ntin {[facility] Tablet ule} [facility] Gabapentin varenicline Vareni 1 ORAL complet Whi te Varenicline jones {[facility] ed [place] ule} Hospital 3 ML Insuli INJECTIO active White Insulin, n N [place] [facility] Human 100 UNT/ML Pen Injector [NovoLog] Insulin Aspart 24 HR Diltia SUSTAINE 1 ORAL complet White Diltiazem zem D {Caps ed [place] Hydrochlori Hcl RELEASE ule} Hospi eli de 120 MG CAPSULE Extended Release Oral Capsule Diltiazem Hcl 200 ACTUAT Levalb AEROSOL, 1 RESPIR complet White Levalbutero uterol SPRAY ATORY ed Plai ns l 0.045 (INHAL Hospital MG/ACTUAT ATION) Metered Dose Inhaler [Xopenex] 24 HR Isosor TABLET, 1 ORAL complet White Isosorbide bide EXTENDED {Caps ed Plai ns Mononitrate Mononi RELEASE ule} Hos pital 120 MG trate Extended Release Oral Tablet 200 ACTUAT Levalb AEROSOL, 1 complet as ne eded [facility] Levalbutero uterol SPRAY ed for For Pl ains l 0.045 (Xopen Shortness Of Ho spital MG/ACTUAT ex Hfa Breath Metered Inhale Dose r Inhaler Mdi*) [Xopenex] 45 Levalbutero Mcg/Ac l (Xopenex tuatio Hfa Inhaler n Mdi*) 45 Hfa.ae Mcg/Actuati r.ad on Hfa.aer.ad Ticagrelor Ticagr TABLET 90 mg ORAL active ite 90 MG Oral elor [place] [facility] [Brilinta] Acetaminoph Oxycod TABLET 1 ORAL complet W ann marie en 325 MG / one/Ac {[facility]aps ed [facility] Oxycodone etamin ule} Hospital Hydrochlori ophen de 7.5 MG Oral Tablet Oxycodone/A cetaminophe n Insurance Providers Payer name Policy type Policy ID Covered Covered libertarian's Policy P amy / Coverage libertarian ID relationship to [place] Inf ormation type solano MEDICARE [id number] SP [id number] 13 3 MEDICAID [id number] SP [id number] Medicare Medicare [id number] Self [id number] 13 Part A Part A 3 Medicaid - Medicaid [id number] Self [id number] [place] Medicare Medicare [id number] Self [id number] 13 Part B Part B 3 Medicare Medicare [id number] Self [id number] 13 Part A Part A 3 Medicare 18 [id number] Self [id number] 13 Part A 3 Medicaid - 3 [id number] Self [id number] [place] Medicare 2 [id number] Self [id number] 13 Part B 3 MEDICAID [id number] PT [id number] MEDICARE [id number] PT [id number] 13 3 Medicaid - Medicaid [id number] Self [id number] [place] Medicare Medicare [id number] Self [id number] 13 Part B Part B 3 Medicare Medicare [id number] Self [id number] 13 Part A Part A 3 Medicare Medicare [id number] Self [id number] 13 Part A Part A 3 MEDICARE [id number] SP [id number] A Medicare 18 [id number] Self [id number] 13 Part A 3 Problems, Conditions, and Diagnoses Code Display Name Description Problem Type Effective Data Sour ce(s) Dates N64.89 Other specified OTHER SPECIFIED Diagnosis 04/02/2020 [place] disorders of breast DISORDERS OF BREAST 06:00:0 [facility] Z12.31 Encounter for ENCNTR SCREEN Diagnosis 04/02/2020 [facility] screening mammogram MAMMOGRAM FOR 06:00:00 AM C [employer] for malignant MALIGNANT NEOPLASM EDT Car e neoplasm of breast OF BREAST Corpor ation Z00.00 Encounter for ENCNTR FOR GENERAL Diagnosis 04/02/2020 [place] ADULT MEDICAL EXAM 06:00:00 AM [facility] medical examination W/O ABNORMAL EDT Car e without abnormal FINDINGS Corporat ion findings K59.00 Constipation, Constipation, Diagnosis 11/30/2019 [facility] E (The unspecified unspecified 12:00:00 AM [facility] EST of the [facility]) M62.838 Other muscle spasm Other muscle spasm Diagnosis 0 [facility] (The 12:00:00 AM [facility] EST of the [facility]) I25.799 Atherosclerosis of Atherosclerosis of Diagnosis 0 [facility] (The other coronary CABG w unsp angina 12:00:00 AM [place] [facility] artery bypass pectoris EST of the graft(s) with [facility] unspecified angina [place] an pectoris [facility]) F33.1 Major depressive Major depressive Diagnosis 11/30/2019 [facility] (The disorder, disorder, 12:00:00 AM [facility] recurrent, moderate recurrent, moderate EST of the [facility]) D68.4 Acquired Acquired Diagnosis 11/30/2019 [facility] (The coagulation factor coagulation factor 12:00:00 AM [facility] deficiency deficiency EST of [facility]) J45.20 Mild intermittent Mild intermittent Diagnosis 11/30/2019 [facility] (The asthma, asthma, 12:00:00 AM [facility] uncomplicated uncomplicated EST of the [facility]) I20.0 Unstable angina Unstable angina Diagnosis 11/30/2019 SIGM AC[facility] (The 12:00:00 AM [facility] EST of the [facility]) G89.18 Other acute Other acute Diagnosis 11/30/2019 [facility] (T he postprocedural pain postprocedural pain 12:00:0 0 AM [facility] EST of the [facility]) R52 Pain, unspecified Pain, unspecified Diagnosis 11/30/2019 [facility] (The 12:00:00 AM [facility] EST of the [facility]) R06.02 Shortness of breath Shortness of breath Diagnosis 020 [facility] (The 12:00:00 AM [facility] EST of [facility]) Z11.1 Encounter for Encounter for Diagnosis 11/30/2019 [facility] E (The screening for screening for 12:00:00 AM [place] [facility] respiratory respiratory EST of the tuberculosis tuberculosis [facility]) F11.20 Opioid dependence, Opioid dependence, Diagnosis 0 [facility] (The uncomplicated uncomplicated 12:00:00 AM [place] [facility] EST of the [facility]) D64.9 Anemia, unspecified Anemia, unspecified Diagnosis 020 [facility] (The 12:00:00 AM [facility] EST of the [facility]) Z68.41 Body mass index Body mass index Diagnosis 11/30/2019 [facility] (The (BMI) 40.0-44.9, (BMI) 40.0-44.9, 12:00:00 AM [facility] adult adult EST of [facility]) E66.01 Morbid (severe) Morbid (severe) Diagnosis 11/30/2019 [facility] (The obesity due to obesity due to 12:00:00 AM [place] [facility] [facility] excess calories excess calories EST of [facility]) M16.11 Unilateral primary Unilateral primary Diagnosis 0 [facility] (The osteoarthritis, osteoarthritis, 12:00:00 AM [place] [facility] right hip right hip EST of the [facility]) Z96.641 Presence of right Presence of right Diagnosis 11/30/2019 [facility] (The artificial hip artificial hip 12:00:00 AM [facility] [facility] joint joint EST of the [facility]) Z47.1 Aftercare following Aftercare following Diagnosis 020 [facility] (The joint replacement joint replacement 12:00:00 AM [facility] surgery surgery EST of the [facility]) F14.10 Cocaine abuse, F14.10 Diagnosis 10/15/2019 [facility] uncomplicated 08:43:00 PM Hospital EST K21.9 Gastro-esophageal K21.9 Diagnosis 10/15/2019 [facility] Muhammad lains reflux disease 08:43:00 PM Hospital without esophagitis EST F32.9 Major depressive F32.9 Diagnosis 10/15/2019 F[facility] Forte ains disorder, single 08:43:00 PM Hospita l episode, EST unspecified M16.11 Unilateral primary M16.11 Diagnosis 10/15/2019 [place] osteoarthritis, 08:43:00 PM Hospital right hip EST F17.210 Nicotine F17.210 Diagnosis 10/15/2019 [place] dependence, 08:43:00 PM Hospital cigarettes, EST uncomplicated E11.9 Type 2 diabetes E11.9 Diagnosis 10/15/2019 [facility] mellitus without 08:43:00 PM Hospita l complications EST E78.5 Hyperlipidemia, E78.5 Diagnosis 10/15/2019 [facility] unspecified 08:43:00 PM Hospital EST I11.0 Hypertensive heart I11.0 Diagnosis 10/15/2019 [place] disease with heart 08:43:00 PM Hospi eli failure EST I50.32 Chronic diastolic I50.32 Diagnosis 10/15/2019 [facility] P [place] (congestive) heart 08:43:00 PM Hospi eli failure EST I25.10 Atherosclerotic I25.10 Diagnosis 10/15/2019 [facility] heart disease of 08:43:00 PM [facility]ita [place] coronary EST artery without angina pectoris 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 10/15/2019 [facility] infarction 08:43:00 PM Hospital EST G47.33 Obstructive sleep G47.33 Diagnosis 10/15/2019 [facility] [place] apnea (adult) 08:43:00 PM Hospital (pediatric) EST J44.9 Chronic obstructive J44.9 Diagnosis 10/15/2019 [place] pulmonary disease, 08:43:00 PM Hospi eli unspecified EST G89.4 Chronic pain G89.4 Diagnosis 10/15/2019 [place] syndrome 08:43:00 PM Hospital EST R07.89 Other chest pain R07.89 Diagnosis 10/15/[address] [place] [facility] 08:43:00 PM Hospital EST Z98.61 Coronary Z98.61 Diagnosis 10/15/2019 [place] angioplasty status 08:43:00 PM Hospi eli EST Z86.73 Personal history of Z86.73 Diagnosis 10/15/2019 [place] transient ischemic 08:43:00 PM Hospi eli attack (TIA), and EST cerebral infarction without residual deficits Z79.02 MCFP (current) Z79.02 Diagnosis 10/15/2019 [place] use of 08:43:00 PM Hospital antithrombotics/ant EST iplatelets 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 10/06/2019 [place] use of insulin 10:54:00 AM Hospital EST I25.119 Atherosclerotic I25.119 Diagnosis 10/06/2019 [facility] heart disease of 10:54:00 AM [facility]ita [facility] [place] coronary EST artery with unspecified angina pectoris E11.40 Type 2 diabetes E11.40 Diagnosis 10/06/2019 [facility] mellitus with 10:54:00 AM Hospital diabetic EST neuropathy, unspecified R07.9 Chest pain, R07.9 Diagnosis 10/06/2019 [place] unspecified 10:54:00 AM Hospital EST Z79.82 MCFP (current) Z79.82 Diagnosis 05/01/2019 [place] use of aspirin 01:13:00 AM Hospital EDT F14.988 Cocaine use, F14.988 Diagnosis 05/01/2019 [place] unspecified with 01:13:00 AM Hospita l other EDT cocaine-induced disorder Z96.649 Presence of Z96.649 Diagnosis 05/01/2019 [place] unspecified 01:13:00 AM Hospital artificial hip EDT joint E66.9 Obesity, E66.9 Diagnosis 05/01/2019 [place] unspecified 01:13:00 AM Hospital EDT J45.909 Unspecified asthma, J45.909 Diagnosis 05/01/2019 [place] uncomplicated 01:13:00 AM Hospital EDT I25.110 Atherosclerotic I25.110 Diagnosis 05/01/2019 [facility] heart disease of 01:13:00 AM [facility]ita [facility] [place] coronary EDT artery with unstable angina pectoris T82.855A Stenosis of T82.855A Diagnosis 05/01/2019 [place] coronary artery 01:13:00 AM Hospital stent, initial EDT encounter G47.09 Other insomnia Other insomnia Diagnosis 03/03/2019 [facility] ARE (The 12:00:00 AM [facility] EDT of the [facility]) R26.2 Difficulty in Difficulty in Diagnosis 02/28/2019 [facility] E (The walking, not walking, not 12:00:00 AM [facility] elsewhere elsewhere EDT of the classified classified [facility]) M62.81 Muscle weakness Muscle weakness Diagnosis 02/28/2019 [facility] ACARE (The (generalized) (generalized) 12:00:00 AM [place] [facility] EDT of the [facility]) I50.32 Chronic diastolic Chronic diastolic Diagnosis 02/27/2019 [facility] (The (congestive) heart (congestive) heart 12:00:00 AM [facility] failure failure EDT of the [facility]) I11.0 Hypertensive heart Hypertensive heart Diagnosis 9 [facility]ARE (The disease with heart disease with heart 12:00:00 AM [facility] failure failure EDT of the [facility]) J44.9 Chronic obstructive Chronic obstructive Diagnosis 019 [facility]ARE (The pulmonary disease, pulmonary disease, 12:00:00 AM [facility] unspecified unspecified EDT of the [facility]) Z96.642 Presence of left Presence of left Diagnosis 02/27/2019 [facility] (The artificial hip artificial hip 12:00:00 AM [facility] [facility] [facility] joint joint EDT of the [facility]) G89.3 Neoplasm related Neoplasm related Diagnosis 02/27/2019 [facility] (The pain (acute) pain (acute) 12:00:00 AM [facility] (chronic) (chronic) EDT of the [facility]) J45.40 Moderate persistent Moderate persistent Diagnosis 019 [facility]ARE (The asthma, asthma, 12:00:00 AM [facility] uncomplicated uncomplicated EDT of the [facility]) 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 02/27/2019 [facility] (The 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:00:00 AM [facility] neuralgia neuralgia EDT of the [facility]) I10 Essential (primary) Essential (primary) Diagnosis 019 [facility]ARE (The hypertension hypertension 12:00:00 AM [facility] EDT of the [facility]) J45.909 Unspecified asthma, Unspecified asthma, Diagnosis 019 [facility]ARE (The uncomplicated uncomplicated 12:00:00 AM [place] [facility] EDT of the [facility]) I20.9 Angina pectoris, Angina pectoris, Diagnosis 02/27/2019 SI [facility] (The unspecified unspecified 12:00:00 AM [facility] EDT of the [facility]) E78.49 Other Other Diagnosis 02/27/2019 [facility] (The hyperlipidemia hyperlipidemia 12:00:00 AM [place] [facility] [facility] EDT of the [facility]) F17.200 Nicotine Nicotine Diagnosis 02/27/2019 [facility] (The dependence, dependence, 12:00:00 AM [facility] unspecified, unspecified, EDT of the uncomplicated uncomplicated [facility]) I24.9 Acute ischemic Acute ischemic Diagnosis 02/27/2019 SIG[facility] ARE (The heart disease, heart disease, 12:00:00 AM [facility] [facility] [facility] unspecified unspecified EDT of [facility]) J43.9 Emphysema, Emphysema, Diagnosis 02/27/2019 [facility] (The unspecified unspecified 12:00:00 AM [facility] EDT of the [facility]) E08.10 Diabetes mellitus Diabetes due to Diagnosis 02/27/2019 [facility] (The due to underlying underlying 12:00:00 AM [place] [facility] condition with condition w EDT of the ketoacidosis ketoacidosis w/o Evange lical without coma coma [facility]) J30.9 Allergic rhinitis, Allergic rhinitis, Diagnosis 9 [facility]ARE (The unspecified unspecified 12:00:00 AM [facility] EDT of the [facility]) F55.8 Abuse of other Abuse of other Diagnosis 02/27/2019 [facility] ARE (The non-psychoactive non-psychoactive 12:00:00 AM [place] [facility] substances substances EDT of the [facility]) E54 Ascorbic acid Ascorbic acid Diagnosis 02/27/2019 [facility] E (The deficiency deficiency 12:00:00 AM [facility] EDT of the [facility]) E56.9 Vitamin deficiency, Vitamin deficiency, Diagnosis 019 [facility]MACARE (The unspecified unspecified 12:00:00 AM [facility] EDT of the [facility]) E16.4 Increased secretion Increased secretion Diagnosis 019 [facility]ARE (The of gastrin of gastrin 12:00:00 AM [facility] EDT of the [facility]) G89.29 Other chronic pain Other chronic pain Diagnosis 9 [facility] (The 12:00:00 AM [facility] EDT of the [facility]) K59.09 Other constipation Other constipation Diagnosis 9 [facility] (The 12:00:00 AM [facility] EDT of the [facility]) Z86.73 Personal history of Prsnl hx of TIA Diagnosis 02/27/2019 [facility] (The transient ischemic (TIA), and cereb 12:00:00 AM [facility] attack (TIA), and infrc w/o resid EDT of the cerebral infarction deficits [facility] without residual [facility]) W19.XXXD Unspecified fall, Unspecified fall, Diagnosis 02/27/2019 [facility] (The subsequent subsequent 12:00:00 AM [facility] encounter encounter EDT of the [facility]) M25.552 Pain in left hip Pain in left hip Diagnosis 02/27/2019 [facility] (The 12:00:00 AM [facility] EDT of [facility]) Z91.018 Allergy to other Allergy to other Diagnosis 02/27/2019 [facility] (The foods foods 12:00:00 AM [facility] EDT of [facility]) Z87.891 Personal history of Personal history of Diagnosis 019 [facility]ARE (The nicotine dependence nicotine dependence 12:00:0 0 AM [facility] EDT of the [facility]) K21.9 Gastro-esophageal Gastro-esophageal Diagnosis 02/27/2019 [facility] (The reflux disease reflux disease 12:00:00 AM [facility] [facility] without esophagitis without esophagitis EDT of the [facility]) F32.9 Major depressive Major depressive Diagnosis 02/27/2019 [facility] (The disorder, single disorder, single 12:00:00 AM [facility] episode, episode, EDT of the unspecified unspecified [facility]) E78.5 Hyperlipidemia, Hyperlipidemia, Diagnosis 02/27/2019 [facility]M ACARE (The unspecified unspecified 12:00:00 AM [facility] EDT of the [facility]) 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) Diagnosis 019 SIGMACARE (The use of insulin use of insulin 12:00:00 AM [facility] EDT of the [facility]) E11.9 Type 2 diabetes Type 2 diabetes Diagnosis 02/27/2019 [facility] (The mellitus without mellitus without 12:00:00 AM [facility] complications complications EDT of [facility]) Z95.5 Presence of Presence of Diagnosis 02/27/2019 [facility] (T he coronary coronary 12:00:00 AM [facility] angioplasty implant angioplasty implant EDT of the and graft and graft [facility]) I25.10 Atherosclerotic Athscl heart Diagnosis 02/27/2019 SIGMACA RE (The heart disease of disease of [place] 12:00:00 AM [facility] [place] coronary coronary artery w/o EDT of the artery without ang pctrs [facility] angina pectoris [facility]) M25.50 Pain in unspecified Pain in unspecified Diagnosis 019 SIG[facility]ARE (The joint joint 12:00:00 AM [facility] EDT of [facility]) Z95.820 Peripheral vascular Z95.820 Diagnosis 02/25/2019 [place] angioplasty status 01:25:00 PM Hospi eli with implants and EDT grafts I10 Essential (primary) I10 Diagnosis 02/25/2019 [place] hypertension 01:25:00 PM Hospital EDT Y99.9 Unspecified Y99.9 Diagnosis 02/25/2019 [place] external cause 01:25:00 PM Hospital status EDT Y92.[address] Y92.9 Diagnosis 02/25/2019 Fawad metz or not applicable 01:25:00 PM Hospit al EDT Y93.89 Activity, other Y93.89 Diagnosis 02/25/2019 [facility] specified 01:25:00 PM Hospital EDT W19.XXXA Unspecified fall, W19.XXXA Diagnosis 02/25/2019 [facility] initial encounter 01:25:00 PM Hospit al EDT S80.211A Abrasion, right S80.211A Diagnosis 02/25/2019 [facility] knee, initial 01:25:00 PM Hospital encounter EDT S80.212A Abrasion, left S80.212A Diagnosis 02/25/2019 [facility] knee, initial 01:25:00 PM Hospital encounter EDT Z96.642 Presence of left Z96.642 Diagnosis 02/25/[address] [facility] artificial hip 01:25:00 PM Hospital joint EDT M25.551 Pain in right hip M25.551 Diagnosis 02/25/2019 [facility] 01:25:00 PM Hospital EDT Z72.0 Tobacco use Z72.0 Diagnosis 12/19/2018 [place] 10:25:00 AM Hospital EST Surgeries/Procedures Procedure Description Date Indications Data Source(s) Electrocardiographic 10/16/2019 [facility] procedure (procedure) 12:00:00 AM Hospit al EST Nebulizer therapy 10/16/2019 [facility] (procedure) 12:00:00 AM Hospital EST Nebulizer therapy 10/16/2019 [facility] (procedure) 12:00:00 AM Hospital EST Electrocardiographic 10/15/2019 [place] [facility] procedure (procedure) 12:00:00 AM Hospit al EST Electrocardiographic 10/15/2019 [place] [facility] procedure (procedure) 12:00:00 AM Hospit al EST Electrocardiographic 10/15/2019 [place] [facility] procedure (procedure) 12:00:00 AM Hospit al EST Plain chest X-ray 10/15/2019 [facility] (procedure) 12:00:00 AM Hospital EST Nebulizer therapy 10/06/2019 [facility] (procedure) 12:00:00 AM Hospital EST Electrocardiographic 10/06/2019 [facility] procedure (procedure) 12:00:00 AM Hospit al EST Electrocardiographic 10/06/2019 [place] [facility] procedure (procedure) 12:00:00 AM Hospit al EST Plain chest X-ray 10/06/2019 [facility] (procedure) 12:00:00 AM Hospital EST INJ ENOXAPARIN SODIUM 10/06/2019 [place] 12:00:00 AM Hospital EST INJ ENOXAPARIN SODIUM 10/06/2019 [place] 12:00:00 AM Hospital EST INJECTION, HYDOMORPHONE, UP 10/06/2019 [place] TO 4 MG 12:00:00 AM Hospital EST INSULIN INJECTION 10/06/2019 [facility] Ley ns 12:00:00 AM Hospital EST FUROSEMIDE INJECTION 10/06/2019 [facility] avilans 12:00:00 AM Hospital EST HOSPITAL OBSERVATION PER HR 10/06/2019 [place] 12:00:00 AM Hospital EST X-ray exam chest 1 view 10/06/2019 [place] 12:00:00 AM Hospital EST Electrocardiogram tracing 10/06/2019 [facility] [place] 12:00:00 AM [facility] EST Assay of natriuretic 10/06/2019 [place] 12:00:00 AM Hospital EST Assay of troponin qual 10/06/2019 [place] 12:00:00 AM Hospital EST Reagent strip/blood glucose 10/06/2019 [place] 12:00:00 AM Hospital EST Reagent strip/blood glucose 10/06/2019 [place] 12:00:00 AM Hospital EST Comprehen metabolic panel 10/06/2019 [facility] [place] 12:00:00 AM Hospital EST Metabolic panel total ca 10/06/2019 [facility] [place] 12:00:00 AM Hospital EST Prothrombin time 10/06/2019 [place] 12:00:00 AM [facility] EST Complete cbc automated 10/06/2019 [place] 12:00:00 AM Hospital EST Complete cbc w/auto diff 10/06/2019 Melany montez [place] wbc 12:00:00 AM Hospital EST Thromboplastin time partial 10/06/2019 [place] 12:00:00 AM Hospital EST Airway inhalation treatment 10/06/2019 [place] 12:00:00 AM Hospital EST Airway inhalation treatment 10/06/2019 [place] 12:00:00 AM Hospital EST Ther/proph/diag inj sc/im 10/06/2019 [facility] [place] 12:00:00 AM Hospital EST Ther/proph/diag inj sc/im 10/06/2019 [facility] [place] 12:00:00 AM Hospital EST Tx/pro/dx inj new drug 10/06/2019 [place] addon 12:00:00 AM Hospital EST Ther/proph/diag inj iv push 10/06/2019 [place] 12:00:00 AM Hospital EST Emergency dept visit 10/06/2019 [place] 12[facility] AM [facility] EST Nebulizer therapy 10/06/2019 [place] (procedure[place] 12:00:00 AM Hospital EST Electrocardiographic 10/06/2019 [place] [facility] (procedure) 12:00:00 AM Hospit al EST Electrocardiographic 10/06/2019 [place] [facility] (procedure) 12:00:00 AM Hospit al EST Plain chest X-ray 10/06/2019 [place] (procedure) 12:00:00 AM Hospital EST X-ray of right hip, two or X-ray of right hip, 02/25/2019 [place] three views two or three views 12:00:00 AM Hospital EDT EKG (electrocardiogram) EKG 02/25/2019 [facility] [place] (electrocardiogram) 12:00:00 AM Hospital EDT EKG (electrocardiogram) EKG 12/21/2018 [facility] [place] (electrocardiogram) 12:00:00 AM Hospital EST EKG (electrocardiogram) EKG 12/20/2018 [facility] [place] (electrocardiogram) 12:00:00 AM Hospital EST Coronary artery atherectomy Atherectomy with 12/20/2018 [place] (procedure) percutaneous 12:00:00 AM Hospital transluminal EST coronary angioplasty (PTCA) of single coronary artery Portable x-ray of chest Portable x-ray of 12/19/2018 [place] chest 12:00:00 AM Hospital EST EKG (electrocardiogram) EKG 12/19/2018 [facility] [place] (electrocardiogram) 12:00:00 AM Hospital EST EKG (electrocardiogram) EKG 12/19/2018 [facility] [place] (electrocardiogram) 12:00:00 AM Hospital EST Results ID Date Data Source [id number] 10/16/2019 05:07:00 PM [facility] [employer] Final Inspector:SARITA CORTES Name Value Range Interpretation Description Data Sup porting Code Source(s) Document(s ) Glucose 120 mg/dL [place] [Mass/volume] [facility] in Capillary blood by Glucometer ID Date Data Source [id number] 10/16/2019 01:34:00 PM [facility] CUT-OFF >= 25 NG/ML.THE FINDINGS OF THE URINE DRUG SCREEN ARE USED SOLELY FOR PATIENT MANAGEMENT AND GUIDANCE. THE RESULTS ANTONIA ULD NOT BE USED FOR FORENSIC PURPOSE. ANY CLINICALLY UNSUSPECTED POSITIVE DRUG SCR EEN CAN BE CONFIRMED BY CALLING THE LABORATORY 3 DAYS WITHIN RECEIPT OF REPO RT. Name Value Range Interpretation Code Description Data Jamila rce(s) Supporting Document(s ) PCP (UR) NEGATIVE [place] [facility] ID Date Data Source [id number] 10/16/2019 01:34:00 PM EST [facility] CUT-OFF >= 50 NG/ML. Name Value Range Interpretation Code Description Data Jamila rce(s) Supporting Document(s ) THC (UR) NEGATIVE [place] Hospital ID Date Data Source [id number] 10/16/2019 01:34:00 PM EST [facility] CUT-OFF >= 300 NG/ML. Name Value Range Interpretation Description Data Sup porting Code Source(s) Document(s ) OPIATES (UR) NEGATIVE [facility] ID Date Data Source [id number] 10/16/2019 01:34:00 PM EST [facility] CUT-OFF >= 300 NG/ML. Name Value Range Interpretation Description Data Sup porting Code Source(s) Document(s ) COCAINE (UR) NEGATIVE [place] Hospital ID Date Data Source [id number] 10/16/2019 01:34:00 PM EST [facility] CUT-OFF >= 200 NG/ML. Name Value Range Interpretation Description Data Sup porting Code Source(s) Document(s ) BENZODIAZEPINES NEGATIVE [place] (UR) [place] [facility] ID Date Data Source [id number] 10/16/2019 01:34:00 PM EST [facility] CUT-OFF >= 200 NG/ML. Name Value Range Interpretation Description Data Sup porting Code Source(s) Document(s ) BARBITURATES NEGATIVE [place] (UR) Hospital ID Date Data Source [id number] 10/16/2019 01:34:00 PM [facility] CUT-OFF >= 1000 NG/ML. Name Value Range Interpretation Description Data Sup porting Code Source(s) Document(s ) AMPHETAMINES NEGATIVE [place] (UR) Hospital ID Date Data Source [id number] 10/16/2019 08:04:00 AM [facility] REFERENCE RANGES: ANALGESIC: 0.0 - 10.0 MG/DL. ARTHRITIC THERAPY: 15.0 - 30.0 MG/DL. Name Value Range Interpretation Description Data Sup porting Code Source(s) Document(s ) Salicylates < 3.0 [place] [Mass/volume] mg/dL Hospital in Serum or Plasma ID Date Data Source [id number] 10/16/2019 08:04:00 AM [facility] THERAPEUTIC RANGE: 10.0-30.0 UG/MLTOXIC RANGE: 4 HRS AFTER INGESTION >150 UG/ML 12 HRS AFTER INGESTION >35 UG/ML Name Value Range Interpretation Description Data Sup porting Code Source(s) Document(s ) ACETAMINOPHEN < 10.0 [place] ug/mL Hospital ID Date Data Source [id number] 10/16/2019 08:04:00 AM [facility] TEST PERFORMED BY [employer] ULTRA SENSITIVE C[facility]AUR CHEMILUMINESCENCE METHOD. Name Value Range Interpretation Description Data Sup porting Code Source(s) Document(s ) Troponin 0.02 [place] I.cardiac ng/mL Hospital [Mass/volume ] in Serum or Plasma ID Date Data Source [id number] 10/16/2019 08:04:00 AM [facility] Name Value Range Interpretation Description Data Sup porting Code Source(s) Document(s ) Calcium 8.7 mg/dL [place] [Mass/volume Hospital ] in Serum or Plasma ID Date Data Source [id number] 10/16/2019 08:04:00 AM [facility] Name Value Range Interpretation Code Description Data Jamila rce(s) Supporting Document(s ) Urea 22.7 [place] nitrogen/Cre Hospital atinine [Mass Ratio] in Serum or Plasma ID Date Data Source [id number] 10/16/2019 08:04:00 AM [facility] Name Value Range Interpretation Description Data Sup porting Code Source(s) Document(s ) Creatinine 1.1 mg/dL [place] [Mass/volume] Hospital in Serum or Plasma ID Date Data Source [id number] 10/16/2019 08:04:00 AM [facility] Name Value Range Interpretation Description Data Sup porting Code Source(s) Document(s ) Urea 25 mg/dL [place] nitrogen Hospital [Mass/volume ] in Serum or Plasma ID Date Data Source [id number] 10/16/2019 08:04:[address] [facility] Value Range Interpretation Code Description Data Jamila rce(s) Supporting Document(s ) Anion gap in 8 [place] Serum or Hospital Plasma ID Date Data Source [id number] 10/16/2019 08:04:00 AM [facility] Name Value Range Interpretation Description Data Sup porting Code Source(s) Document(s ) Carbon 30 mmol/L [place] dioxide, Hospital total [Moles/volu me] in Serum or Plasma ID Date Data Source [id number] 10/16/2019 08:04:00 AM [facility] Name Value Range Interpretation Description Data Sup porting Code Source(s) Document(s ) Chloride 107 [place] [Moles/volum mmol/L Hospital e] in Serum or Plasma ID Date Data Source [id number] 10/16/2019 08:04:00 AM [facility] Name Value Range Interpretation Description Data Sup porting Code Source(s) Document(s ) Potassium 4.1 [place] [Moles/volume mmol/L Hospital ] in Serum or Plasma ID Date Data Source [id number] 10/16/2019 08:04:00 AM [facility] Name Value Range Interpretation Description Data Sup porting Code Source(s) Document(s ) Sodium 141 mmol/L [place] [Moles/volu Hospital ma] in Serum or Plasma ID Date Data Source [id number] 10/16/2019 08:04:00 AM [facility] Name Value Range Interpretation Description Data Sup porting Code Source(s) Document(s ) Glucose 70 mg/dL [place] [Mass/volume Hospital ] in Serum or Plasma ID Date Data Source [id number] 10/16/2019 08:04:[address] [facility] Value Range Interpretation Code Description Data Supporting Source(s) Document(s ) NUCLEATED RBCS 0.0 % [place] (AUTO Hospital DIFF%)DIS ID Date Data Source [id number] 10/16/2019 08:04:[address] [facility] Value Range Interpretation Description Data Sup porting Code Source(s) Document(s ) Differential AUTOMATED [place] cell count [facility] method - Blood ID Date Data Source [id number] 10/16/2019 08:04:[address] [facility] Value Range Interpretation Description Data Sup porting Code Source(s) Document(s ) Immature 0.02 [place] granulocytes 10*3/uL Hospital [#/volume] in Blood by Automated count ID Date Data Source [id number] 10/16/2019 08:04:00 AM [facility] Name Value Range Interpretation Description Data Sup porting Code Source(s) Document(s ) Basophils 0.04 [place] [#/volume] in 10*3/uL Hospital Blood by Automated count ID Date Data Source [id number] 10/16/2019 08:04:00 AM EST [facility] Name Value Range Interpretation Description Data Sup porting Code Source(s) Document(s ) Eosinophils 0.16 [place] [#/volume] in 10*3/uL Hospital Blood by Automated count ID Date Data Source [id number] 10/16/2019 08:04:00 AM [facility] Name Value Range Interpretation Description Data Sup porting Code Source(s) Document(s ) Monocytes 0.64 [place] [#/volume] in 10*3/uL Hospital Blood by Automated count ID Date Data Source [id number] 10/16/2019 08:04:[address] [facility] Value Range Interpretation Description Data Sup porting Code Source(s) Document(s ) Lymphocytes 4.07 [place] [#/volume] in 10*3/uL Hospital Blood by Automated count ID Date Data Source [id number] 10/16/2019 08:04:[address] [facility] Value Range Interpretation Description Data Sup porting Code Source(s) Document(s ) Neutrophils 1.59 [place] [#/volume] in 10*3/uL [facility] Blood by Automated count ID Date Data Source [id number] 10/16/2019 08:04:[address] [facility] Value Range Interpretation Description Data Sup porting Code Source(s) Document(s ) Nucleated 0.0 % [place] erythrocytes/10 Hospital 0 leukocytes [Ratio] in Blood by Automated count ID Date Data Source [id number] 10/16/2019 08:04:[address] [facility] Value Range Interpretation Description Data Sup porting Code Source(s) Document(s ) Immature 0.3 % [place] granulocytes/10 Hospital 0 leukocytes in Blood by Automated count ID Date Data Source [id number] 10/16/2019 08:04:00 AM EST [facility] Name Value Range Interpretation Description Data Sup porting Code Source(s) Document(s ) Basophils/100 0.6 % [place] leukocytes in Hospital Blood by Automated count ID Date Data Source [id number] 10/16/2019 08:04:00 AM EST [place] [facility] Name Value Range Interpretation Description Data Sup porting Code Source(s) Document(s ) Eosinophils/100 2.5 % [place] leukocytes in Hospital Blood by Automated count ID Date Data Source [id number] 10/16/2019 08:04:00 AM EST [facility] Name Value Range Interpretation Description Data Sup porting Code Source(s) Document(s ) Monocytes/100 9.8 % [place] leukocytes in [facility] Blood by Automated count ID Date Data Source [id number] 10/16/2019 08:04:00 AM EST [facility] Name Value Range Interpretation Description Data Sup porting Code Source(s) Document(s ) Lymphocytes/10 62.4 % [place] 0 leukocytes Hospital in Blood by Automated count ID Date Data Source [id number] 10/16/2019 08:04:00 AM EST [facility] Name Value Range Interpretation Description Data Sup porting Code Source(s) Document(s ) Neutrophils/10 24.4 % [place] 0 leukocytes Hospital in Blood by Automated count ID Date Data Source [id number] 10/16/2019 08:04:00 AM EST [facility] Name Value Range Interpretation Description Data Sup porting Code Source(s) Document(s ) Platelet mean 9.7 fL [place] volume Hospital [Entitic volume] in Blood by Automated count ID Date Data Source [id number] 10/16/2019 08:04:00 AM EST [facility] Name Value Range Interpretation Description Data Sup porting Code Source(s) Document(s ) Platelets 199 [place] [#/volume] in 10*3/uL Hospital Blood by Automated count ID Date Data Source [id number] 10/16/2019 08:04:[address] [facility] Value Range Interpretation Description Data Sup porting Code Source(s) Document(s ) Erythrocyte 14.4 % [place] distribution Hospital width [Ratio] by Automated count ID Date Data Source [id number] 10/16/2019 08:04:[address] [facility] Value Range Interpretation Description Data Sup porting Code Source(s) Document(s ) Erythrocyte mean 32.4 [place] corpuscular g/dL [facility] hemoglobin concentration [Mass/volume] by Automated count ID Date Data Source [id number] 10/16/2019 08:04:[address] [facility] Value Range Interpretation Description Data Sup porting Code Source(s) Document(s ) Erythrocyte 27.1 pg [facility] corpuscular hemoglobin [Entitic mass] by Automated count ID Date Data Source [id number] 10/16/2019 08:04:[address] [facility] Value Range Interpretation Description Data Sup porting Code Source(s) Document(s ) Erythrocyte 83.5 fL [facility] corpuscular volume [Entitic volume] by Automated count ID Date Data Source [id number] 10/16/2019 08:04:[address] [facility] Value Range Interpretation Description Data Sup porting Code Source(s) Document(s ) Hematocrit 33.3 % [place] [Volume Hospital Fraction] of Blood by Automated count ID Date Data Source [id number] 10/16/2019 08:04:[address] [facility] Value Range Interpretation Description Data Sup porting Code Source(s) Document(s ) Hemoglobin 10.8 g/dL [place] [Mass/volume] Hospital in Blood ID Date Data Source [id number] 10/16/2019 08:04:00 AM [facility] Name Value Range Interpretation Description Data Sup porting Code Source(s) Document(s ) Erythrocytes 3.99 [place] [#/volume] in 10*6/uL Hospital Blood by Automated count ID Date Data Source [id number] 10/16/2019 08:04:00 AM [facility] Name Value Range Interpretation Description Data Sup porting Code Source(s) Document(s ) Leukocytes 6.5 [place] [#/volume] in 10*3/uL Hospital Blood by Automated count ID Date Data Source [id number] 10/16/2019 08:04:00 AM [facility] REFERENCE RANGES: NONE DETECTED <20 MG/DL NONE TO MILD EUPHORIA 20-49 MG/DL MILD EUPHORIA 50-99 MG/DL MODERATE EUPHORIA 100-149 MG/DL INTOXICATION 150-300 MG/DL Name Value Range Interpretation Description Data Sup porting Code Source(s) Document(s ) Ethanol < 20 [place] [Mass/volume mg/dL Hospital ] in Serum or Plasma ID Date Data Source [id number] 10/16/2019 08:04:00 AM [facility] TEST RESULT IS A TOTAL TRICYCLIC VALUE.T RICYCLIC ANTIDEPRESSANT REFERENCE RANGE: AMITRIPTYLINE AND METABOLITE (NORTRIPTYL INE) TOTAL THERAPEUTIC: 75 - 225 NG/ML. TOTAL TOXIC: > 400 NG/ML. NORTRIPTYLINE ONLY TOTAL THERAPEUTIC: 50 - 150 NG/ML. TOTAL TOXIC: > 400 NG/ML. IMIPRAMINE AND METABOLITE (DESIPRAMINE) TOTAL THERAPEUTIC: 125 - 175 NG/ML. TOTAL TOXIC: > 400 NG/ML. Name Value Range Interpretation Description Data Sup porting Code Source(s) Document(s ) TRICYCLIC < 80 [place] ANTIDEPRESSANT ng/mL Hospital ID Date Data Source [id number] 10/15/2019 09:05:00 PM [facility] THERAPEUTIC RANGES:UNFRACTIONATED HEPARI N THERAPY: 60-90 SECONDSARGATROBAN THERAPY: 49-99 SECONDS Name Value Range Interpretation Description Data Sup porting Code Source(s) Document(s ) aPTT in 33.8 s [place] Platelet poor [facility] plasma by Coagulation assay ID Date Data Source [id number] 10/15/2019 09:05:00 PM [facility] THERAPEUTIC RANGE FOR STANDARD ORALANTIC OAGULANT THERAPY: 2.0-3.0THERAPEUTIC RANGE FOR HIGH DOSE ORALANTICOAGULANT THERAPY (MECHANICAL HEARTVALVE REPLACEMENT): 2.5-3.5 Name Value Range Interpretation Description Data Sup porting Code Source(s) Document(s ) INR in Platelet 1.1 [place] poor plasma by Hospital Coagulation assay ID Date Data Source [id number] 10/15/2019 09:05:00 PM [facility] Name Value Range Interpretation Description Data Sup porting Code Source(s) Document(s ) PT panel - 12.8 s [place] Platelet poor [facility] plasma by Coagulation assay ID Date Data Source [id number] 10/07/2019 11:46:00 AM [facility] [employer] Final Inspector:CARMEN UMANA Name Value Range Interpretation Description Data Sup porting Code Source(s) Document(s ) Glucose 105 mg/dL [place] [Mass/volume] [facility] in Capillary blood by Glucometer ID Date Data Source [id number] 10/07/2019 07:48:00 AM [facility] Name Value Range Interpretation Description Data Sup porting Code Source(s) Document(s ) Calcium 9.2 mg/dL [place] [Mass/volume Hospital ] in Serum or Plasma ID Date Data Source [id number] 10/07/2019 07:48:00 AM EST [place] [facility] Name Value Range Interpretation Code Description Data Jamila rce(s) Supporting Document(s ) Urea 33.1 [place] nitrogen/Cre Hospital atinine [Mass Ratio] in Serum or Plasma ID Date Data Source [id number] 10/07/2019 07:48:00 AM [facility] Name Value Range Interpretation Description Data Sup porting Code Source(s) Document(s ) Creatinine 1.3 mg/dL [place] [Mass/volume] Hospital in Serum or Plasma ID Date Data Source [id number] 10/07/2019 07:48:[address] [facility] Value Range Interpretation Description Data Sup porting Code Source(s) Document(s ) Urea 43 mg/dL [place] nitrogen Hospital [Mass/volume ] in Serum or Plasma ID Date Data Source [id number] 10/07/2019 07:48:[address] [facility] Value Range Interpretation Code Description Data Jamila rce(s) Supporting Document(s ) Anion gap in 9 [place] Serum or Hospital Plasma ID Date Data Source [id number] 10/07/2019 07:48:00 AM [facility] Name Value Range Interpretation Description Data Sup porting Code Source(s) Document(s ) Carbon 30 mmol/L [place] dioxide, Hospital total [Moles/volu me] in Serum or Plasma ID Date Data Source [id number] 10/07/2019 07:48:00 AM [facility] Name Value Range Interpretation Description Data Sup porting Code Source(s) Document(s ) Chloride 108 [place] [Moles/volum mmol/L Hospital e] in Serum or Plasma ID Date Data Source [id number] 10/07/2019 07:48:[address] [facility] Value Range Interpretation Description Data Sup porting Code Source(s) Document(s ) Potassium 4.2 [place] [Moles/volume mmol/L Hospital ] in Serum or Plasma ID Date Data Source [id number] 10/07/2019 07:48:[address] [facility] Value Range Interpretation Description Data Sup porting Code Source(s) Document(s ) Sodium 143 mmol/L [place] [Moles/volu Hospital ma] in Serum or Plasma ID Date Data Source [id number] 10/07/2019 07:48:[address] [facility] Value Range Interpretation Description Data Sup porting Code Source(s) Document(s ) Glucose 137 mg/dL [place] [Mass/volume Hospital ] in Serum or Plasma ID Date Data Source [id number] 10/07/2019 07:48:[address] [facility] Value Range Interpretation Code Description Data Supporting Source(s) Document(s ) NUCLEATED RBCS 0.0 % [place] (AUTO Hospital DIFF%)DIS ID Date Data Source [id number] 10/07/2019 07:48:[address] [facility] Value Range Interpretation Description Data Sup porting Code Source(s) Document(s ) Differential AUTOMATED [place] cell count [facility] method - Blood ID Date Data Source [id number] 10/07/2019 07:48:[address] [facility] Value Range Interpretation Description Data Sup porting Code Source(s) Document(s ) Immature 0.01 [place] granulocytes 10*3/uL Hospital [#/volume] in Blood by Automated count ID Date Data Source [id number] 10/07/2019 07:48:[address] [facility] Value Range Interpretation Description Data Sup porting Code Source(s) Document(s ) Basophils 0.05 [place] [#/volume] in 10*3/uL Hospital Blood by Automated count ID Date Data Source [id number] 10/07/2019 07:48:[address] [facility] Value Range Interpretation Description Data Sup porting Code Source(s) Document(s ) Eosinophils 0.15 [place] [#/volume] in 10*3/uL Hospital Blood by Automated count ID Date Data Source [id number] 10/07/2019 07:48:[address] [facility] Value Range Interpretation Description Data Sup porting Code Source(s) Document(s ) Monocytes 0.59 [place] [#/volume] in 10*3/uL Hospital Blood by Automated count ID Date Data Source [id number] 10/07/2019 07:48:[address] [facility] Value Range Interpretation Description Data Sup porting Code Source(s) Document(s ) Lymphocytes 4.91 [place] [#/volume] in 10*3/uL [facility] Blood by Automated count ID Date Data Source [id number] 10/07/2019 07:48:[address] [facility] Value Range Interpretation Description Data Sup porting Code Source(s) Document(s ) Neutrophils 1.43 [place] [#/volume] in 10*3/uL [facility] Blood by Automated count ID Date Data Source [id number] 10/07/2019 07:48:[address] [facility] Value Range Interpretation Description Data Sup porting Code Source(s) Document(s ) Nucleated 0.0 % [place] erythrocytes/10 Hospital 0 leukocytes [Ratio] in Blood by Automated count ID Date Data Source [id number] 10/07/2019 07:48:[address] [facility] Value Range Interpretation Description Data Sup porting Code Source(s) Document(s ) Immature 0.1 % [place] granulocytes/10 Hospital 0 leukocytes in Blood by Automated count ID Date Data Source [id number] 10/07/2019 07:48:00 AM [facility] Hospital Name Value Range Interpretation Description Data Sup porting Code Source(s) Document(s ) Basophils/100 0.7 % [place] leukocytes in [facility] Blood by Automated count ID Date Data Source [id number] 10/07/2019 07:48:00 AM [facility] Name Value Range Interpretation Description Data Sup porting Code Source(s) Document(s ) Eosinophils/100 2.1 % [place] leukocytes in Hospital Blood by Automated count ID Date Data Source [id number] 10/07/2019 07:48:00 AM [facility] Name Value Range Interpretation Description Data Sup porting Code Source(s) Document(s ) Monocytes/100 8.3 % [place] leukocytes in [facility] Blood by Automated count ID Date Data Source [id number] 10/07/2019 07:48:00 AM [facility] Name Value Range Interpretation Description Data Sup porting Code Source(s) Document(s ) Lymphocytes/10 68.8 % [place] 0 leukocytes Hospital in Blood by Automated count ID Date Data Source [id number] 10/07/2019 07:48:00 AM [facility] Name Value Range Interpretation Description Data Sup porting Code Source(s) Document(s ) Neutrophils/10 20.0 % [place] 0 leukocytes Hospital in Blood by Automated count ID Date Data Source [id number] 10/07/2019 07:48:00 AM [facility] Name Value Range Interpretation Description Data Sup porting Code Source(s) Document(s ) Platelet mean 10.0 fL [place] volume Hospital [Entitic volume] in Blood by Automated count ID Date Data Source [id number] 10/07/2019 07:48:00 AM [facility] Name Value Range Interpretation Description Data Sup porting Code Source(s) Document(s ) Platelets 202 [place] [#/volume] in 10*3/uL Hospital Blood by Automated count ID Date Data Source [id number] 10/07/2019 07:48:[address] [facility] Value Range Interpretation Description Data Sup porting Code Source(s) Document(s ) Erythrocyte 14.4 % [place] distribution Hospital width [Ratio] by Automated count ID Date Data Source [id number] 10/07/2019 07:48:[address] [facility] Value Range Interpretation Description Data Sup porting Code Source(s) Document(s ) Erythrocyte mean 31.7 [place] corpuscular g/dL Hospital hemoglobin concentration [Mass/volume] by Automated count ID Date Data Source [id number] 10/07/2019 07:48:[address] [facility] Value Range Interpretation Description Data Sup porting Code Source(s) Document(s ) Erythrocyte 26.9 pg [facility] corpuscular hemoglobin [Entitic mass] by Automated count ID Date Data Source [id number] 10/07/2019 07:48:[address] [facility] Value Range Interpretation Description Data Sup porting Code Source(s) Document(s ) Erythrocyte 84.9 fL [facility] corpuscular volume [Entitic volume] by Automated count ID Date Data Source [id number] 10/07/2019 07:48:[address] [facility] Value Range Interpretation Description Data Sup porting Code Source(s) Document(s ) Hematocrit 32.5 % [place] [Volume Hospital Fraction] of Blood by Automated count ID Date Data Source [id number] 10/07/2019 07:48:[address] [facility] Value Range Interpretation Description Data Sup porting Code Source(s) Document(s ) Hemoglobin 10.3 g/dL [place] [Mass/volume] Hospital in Blood ID Date Data Source [id number] 10/07/2019 07:48:00 AM [facility] Name Value Range Interpretation Description Data Sup porting Code Source(s) Document(s ) Erythrocytes 3.83 [place] [#/volume] in 10*6/uL Hospital Blood by Automated count ID Date Data Source [id number] 10/07/2019 07:48:00 AM [facility] Name Value Range Interpretation Description Data Sup porting Code Source(s) Document(s ) Leukocytes 7.1 [place] [#/volume] in 10*3/uL Hospital Blood by Automated count ID Date Data Source [id number] 10/06/2019 04:08:00 PM [facility] TEST PERFORMED BY [employer] [employer] [facility] SENSIT[facility] CHEMILUMINESCENCE METHOD. Name Value Range Interpretation Description Data Sup porting Code Source(s) Document(s ) Troponin 0.02 [place] I.cardiac ng/mL Hospital [Mass/volume ] in Serum or Plasma ID Date Data Source [id number] 10/06/2019 11:18:00 AM [facility] Name Value Range Interpretation Description Data Sup porting Code Source(s) Document(s ) GLUCOSE RN Notified [facility] Hospital ID Date Data Source [id number] 10/06/2019 11:18:00 AM [facility] Name Value Range Interpretation Description Data Sup porting Code Source(s) Document(s ) GLUCOSE RN Notified [facility] Hospital ID Date Data Source [id number] 10/06/2019 08:29:00 AM [facility] Name Value Range Interpretation Description Data Sup porting Code Source(s) Document(s ) Natriuretic 88.8 [place] peptide B pg/mL Hospital [Mass/volume] in Serum or Plasma ID Date Data Source [id number] 10/06/2019 08:29:00 AM [facility] Name Value Range Interpretation Description Data Sup porting Code Source(s) Document(s ) Aspartate 23 U/L White aminotransferase [place] [Enzymatic Hospital activity/volume] in Serum or Plasma ID Date Data Source [id number] 10/06/2019 08:29:00 AM [facility] Name Value Range Interpretation Description Data Sup porting Code Source(s) Document(s ) Alanine 17 U/L [place] aminotransferase [place] [Enzymatic Hospital activity/volume] in Serum or Plasma ID Date Data Source [id number] 10/06/2019 08:29:00 AM [facility] Name Value Range Interpretation Description Data Sup porting Code Source(s) Document(s ) Alkaline 99 U/L [place] phosphatase Hospital [Enzymatic activity/volume ] in Serum or Plasma ID Date Data Source [id number] 10/06/2019 08:29:00 AM [facility] Name Value Range Interpretation Description Data Sup porting Code Source(s) Document(s ) Bilirubin.t 0.2 mg/dL [facility] [Mass/volum e] in Serum or Plasma ID Date Data Source [id number] 10/06/2019 08:29:00 AM [facility] Name Value Range Interpretation Code Description Data Jamila rce(s) Supporting Document(s ) Albumin/Glob 1.5 [place] ulin [Mass Hospital Ratio] in Serum or Plasma ID Date Data Source [id number] 10/06/2019 08:29:00 AM [facility] Name Value Range Interpretation Description Data Sup porting Code Source(s) Document(s ) Albumin 3.7 g/dL [place] [Mass/volume Hospital ] in Serum or Plasma ID Date Data Source [id number] 10/06/2019 08:29:00 AM [facility] Name Value Range Interpretation Description Data Sup porting Code Source(s) Document(s ) Protein 6.2 g/dL [place] [Mass/volume Hospital ] in Serum or Plasma ID Date Data Source [id number] 10/06/2019 08:29:00 AM [facility] THERAPEUTIC RANGES:UNFRACTIONATED HEPARI N THERAPY: 60-90 SECONDSARGATROBAN THERAPY: 49-99 SECONDS Name Value Range Interpretation Description Data Sup porting Code Source(s) Document(s ) aPTT in 34.4 s [place] Platelet poor [facility] plasma by Coagulation assay ID Date Data Source [id number] 10/06/2019 08:29:00 AM [facility] THERAPEUTIC RANGE FOR STANDARD ORALANTIC OAGULANT THERAPY: 2.0-3.0THERAPEUTIC RANGE FOR HIGH DOSE ORALANTICOAGULANT THERAPY (MECHANICAL HEARTVALVE REPLACEMENT): 2.5-3.5 Name Value Range Interpretation Description Data Sup porting Code Source(s) Document(s ) INR in Platelet 1.1 [place] poor plasma by [facility] Coagulation assay ID Date Data Source [id number] 10/06/2019 08:29:00 AM [facility] Name Value Range Interpretation Description Data Sup porting Code Source(s) Document(s ) PT panel - 12.1 s [place] Platelet poor [facility] plasma by Coagulation assay ID Date Data Source [id number] 10/06/2019 08:29:00 AM [facility] Name Value Range Interpretation Description Data Sup porting Code Source(s) Document(s ) Natriuretic 88.8 [place] peptide B pg/mL Hospital [Mass/volume] in Serum or Plasma ID Date Data Source [id number] 10/06/2019 08:29:00 AM EST [place] [facility] Name Value Range Interpretation Description Data Sup porting Code Source(s) Document(s ) Aspartate 23 U/L [place] aminotransferase [place] [Enzymatic Hospital activity/volume] in Serum or Plasma ID Date Data Source [id number] 10/06/2019 08:29:00 AM EST [facility] Name Value Range Interpretation Description Data Sup porting Code Source(s) Document(s ) Alanine 17 U/L [place] aminotransferase [place] [Enzymatic Hospital activity/volume] in Serum or Plasma ID Date Data Source [id number] 10/06/2019 08:29:00 AM [facility] Name Value Range Interpretation Description Data Sup porting Code Source(s) Document(s ) Alkaline 99 U/L [place] phosphatase Hospital [Enzymatic activity/volume ] in Serum or Plasma ID Date Data Source [id number] 10/06/2019 08:29:00 AM [facility] Name Value Range Interpretation Description Data Sup porting Code Source(s) Document(s ) Bilirubin.t 0.2 mg/dL [facility] [Mass/volum e] in Serum or Plasma ID Date Data Source [id number] 10/06/2019 08:29:00 AM [facility] Name Value Range Interpretation Code Description Data Jamila rce(s) Supporting Document(s ) Albumin/Glob 1.5 [facility] [Mass Hospital Ratio] in Serum or Plasma ID Date Data Source [id number] 10/06/2019 08:29:00 AM [facility] Name Value Range Interpretation Description Data Sup porting Code Source(s) Document(s ) Albumin 3.7 g/dL [place] [Mass/volume Hospital ] in Serum or Plasma ID Date Data Source [id number] 10/06/2019 08:29:00 AM [facility] Name Value Range Interpretation Description Data Sup porting Code Source(s) Document(s ) Protein 6.2 g/dL [place] [Mass/volume Hospital ] in Serum or Plasma ID Date Data Source [id number] 05/03/2019 08:11:00 PM [facility] [employer] Final Inspector: SARINA MYRICK NT Name Value Range Interpretation Description Data Sup porting Code Source(s) Document(s ) Glucose 187 mg/dL [place] [Mass/volume] [facility] in Capillary blood by Glucometer ID Date Data Source [id number] 05/03/2019 07:04:00 PM [facility] THERAPEUTIC RANGE FOR STANDARD ORALANTIC OAGULANT THERAPY: 2.0-3.0THERAPEUTIC RANGE FOR HIGH DOSE ORALANTICOAGULANT THERAPY (MECHANICAL HEARTVALVE REPLACEMENT): 2.5-3.5 Name Value Range Interpretation Description Data Sup porting Code Source(s) Document(s ) INR in Platelet 1.2 [place] poor plasma by [facility] Coagulation assay ID Date Data Source [id number] 05/03/2019 07:04:00 PM [facility] Name Value Range Interpretation Description Data Sup porting Code Source(s) Document(s ) PT panel - 13.2 s [place] Platelet poor [facility] plasma by Coagulation assay ID Date Data Source [id number] 05/03/2019 12:21:00 PM [facility] TEST PERFORMED BY [employer] [facility] SENS[facility] CHEMILUMINESCENCE METHOD. Name Value Range Interpretation Description Data Sup porting Code Source(s) Document(s ) Troponin 0.42 [place] I.cardiac ng/mL Hospital [Mass/volume ] in Serum or Plasma ID Date Data Source [id number] 05/03/2019 12:21:00 PM [facility] THERAPEUTIC RANGES:UNFRACTIONATED HEPARI N THERAPY: 60-90 SECONDSARGATROBAN THERAPY: 49-99 SECONDS Name Value Range Interpretation Description Data Sup porting Code Source(s) Document(s ) aPTT in 53.1 s [place] Platelet poor [facility] plasma by Coagulation assay ID Date Data Source [id number] 05/03/2019 12:21:00 PM EDT [facility] Value Range Interpretation Description Data Sup porting Code Source(s) Document(s ) Platelet mean 11.5 fL [place] volume Hospital [Entitic volume] in Blood by Automated count ID Date Data Source [id number] 05/03/2019 12:21:00 PM EDT [facility] Value Range Interpretation Description Data Sup porting Code Source(s) Document(s ) Platelets 239 [place] [#/volume] in 10*3/uL Hospital Blood by Automated count ID Date Data Source [id number] 05/03/2019 12:21:00 PM EDT [facility] Value Range Interpretation Description Data Sup porting Code Source(s) Document(s ) Erythrocyte 16.0 % [facility] Hospital width [Ratio] by Automated count ID Date Data Source [id number] 05/03/2019 12:21:00 PM [facility] Value Range Interpretation Description Data Sup porting Code Source(s) Document(s ) Erythrocyte mean 33.3 [place] corpuscular g/dL Hospital hemoglobin concentration [Mass/volume] by Automated count ID Date Data Source [id number] 05/03/2019 12:21:00 PM [facility] Value Range Interpretation Description Data Sup porting Code Source(s) Document(s ) Erythrocyte 27.1 pg [facility] corpuscular hemoglobin [Entitic mass] by Automated count ID Date Data Source [id number] 05/03/2019 12:21:00 PM [facility] Value Range Interpretation Description Data Sup porting Code Source(s) Document(s ) Erythrocyte 81.4 fL [place] mean Hospital corpuscular volume [Entitic volume] by Automated count ID Date Data Source [id number] 05/03/2019 12:21:00 PM EDT [facility] Value Range Interpretation Description Data Sup porting Code Source(s) Document(s ) Hematocrit 34.2 % [place] [Volume Hospital Fraction] of Blood by Automated count ID Date Data Source [id number] 05/03/2019 12:21:00 PM EDT [facility] Value Range Interpretation Description Data Sup porting Code Source(s) Document(s ) Hemoglobin 11.4 g/dL [place] [Mass/volume] Hospital in Blood ID Date Data Source [id number] 05/03/2019 12:21:00 PM EDT [facility] Value Range Interpretation Description Data Sup porting Code Source(s) Document(s ) Erythrocytes 4.20 [place] [#/volume] in 10*6/uL Hospital Blood by Automated count ID Date Data Source [id number] 05/03/2019 12:21:00 PM EDT [facility] Value Range Interpretation Description Data Sup porting Code Source(s) Document(s ) Leukocytes 7.4 [place] [#/volume] in 10*3/uL Hospital Blood by Automated count ID Date Data Source [id number] 05/03/2019 11:37:00 AM EDT [facility] Value Range Interpretation Code Description Data Supporting Source(s) Document(s ) NUCLEATED RBCS 0.0 % [place] (AUTO Hospital DIFF%)DIS ID Date Data Source [id number] 05/03/2019 11:37:00 AM EDT [facility] Value Range Interpretation Description Data Sup porting Code Source(s) Document(s ) Differential AUTOMATED [place] cell count Hospital method - Blood ID Date Data Source [id number] 05/03/2019 11:37:00 AM EDT [facility] Name Value Range Interpretation Description Data Sup porting Code Source(s) Document(s ) Immature 0.01 [place] granulocytes 10*3/uL Hospital [#/volume] in Blood by Automated count ID Date Data Source [id number] 05/03/2019 11:37:00 AM EDT [facility] Name Value Range Interpretation Description Data Sup porting Code Source(s) Document(s ) Basophils 0.02 [place] [#/volume] in 10*3/uL Hospital Blood by Automated count ID Date Data Source [id number] 05/03/2019 11:37:00 AM EDT [facility] Value Range Interpretation Description Data Sup porting Code Source(s) Document(s ) Eosinophils 0.12 [place] [#/volume] in 10*3/uL Hospital Blood by Automated count ID Date Data Source [id number] 05/03/2019 11:37:00 AM EDT [facility] Name Value Range Interpretation Description Data Sup porting Code Source(s) Document(s ) Monocytes 0.45 [place] [#/volume] in 10*3/uL Hospital Blood by Automated count ID Date Data Source [id number] 05/03/2019 11:37:00 AM EDT [facility] Name Value Range Interpretation Description Data Sup porting Code Source(s) Document(s ) Lymphocytes 4.28 [place] [#/volume] in 10*3/uL Hospital Blood by Automated count ID Date Data Source [id number] 05/03/2019 11:37:00 AM EDT [facility] Name Value Range Interpretation Description Data Sup porting Code Source(s) Document(s ) Neutrophils 1.51 [place] [#/volume] in 10*3/uL Hospital Blood by Automated count ID Date Data Source [id number] 05/03/2019 11:37:00 AM EDT [facility] Name Value Range Interpretation Description Data Sup porting Code Source(s) Document(s ) Nucleated 0.0 % [place] erythrocytes/10 Hospital 0 leukocytes [Ratio] in Blood by Automated count ID Date Data Source [id number] 05/03/2019 11:37:00 AM EDT [facility] Name Value Range Interpretation Description Data Sup porting Code Source(s) Document(s ) Immature 0.2 % [place] granulocytes/10 Hospital 0 leukocytes in Blood by Automated count ID Date Data Source [id number] 05/03/2019 11:37:00 AM EDT [facility] Value Range Interpretation Description Data Sup porting Code Source(s) Document(s ) Basophils/100 0.3 % [place] leukocytes in Hospital Blood by Automated count ID Date Data Source [id number] 05/03/2019 11:37:00 AM EDT [facility] Value Range Interpretation Description Data Sup porting Code Source(s) Document(s ) Eosinophils/100 1.9 % [place] leukocytes in Hospital Blood by Automated count ID Date Data Source [id number] 05/03/2019 11:37:00 AM EDT [facility] Value Range Interpretation Description Data Sup porting Code Source(s) Document(s ) Monocytes/100 7.0 % [place] leukocytes in Hospital Blood by Automated count ID Date Data Source [id number] 05/03/2019 11:37:00 AM EDT [facility] Name Value Range Interpretation Description Data Sup porting Code Source(s) Document(s ) Lymphocytes/10 67.0 % [place] 0 leukocytes Hospital in Blood by Automated count ID Date Data Source [id number] 05/03/2019 11:37:00 AM [facility] Name Value Range Interpretation Description Data Sup porting Code Source(s) Document(s ) Neutrophils/10 23.6 % [place] 0 leukocytes Hospital in Blood by Automated count ID Date Data Source [id number] 05/03/2019 08:16:00 AM [facility] CUT-OFF >= 25 NG/ML.THE FINDINGS OF THE URINE DRUG SCREEN ARE USED SOLELY FOR PATIENT MANAGEMENT AND GUIDANCE. THE RESULTS ANTONIA ULD NOT BE USED FOR FORENSIC PURPOSE. ANY CLINICALLY UNSUSPECTED POSITIVE DRUG SCR EEN CAN BE CONFIRMED BY CALLING THE LABORATORY 3 DAYS WITHIN RECEIPT OF REPO RT. Name Value Range Interpretation Description Data Sup porting Code Source(s) Document(s ) Urine NEGATIVE [place] Phencyclidine [facility] (PCP) Prelim ID Date Data Source [id number] 05/03/2019 08:16:00 AM [facility] CUT-OFF >= 50 NG/ML. Name Value Range Interpretation Description Data Sup porting Code Source(s) Document(s ) Urine NEGATIVE [place] Marijuana [facility] (THC) Screen ID Date Data Source [id number] 05/03/2019 08:16:00 AM [facility] CUT-OFF >= 300 NG/ML. Name Value Range Interpretation Description Data Sup porting Code Source(s) Document(s ) Urine POSITIVE [place] Opiates Hospital Screen ID Date Data Source [id number] 05/03/2019 08:16:00 AM [facility] CUT-OFF >= 300 NG/ML. Name Value Range Interpretation Description Data Sup porting Code Source(s) Document(s ) Urine POSITIVE [place] Cocaine [facility] Screen ID Date Data Source [id number] 05/03/2019 08:16:00 AM [facility] CUT-OFF >= 200 NG/ML. Name Value Range Interpretation Description Data Sup porting Code Source(s) Document(s ) Urine NEGATIVE [facility] Hospital ID Date Data Source [id number] 05/03/2019 08:16:00 AM EDT [facility] CUT-OFF >= 200 NG/ML. Name Value Range Interpretation Description Data Sup porting Code Source(s) Document(s ) Urine NEGATIVE [place] [facility] Date Data Source [id number] 05/03/2019 08:16:00 AM EDT [facility] CUT-OFF >= 1000 NG/ML. Name Value Range Interpretation Description Data Sup porting Code Source(s) Document(s ) Urine NEGATIVE [place] Amphetamines [facility] Screen ID Date Data Source [id number] 05/03/2019 05:26:00 AM EDT [facility] Name Value Range Interpretation Description Data Sup porting Code Source(s) Document(s ) Calcium 9.3 mg/dL [place] [Mass/volume Hospital ] in Serum or Plasma ID Date Data Source [id number] 05/03/2019 05:26:00 AM [facility] Name Value Range Interpretation Code Description Data Jamila rce(s) Supporting Document(s ) Urea 19.0 [place] nitrogen/Cre Hospital atinine [Mass Ratio] in Serum or Plasma ID Date Data Source [id number] 05/03/2019 05:26:00 AM T [facility] Name Value Range Interpretation Description Data Sup porting Code Source(s) Document(s ) Creatinine 1.0 mg/dL [place] [Mass/volume] Hospital in Serum or Plasma ID Date Data Source [id number] 05/03/2019 05:26:00 AM [facility] Name Value Range Interpretation Description Data Sup porting Code Source(s) Document(s ) Urea 19 mg/dL [place] nitrogen Hospital [Mass/volume ] in Serum or Plasma ID Date Data Source [id number] 05/03/2019 05:26:00 AM EDT [place] [facility] Name Value Range Interpretation Code Description Data Jamila rce(s) Supporting Document(s ) Anion gap in 17 [place] Serum or [facility] Plasma ID Date Data Source [id number] 05/03/2019 05:26:00 AM EDT [facility] Name Value Range Interpretation Description Data Sup porting Code Source(s) Document(s ) Carbon 25 mmol/L [place] dioxide, Hospital total [Moles/volu me] in Serum or Plasma ID Date Data Source [id number] 05/03/2019 05:26:00 AM EDT [facility] Name Value Range Interpretation Description Data Sup porting Code Source(s) Document(s ) Chloride 104 [place] [Moles/volum mmol/L Hospital e] in Serum or Plasma ID Date Data Source [id number] 05/03/2019 05:26:00 AM EDT [facility] Name Value Range Interpretation Description Data Sup porting Code Source(s) Document(s ) Potassium 3.8 [place] [Moles/volume mmol/L Hospital ] in Serum or Plasma ID Date Data Source [id number] 05/03/2019 05:26:00 AM EDT [facility] Name Value Range Interpretation Description Data Sup porting Code Source(s) Document(s ) Sodium 142 mmol/L [place] [Moles/volu Hospital me] in Serum or Plasma ID Date Data Source [id number] 05/03/2019 05:26:00 AM EDT [facility] Name Value Range Interpretation Description Data Sup porting Code Source(s) Document(s ) Glucose 123 mg/dL [place] [Mass/volume Hospital ] in Serum or Plasma ID Date Data Source [id number] 05/02/2019 12:26:00 PM [facility] LOWEST MALE AND LOW FEMALE CORONARY HEAR T DISEASE RISK Name Value Range Interpretation Description Data Sup porting Code Source(s) Document(s ) Cholesterol 2.4 [place] .total/Chol {ratio} Hospital esterol in HDL [Mass Ratio] in Serum or Plasma ID Date Data Source [id number] 05/02/2019 12:26:00 PM [facility] Name Value Range Interpretation Description Data Sup porting Code Source(s) Document(s ) Cholesterol in 17 mg/dL [place] VLDL Hospital [Mass/volume] in Serum or Plasma by calculation ID Date Data Source [id number] 05/02/2019 12:26:00 PM [facility] Name Value Range Interpretation Description Data Sup porting Code Source(s) Document(s ) Cholesterol in 55 mg/dL [place] LDL Hospital [Mass/volume] in Serum or Plasma by Direct assay ID Date Data Source [id number] 05/02/2019 12:26:00 PM [facility] Name Value Range Interpretation Description Data Sup porting Code Source(s) Document(s ) Cholesterol in 54 mg/dL [place] HDL Hospital [Mass/volume] in Serum or Plasma ID Date Data Source [id number] 05/02/2019 12:26:00 PM [facility] Name Value Range Interpretation Description Data Sup porting Code Source(s) Document(s ) Triglyceride 89 mg/dL [place] [Mass/volume] in Hospital Serum or Plasma ID Date Data Source [id number] 05/02/2019 12:26:00 PM [facility] Name Value Range Interpretation Description Data Sup porting Code Source(s) Document(s ) Cholesterol 132 mg/dL [place] [Mass/volume] Hospital in Serum or Plasma ID Date Data Source [id number] 05/01/2019 07:45:00 AM EDT [facility] Name Value Range Interpretation Description Data Sup porting Code Source(s) Document(s ) Natriuretic 204.9 [place] peptide B pg/mL Hospital [Mass/volume] in Serum or Plasma ID Date Data Source [id number] 05/01/2019 01:29:00 AM EDT [facility] Name Value Range Interpretation Description Data Sup porting Code Source(s) Document(s ) Magnesium 1.5 mg/dL [place] [Mass/volume] Hospital in Serum or Plasma ID Date Data Source [id number] 02/25/2019 12:55:00 PM EDT [facility] Name Value Range Interpretation Description Data Sup porting Code Source(s) Document(s ) Aspartate 79 U/L 10-48 Above high normal AST White aminotransferase [place] [Enzymatic Hospital activity/volume] in Serum or Plasma ID Date Data Source [id number] 02/25/2019 12:55:00 PM EDT [facility] Name Value Range Interpretation Description Data Sup porting Code Source(s) Document(s ) Alanine 13 U/L 8-35 ALANINE [facility] aminotransferase TRANSFERASE [place] [Enzymatic Hospital activity/volume] in Serum or Plasma ID Date Data Source [id number] 02/25/2019 12:55:00 PM EDT [facility] Name Value Range Interpretation Description Data Sup porting Code Source(s) Document(s ) Alkaline 83 U/L 41-147 ALKALINE [place] phosphatase PHOSPHATASE Hospital [Enzymatic activity/volum e] in Serum or Plasma ID Date Data Source [id number] 02/25/2019 12:55:00 PM EDT [facility] Name Value Range Interpretation Description Data Sup porting Code Source(s) Document(s ) Bilirubin. 0.5 mg/dL 0.3-1.2 TOTAL [place] total BILIRUBIN Hospital [Mass/volu me] in Serum or Plasma ID Date Data Source [id number] 02/25/2019 12:55:00 PM [facility] Name Value Range Interpretation Description Data Sup porting Code Source(s) Document(s ) Albumin/Gl 1.3 1.0-2.1 ALBUMIN/GLOBULI [place] obulin N RATIO Hospital [Mass Ratio] in Serum or Plasma ID Date Data Source [id number] 02/25/2019 12:55:00 PM [facility] Name Value Range Interpretation Description Data Sup porting Code Source(s) Document(s ) Albumin 3.3 g/dL 3.4-4.8 Below low normal ALBUMIN [place] [Mass/volum Hospital e] in Serum or Plasma ID Date Data Source [id number] 02/25/2019 12:55:00 PM [facility] Name Value Range Interpretation Description Data Sup porting Code Source(s) Document(s ) Protein 5.8 g/dL 5.7-8.2 TOTAL PROTEIN [place] [Mass/volum Hospital e] in Serum or Plasma ID Date Data Source [id number] 02/25/2019 12:55:00 PM [facility] Name Value Range Interpretation Description Data Sup porting Code Source(s) Document(s ) Calcium 8.9 mg/dL 8.3-10.6 CALCIUM [place] [Mass/volum Hospital e] in Serum or Plasma ID Date Data Source [id number] 02/25/2019 12:55:00 PM [facility] Name Value Range Interpretation Description Data Sup porting Code Source(s) Document(s ) Urea 28.0 6.0-20.0 Above high normal BUN/CREATININE [place] nitrogen/C RATIO Hospital reatinine [Mass Ratio] in Serum or Plasma ID Date Data Source [id number] 02/25/2019 12:55:00 PM EDT [facility] Name Value Range Interpretation Description Data Sup porting Code Source(s) Document(s ) Creatinine 1.5 0.6-1.1 Above high normal [facility] in Serum or Plasma ID Date Data Source [id number] 02/25/2019 12:55:00 PM EDT [facility] Name Value Range Interpretation Description Data Sup porting Code Source(s) Document(s ) Urea 42 mg/dL 6-20 Above high normal BLOOD UREA [facility] nitrogen NITROGEN Hospital [Mass/volume ] in Serum or Plasma ID Date Data Source [id number] 02/[facility] Interpretation Code Description Data Jamila rce(s) Supporting Document(s ) Anion gap in 13 6-18 ANION GAP [place] Serum or [facility] Plasma ID Date Data Source [id number] 02/25/2019 12:55:00 PM [facility] Name Value Range Interpretation Description Data Sup porting Code Source(s) Document(s ) Carbon 25 mmol/L 23-31 CARBON DIOXIDE [place] dioxide, Hospital total [Moles/vol ume] in Serum or Plasma ID Date Data Source [id number] 02/25/2019 12:55:00 PM [facility] Name Value Range Interpretation Description Data Sup porting Code Source(s) Document(s ) Chloride 100 98-107 CHLORIDE [place] [Moles/volum mmol/L Hospital e] in Serum or Plasma ID Date Data Source [id number] 02/25/2019 [facility] Interpretation Description Data Sup porting Code Source(s) Document(s ) Potassium 4.7 3.5-5.3 POTASSIUM [place] [Moles/volume mmol/L Hospital ] in Serum or Plasma ID Date Data Source [id number] 02/25/2019 12:55:00 PM [facility] Value Range Interpretation Description Data Sup porting Code Source(s) Document(s ) Sodium 133 136-145 Below low normal SODIUM [place] [Moles/vol mmol/L Hospital ume] in Serum or Plasma ID Date Data Source [id number] 02/25/2019 12:55:00 PM [facility] Name Value Range Interpretation Description Data Sup porting Code Source(s) Document(s ) Glucose 131 mg/dL 74-106 Above high normal GLUCOSE [place] [Mass/volum Hospital e] in Serum or Plasma ID Date Data Source [id number] 02/25/2019 12:55:00 PM [facility] Value Range Interpretation Code Description Data Jamila rce(s) Supporting Document(s ) 0.0 % 0-0.2 NUCLEATED RBCS [place] (AUTO DIFF%)DIS Hospital ID Date Data Source [id number] 02/25/2019 12:55:00 PM [facility] Value Range Interpretation Description Data Sup porting Code Source(s) Document(s ) Differential AUTOMATED DIFF TYPE [place] cell count [facility] method - Blood ID Date Data Source [id number] 02/25/2019 12:55:00 PM [facility] Value Range Interpretation Description Data Sup porting Code Source(s) Document(s ) Immature 0.04 0-0.3 IMM GRANS [place] granulocytes 10*3/uL (AUTO DIFF#) Hospital [#/volume] in Blood by Automated count ID Date Data Source [id number] 02/25/2019 12:55:00 PM [facility] Value Range Interpretation Description Data Sup porting Code Source(s) Document(s ) Basophils 0.02 0.0-0.1 BASOPHILS [place] [#/volume] 10*3/uL (AUTO DIFF #) Hospital in Blood by Automated count ID Date Data Source [id number] 02/25/2019 12:55:00 PM EDT [facility] Name Value Range Interpretation Description Data Sup porting Code Source(s) Document(s ) Eosinophils 0.01 0.0-0.6 EOSINOPHILS [place] [#/volume] in 10*3/uL (AUTO DIFF #) [place] Blood by Hospital Automated count ID Date Data Source [id number] 02/25/2019 12:55:00 PM EDT [facility] Value Range Interpretation Description Data Sup porting Code Source(s) Document(s ) Monocytes 0.86 0.0-1.2 MONOCYTES [place] [#/volume] 10*3/uL (AUTO DIFF #) Hospital in Blood by Automated count ID Date Data Source [id number] 02/25/2019 12:55:00 PM EDT [facility] Value Range Interpretation Description Data Sup porting Code Source(s) Document(s ) Lymphocytes 3.11 1.2-3.5 LYMPHOCYTES [place] [#/volume] in 10*3/uL (AUTO DIFF #) [place] Blood by [facility] Automated count ID Date Data Source [id number] 02/25/2019 [facility] Interpretation Description Data Sup porting Code Source(s) Document(s ) Neutrophils 6.82 1.5-6.6 Above high normal NEUTROPHILS [place] [#/volume] in 10*3/uL (AUTO DIFF #) [place] Blood by Hospital Automated count ID Date Data Source [id number] 02/25/2019 12:55:00 PM EDT [facility] Name Value Range Interpretation Description Data Sup porting Code Source(s) Document(s ) Nucleated 0.0 % 0-0.2 NUCLEATED RBCS [place] erythrocytes/1 (AUTO DIFF%) Hospital 00 leukocytes [Ratio] in Blood by Automated count ID Date Data Source [id number] 02/25/2019 12:55:00 PM [facility] Name Value Range Interpretation Description Data Sup porting Code Source(s) Document(s ) Immature 0.4 % 0-0.5 IMM GRANS (AUTO [place] granulocytes/1 DIFF%) [facility] 00 leukocytes in Blood by Automated count ID Date Data Source [id number] [facility]2019 [facility] Interpretation Description Data Sup porting Code Source(s) Document(s ) Basophils/100 0.2 % 0-1.0 BASOPHILS (AUTO [place] leukocytes in DIFF %) [facility] Blood by Automated count ID Date Data Source [id number] 02/25/2019 12:55:00 PM [facility] Name Value Range Interpretation Description Data Sup porting Code Source(s) Document(s ) Eosinophils/10 0.1 % 0-6.0 EOSINOPHILS [place] 0 leukocytes (AUTO DIFF %) Hospital in Blood by Automated count ID Date Data Source [id number] 02/25/2019 12:55:00 PM [facility] Name Value Range Interpretation Description Data Sup porting Code Source(s) Document(s ) Monocytes/100 7.9 % 4.0-12.0 MONOCYTES [place] leukocytes in (AUTO DIFF %) Hospital Blood by Automated count ID Date Data Source [id number] 02/25/2019 12:55:00 PM [facility] Name Value Range Interpretation Description Data Sup porting Code Source(s) Document(s ) Lymphocytes/1 28.6 % 20.0-48. LYMPHOCYTES [place] 00 leukocytes 0 (AUTO DIFF %) Hospital in Blood by Automated count ID Date Data Source [id number] 02/25/2019 12:55:00 PM EDT [facility] Name Value Range Interpretation Description Data Sup porting Code Source(s) Document(s ) Neutrophils/1 62.8 % 40.0-75. NEUTROPHILS [place] 00 leukocytes 0 (AUTO DIFF %) Hospital in Blood by Automated count ID Date Data Source [id number] 02/25/2019 12:55:00 PM EDT [facility] Name Value Range Interpretation Description Data Sup porting Code Source(s) Document(s ) Platelet 10.2 fL 9.6-12.8 MEAN PLATELET [place] mean volume VOLUME Hospital [Entitic volume] in Blood by Automated count ID Date Data Source [id number] 02/25/2019 [facility] Interpretation Description Data Sup porting Code Source(s) Document(s ) Platelets 183 150-400 PLATELET COUNT [place] [#/volume] 10*3/uL Hospital in Blood by Automated count ID Date Data Source [id number] 02/25/2019 12:55:00 PM [facility] Name Value Range Interpretation Description Data Sup porting Code Source(s) Document(s ) Erythrocyte 13.8 % 11.5-14. RED CELL [place] distribution 5 DISTRIBUTION [place] width [Ratio] WIDTH Hospital by Automated count ID Date Data Source [id number] 02/25/2019 12:55:00 PM [facility] Name Value Range Interpretation Description Data Sup porting Code Source(s) Document(s ) Erythrocyte mean 32.4 31.0-36. MEAN [place] corpuscular g/dL 0 CORPUSCULAR [place] hemoglobin HGB CONCEN Hospital concentration [Mass/volume] by Automated count ID Date Data Source [id number] 02/[facility]2019 [facility] Value Range Interpretation Description Data Sup porting Code Source(s) Document(s ) Erythrocyte 27.9 pg 27.0-34. MEAN [place] mean 0 CORPUSCULAR [place] corpuscular HEMOGLOBIN Hospital hemoglobin [Entitic mass] by Automated count ID Date Data Source [id number] 02/25/2019 12:55:00 PM [facility] Name Value Range Interpretation Description Data Sup porting Code Source(s) Document(s ) Erythrocyte 85.9 fL 80.0-96. MEAN [place] mean 0 CORPUSCULAR [place] corpuscular VOLUME Hospital volume [Entitic volume] by Automated count ID Date Data Source [id number] 02/25/2019 12:55:00 PM [facility] Value Range Interpretation Description Data Sup porting Code Source(s) Document(s ) Hematocrit 29.3 % 35.0-45.0 Below low normal HEMATOCRIT [place] [Volume Hospital Fraction] of Blood by Automated count ID Date Data Source [id number] 02/25/2019 12:55:00 PM [facility] Value Range Interpretation Description Data Sup porting Code Source(s) Document(s ) Hemoglobin 9.5 g/dL 11.8-15. Below low normal HEMOGLOBIN [place] [Mass/volume] 3 Hospital in Blood ID Date Data Source [id number] 02/25/2019 12:55:00 PM [facility] Value Range Interpretation Description Data Sup porting Code Source(s) Document(s ) Erythrocytes 3.41 3.80-5.1 Below low normal RED BLOOD [facility] [#/volume] in 10*6/uL 0 CELL COUNT [place] Blood by Hospital Automated count ID Date Data Source [id number] 02/25/2019 12:55:00 PM [facility] Value Range Interpretation Description Data Sup porting Code Source(s) Document(s ) Leukocytes 10.9 4.0-10.0 Above high normal WHITE BLOOD [place] [#/volume] in 10*3/uL CELL COUNT [facility] Blood by Automated count ID Date Data Source [id number] 02/25/2019 12:41:00 PM EDT [facility] [employer] Final Inspector: SAI HERNANDEZ Name Value Range Interpretation Description Data Sup porting Code Source(s) Document(s ) Glucose 169 74-106 Above high normal METER GLUCOSE [place] [Mass/volume] mg/dL Hospital in Capillary blood by Glucometer ID Date Data Source [id number] 12/21/2018 12:26:00 PM [facility] Truck Trailer Final Inspector: ANUGS DUARTE Name Value Range Interpretation Description Data Sup porting Code Source(s) Document(s ) Glucose 167 74-106 Above high normal METER GLUCOSE [place] [Mass/volume] mg/dL Hospital in Capillary blood by Glucometer ID Date Data Source [id number] 12/21/2018 05:31:00 AM [facility] Name Value Range Interpretation Description Data Sup porting Code Source(s) Document(s ) Calcium 9.0 mg/dL 8.3-10.6 CALCIUM [place] [Mass/volum Hospital e] in Serum or Plasma ID Date Data Source [id number] 12/21/2018 05:31:00 AM [facility] Name Value Range Interpretation Description Data Sup porting Code Source(s) Document(s ) Urea 16.8 6.0-20.0 BUN/CREATININE [place] nitrogen/C RATIO Hospital reatinine [Mass Ratio] in Serum or Plasma ID Date Data Source [id number] 12/21/2018 05:31:00 AM [facility] Name Value Range Interpretation Description Data Sup porting Code Source(s) Document(s ) Creatinine 1.3 0.6-1.1 Above high normal CREATININE [place] [Mass/volume] mg/dL Hospital in Serum or Plasma ID Date Data Source [id number] 12/21/2018 05:31:00 AM [facility] Name Value Range Interpretation Description Data Sup porting Code Source(s) Document(s ) Urea 22 mg/dL 6-20 Above high normal BLOOD UREA [facility] nitrogen NITROGEN Hospital [Mass/volume ] in Serum or Plasma ID Date Data Source [id number] 12/21/2018 05:31:00 AM [facility] Name Value Range Interpretation Code Description Data Jamila rce(s) Supporting Document(s ) Anion gap in 12 6-18 ANION GAP [place] Serum or [facility] Plasma ID Date Data Source [id number] 12/21/2018 05:31:00 AM [facility] Name Value Range Interpretation Description Data Sup porting Code Source(s) Document(s ) Carbon 24 mmol/L 23-31 CARBON DIOXIDE [place] dioxide, Hospital total [Moles/vol ume] in Serum or Plasma ID Date Data Source [id number] 12/21/2018 05:31:00 AM [facility] Name Value Range Interpretation Description Data Sup porting Code Source(s) Document(s ) Chloride 109 98-107 Above high normal CHLORIDE [place] [Moles/volum mmol/L Hospital e] in Serum or Plasma ID Date Data Source [id number] 12/21/2018 05:31:00 AM [facility] THIS RESULT HAS BEEN VERIFIED. Name Value Range Interpretation Description Data Sup porting Code Source(s) Document(s ) Potassium 4.2 3.5-5.3 POTASSIUM [place] [Moles/volume mmol/L Hospital ] in Serum or Plasma ID Date Data Source [id number] 12/21/2018 05:31:00 AM [facility] Name Value Range Interpretation Description Data Sup porting Code Source(s) Document(s ) Sodium 141 136-145 SODIUM [place] [Moles/vol mmol/L Hospital ume] in Serum or Plasma ID Date Data Source [id number] 12/21/2018 05:31:00 AM [facility] Name Value Range Interpretation Description Data Sup porting Code Source(s) Document(s ) Glucose 172 mg/dL 74-106 Above high normal GLUCOSE [place] [Mass/volum Hospital e] in Serum or Plasma ID Date Data Source [id number] 12/21/2018 05:31:00 AM [facility] Name Value Range Interpretation Description Data Sup porting Code Source(s) Document(s ) Platelet 10.2 fL 9.6-12.8 MEAN PLATELET [place] mean volume VOLUME Hospital [Entitic volume] in Blood by Automated count ID Date Data Source [id number] 12/21/2018 05:31:[address] [facility] Value Range Interpretation Description Data Sup porting Code Source(s) Document(s ) Platelets 180 150-400 PLATELET COUNT [place] [#/volume] 10*3/uL Hospital in Blood by Automated count ID Date Data Source [id number] 12/21/2018 05:31:[address] [facility] Value Range Interpretation Description Data Sup porting Code Source(s) Document(s ) Erythrocyte 13.6 % 11.5-14. RED CELL [place] distribution 5 DISTRIBUTION [place] width [Ratio] WIDTH Hospital by Automated count ID Date Data Source [id number] 12/21/2018 05:31:00 AM [facility] Name Value Range Interpretation Description Data Sup porting Code Source(s) Document(s ) Erythrocyte mean 32.0 31.0-36. MEAN [place] corpuscular g/dL 0 CORPUSCULAR [place] hemoglobin HGB CONCEN Hospital concentration [Mass/volume] by Automated count ID Date Data Source [id number] 12/21/2018 05:31:00 AM [facility] Name Value Range Interpretation Description Data Sup porting Code Source(s) Document(s ) Erythrocyte 27.2 pg 27.0-34. MEAN [place] mean 0 CORPUSCULAR [place] corpuscular HEMOGLOBIN Hospital hemoglobin [Entitic mass] by Automated count ID Date Data Source [id number] 12/21/2018 05:31:[address] [facility] Value Range Interpretation Description Data Sup porting Code Source(s) Document(s ) Erythrocyte 85.2 fL 80.0-96. MEAN [place] mean 0 CORPUSCULAR [place] corpuscular VOLUME Hospital volume [Entitic volume] by Automated count ID Date Data Source [id number] 12/21/2018 05:31:[address] [facility] Value Range Interpretation Description Data Sup porting Code Source(s) Document(s ) Hematocrit 32.2 % 35.0-45.0 Below low normal HEMATOCRIT [place] [Volume Hospital Fraction] of Blood by Automated count ID Date Data Source [id number] 12/21/2018 05:31:[address] [facility] Value Range Interpretation Description Data Sup porting Code Source(s) Document(s ) Hemoglobin 10.3 11.8-15. Below low normal HEMOGLOBIN [place] [Mass/volume] g/dL 3 Hospital in Blood ID Date Data Source [id number] 12/21/2018 05:31:[address] [facility] Value Range Interpretation Description Data Sup porting Code Source(s) Document(s ) Erythrocytes 3.78 3.80-5.1 Below low normal RED BLOOD [facility] [#/volume] in 10*6/uL 0 CELL COUNT [place] Blood by Hospital Automated count ID Date Data Source [id number] 12/21/2018 05:31:[address] [facility] Value Range Interpretation Description Data Sup porting Code Source(s) Document(s ) Leukocytes 7.1 4.0-10.0 WHITE BLOOD [place] [#/volume] in 10*3/uL CELL COUNT [facility] Blood by Automated count ID Date Data Source [id number] 12/20/2018 08:08:00 AM [facility] LOWEST MALE AND LOW FEMALE CORONARY HEAR T DISEASE RISK Name Value Range Interpretation Description Data Sup porting Code Source(s) Document(s ) Cholestero 2.5 0.0-5.0 CHOL/HDL [place] ltotal/Ch {ratio} Hospital olesterol in HDL [Mass Ratio] in Serum or Plasma ID Date Data Source [id number] 12/20/2018 08:08:00 AM [facility] Name Value Range Interpretation Description Data Sup porting Code Source(s) Document(s ) Cholesterol in 21 mg/dL 5-40 VLDLC [place] VLDL (CALCULATED) Hospital [Mass/volume] in Serum or Plasma by calculation ID Date Data Source [id number] 12/20/2018 08:08:00 AM [facility] Name Value Range Interpretation Description Data Sup porting Code Source(s) Document(s ) Cholesterol in 48 mg/dL 30-130 LDL [place] LDL CHOLESTEROL Hospital [Mass/volume] DIRECT in Serum or Plasma by Direct assay ID Date Data Source [id number] 12/20/2018 08:08:[address] [facility] Value Range Interpretation Description Data Sup porting Code Source(s) Document(s ) Cholesterol in 47 mg/dL 40-91 HDL [place] HDL CHOLESTEROL Hospital [Mass/volume] in Serum or Plasma ID Date Data Source [id number] 12/20/2018 08:08:[address] [facility] Value Range Interpretation Description Data Sup porting Code Source(s) Document(s ) Triglyceride 107 35-150 TRIGLYCERIDE [place] [Mass/volume] mg/dL Hospital in Serum or Plasma ID Date Data Source [id number] 12/20/2018 08:08:00 AM [facility] Name Value Range Interpretation Description Data Sup porting Code Source(s) Document(s ) Cholesterol 118 107-199 CHOLESTEROL [place] [Mass/volume] mg/dL Hospital in Serum or Plasma ID Date Data Source [id number] 12/20/2018 08:08:00 AM [facility] ADA RECOMMENDATIONS: NON-DIABETES: 4.0-6.0 % CONTROLLED DIABETES: 6.0-8.0 % UNCONTROLLED DIABETES: UP TO 20 % RECOMMENDED ADA RESULT FOR THERAPY: HEMO GLOBIN A1C RESULT LESS THAN 7%. NOTE: METHOD CHANGE EFFECTIVE 05/16/15. Name Value Range Interpretation Description Data Sup porting Code Source(s) Document(s ) Hemoglobin 6.7 % 4.2-6.3 Above high normal GLYCOHEMOGLOBIN [place] A1c/Hemoglobi Hospital n.total in Blood ID Date Data Source [id number] 12/20/2018 08:08:00 AM [facility] Name Value Range Interpretation Description Data Sup porting Code Source(s) Document(s ) Magnesium 1.5 mg/dL 1.3-2.7 MAGNESIUM [place] [Mass/volume] Hospital in Serum or Plasma ID Date Data Source [id number] 12/20/2018 08:08:00 AM [facility] THERAPEUTIC RANGES: UNFRACTIONATED HEPARIN THERAPY: 60-90 SE CONDS ARGATROBAN THERAPY: 49-99 SECONDS Name Value Range Interpretation Description Data Sup porting Code Source(s) Document(s ) aPTT in 34.0 s 28.6-39. ACT. PART. [place] Platelet poor 4 THROMBOPLASTIN [place] plasma by TIME Hospital Coagulation assay ID Date Data Source [id number] 12/20/2018 08:08:00 AM [facility] THERAPEUTIC RANGE FOR STANDARD ORAL ANTICOAGULANT THERAPY: 2.0-3.0 THERAPEUTIC RANGE FOR HIGH DOSE ORAL ANTICOAGULANT THERAPY (MECHANICAL HEART VALVE REPLACEMENT): 2.5-3.5 Name Value Range Interpretation Description Data Sup porting Code Source(s) Document(s ) INR in 1.2 INTERNATIONAL [place] Platelet poor NORMALIZED RATIO Hospital plasma by Coagulation assay ID Date Data Source [id number] 12/20/2018 08:08:00 AM [facility] Name Value Range Interpretation Description Data Sup porting Code Source(s) Document(s ) PT panel - 13.0 s 9.4-13.0 PROTHROMBIN [place] Platelet poor TIME Hospital plasma by Coagulation assay ID Date Data Source [id number] 12/20/2018 08:08:00 AM [facility] Name Value Range Interpretation Code Description Data Jamila rce(s) Supporting Document(s ) 0.0 % 0-0.2 NUCLEATED RBCS [place] (AUTO DIFF%)DIS Hospital ID Date Data Source [id number] 12/20/2018 08:08:00 AM [facility] Name Value Range Interpretation Description Data Sup porting Code Source(s) Document(s ) Differential AUTOMATED DIFF TYPE [place] cell count [facility] method - Blood ID Date Data Source [id number] 12/20/2018 08:08:00 AM [facility] Name Value Range Interpretation Description Data Sup porting Code Source(s) Document(s ) Immature 0.01 0-0.3 IMM GRANS [place] granulocytes 10*3/uL (AUTO DIFF#) Hospital [#/volume] in Blood by Automated count ID Date Data Source [id number] 12/20/2018 08:08:00 AM [facility] Name Value Range Interpretation Description Data Sup porting Code Source(s) Document(s ) Basophils 0.03 0.0-0.1 BASOPHILS [place] [#/volume] 10*3/uL (AUTO DIFF #) Hospital in Blood by Automated count ID Date Data Source [id number] 12/20/2018 08:08:[address] [facility] Value Range Interpretation Description Data Sup porting Code Source(s) Document(s ) Eosinophils 0.21 0.0-0.6 EOSINOPHILS [place] [#/volume] in 10*3/uL (AUTO DIFF #) [place] Blood by Hospital Automated count ID Date Data Source [id number] 12/20/2018 08:08:[address] [facility] Value Range Interpretation Description Data Sup porting Code Source(s) Document(s ) Monocytes 0.61 0.0-1.2 MONOCYTES [place] [#/volume] 10*3/uL (AUTO DIFF #) Hospital in Blood by Automated count ID Date Data Source [id number] 12/20/2018 08:08:[address] [facility] Value Range Interpretation Description Data Sup porting Code Source(s) Document(s ) Lymphocytes 4.40 1.2-3.5 Above high normal LYMPHOCYTES [place] [#/volume] in 10*3/uL (AUTO DIFF #) [place] Blood by [facility] Automated count ID Date Data Source [id number] 12/20/2018 08:08:[address] [facility] Value Range Interpretation Description Data Sup porting Code Source(s) Document(s ) Neutrophils 1.30 1.5-6.6 Below low normal NEUTROPHILS [place] [#/volume] in 10*3/uL (AUTO DIFF #) [place] Blood by Hospital Automated count ID Date Data Source [id number] 12/20/2018 08:08:[address] [facility] Value Range Interpretation Description Data Sup porting Code Source(s) Document(s ) Nucleated 0.0 % 0-0.2 NUCLEATED RBCS [place] erythrocytes/1 (AUTO DIFF%) Hospital 00 leukocytes [Ratio] in Blood by Automated count ID Date Data Source [id number] 12/20/2018 08:08:[address] [facility] Value Range Interpretation Description Data Sup porting Code Source(s) Document(s ) Immature 0.2 % 0-0.5 IMM GRANS (AUTO [place] granulocytes/1 DIFF%) Hospital 00 leukocytes in Blood by Automated count ID Date Data Source [id number] 12/20/2018 08:08:00 AM [facility] Name Value Range Interpretation Description Data Sup porting Code Source(s) Document(s ) Basophils/100 0.5 % 0-1.0 BASOPHILS (AUTO [place] leukocytes in DIFF %) Hospital Blood by Automated count ID Date Data Source [id number] 12/20/2018 08:08:00 AM [facility] Name Value Range Interpretation Description Data Sup porting Code Source(s) Document(s ) Eosinophils/10 3.2 % 0-6.0 EOSINOPHILS [place] 0 leukocytes (AUTO DIFF %) Hospital in Blood by Automated count ID Date Data Source [id number] 12/20/2018 08:08:00 AM [facility] Name Value Range Interpretation Description Data Sup porting Code Source(s) Document(s ) Monocytes/100 9.3 % 4.0-12.0 MONOCYTES [place] leukocytes in (AUTO DIFF %) Hospital Blood by Automated count ID Date Data Source [id number] 12/20/2018 08:08:00 AM [facility] Name Value Range Interpretation Description Data Sup porting Code Source(s) Document(s ) Lymphocytes/1 67.1 % 20.0-48. Above high normal LYMPHOCYTES [place] 00 leukocytes 0 (AUTO DIFF %) Hospital in Blood by Automated count ID Date Data Source [id number] 12/20/2018 08:08:00 AM [facility] Name Value Range Interpretation Description Data Sup porting Code Source(s) Document(s ) Neutrophils/1 19.7 % 40.0-75. Below low normal NEUTROPHILS [place] 00 leukocytes 0 (AUTO DIFF %) Hospital in Blood by Automated count ID Date Data Source [id number] 12/19/2018 10:01:00 PM [facility] TEST PERFORMED BY [employer] [facility] CHEMILUMINESCENCE METHOD. Name Value Range Interpretation Description Data Sup porting Code Source(s) Document(s ) Troponin 0.09 0.00-0.59 TROPONIN [place] I.cardiac ng/mL Hospital [Mass/volume ] in Serum or Plasma ID Date Data Source [id number] 12/19/2018 11:34:00 AM [facility] Name Value Range Interpretation Description Data Sup porting Code Source(s) Document(s ) Thyrotropin 1.557 0.350-5. THYROID [place] [Units/volume] u[IU]/mL 500 STIMULATING [place] in Serum or HORMONE Hospital Plasma by Detection limit <= 0.005 mIU/L ID Date Data Source [id number] 12/19/2018 11:34:00 AM [facility] Name Value Range Interpretation Description Data Sup porting Code Source(s) Document(s ) Natriuretic 54.6 0.0-100. B-TYPE [place] peptide B pg/mL 0 NATRIURETIC [place] [Mass/volume] PEPTIDE Hospital in Serum or Plasma ID Date Data Source [id number] 12/19/2018 05:05:00 AM [facility] CUT-OFF >= 25 NG/ML. THE FINDINGS OF THE URINE DRUG SCREEN AR E USED SOLELY FOR PATIENT MANAGEMENT AND GUIDANCE. THE RES ULTS SHOULD NOT BE USED FOR FORENSIC PURPOSE. ANY CLINICALL Y UNSUSPECTED POSITIVE DRUG SCREEN CAN BE CONFIRMED BY CALLING THE LABORATORY 3 DAYS WITHIN RECEIPT OF REPO RT. Name Value Range Interpretation Code Description Data Jamila rce(s) Supporting Document(s ) NEGATIVE NEGATIVE PCP (UR) [facility] ID Date Data Source [id number] 12/19/2018 05:05:00 AM [facility] CUT-OFF >= 50 NG/ML. Name Value Range Interpretation Code Description Data Jamila rce(s) Supporting Document(s ) NEGATIVE NEGATIVE THC (UR) [facility] ID Date Data Source [id number] 12/19/2018 05:05:00 AM EST [facility] CUT-OFF >= 300 NG/ML. Name Value Range Interpretation Code Description Data Jamila rce(s) Supporting Document(s ) POSITIVE NEGATIVE OPIATES (UR) [facility] ID Date Data Source [id number] 12/19/2018 05:05:00 AM EST [facility] CUT-OFF >= 300 NG/ML. Name Value Range Interpretation Code Description Data Jamila rce(s) Supporting Document(s ) POSITIVE NEGATIVE COCAINE (UR) [facility] ID Date Data Source [id number] 12/19/2018 05:05:00 AM EST [facility] CUT-OFF >= 200 NG/ML. Name Value Range Interpretation Description Data Sup porting Code Source(s) Document(s ) POSITIVE NEGATIVE BENZODIAZEPINES [place] (UR) Hospital ID Date Data Source [id number] 12/19/2018 05:05:00 AM EST [facility] CUT-OFF >= 200 NG/ML. Name Value Range Interpretation Description Data Sup porting Code Source(s) Document(s ) NEGATIVE NEGATIVE BARBITURATES [place] (UR) Hospital ID Date Data Source [id number] 12/19/2018 05:05:00 AM EST [facility] CUT-OFF >= 1000 NG/ML. Name Value Range Interpretation Description Data Sup porting Code Source(s) Document(s ) NEGATIVE NEGATIVE AMPHETAMINES [place] (UR) Hospital Procedure Social History Code Duration Value Status Description Data Source(s ) Smoking 10/06/2019 Never smoked completed Never smoked [facility] 01:[facility]00 PM EST tobacco tobacco (finding) Ho spital (finding) Smoking 05/01/2019 Current some completed Current some day [place] 03:19:00 AM EDT day smoker smoker Hospital Smoking Unknown if ever completed Unknown if ever [facility] [place] smoked smoked Hospital Smoking Unknown if ever completed Unknown if ever [facility] [place] smoked smoked Hospital Smoking Current some completed Current some day [place] day smoker smoker Hospital Vital Signs ID Date Data Source [id number] Name Value Range Interpretation Code Description Data Source(s) Body temperature 37.06255 37.43105 [facility] Body temperature 98.8 [degF] 98.8 [degF] [facility] Body mass index 37.0 kg/m2 37.0 kg/m2 [place] [facility] (BMI) [Ratio] Hospital Body weight 230.49 230.49 [lb_av] [facility] ins [lb_av] Hospital Body temperature 36.60280 36.86968 [facility] Body temperature 97.9 [degF] 97.9 [degF] [facility] Body mass index 37.0 kg/m2 37.0 kg/m2 [place] [facility] (BMI) [Ratio] Hospital Body weight 230.49 230.49 [lb_av] [place] [facility] [lb_av] Hospital Diastolic blood 71 mm[Hg] 71 mm[Hg] [facility] pressure Hospital Systolic blood 115 mm[Hg] 115 mm[Hg] [facility] pressure Hospital Respiratory rate 18 /min 18 /min [facility] Heart rate 73 /min 73 /min [facility] Body temperature 36.90873 36.12203 [facility] Body temperature 97.6 [degF] 97.6 [degF] [facility] Systolic blood 145 mm[Hg] 145 mm[Hg] [facility] ns pressure Hospital Diastolic blood 78 mm[Hg] 78 mm[Hg] [facility] ins pressure Hospital Respiratory rate 19 /min 19 /min [facility] Heart rate 76 /min 76 /min [facility] Body mass index 36.0 kg/m2 36.0 kg/m2 [facility] ins (BMI) [Ratio] Hospital Body weight 226.41 226.41 [lb_av] [place] [facility] [lb_av] Hospital ID Date Data Source [id number] 12/10/2019 01:37:42 PM EST [facility] ( [facility]) Name Value Range Interpretation Code Description Data Source(s) PULSE 80 bpm 80 bpm [facility] ([facility]) PAIN LEVEL 4 4 [facility] ([facility]) BLOOD SUGAR 158 mg/dL 158 mg/dL [facility] ([facility]) TEMPERATURE 98.1 F 98.1 F [facility] RESPIRATION 16 rpm 16 rpm [facility] ([facility] DIASTOLIC BLOOD 76 mmHg 76 mmHg [facility] SYSTOLIC BLOOD 140 mmHg 140 mmHg [facility] ([facility] DIASTOLIC BLOOD 79 mmHg 79 mmHg [facility] SYSTOLIC BLOOD 133 mmHg 133 mmHg [facility] ([facility] PAIN LEVEL 8 8 [facility] PAIN LEVEL 4 4 [facility] TEMPERATURE 97.9 F 97.9 F [facility] RESPIRATION 18 rpm 18 rpm [facility] PULSE 85 bpm 85 bpm [facility] PAIN LEVEL 8 8 [facility] BLOOD SUGAR 246 mg/dL 246 mg/dL [facility] DIASTOLIC BLOOD 82 mmHg 82 mmHg [facility] SYSTOLIC BLOOD 146 mmHg 146 mmHg [facility] ([facility]) WEIGHT 237.8 lbs 237.8 lbs [facility] ([facility]) PAIN LEVEL 4 4 [facility] ([facility]) DIASTOLIC BLOOD 70 mmHg 70 mmHg [facility] ([facility] SYSTOLIC BLOOD 128 mmHg 128 mmHg [facility] ([facility] HEIGHT 66 in 66 in [facility] PAIN LEVEL 2 2 [facility] ([facility]) PULSE 97 bpm 97 bpm [facility] ([facility] WEIGHT 249.48 lbs 249.48 lbs [facility] TEMPERATURE 97.2 F 97.2 F [facility] RESPIRATION 18 rpm 18 rpm [facility] ([facility] OXYGEN SATURATION 95 % 95 % [facility] BLOOD SUGAR 182 mg/dL 182 mg/dL [facility] DIASTOLIC BLOOD 90 mmHg 90 mmHg [facility] ([facility] SYSTOLIC BLOOD 177 mmHg 177 mmHg [facility] WEIGHT 256 lbs 256 lbs [facility]) TEMPERATURE 98 F 98 F [facility] RESPIRATION 17 rpm 17 rpm [facility] ([facility]) PULSE 77 bpm 77 bpm [facility] ([facility]) PAIN LEVEL 0 0 [facility] ([facility]) OXYGEN SATURATION 98 % 98 % [facility] ([facility]) HEIGHT 66 in 66 in [facility] ([facility] BLOOD SUGAR 128 mg/dL 128 mg/dL [facility] ([facility]) DIASTOLIC BLOOD 77 mmHg 77 mmHg [facility] ([facility] SYSTOLIC BLOOD 122 mmHg 122 mmHg [facility] ([facility]) TEMPERATURE 98 F 98 F [facility] RESPIRATION 17 rpm 17 rpm [facility] ([facility]) PAIN LEVEL 0 0 [facility] ([facility]) PULSE 77 bpm 77 bpm [facility] ([facility]) BLOOD SUGAR 128 mg/dL 128 mg/dL [facility] ([facility]) DIASTOLIC BLOOD 77 mmHg 77 mmHg [facility] ([facility]) SYSTOLIC BLOOD 122 mmHg 122 mmHg [facility] ([facility] PAIN LEVEL 0 0 [facility] TEMPERATURE 98 F 98 F [facility] DIASTOLIC BLOOD 86 mmHg 86 mmHg [facility] SYSTOLIC BLOOD 127 mmHg 127 mmHg [facility] ([facility]) PAIN LEVEL 2 2 [facility] ([facility]) WEIGHT 256 lbs 256 lbs [facility] ([facility]) OXYGEN SATURATION 98 % 98 % [facility] ([facility]) HEIGHT 66 in 66 in [facility] ([facility]) ID Date Data Source [id number] 03/07/2019 04:40:52 AM EDT [facility] ( [facility]) Name Value Range Interpretation Code Description Data Source(s) TEMPERATURE 98 F 98 F [facility] ( [facility]) RESPIRATION 17 rpm 17 rpm [facility] ( [facility]) PAIN LEVEL 0 0 [facility] ([facility]) PULSE 77 bpm 77 bpm [facility] ([facility]) BLOOD SUGAR 128 mg/dL 128 mg/dL [facility] ( [facility]) DIASTOLIC BLOOD 77 mmHg 77 mmHg [facility] ([facility]) SYSTOLIC BLOOD 122 mmHg 122 mmHg [facility] ([facility]) PAIN LEVEL 0 0 [facility] ([facility]) TEMPERATURE 97.5 F 97.5 F [facility] ( [facility]) RESPIRATION 18 rpm 18 rpm [facility] ( [facility]) PULSE 85 bpm 85 bpm [facility] ([facility]) DIASTOLIC BLOOD 75 mmHg 75 mmHg [facility] ([facility]) SYSTOLIC BLOOD 127 mmHg 127 mmHg [facility] BLOOD SUGAR 136 mg/dL 136 mg/dL [facility] ([facility]) PAIN LEVEL 0 0 [facility] TEMPERATURE 98 F 98 F [facility] ([facility] DIASTOLIC BLOOD 86 mmHg 86 mmHg [facility] ([facility] SYSTOLIC BLOOD 127 mmHg 127 mmHg [facility] ([facility] PAIN LEVEL 0 0 [facility] BLOOD SUGAR 121 mg/dL 121 mg/dL [facility] TEMPERATURE 97.2 F 97.2 F [facility] RESPIRATION 18 rpm 18 rpm [facility] PULSE 82 bpm 82 bpm [facility] DIASTOLIC BLOOD 80 mmHg 80 mmHg [facility] SYSTOLIC BLOOD 147 mmHg 147 mmHg [facility] ([facility] PAIN LEVEL 2 2 [facility] TEMPERATURE 98 F 98 F [facility] DIASTOLIC BLOOD 75 mmHg 75 mmHg [facility] ([facility] SYSTOLIC BLOOD 114 mmHg 114 mmHg [facility] ([facility] [facility]) PAIN LEVEL 0 0 [facility] ([facility]) WEIGHT 200 lbs 200 lbs [facility] ([facility]) TEMPERATURE 97.6 F 97.6 F [facility] ([facility]) RESPIRATION 20 rpm 20 rpm [facility] ([facility]) PULSE 78 bpm 78 bpm [facility] ([facility]) PAIN LEVEL 0 0 [facility] ([facility]) OXYGEN SATURATION 98 % 98 % [facility] ([facility]) HEIGHT 66 in 66 in [facility] ([facility]) DIASTOLIC BLOOD 83 mmHg 83 mmHg [facility] ([facility]) SYSTOLIC BLOOD 127 mmHg 127 mmHg [facility] ([facility]) PAIN LEVEL 0 0 [facility] ([facility]) OXYGEN SATURATION 98 % 98 % [facility] ([facility]) HEIGHT 66 in 66 in [facility] ([facility]) WEIGHT 260.8 lbs 260.8 lbs [facility] ([facility]) TEMPERATURE 99.3 F 99.3 F [facility] ([facility]) DIASTOLIC BLOOD 83 mmHg 83 mmHg [facility] ([facility]) SYSTOLIC BLOOD 127 mmHg 127 mmHg [facility] ([facility]) RESPIRATION 18 rpm 18 rpm [facility] ([facility] PULSE 81 bpm 81 bpm [facility] ([facility]) BLOOD SUGAR 201 mg/dL 201 mg/dL [facility] ([facility]) WEIGHT 260.8 lbs 260.8 lbs [facility] ([facility]) TEMPERATURE 99.3 F 99.3 F [facility] ([facility]) RESPIRATION 18 rpm 18 rpm [facility] ( [facility]) PULSE 81 bpm 81 bpm [facility] ([facility]) PAIN LEVEL 0 0 [facility] ([facility]) OXYGEN SATURATION 97 % 97 % [facility] ([facility]) HEIGHT 66 in 66 in [facility] ([facility]) BLOOD SUGAR 201 mg/dL 201 mg/dL [facility] ( [facility]) DIASTOLIC BLOOD 83 mmHg 83 mmHg [facility] ([facility]) SYSTOLIC BLOOD 127 mmHg 127 mmHg [facility] ([facility]) Patient Treatment Plan of Care Planned Activity Planned Date Details Description Data Source (s) 24 HR Nicotine 0.875 MG/HR 08/20/2018 [facility] [place] Transdermal Patch 12:00:00 AM EDT Hospita l 24 HR Diltiazem 08/20/2018 [place] Hydrochloride 240 MG 12:00:00 AM EDT Hosp ital Extended Release Oral Capsule Losartan Potassium 50 MG 08/20/2018 [facility] [place] Oral Tablet [Cozaar] 12:00:00 AM EDT Hosp ital 24 HR Nicotine 0.875 MG/HR 08/20/2018 [facility] [place] Transdermal Patch 12:00:00 AM EDT Hospita l 24 HR Diltiazem 08/20/2018 [place] Hydrochloride 240 MG 12:00:00 AM EDT Hosp ital Extended Release Oral Capsule Losartan Potassium 50 MG 08/20/2018 [facility] [place] Oral Tablet [Cozaar] 12:00:00 AM EDT Hosp ital 24 HR Isosorbide 07/23/2017 [place] [facility] Mononitrate 30 MG Extended 12:00:00 AM EDT Hospital Release Oral Tablet carvedilol 25 MG Oral 07/23/2017 [place] Tablet [Coreg] 12:00:00 AM EDT Hospital Rosuvastatin calcium 40 MG 07/23/2017 [facility] [place] Oral Tablet [Crestor] 12:00:00 AM EDT Hos pital clopidogrel 75 MG Oral 07/23/2017 [place] Tablet 12:00:00 AM EDT Hospital Aspirin 81 MG Delayed 07/23/2017 [place] Release Oral Tablet 12:00:00 AM EDT Hospi eli 24 HR Isosorbide 07/23/2017 [place] Mononitrate 30 MG Extended 12:00:00 AM EDT Hospital Release Oral Tablet carvedilol 25 MG Oral 07/23/2017 [place] Tablet [Coreg] 12:00:00 AM EDT Hospital Rosuvastatin calcium 40 MG 07/23/2017 [facility] [place] Oral Tablet [Crestor] 12:00:00 AM EDT Hos pital clopidogrel 75 MG Oral 07/23/2017 [place] Tablet 12:00:00 AM EDT Hospital Aspirin 81 MG Delayed 07/23/2017 [place] Release Oral Tablet 12:00:00 AM EDT Hospi eli Umeclidinium [place] (Incruse Ellipta) 62.5 Hospi eli Mcg/Actuation Blst.w.dev, 1 Inh Inhalation Prednisone 20 MG Oral [place] Tablet Hospital Losartan Potassium 25 MG [facility] [place] Oral Tablet [Cozaar] Hospita l Insulin Degludec (Tresiba [facility] [place] Flextouch U-200) 200 Hospita l Unit/Ml (3 Ml) Insuln.pen, 32 Units Sub-Q 24 HR Diltiazem [place] Hydrochloride 120 MG Hospita l Extended Release Oral Capsule 12 HR Bupropion [place] Hydrochloride 150 MG Hospita l Extended Release Oral Tablet Varenicline (Chantix) 0.5 [facility] [place] Mg (11)-1 Mg (42) Tab.ds.pk Hospital 12 HR ranolazine 1000 MG [facility] [place] Extended Release Oral Hospit al Tablet [Ranexa] pantoprazole 40 MG Delayed [facility] [place] Release Oral Tablet Hospital 12 HR Oxycodone [place] Hydrochloride 80 MG Hospital Extended Release Oral Tablet [Oxycontin] Oxycodone Hydrochloride 30 [facility] [place] MG Oral Tablet Hospital Nitroglycerin 0.4 MG [place] Sublingual Tablet [facility] 200 ACTUAT Levalbuterol [facility] [place] 0.045 MG/ACTUAT Metered Hosp ital Dose Inhaler [Xopenex] 24 HR Isosorbide [place] [facility] Mononitrate 120 MG Extended Hospital Release Oral Tablet Insulin Degludec (Tresiba ite [place] Flextouch U-200) 200 Hospita l Unit/Ml (3 Ml) Insuln.pen 3 ML Insulin, Aspart, Human [place] 100 UNT/ML Pen Injector Hosp ital [NovoLog] gabapentin 600 MG Oral [place] Tablet Hospital Furosemide 40 MG Oral [place] Tablet Hospital Fluticasone/Vilanterol [place] (Breo Ellipta 200-25 Mcg Hos pital Inh) 200 Mcg-25 Mcg/Dose Blst.w.dev Cholecalciferol 1000 UNT [facility] [place] Oral Tablet [facility] 12 HR Bupropion [place] Hydrochloride 150 MG Hospita l Extended Release Oral Tablet [Wellbutrin] Umeclidinium [place] (Incruse Ellipta) 62.5 Hospi eli Mcg/Actuation Blst.w.dev, 1 Inh Inhalation Prednisone 20 MG Oral [place] Tablet Hospital Losartan Potassium 25 MG [facility] [place] Oral Tablet [Cozaar] Hospita l Insulin Degludec (Tresiba [facility] [place] Flextouch U-200) 200 Hospita l Unit/Ml (3 Ml) Insuln.pen, 32 Units Sub-Q 24 HR Diltiazem [place] Hydrochloride 120 MG Hospita l Extended Release Oral Capsule 12 HR Bupropion [place] Hydrochloride 150 MG Hospita l Extended Release Oral Tablet Varenicline (Chantix) 0.5 [facility] [place] Mg (11)-1 Mg (42) Tab.ds.pk Hospital 12 HR ranolazine 1000 MG [facility] [place] Extended Release Oral Hospit al Tablet [Ranexa] pantoprazole 40 MG Delayed [facility] [place] Release Oral Tablet [facility] 12 HR Oxycodone [place] Hydrochloride 80 MG Hospital Extended Release Oral Tablet [Oxycontin] Oxycodone Hydrochloride 30 [facility] [place] MG Oral Tablet Hospital Nitroglycerin 0.4 MG [place] Sublingual Tablet [facility] 200 ACTUAT Levalbuterol [facility] [place] 0.045 MG/ACTUAT Metered Hosp ital Dose Inhaler [Xopenex] 24 HR Isosorbide [place] Mononitrate 120 MG Extended Hospital Release Oral Tablet Insulin Degludec (Tresiba [facility] [place] Flextouch U-200) 200 Hospita l Unit/Ml (3 Ml) Insuln.pen 3 ML Insulin, Aspart, Human [place] 100 UNT/ML Pen Injector Hosp ital [NovoLog] gabapentin 600 MG Oral [place] Tablet Hospital Furosemide 40 MG Oral [place] Tablet Hospital Fluticasone/Vilanterol [place] (Breo Ellipta 200-25 Mcg Hos pital Inh) 200 Mcg-25 Mcg/Dose Blst.w.dev Cholecalciferol 1000 UNT i te [place] Oral Tablet Hospital 12 HR Bupropion [place] Hydrochloride 150 MG Hospita l Extended Release Oral Tablet [Wellbutrin]
[2020-07-03 10:12] LABS: ALBUMIN 3.4 g/dl (3.4-5.0); BILIRUBIN,TOTAL 0.3 mg/dL (0.2-1); CALCIUM 8.7 mg/dL (8.5-10.1); CREATININE 1.3 mg/dL (0.55-1.3); MAGNESIUM 2.1 mg/dL (1.8-2.4); N-TERMINAL BNP 158.8 pg/ml (5-125); POTASSIUM 3.7 mmol/L (3.5-5.1)
[2020-07-03 11:02] LABS: ANISOCYTOSIS 1+; MACROCYTOSIS 0; PLATELET ESTIMATE NORMAL
--- NOTE | 2020-07-03 11:34 | PDOC ---
Documentation entered by Shavon Banda SCRIBE, acting as scribe for Homa Vazquez MD. Homa Vazquez MD: This documentation has been prepared by the kevinibe, Shavon Banda SCRIBE, under my direction and personally reviewed by me in its entirety. I confirm that the documentation accurately reflects all work, treatment, procedures, and medical decision making performed by me. Attending Attestation - Resident Resident Name: Juan David Almaguer - ED Attending Attestation I have performed the following: I have examined & evaluated the patient, The case was reviewed & discussed with the resident, I agree w/resident's findings & plan, Exceptions are as noted - HPI HPI: 07/03/20 09:57 The patient is a 64-year-old female with a past medical history significant for CAD s/p PCI and multiple stents, COPD, HTN, and diastolic CHF who presents to the emergency department with progressively worsening chest pain, shortness of breath, and fatigue with exertion. The patient was seen at Dr. Mabry office yesterday, where she had an EKG done. The patient reports her symptoms worsened today and she was recommended to come to the ED by Dr. Lieberman for evaluation and cardiology consultation. Symptoms becoming present at rest. Denies associated diaphoresis, dizziness, focal weakness/numbness, N/V/D, LE edema. Denies drug use. The patient reports being compliant with her medication. Denies fever or chills. Denies leg swelling. Denies recent travel. Denies any other symptoms. - Physicial Exam PE: 07/03/20 09:56 GENERAL: Awake, alert, and fully oriented, in no acute distress HEAD: No signs of trauma EYES: PERRLA, EOMI, sclera anicteric, conjunctiva clear ENT: Auricles normal inspection, hearing grossly normal, nares patent, oropharynx clear without exudates. Moist mucosa NECK: Normal ROM, supple, no lymphadenopathy, JVD, or masses LUNGS: Breath sounds equal, clear to auscultation bilaterally. No wheezes, and no crackles HEART: Regular rate and rhythm, normal S1 and S2, no murmurs, rubs or gallops ABDOMEN: Soft, nontender, normoactive bowel sounds. No guarding, no rebound. No masses EXTREMITIES: Normal range of motion, no edema. No clubbing or cyanosis. No cords, erythema, or tenderness BACK: No midline spinal tenderness in cervical/thoracic/lumbar region NEUROLOGICAL: Normal speech, cranial nerves intact, negative pronator drift, 5/5 strength in all 4 extremities, normal sensation to light touch in all 4 extremities, normal cerebellar exam, normal gait, normal reflexes and tone SKIN: Warm, Dry, normal turgor, no rashes or lesions noted. - Medical Decision Making 07/03/20 11:32 64yo F with extenisive cardiac hx, CHF, HTN presents to the ED with progressive exertional SOB, non pleuritic CP, fatigue DDx includes ACS vs CHF vs COPD vs PNA. PE a consideration but unliekly as pt has no RF, no calf edema/pain. She is not hypoxic or tachy. Plan -labs -tele monitoring -cxr -cards c/s -admit Discharge - Discharge Information Clinical Impression/Diagnosis: Chest pain, rule out acute myocardial infarction Condition: Guarded - Follow up/Referral - Patient Discharge Instructions - Post Discharge Activity
[2020-07-03] MEDS ORDERED: ENOXAPARIN NA (PORCINE) 40 MG/0.4 ML DISP.SYRIN SQ SCH (12:08)
--- NOTE | 2020-07-03 12:31 | HP ---
CHIEF COMPLAINT: shortness of breath cardiology: [place] HISTORY OF PRESENT ILLNESS: Pt is a 64 y/o female with PMH CAD s/p PCI and 13 stents (first [id number]), diastolic CHF, COPD, HTN, and hx polysubstance use (cocaine, MDMA, opiates recorded 2016) who presents with 2 weeks of progressive dyspnea. She reports associated chest pressure which is improved with nitro and worsening orthopnea and productive cough. She was sent by Dr. Lieberman because her symptoms cannot be managed outpatient at this time. Allergies NKDA PHYSICAL EXAMINATION Vital Signs - 24 hr 07/03/20 07/03/20 09:10 10:20 Temperature 98.2 F Pulse Rate 67 Respiratory 16 Rate Blood Pressure 102/62 O2 Sat by Pulse 97 98 Oximetry (%) A&Ox3, in no distress PERRL, EOMI Coarse breath sounds b/l Distant heart sounds Soft, non-tender, MBS Trace pedal edema trop negative x1 EKG HR 67, NSR with PVCs, normal axis and intervals, T wave changes V1 and V2, QTc 437 ASSESSMENT/PLAN: Pt is a 64 y/o female with PMH CAD s/p PCI and 13 stents (first [id number]), diastolic CHF, COPD, HTN, and hx polysubstance use (cocaine, MDMA, opiates recorded 2016) who presents with 2 weeks of progressive dyspnea. #unstable angina vs COPD exacerbation -r/o ACS -repeat troponin -repeat EKG if pain changes -cardiology following (Dr. Dixon saw pt today) Visit type - Emergency Visit Emergency Visit: Yes ED Registration Date: 07/03/20 Care time: The patient presented to the Emergency Department on the above date and was hospitalized for further evaluation of their emergent condition. - New Patient This patient is new to me today: Yes Date on this admission: 07/03/20 - Critical Care Critical Care patient: No ATTENDING PHYSICIAN STATEMENT I saw and evaluated the patient. I reviewed the resident's note and discussed the case with the resident. I agree with the resident's findings and plan as documented. SUBJECTIVE: OBJECTIVE: ASSESSMENT AND PLAN:
--- NOTE | 2020-07-03 12:42 | CON.CARD ---
Cardiology Consult (text) - Consultation Consultation Note: Chief Complaint: sob History of Present Illness: 64F h/o CAD, diastolic CHF, HTN, HLD, prior MA/pci (nstemi and pci), s/p L THR presents with back. Past few weeks has noticed worsening back. Sometimes with mild le edema as well. No cp palps dizzy loc pnd orthopnea. Sees Dr. Lieberman for cardio who sent her to ER for eval of her sxs. - Past Medical History [employer]: Yes: CVA (no residual deficits), TIA Cardio/Vascular: Yes: CAD, CHF, HTN, Hyperlipdemia, MA, Other (PE) Pulmonary: Yes: Asthma, COPD, Sleep Apnea Gastrointestinal: Yes: GERD Psych: Yes: Depression Musculoskeletal: Yes: Osteoarthritis, Other (herniated discs) Endocrine: Yes: Diabetes Mellitus - Past Surgical History Past Surgical History: Yes: Stent (x13) - Alcohol/Substance Use Hx Alcohol Use: No History of Substance Use: reports: Cocaine, Prescription - Smoking History Smoking history: Current some day smoker Have you smoked in the past 12 months: Yes Aproximately how many cigarettes per day: 2 - Social History Usual Living Arrangement: Alone ADL: Support Services History of Recent Travel: No Home Medications - Allergies Allergies/Adverse Reactions: Allergies Allergy/AdvReac Type Severity Reaction Status Date / Time cashew nut Allergy Severe Swelling Verified 07/03/20 10:24 shellfish derived Allergy Severe Swelling Verified 07/03/20 10:24 Home Medications Medication Instructions Recorded Furosemide [Lasix] 40 mg PO DAILY 12/27/18 Gabapentin 600 mg PO BID 12/27/18 Pantoprazole Sodium 40 mg PO DAILY 12/27/18 Ranolazine [Ranexa] 1,000 mg PO BID 12/27/18 Rosuvastatin [Crestor -] 40 mg PO DAILY 12/27/18 Montelukast Sodium [Singulair] 10 mg PO HS 02/12/19 Amlodipine Besylate [Norvasc -] 10 mg PO DAILY 07/03/20 Aspirin 81 mg PO DAILY 07/03/20 Bupropion HCl [Wellbutrin Xl] 300 mg PO DAILY 07/03/20 Carvedilol 12.5 mg PO BID 07/03/20 Isosorbide Mononitrate [Isosorbide 30 mg PO BID 09/17/20 Mononitrate ER] Ticagrelor [Brilinta] 90 mg PO BID 07/03/20 Family Disease History - Family Disease History Family History: Unremarkable Review of Systems per hpi; all others nl Vital Signs Period Temp Pulse Resp BP Sys/Adan Pulse Ox Last 24 Hr 98.2 F 67 16 102/62 97-98 Constitutional: Yes: Well Nourished, No Distress, Calm Eyes: Yes: Conjunctiva Clear HENT: Yes: Atraumatic, Normocephalic Neck: Yes: Supple, Trachea Midline Respiratory: Yes: mild exp wheeze, nl eff Gastrointestinal: Yes: Normal Bowel Sounds, Soft Cardiovascular: Yes: Regular Rate and Rhythm JVD: No Carotid Bruit: No PMI: Non-Displaced Heart Sounds: Yes: S1, S2 Extremities: No: Cold Edema: No Peripheral Pulses: 2+ Left Doralis Pedis, 2+ Right Dorsalis Pedis Integumentary: No: Jaundice diaphoresis Neurological: Yes: Alert, Oriented Psychiatric: No: Agitated Laboratory Last Values WBC 7.2 K/mm3 (4.0-10.0) 07/03/20 09:30 RBC 4.63 M/mm3 (3.60-5.2) 07/03/20 09:30 Hgb 12.5 GM/dL (10.7-15.3) 07/03/20 09:30 Hct 39.5 % (32.4-45.2) D 07/03/20 09:30 MCV 85.3 fl (80-96) 07/03/20 09:30 MCH 27.0 pg (25.7-33.7) 07/03/20 09:30 MCHC 31.6 g/dl (32.0-36.0) L 07/03/20 09:30 RDW 15.2 % (11.6-15.6) 07/03/20 09:30 Plt Count 225 K/MM3 (134-434) 07/03/20 09:30 MPV 7.9 fl (7.5-11.1) 07/03/20 09:30 Absolute Neuts (auto) 2.2 K/mm3 (1.5-8.0) 07/03/20 09:30 Neutrophils % 31.3 % (42.8-82.8) L D 07/03/20 09:30 Neutrophils % (Manual) 17.7 % (42.8-82.8) L 07/03/20 09:30 Band Neutrophils % 0.0 % 07/03/20 09:30 Lymphocytes % 57.3 % (8-40) H D 07/03/20 09:30 Lymphocytes % (Manual) 75.5 % (8-40) H* 07/03/20 09:30 Monocytes % 9.3 % (3.8-10.2) 07/03/20 09:30 Monocytes % (Manual) 4 % (3.8-10.2) 07/03/20 09:30 Eosinophils % 1.3 % (0-4.5) 07/03/20 09:30 Eosinophils % (Manual) 0.0 % (0-4.5) D 07/03/20 09:30 Basophils % 0.8 % (0-2.0) 07/03/20 09:30 Basophils % (Manual) 0.0 % (0-2.0) 07/03/20 09:30 Myelocytes % (Man) 0 % (0-2) 07/03/20 09:30 Promyelocytes % (Man) 0 % (0-2) 07/03/20 09:30 Blast Cells % (Manual) 0 % (0-0) 07/03/20 09:30 Nucleated RBC % 0 % (0-0) 07/03/20 09:30 Metamyelocytes 0 % (0-2) 07/03/20 09:30 Hypochromia 0 07/03/20 09:30 Platelet Estimate Normal 07/03/20 09:30 Polychromasia 0 07/03/20 09:30 Poikilocytosis 0 07/03/20 09:30 Anisocytosis 1+ 07/03/20 09:30 Microcytosis 1+ 07/03/20 09:30 Macrocytosis 0 07/03/20 09:30 Sodium 142 mmol/L (136-145) 07/03/20 09:30 Potassium 3.7 mmol/L (3.5-5.1) 07/03/20 09:30 Chloride 107 mmol/L (98-107) 07/03/20 09:30 Carbon Dioxide 29 mmol/L (21-32) 07/03/20 09:30 Anion Gap 6 MMOL/L (8-16) L 07/03/20 09:30 BUN 27.0 mg/dL (7-18) H 07/03/20 09:30 Creatinine 1.3 mg/dL (0.55-1.3) 07/03/20 09:30 Est GFR (CKD-EPI)AfAm 50.92 07/03/20 09:30 Est GFR (CKD-EPI)NonAf 43.93 07/03/20 09:30 Random Glucose 114 mg/dL (74-106) H 07/03/20 09:30 Calcium 8.7 mg/dL (8.5-10.1) 07/03/20 09:30 Magnesium 2.1 mg/dL (1.8-2.4) 07/03/20 09:30 Total Bilirubin 0.3 mg/dL (0.2-1) 07/03/20 09:30 AST 19 U/L (15-37) 07/03/20 09:30 ALT 30 U/L (13-61) 07/03/20 09:30 Alkaline Phosphatase 171 U/L (45-117) H 07/03/20 09:30 Troponin I 0.03 ng/ml (0.00-0.05) 07/03/20 09:30 B-Natriuretic Peptide 158.8 pg/ml (5-125) H 07/03/20 09:30 Total Protein 7.0 g/dl (6.4-8.2) 07/03/20 09:30 Albumin 3.4 g/dl (3.4-5.0) 07/03/20 09:30 EKG: sinus, nl intervals, no ischemic changes cxr: clear a/p: 64F h/o CAD, diastolic CHF, HTN, HLD, prior MA/pci (nstemi and pci), s/p L THR presents with back. sob, acute on chronic diastolic chf, copd: -currently with gradually worsening back. No gross vol overload on exam, bnp low, cxr clear. Possible mild vol overload, will given trial of lasix to see if sxs improve. Also having pulm eval for possible copd. -if sxs do not improved with tx chf/copd then possibly may represent anginal equivalent and would consider ischemic eval/cath next. -admit to tele CAD s/p multiple PCI: -as above, no signs acs -ecg w/o ischemic changes -continue home cardiac meds, dapt, stastin, ranexa, nitrate, bb - hx of cocaine use. denies, utshadi pending. HTN -cont home meds
--- NOTE | 2020-07-03 13:21 | HP ---
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 Lieberman's office with chest pain that occurs at rest radiating to her L arm, shortness of breath and fatigue that has been going on for 2 weeks. pt states she anginal symptoms occur at rest, that feels similar to her previous episodes of IA that required stents. Pt also states she becomes SOB after conversing during a prolonged conversation. Pt became SOB when turning to her side during examination. Pt has hx of polysubstance abuse (including cocaine and MDMA, opiates), but states she has not used any drugs in the "last couple years". Pt denies fever, chills, n/v, d/c. Admits to chest pain that occurs at rest and exertion, SOB, fatigue. ER course was notable for: (1) EKG NSR with PVC, TWI in lead I, QTC 437 and no ischemic changes (2) CXR with no fluid overload (3) Trop 0.03 Recent Travel: PAST MEDICAL HISTORY: As stated in HPI PAST SURGICAL HISTORY: CAD s/p stents Social History: Smoking: yes; 4 cigarettes every 2-3 days Alcohol: denies Drugs: Hx of cocaine, MDMA, opiates Allergies cashew nut Allergy (Severe, Verified 07/03/20 10:24) Swelling shellfish derived Allergy (Severe, Verified 07/03/20 10:24) Swelling HOME MEDICATIONS: Home Medications Medication Instructions Recorded Furosemide [Lasix] 40 mg PO DAILY 12/27/18 Gabapentin 600 mg PO BID 12/27/18 Pantoprazole Sodium 40 mg PO DAILY 12/27/18 Ranolazine [Ranexa] 1,000 mg PO BID 12/27/18 Rosuvastatin [Crestor -] 40 mg PO DAILY 12/27/18 Montelukast Sodium [Singulair] 10 mg PO HS 02/12/19 Amlodipine Besylate [Norvasc -] 10 mg PO DAILY 07/03/20 Aspirin 81 mg PO DAILY 07/03/20 Bupropion HCl [Wellbutrin Xl] 300 mg PO DAILY 07/03/20 Carvedilol 12.5 mg PO BID 07/03/20 Isosorbide Mononitrate [Isosorbide 30 mg PO BID 07/03/20 Mononitrate ER] Ticagrelor [Brilinta] 90 mg PO BID 07/03/20 REVIEW OF SYSTEMS CONSTITUTIONAL: Absent: fever, chills, diaphoresis, generalized weakness, malaise, loss of appetite, weight change HEENT: Absent: rhinorrhea, nasal congestion, throat pain, throat swelling, difficulty swallowing, mouth swelling, ear pain, eye pain, visual changes CARDIOVASCULAR: anginal chest pain Absent: syncope, palpitations, irregular heart rate, lightheadedness, peripheral edema RESPIRATORY: SOB, chronic cough, wheezing, orthopnea Absent: cough, stridor, hemoptysis GASTROINTESTINAL: Absent: abdominal pain, abdominal distension, nausea, vomiting, diarrhea, constipation, melena, hematochezia GENITOURINARY: Absent: dysuria, frequency, urgency, hesitancy, hematuria, flank pain, genital pain MUSCULOSKELETAL: Absent: myalgia, arthralgia, joint swelling, back pain, neck pain SKIN: Absent: rash, itching, pallor HEMATOLOGIC/IMMUNOLOGIC: Absent: easy bleeding, easy bruising, lymphadenopathy, frequent infections ENDOCRINE: Absent: unexplained weight gain, unexplained weight loss, heat intolerance, cold intolerance NEUROLOGIC: Absent: headache, focal weakness or paresthesias, dizziness, unsteady gait, seizure, mental status changes, bladder or bowel incontinence PSYCHIATRIC: Absent: anxiety, depression, suicidal or homicidal ideation, hallucinations. PHYSICAL EXAMINATION Vital Signs - 24 hr 07/03/20 07/03/20 09:10 10:20 Temperature 98.2 F Pulse Rate 67 Respiratory 16 Rate Blood Pressure 102/62 O2 Sat by Pulse 97 98 Oximetry (%) GENERAL: Awake, alert, and fully oriented, in no acute distress. HEAD: Normal with no signs of trauma. EYES: Pupils equal, round and reactive to light, extraocular movements intact, sclera anicteric, conjunctiva clear. No lid lag. EARS, NOSE, THROAT: Ears normal, nares patent, oropharynx clear without exudates. Moist mucous membranes. NECK: Normal range of motion, supple without lymphadenopathy, JVD, or masses. LUNGS: Expiratory wheezes bilateraly. Breath sounds equal. and no crackles. No accessory muscle use. HEART: Regular rate and rhythm, normal S1 and S2 without murmur, rub or gallop. ABDOMEN: Soft, nontender, not distended, normoactive bowel sounds, no guarding, no rebound, no masses. No hepatomegaly or splenomegaly. MUSCULOSKELETAL: Normal range of motion at all joints. No bony deformities or tenderness. No CVA tenderness. UPPER EXTREMITIES: 2+ pulses, warm, well-perfused. No cyanosis. No clubbing. No peripheral edema. LOWER EXTREMITIES: 2+ pulses, warm, well-perfused. No calf tenderness. 2+ edema NEUROLOGICAL: Cranial nerves II-XII intact. Normal speech. Normal gait. PSYCHIATRIC: Cooperative. Good eye contact. Appropriate mood and affect. SKIN: Warm, dry, normal turgor, no rashes or lesions noted, normal capillary refill. Laboratory Results - last 24 hr 07/03/20 07/03/20 09:30 09:30 WBC 7.2 RBC 4.63 Hgb 12.5 Hct 39.5 D MCV 85.3 MCH 27.0 MCHC 31.6 L RDW 15.2 Plt Count 225 MPV 7.9 Absolute Neuts (auto) 2.2 Neutrophils % 31.3 L D Neutrophils % (Manual) 17.7 L Band Neutrophils % 0.0 Lymphocytes % 57.3 H D Lymphocytes % (Manual) 75.5 H* Monocytes % 9.3 Monocytes % (Manual) 4 Eosinophils % 1.3 Eosinophils % (Manual) 0.0 D Basophils % 0.8 Basophils % (Manual) 0.0 Myelocytes % (Man) 0 Promyelocytes % (Man) 0 Blast Cells % (Manual) 0 Nucleated RBC % 0 Metamyelocytes 0 Hypochromia 0 Platelet Estimate Normal Polychromasia 0 Poikilocytosis 0 Anisocytosis 1+ Microcytosis 1+ Macrocytosis 0 Sodium 142 Potassium 3.7 Chloride 107 Carbon Dioxide 29 Anion Gap 6 L BUN 27.0 H Creatinine 1.3 Est GFR (CKD-EPI)AfAm 50.92 Est GFR (CKD-EPI)NonAf 43.93 Random Glucose 114 H Calcium 8.7 Magnesium 2.1 Total Bilirubin 0.3 AST 19 ALT 30 Alkaline Phosphatase 171 H Troponin I 0.03 B-Natriuretic Peptide 158.8 H Total Protein 7.0 Albumin 3.4 ASSESSMENT/PLAN: Pt is a 64 year old female with pmhx of CAD s/p stents, COPD, HFpEF, HTN presenting from Dr. Lieberman's office with chest pain that occurs at rest radiating to her L arm, shortness of breath and fatigue that has been going on for 2 week admitted for rule out ACS. #Unstable angina, r/o ACS -EKG with no ischemic changes, repeat EKG if pain changes -Repeat troponin -Cardiology consulted (Dr. Dixon); continue all home cardiac meds -s/p multiple stents in the past; continue aspirin and Brillinta -hx of cocaine use; UTox ordered #COPD exacerbation -Duonebs given; on PRN -Medrol 60mg q8IV -Duonebs PRN -Consulted Dr. Huang #Hx of HFpEF -BNP 158, no signs of fluid overload -Continue Lasix #Hx of HTN -continue home meds FEN -Sodium controlled diet -Monitor electrolytes -No standing fluids PPx Lovenox 40mg SQ dailu Dispo Admit to tele. unstable angina r/o ACS. Trop negative x1, continue to trend. EKG without ischemic changes. Cardio consulted, continue home meds. Family Medical History Family History: As Documented Visit type - Emergency Visit Emergency Visit: Yes ED Registration Date: 07/03/20 Care time: The patient presented to the Emergency Department on the above date and was hospitalized for further evaluation of their emergent condition. - New Patient This patient is new to me today: No - Critical Care Critical Care patient: No ATTENDING PHYSICIAN STATEMENT I saw and evaluated the patient. I reviewed the resident's note and discussed the case with the resident. I agree with the resident's findings and plan as documented. SUBJECTIVE: OBJECTIVE: ASSESSMENT AND PLAN:
[2020-07-03] MEDS: FUROSEMIDE 40 MG/4 ML INJECTABLE VIAL IVPUSH SCH (13:28)
[2020-07-03] MEDS ORDERED: ALBUTEROL SO4 2.5/IPRATROPIUM 0.5 INH SOL 3 ML VIAL.NEB. NEB PRN (14:40)
[2020-07-03] MEDS ORDERED: ALBUTEROL SO4 2.5/IPRATROPIUM 0.5 INH SOL 3 ML VIAL.NEB. NEB ONE (14:40)
[2020-07-03] MEDS ORDERED: methylPREDNISolone NA SUCC 125 MG/2 ML VIAL IVPB ONE (14:41)
[2020-07-03] MEDS ORDERED: methylPREDNISolone NA SUCC 40 MG/1 ML VIAL ONE ×2 (15:04→18:41)
[2020-07-03] MEDS ORDERED: PATIENT'S OWN MEDICATION (NON-FORMULARY) (Oxycodone Hcl [Roxicodone] 30 MG) PO SCH (18:15)
[2020-07-03] MEDS ORDERED: NITROGLYCERIN SUBLINGUAL 1/150 0.4 MG TAB SL PRN (18:15)
[2020-07-03] MEDS ORDERED: oxyCODONE HCL 40 MG SUSTAINED ACTING TABLET PO ONE (18:18)
[2020-07-03] MEDS ORDERED: oxyCODONE HCL 5 MG TABLET ONE (18:29)
[2020-07-03] MEDS: methylPREDNISolone NA SUCC 125 MG/2 ML VIAL IVPB SCH (18:48)
[2020-07-03] MEDS ORDERED: ALBUTEROL SO4 HFA INHALER IH PRN (19:03)
--- NOTE | 2020-07-03 21:34 | PN ---
Teaching Attending Note Name of Resident: Chavez Smith ATTENDING PHYSICIAN STATEMENT I saw and evaluated the patient. I reviewed the resident's note and discussed the case with the resident. I agree with the resident's findings and plan as documented. SUBJECTIVE: Patient seen and examined at bedside, h/o CAD s/p multiple stents, COPD, current smoker, p/w acute on chronic CARNES/SOB. Currently dyspneic but wheezing, does not appear to be an acute coronary event. VSS. OBJECTIVE: GA mild distress, AAox3, mildly tachypneic HEENT No JVD, neck supple, dry MM, no nasal flaring Chest expiratory scattered wheezes b/l, no accessory M use CVS s1, S2+, RRR Abd obese, Soft, NT, BS+, no guarding Ext no LE edema, no calf tenderness Vital Signs (72 hours) 07/03/20 07/03/20 07/03/20 09:10 10:20 13:14 Temperature 98.2 F Pulse Rate 67 Pulse Rate [ 64 Right Radial] Respiratory 16 22 H Rate Blood Pressure 102/62 Blood Pressure 104/78 [Left Arm] Blood Pressure [Right Arm] O2 Sat by Pulse 97 98 97 Oximetry (%) 07/03/20 07/03/20 19:23 19:26 Temperature Pulse Rate Pulse Rate [ 73 Right Radial] Respiratory 22 H Rate Blood Pressure Blood Pressure [Left Arm] Blood Pressure 158/79 [Right Arm] O2 Sat by Pulse 96 96 Oximetry (%) Laboratory Results - last 24 hr 07/03/20 07/03/20 07/03/20 09:30 09:30 13:10 WBC 7.2 RBC 4.63 Hgb 12.5 Hct 39.5 D MCV 85.3 MCH 27.0 MCHC 31.6 L RDW 15.2 Plt Count 225 MPV 7.9 Absolute Neuts (auto) 2.2 Neutrophils % 31.3 L D Neutrophils % (Manual) 17.7 L Band Neutrophils % 0.0 Lymphocytes % 57.3 H D Lymphocytes % (Manual) 75.5 H* Monocytes % 9.3 Monocytes % (Manual) 4 Eosinophils % 1.3 Eosinophils % (Manual) 0.0 D Basophils % 0.8 Basophils % (Manual) 0.0 Myelocytes % (Man) 0 Promyelocytes % (Man) 0 Blast Cells % (Manual) 0 Nucleated RBC % 0 Metamyelocytes 0 Hypochromia 0 Platelet Estimate Normal Polychromasia 0 Poikilocytosis 0 Anisocytosis 1+ Microcytosis 1+ Macrocytosis 0 Sodium 142 Potassium 3.7 Chloride 107 Carbon Dioxide 29 Anion Gap 6 L BUN 27.0 H Creatinine 1.3 Est GFR (CKD-EPI)AfAm 50.92 Est GFR (CKD-EPI)NonAf 43.93 POC Glucometer 277 Random Glucose 114 H Calcium 8.7 Magnesium 2.1 Total Bilirubin 0.3 AST 19 ALT 30 Alkaline Phosphatase 171 H Troponin I 0.03 B-Natriuretic Peptide 158.8 H Total Protein 7.0 Albumin 3.4 07/03/20 07/03/20 07/03/20 13:29 18:00 20:51 WBC RBC Hgb Hct MCV MCH MCHC RDW Plt Count MPV Absolute Neuts (auto) Neutrophils % Neutrophils % (Manual) Band Neutrophils % Lymphocytes % Lymphocytes % (Manual) Monocytes % Monocytes % (Manual) Eosinophils % Eosinophils % (Manual) Basophils % Basophils % (Manual) Myelocytes % (Man) Promyelocytes % (Man) Blast Cells % (Manual) Nucleated RBC % Metamyelocytes Hypochromia Platelet Estimate Polychromasia Poikilocytosis Anisocytosis Microcytosis Macrocytosis Sodium Potassium Chloride Carbon Dioxide Anion Gap BUN Creatinine Est GFR (CKD-EPI)AfAm Est GFR (CKD-EPI)NonAf POC Glucometer 278 Random Glucose Calcium Magnesium Total Bilirubin AST ALT Alkaline Phosphatase Troponin I 0.04 0.02 B-Natriuretic Peptide Total Protein Albumin Home Medications Medication Instructions Recorded Furosemide [Lasix] 40 mg PO DAILY 12/27/18 Gabapentin 600 mg PO BID 12/27/18 Pantoprazole Sodium 40 mg PO DAILY 12/27/18 Ranolazine [Ranexa] 1,000 mg PO BID 12/27/18 Rosuvastatin [Crestor -] 40 mg PO DAILY 12/27/18 Montelukast Sodium [Singulair] 10 mg PO HS 02/12/19 Amlodipine Besylate [Norvasc -] 10 mg PO DAILY 07/03/20 Aspirin 81 mg PO DAILY 07/03/20 Bupropion HCl [Wellbutrin Xl] 300 mg PO DAILY 07/03/20 Carvedilol 12.5 mg PO BID 07/03/20 Insulin Degludec [Tresiba 34 unit SQ DAILY 07/03/20 Flextouch U-100] Isosorbide Mononitrate [Isosorbide 30 mg PO BID 07/03/20 Mononitrate ER] Levalbuterol HCl [Xopenex] 0.31 mg IH DAILY 07/03/20 Melatonin 3 mg PO HS 07/03/20 Nitroglycerin Sublingual 0.4 mg SL ASDIR 07/03/20 [Nitrostat -] Oxycodone HCl [Oxycontin] 80 mg PO BID 07/03/20 Oxycodone HCl [Roxicodone] 30 mg PO Q6H 07/03/20 Ticagrelor [Brilinta] 90 mg PO BID 07/03/20 Umeclidinium [place] [Incruse 62.5 mcg IH DAILY 07/03/20 Ellipta] Current Medications Generic Name Dose Route Start Last Admin Trade Name Freq PRN Reason Stop Dose Admin Albuterol Sulfate 2 puff 07/03/20 19:03 Ventolin Hfa Inhaler - IH Q4H PRN SHORTNESS OF BREATH Amlodipine Besylate 10 mg 07/04/20 10:00 Norvasc - PO DAILY [facility] Aspirin 81 mg 07/04/20 10:00 Asa - PO DAILY [facility] Bupropion HCl 300 mg 07/04/20 10:00 Wellbutrin Xl - PO DAILY [facility] Carvedilol 12.5 mg 07/03/20 22:00 Coreg - PO BID [facility] Enoxaparin Sodium 40 mg 07/03/20 12:08 07/03/20 12:22 Lovenox - SQ 40 mg DAILY [facility] Administration Furosemide 40 mg 07/03/20 13:00 07/03/20 13:28 Lasix Injection - IVPUSH 40 mg DAILY [facility] Administration Furosemide 40 mg 07/04/20 10:00 Lasix - PO DAILY [facility] Gabapentin 600 mg 07/03/20 22:00 Neurontin - PO BID [facility] Insulin Detemir 34 units 07/04/20 07:00 Levemir Vial SQ DAILY@0700 [facility] Isosorbide Mononitrate 30 mg 07/03/20 22:00 Imdur - PO BID [facility] Melatonin 3 mg 07/03/20 22:00 Melatonin PO HS [facility] Methylprednisolone Sodium Succinate 60 mg 07/03/20 18:00 07/03/20 18:48 Solu-Medrol - IVPB 60 mg Q8H-IV [facility] Administration Montelukast Sodium 10 mg 07/03/20 22:00 Singulair - PO HS [facility] Nitroglycerin 0.4 mg 07/03/20 18:15 Nitrostat - SL PRN PRN CHEST PAIN Non-Formulary Medication 62.5 mcg 07/03/20 18:15 Umeclidinium [place] [Incruse Ellipta] IH DAILY [facility] Oxycodone HCl 80 mg 07/03/20 22:00 Oxycontin - PO BID [facility] Oxycodone HCl 30 mg 07/03/20 19:02 Roxicodone - PO Q4H PRN BREAK THROUGH PAIN 7-10 Pantoprazole Sodium 40 mg 07/04/20 10:00 Protonix - PO DAILY [facility] Ranolazine 1,000 mg 07/03/20 22:00 Ranexa - PO BID [facility] Rosuvastatin Calcium 40 mg 07/04/20 22:00 Crestor - PO HS [facility] Ticagrelor 90 mg 07/03/20 22:00 Brilinta - PO BID [facility] ASSESSMENT AND PLAN: 64 F CAD s/p multiple stents COPD w/ acute exacerbation HTN HLD Morbid obesity Current smoker h/o Cocaine abuse Chronic pain T2DM with hyperglycemia Depression Plan: Trend troponins, continue tele monitoring Extensively counseled patient on risks of smoking which would further compromise breathing and AL risk Start duonebs around the clock, IV steroids, supplement PPI No s/o PNA/infection Obtain utox Cont. BB/DAPT Cardiology following Pulmonary evaluation for uncontrolled COPD DVT ppx: Heparin SC
[2020-07-03] MEDS ORDERED: ISOSORBIDE MONONITRATE 30 MG TAB.SR.24H (FP) PO SCH (22:00)
[2020-07-03] MEDS ORDERED: MONTELUKAST NA 10 MG TABLET PO SCH (22:00)
[2020-07-03] MEDS ORDERED: MELATONIN 1 MG TABLET PO SCH (22:00)
[2020-07-03] MEDS: HEPARIN NA (PORCINE) 5,000 UNITS/ML 1ML VIAL SQ SCH (23:05)
[2020-07-03] MEDS: TICAGRELOR 90 MG TABLET PO SCH (23:09)
[2020-07-03] MEDS: GABAPENTIN 300 MG CAPSULE PO SCH (23:10)
[2020-07-03] MEDS: CARVEDILOL 12.5 MG TABLET (FP) PO SCH (23:10)
[2020-07-03] MEDS: RANOLAZINE E.R. 1,000 MG TABLET (FP) PO SCH (23:10)
[2020-07-03] MEDS: oxyCODONE HCL 40 MG SUSTAINED ACTING TABLET PO SCH (23:11)
[2020-07-04] MEDS: methylPREDNISolone NA SUCC 125 MG/2 ML VIAL IVPB SCH (01:09)
[2020-07-04 03:34] VITALS: BMI 38.0
--- NOTE | 2020-07-04 05:33 | PN ---
Progress Note, Physician Chief Complaint: weight is down BP controlled She is feeling slightly better after Rx with both IV Lasix and IV steroid TELE: NSR, rare VPC, occasional couplets History of Present Illness: CAD, mult PCI Chronic diast CHF COPD Smoker, with hx of cocaine use intermittently - Current Medication List Current Medications: Active Medications Albuterol Sulfate (Ventolin Hfa Inhaler -) 2 puff IH Q4H PRN PRN Reason: SHORTNESS OF BREATH Last Admin: 07/03/20 23:22 Dose: 2 puff Documented by: Amlodipine Besylate (Norvasc -) 10 mg PO DAILY [facility] Aspirin (Asa -) 81 mg PO DAILY [facility] Bupropion HCl (Wellbutrin Xl -) 300 mg PO DAILY [facility] Carvedilol (Coreg -) 12.5 mg PO BID [facility] Last Admin: 07/03/20 23:10 Dose: 12.5 mg Documented by: Furosemide (Lasix Injection -) 40 mg IVPUSH DAILY [facility] Last Admin: 07/03/20 13:28 Dose: 40 mg Documented by: Furosemide (Lasix -) 40 mg PO DAILY [facility] Gabapentin (Neurontin -) 600 mg PO BID [facility] Last Admin: 07/03/20 23:10 Dose: 600 mg Documented by: Heparin Sodium (Porcine) (Heparin -) 5,000 unit SQ TID [facility] Last Admin: 07/03/20 23:05 Dose: 5,000 unit Documented by: Insulin Detemir (Levemir Vial) 34 units SQ DAILY@0700 [facility] Isosorbide Mononitrate (Imdur -) 30 mg PO BID [facility] Last Admin: 07/03/20 23:08 Dose: 30 mg Documented by: Melatonin (Melatonin) 3 mg PO [facility] Last Admin: 07/03/20 23:09 Dose: 3 mg Documented by: Methylprednisolone Sodium Succinate (Solu-Medrol -) 60 mg IVPB Q8H-IV [facility] Last Admin: 07/04/20 01:09 Dose: 60 mg Documented by: Montelukast Sodium (Singulair -) 10 mg PO [facility] Last Admin: 07/03/20 23:09 Dose: 10 mg Documented by: Nitroglycerin (Nitrostat -) 0.4 mg SL PRN PRN PRN Reason: CHEST PAIN Non-Formulary Medication (Umeclidinium Umpire [Incruse Ellipta]) 62.5 mcg IH DAILY [facility] Oxycodone HCl (Oxycontin -) 80 mg PO BID [facility] Last Admin: 07/03/20 23:11 Dose: 80 mg Documented by: Oxycodone HCl (Roxicodone -) 30 mg PO Q4H PRN PRN Reason: BREAK THROUGH PAIN 7-10 Pantoprazole Sodium (Protonix -) 40 mg PO DAILY [facility] Ranolazine (Ranexa -) 1,000 mg PO BID [facility] Last Admin: 07/03/20 23:10 Dose: 1,000 mg Documented by: Rosuvastatin Calcium (Crestor -) 40 mg PO HS [facility] Ticagrelor (Brilinta -) 90 mg PO BID [facility] Last Admin: 07/03/20 23:09 Dose: 90 mg Documented by: - Objective Vital Signs: Vital Signs Temperature 98.2 F 07/04/20 02:00 Pulse Rate 76 07/04/20 02:00 Respiratory Rate 18 07/04/20 02:00 Blood Pressure 145/65 07/04/20 02:00 O2 Sat by Pulse Oximetry (%) 96 07/04/20 04:34 Constitutional: Yes: Calm Eyes: Yes: Conjunctiva Clear Cardiovascular: Yes: Regular Rate and Rhythm Respiratory: Yes: Other (NO WHEEZING TODAY) Gastrointestinal: Yes: Soft, Abdomen, Obese Edema: No Neurological: Yes: Alert, Oriented Labs: CBC, BMP 07/03/20 09:30 07/03/20 09:30 Laboratory Tests 07/03/20 07/03/20 07/03/20 09:30 10:10 13:29 WBC Hgb Plt Count Sodium Potassium Creatinine Troponin I 0.03 0.04 B-Natriuretic Peptide 158.8 H COVID-19 (KRISTA) Not detected 07/03/20 07/04/20 07/04/20 18:00 08:55 08:55 WBC 10.3 H Hgb 12.4 Plt Count 217 Sodium Pending Potassium Pending Creatinine Pending Troponin I 0.02 B-Natriuretic Peptide COVID-19 (KRISTA) - ....Imaging EKG: Image Reviewed Assessment/Plan a/p: 64F h/o CAD, diastolic CHF, HTN, HLD, prior MD/pci (nstemi and pci), multivessel PCIS, s/p L THR presents with back: TnI and BNP unremarkable. sob: acute on chronic diastolic chf vs ae copd - with gradually worsening back despite outpatient titration of antianginal meds. No gross vol overload on exam, bnp low, cxr clear. -Now mildly improved after rx with both IV Lasix x1 and IV steroids -Because she was never overtly volume overloaded on exam and BNP low, the mild improvement is probably from the IV steroids and this may have been all due to COPD -Await Pulm eval -Have d/w RN to try and ambulate patient later today and assess sx, O2 with exercise. -If she continues to feel improvement, then we will hold of on cath plan CAD s/p multiple PCI: -as above, trops negative. -ecg w/o acute ischemic changes -continue home cardiac meds, dapt, stastin, ranexa, nitrate, bb - hx of cocaine use. denies, utox pending. HTN: -cont home meds
[2020-07-04] MEDS: HEPARIN NA (PORCINE) 5,000 UNITS/ML 1ML VIAL SQ SCH ×2 (06:33→14:57)
[2020-07-04] MEDS: oxyCODONE HCL 5 MG TABLET PO PRN ×2 (06:44→14:58)
[2020-07-04] MEDS ORDERED: INSULIN (LEVEMIR) 100 UNITS/ML UNITS SQ SCH (07:00)
[2020-07-04] MEDS ORDERED: ALBUTEROL SO4 2.5/IPRATROPIUM 0.5 INH SOL 3 ML VIAL.NEB. NEB PRN (07:53)
[2020-07-04 09:13] LABS: HEMATOCRIT 38.5 % (32.4-45.2); HEMOGLOBIN 12.4 GM/dL (10.7-15.3); MCH 27.5 pg (25.7-33.7); MCHC 32.2 g/dl (32.0-36.0); MEAN CELL VOLUME 85.4 fl (80-96); MEAN PLT VOLUME 8.2 fl (7.5-11.1); PLATELET COUNT 217 K/MM3 (134-434); RBC 4.51 M/mm3 (3.60-5.2); WHITE BLOOD COUNT 10.3 K/mm3 (4.0-10.0)
[2020-07-04 09:44] LABS: BLOOD UREA NITROGEN 30.7 mg/dL (7-18); CALCIUM 9.1 mg/dL (8.5-10.1); CREATININE 1.4 mg/dL (0.55-1.3); MAGNESIUM 2.1 mg/dL (1.8-2.4); PHOSPHOROUS 4.5 mg/dL (2.5-4.9); POTASSIUM 4.4 mmol/L (3.5-5.1)
[2020-07-04] MEDS ORDERED: methylPREDNISolone NA SUCC 40 MG/1 ML VIAL IVPB SCH (10:00)
[2020-07-04] MEDS ORDERED: TIOTROPIUM BROMIDE 2.5 MCG (SPIRIVA) RESPIMAT INHALER IH SCH ×2 (10:00)
[2020-07-04] MEDS ORDERED: ASPIRIN 81 MG CHEWABLE TABLETS PO SCH (10:00)
[2020-07-04] MEDS ORDERED: amLODIPine BESYLATE 10 MG TABLET (FP) PO SCH (10:00)
[2020-07-04] MEDS ORDERED: FUROSEMIDE 40 MG TABLET (FP) PO SCH (10:00)
[2020-07-04] MEDS ORDERED: LEVALBUTEROL HCL 0.31 MG/3 ML VIAL.NEB IH SCH (10:00)
[2020-07-04] MEDS ORDERED: methylPREDNISolone NA SUCC 40 MG/1 ML VIAL IVPUSH SCH (10:00)
[2020-07-04] MEDS ORDERED: ISOSORBIDE MONONITRATE 60 MG TAB.SR.24H (FP) PO SCH (10:00)
[2020-07-04] MEDS ORDERED: PANTOPRAZOLE 40 MG TABLET PO SCH (10:00)
[2020-07-04] MEDS: oxyCODONE HCL 40 MG SUSTAINED ACTING TABLET PO SCH (10:39)
[2020-07-04] MEDS: TICAGRELOR 90 MG TABLET PO SCH (10:41)
[2020-07-04] MEDS: CARVEDILOL 12.5 MG TABLET (FP) PO SCH (10:41)
[2020-07-04] MEDS: FUROSEMIDE 40 MG/4 ML INJECTABLE VIAL IVPUSH SCH (10:42)
[2020-07-04] MEDS: RANOLAZINE E.R. 1,000 MG TABLET (FP) PO SCH (10:43)
[2020-07-04] MEDS: GABAPENTIN 300 MG CAPSULE PO SCH (10:43)
[2020-07-04] MEDS ORDERED: INSULIN SLIDING SCALE (NOVOLOG) 1 VIAL SQ SCH (11:00)
--- NOTE | 2020-07-04 12:10 | CON.PULM ---
Consult Consult Specialty:: PULMONARY Referred by:: ROSALINDA Reason for Consultation:: SOB - History of Present Illness Chief Complaint: CARNES NOTED PAST FEW DAYS History of Present Illness: 64F h/o CAD, diastolic CHF, HTN, HLD, prior [place]/pci (nstemi and pci), s/p L THR presents with carnes. Past few weeks has noticed worsening carnes. Sometimes with mild le edema as well. No cp palps dizzy loc pnd orthopnea. Presently, feels much improved and wants to go home. She is compliant with home pap machine. - History Source History Provided By: Patient, Medical Record Limitations to Obtaining History: No Limitations - Past Medical History [employer]: Yes: CVA (no residual deficits), TIA Cardio/Vascular: Yes: CAD, CHF, HTN, Hyperlipdemia, [place], Other (PE) Pulmonary: Yes: Asthma, COPD, Sleep Apnea Gastrointestinal: Yes: GERD ...: No Psych: Yes: Depression Musculoskeletal: Yes: Osteoarthritis, Other (herniated discs) Endocrine: Yes: Diabetes Mellitus - Past Surgical History Past Surgical History: Yes: Stent (x13) - Alcohol/Substance Use Hx Alcohol Use: No History of Substance Use: reports: Cocaine, Prescription - Smoking History Smoking history: Unknown if ever smoked Have you smoked in the past 12 months: No Aproximately how many cigarettes per day: 3 - Social History Usual Living Arrangement: Alone ADL: Support Services History of Recent Travel: No Home Medications - Allergies Allergies/Adverse Reactions: Allergies Allergy/AdvReac Type Severity Reaction Status Date / Time cashew nut Allergy Severe Swelling Verified 07/03/20 10:24 shellfish derived Allergy Severe Swelling Verified 07/03/20 10:24 - Home Medications Home Medications: Ambulatory Orders Furosemide [Lasix] 40 mg PO DAILY 12/27/18 Gabapentin 600 mg PO BID 12/27/18 Pantoprazole Sodium 40 mg PO DAILY 12/27/18 Ranolazine [Ranexa] 1,000 mg PO BID 12/27/18 Rosuvastatin [Crestor -] 40 mg PO DAILY 12/27/18 Montelukast Sodium [Singulair] 10 mg PO HS 02/12/19 Amlodipine Besylate [Norvasc -] 10 mg PO DAILY 07/03/20 Aspirin 81 mg PO DAILY 07/03/20 Bupropion HCl [Wellbutrin Xl] 300 mg PO DAILY 07/03/20 Carvedilol 12.5 mg PO BID 07/03/20 Isosorbide Mononitrate [Isosorbide Mononitrate ER] 30 mg PO BID 07/03/20 Levalbuterol HCl [Xopenex] 0.45 mg IH DAILY 07/03/20 Nitroglycerin Sublingual [Nitrostat -] 0.4 mg SL ASDIR 07/03/20 Oxycodone HCl [Oxycontin] 80 mg PO BID 07/03/20 Oxycodone HCl [Roxicodone] 30 mg PO Q6H 07/03/20 Ticagrelor [Brilinta] 90 mg PO BID 07/03/20 Umeclidinium [place] [Incruse Ellipta] 62.5 mcg IH DAILY 07/03/20 Albuterol 0.083% Nebulizer [place] [Ventolin 0.083% Nebulizer Soln -] 1 vial IH Q6H 07/04/20 Doxepin HCl [Silenor] 3 mg PO HS PRN 07/04/20 Fluticasone/Vilanterol [Breo Ellipta 200-25 Mcg INH] 1 puff IH DAILY 07/04/20 Insulin Degludec [Tresiba Flextouch U-200] 34 unit SQ DAILY 07/04/20 Tizanidine HCl 8 mg PO HS 07/04/20 Family Medical History Family History: Unremarkable Review of Systems - Review of Systems Constitutional: denies: Fever, Lethargy, Unintentional Wgt. Loss Eyes: denies: Blurred Vision HENT: denies: Difficult Swallowing Neck: denies: Decreased ROM Cardiovascular: denies: Chest Pain Respiratory: reports: Exercise Intolerance, Orthopnea, SOB, SOB on Exertion. denies: Hemoptysis, Wheezing Gastrointestinal: denies: Abdominal Pain Genitourinary: denies: Burning Physical Exam Vital Sings: Vital Signs Temperature 98.1 F 07/04/20 06:47 Pulse Rate 76 07/04/20 06:47 Respiratory Rate 18 07/04/20 06:47 Blood Pressure 137/69 07/04/20 06:47 O2 Sat by Pulse Oximetry (%) 95 07/04/20 07:46 Constitutional: Yes: Calm Eyes: Yes: EOM Intact HENT: Yes: Normocephalic Neck: Yes: Trachea Midline Cardiovascular: Yes: Regular Rate and Rhythm, S1, S2 Respiratory: Yes: Diminished. No: Rales, Rhonchi, Wheezes Gastrointestinal: Yes: Soft, Abdomen, Obese Edema: LLE: 1+, RLE: 1+ Integumentary: Yes: WNL Neurological: Yes: WNL ...Motor Strength: WNL Psychiatric: Yes: WNL Labs: CBC, BMP 07/04/20 08:55 07/04/20 08:55 Imaging - Results Chest X-ray: Report Reviewed, Image Reviewed EKG: Report Reviewed Problem List - Problems (1) COPD (chronic obstructive pulmonary disease) Code(s): J44.9 - CHRONIC OBSTRUCTIVE PULMONARY DISEASE, UNSPECIFIED Qualifiers: COPD type: chronic bronchitis (2) Hypertension associated with diabetes Code(s): E11.59 - TYPE 2 DIABETES MELLITUS WITH OTH CIRCULATORY COMPLICATIONS; I10 - ESSENTIAL (PRIMARY) HYPERTENSION (3) NSTEMI (non-ST elevated myocardial infarction) Code(s): I21.4 - NON-ST ELEVATION (NSTEMI) MYOCARDIAL INFARCTION (4) Obesity Code(s): E66.9 - OBESITY, UNSPECIFIED (5) Shortness of breath Code(s): R06.02 - SHORTNESS OF BREATH (6) Sleep apnea Code(s): G47.30 - SLEEP APNEA, UNSPECIFIED Assessment/Plan A/E COPD NOW IMPROVED HAVE CHANGED TO ORAL PREDNISONE NO OBJECTION TO CONTINUING TREATMENT AN OUTPATIENT CONTINE/BRONCHODILATORS/PAP WILL F/U WITH DR NOBLE OUTPATIENT Liz ALVARADO MD
[2020-07-04] MEDS ORDERED: predniSONE 20 MG TABLET (UD) PO SCH (12:15)
--- NOTE | 2020-07-04 12:30 | PN ---
Teaching Attending Note Name of Resident: Ceci Ordaz ATTENDING PHYSICIAN STATEMENT I saw and evaluated the patient. I reviewed the resident's note and discussed the case with the resident. I agree with the resident's findings and plan as documented. SUBJECTIVE: pt seen and examined OBJECTIVE: Last Vital Signs Temp Pulse Resp BP Pulse Ox 98.1 F 76 18 137/69 95 07/04/20 06:47 07/04/20 06:47 07/04/20 06:47 07/04/20 06:47 07/04/20 07:46 GENERAL: Awake, alert, and fully oriented, in no acute distress. HEAD: Normal with no signs of trauma. EYES: Pupils equal, round and reactive to light, sclera anicteric, conjunctiva clear. LUNGS: Breath sounds equal, clear to auscultation bilaterally. occasional terminal wheezes, and no crackles. No accessory muscle use. HEART: Regular rate and rhythm, normal S1 and S2 ABDOMEN: Soft, nontender, not distended MUSCULOSKELETAL: Normal range of motion at all joints. No bony deformities or tenderness. No CVA tenderness. UPPER EXTREMITIES: 2+ pulses, warm, well-perfused. No cyanosis. No clubbing. No peripheral edema. LOWER EXTREMITIES: 2+ pulses, warm, well-perfused. No calf tenderness. No peripheral edema. NEUROLOGICAL: Cranial nerves II-XII intact. Normal speech. CBCD WBC 10.3 K/mm3 (4.0-10.0) H 07/04/20 08:55 RBC 4.51 M/mm3 (3.60-5.2) 07/04/20 08:55 Hgb 12.4 GM/dL (10.7-15.3) 07/04/20 08:55 Hct 38.5 % (32.4-45.2) 07/04/20 08:55 MCV 85.4 fl (80-96) 07/04/20 08:55 MCHC 32.2 g/dl (32.0-36.0) 07/04/20 08:55 RDW 15.0 % (11.6-15.6) 07/04/20 08:55 Plt Count 217 K/MM3 (134-434) 07/04/20 08:55 MPV 8.2 fl (7.5-11.1) 07/04/20 08:55 CMP Sodium 140 mmol/L (136-145) 07/04/20 08:55 Potassium 4.4 mmol/L (3.5-5.1) 07/04/20 08:55 Chloride 106 mmol/L (98-107) 07/04/20 08:55 Carbon Dioxide 28 mmol/L (21-32) 07/04/20 08:55 Anion Gap 6 MMOL/L (8-16) L 07/04/20 08:55 BUN 30.7 mg/dL (7-18) H 07/04/20 08:55 Creatinine 1.4 mg/dL (0.55-1.3) H 07/04/20 08:55 Calcium 9.1 mg/dL (8.5-10.1) 07/04/20 08:55 Total Bilirubin 0.3 mg/dL (0.2-1) 07/03/20 09:30 AST 19 U/L (15-37) 07/03/20 09:30 ALT 30 U/L (13-61) 07/03/20 09:30 Alkaline Phosphatase 171 U/L (45-117) H 07/03/20 09:30 Total Protein 7.0 g/dl (6.4-8.2) 07/03/20 09:30 Albumin 3.4 g/dl (3.4-5.0) 07/03/20 09:30 Active Medications Albuterol Sulfate (Ventolin Hfa Inhaler -) 2 puff IH Q4H PRN PRN Reason: SHORTNESS OF BREATH Last Admin: 07/03/20 23:22 Dose: 2 puff Documented by: Albuterol/Ipratropium (Duoneb -) 1 amp NEB Q4H PRN PRN Reason: SHORTNESS OF BREATH Amlodipine Besylate (Norvasc -) 10 mg PO DAILY [facility] Last Admin: 07/04/20 10:41 Dose: 10 mg Documented by: Aspirin (Asa -) 81 mg PO DAILY [facility] Last Admin: 07/04/20 10:41 Dose: 81 mg Documented by: Bupropion HCl (Wellbutrin Xl -) 300 mg PO DAILY [facility] Last Admin: 07/04/20 10:42 Dose: 300 mg Documented by: Carvedilol (Coreg -) 12.5 mg PO BID [facility] Last Admin: 07/04/20 10:41 Dose: 12.5 mg Documented by: Furosemide (Lasix Injection -) 40 mg IVPUSH DAILY [facility] Last Admin: 07/04/20 10:42 Dose: 40 mg Documented by: Gabapentin (Neurontin -) 600 mg PO BID [facility] Last Admin: 07/04/20 10:43 Dose: 600 mg Documented by: Heparin Sodium (Porcine) (Heparin -) 5,000 unit SQ TID [facility] Last Admin: 07/04/20 06:33 Dose: 5,000 unit Documented by: Insulin Aspart (Novolog Vial Sliding Scale -) 1 vial SQ ACHS [facility]; Protocol Last Admin: 07/04/20 12:03 Dose: 4 units Documented by: Insulin Detemir (Levemir Vial) 34 units SQ DAILY@0700 [facility] Last Admin: 07/04/20 06:33 Dose: 6 units Documented by: Isosorbide Mononitrate (Imdur -) 60 mg PO DAILY [facility] Last Admin: 07/04/20 10:41 Dose: 60 mg Documented by: Melatonin (Melatonin) 3 mg PO [facility] Last Admin: 07/03/20 23:09 Dose: 3 mg Documented by: Montelukast Sodium (Singulair -) 10 mg PO [facility] Last Admin: 07/03/20 23:09 Dose: 10 mg Documented by: Nitroglycerin (Nitrostat -) 0.4 mg SL PRN PRN PRN Reason: CHEST PAIN Oxycodone HCl (Oxycontin -) 80 mg PO BID [facility] Last Admin: 07/04/20 10:39 Dose: 80 mg Documented by: Oxycodone HCl (Roxicodone -) 30 mg PO Q4H PRN PRN Reason: BREAK THROUGH PAIN 7-10 Last Admin: 07/04/20 06:44 Dose: 30 mg Documented by: Pantoprazole Sodium (Protonix -) 40 mg PO DAILY [facility] Last Admin: 07/04/20 10:41 Dose: 40 mg Documented by: Prednisone (Deltasone -) 20 mg PO DAILY [facility] Ranolazine (Ranexa -) 1,000 mg PO BID [facility] Last Admin: 07/04/20 10:43 Dose: 1,000 mg Documented by: Rosuvastatin Calcium (Crestor -) 40 mg PO [facility] Ticagrelor (Brilinta -) 90 mg PO BID [facility] Last Admin: 07/04/20 10:41 Dose: 90 mg Documented by: Tiotropium [place] (Spiriva Respimat) 2 puff IH DAILY [facility] Last Admin: 07/04/20 10:43 Dose: 2 puff Documented by: ASSESSMENT AND PLAN: 64 year old lady with PMH of CAD s/p stents, COPD, HFpEF, DM, HTN 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
--- NOTE | 2020-07-04 12:40 | PN ---
Physical Exam: SUBJECTIVE: Patient seen and examined. States improved chest pain. Significantly improved SOB. Able to ambulate in hallways compared to becoming SOB when changing position in bed yesterday. OBJECTIVE: Vital Signs Period Temp Pulse Resp BP Sys/Adan Pulse Ox Last 24 Hr 97.8 F-98.2 F 64-84 16-22 104-158/65-79 95-97 GENERAL: The patient is awake, alert, and fully oriented, in no acute distress. HEAD: Normal with no signs of trauma. EYES: PERRL, extraocular movements intact, sclera anicteric, conjunctiva clear. No ptosis. ENT: Ears normal, nares patent, oropharynx clear without exudates, moist mucous membranes. NECK: Trachea midline, full range of motion, supple. LUNGS: Breath sounds equal, no crackles, no accessory muscle use. Occasional expiratory wheezes. Significantly improved. HEART: Regular rate and rhythm, S1, S2 without murmur, rub or gallop. ABDOMEN: Soft, nontender, nondistended, normoactive bowel sounds, no guarding, no rebound, no hepatosplenomegaly, no masses. EXTREMITIES: 2+ pulses, warm, well-perfused, no edema. NEUROLOGICAL: Cranial nerves II through XII grossly intact. Normal speech, gait not observed. PSYCH: Normal mood, normal affect. SKIN: Warm, dry, normal turgor, no rashes or lesions noted Laboratory Results - last 24 hr 07/03/20 07/03/20 07/03/20 10:10 13:10 13:29 WBC RBC Hgb Hct MCV MCH MCHC RDW Plt Count MPV Sodium Potassium Chloride Carbon Dioxide Anion Gap BUN Creatinine Est GFR (CKD-EPI)AfAm Est GFR (CKD-EPI)NonAf POC Glucometer 277 Random Glucose Calcium Phosphorus Magnesium Troponin I 0.04 COVID-19 ([facility]) Not detected 07/03/20 07/03/20 07/04/20 18:00 20:51 08:55 WBC 10.3 H RBC 4.51 Hgb 12.4 Hct 38.5 MCV 85.4 MCH 27.5 MCHC 32.2 RDW 15.0 Plt Count 217 MPV 8.2 Sodium Potassium Chloride Carbon Dioxide Anion Gap BUN Creatinine Est GFR (CKD-EPI)AfAm Est GFR (CKD-EPI)NonAf POC Glucometer 278 Random Glucose Calcium Phosphorus Magnesium Troponin I 0.02 COVID-19 ([facility]) 07/04/20 07/04/20 08:55 12:01 WBC RBC Hgb Hct MCV MCH MCHC RDW Plt Count MPV Sodium 140 Potassium 4.4 Chloride 106 Carbon Dioxide 28 Anion Gap 6 L BUN 30.7 H Creatinine 1.4 H Est GFR (CKD-EPI)AfAm 46.55 Est GFR (CKD-EPI)NonAf 40.17 POC Glucometer 206 Random Glucose 282 H Calcium 9.1 Phosphorus 4.5 Magnesium 2.1 Troponin I COVID-19 ([facility]) Active Medications Generic Name Dose Route Start Last Admin Trade Name Freq PRN Reason Stop Dose Admin Albuterol Sulfate 2 puff 07/03/20 19:03 07/03/20 23:22 Ventolin Hfa Inhaler - IH 2 puff Q4H PRN Administration SHORTNESS OF BREATH Albuterol/Ipratropium 1 amp 07/04/20 07:53 Duoneb - NEB Q4H PRN SHORTNESS OF BREATH Amlodipine Besylate 10 mg 07/04/20 10:00 07/04/20 10:41 Norvasc - PO 10 mg DAILY [facility] Administration Aspirin 81 mg 07/04/20 10:00 07/04/20 10:41 Asa - PO 81 mg DAILY [facility] Administration Bupropion HCl 300 mg 07/04/20 10:00 07/04/20 10:42 Wellbutrin Xl - PO 300 mg DAILY [facility] Administration Carvedilol 12.5 mg 07/03/20 22:00 07/04/20 10:41 Coreg - PO 12.5 mg BID [facility] Administration Furosemide 40 mg 07/03/20 13:00 07/04/20 10:42 Lasix Injection - IVPUSH 40 mg DAILY [facility] Administration Gabapentin 600 mg 07/03/20 22:00 07/04/20 10:43 Neurontin - PO 600 mg BID [facility] Administration Heparin Sodium (Porcine) 5,000 unit 07/03/20 22:00 07/04/20 06:33 Heparin - SQ 5,000 unit TID [facility] Administration Insulin Aspart 1 vial 07/04/20 11:00 07/04/20 12:03 Novolog Vial Sliding Scale - SQ 4 units ACHS [facility] Administration Protocol Insulin Detemir 34 units 07/04/20 07:00 07/04/20 06:33 Levemir Vial SQ 6 units DAILY@0700 [facility] Administration Isosorbide Mononitrate 60 mg 07/04/20 10:00 07/04/20 10:41 Imdur - PO 60 mg DAILY [facility] Administration Melatonin 3 mg 07/03/20 22:00 07/03/20 23:09 Melatonin PO 3 mg HS [facility] Administration Montelukast Sodium 10 mg 07/03/20 22:00 07/03/20 23:09 Singulair - PO 10 mg HS [facility] Administration Nitroglycerin 0.4 mg 07/03/20 18:15 Nitrostat - SL PRN PRN CHEST PAIN Oxycodone HCl 80 mg 07/03/20 22:00 07/04/20 10:39 Oxycontin - PO 80 mg BID [facility] Administration Oxycodone HCl 30 mg 07/03/20 19:02 07/04/20 06:44 Roxicodone - PO 30 mg Q4H PRN Administration BREAK THROUGH PAIN 7-10 Pantoprazole Sodium 40 mg 07/04/20 10:00 07/04/20 10:41 Protonix - PO 40 mg DAILY [facility] Administration Prednisone 20 mg 07/04/20 12:15 Deltasone - PO DAILY [facility] Ranolazine 1,000 mg 07/03/20 22:00 07/04/20 10:43 Ranexa - PO 1,000 mg BID [facility] Administration Rosuvastatin Calcium 40 mg 07/04/20 22:00 Crestor - PO HS [facility] Ticagrelor 90 mg 07/03/20 22:00 07/04/20 10:41 Brilinta - PO 90 mg BID [facility] Administration Tiotropium [place] 2 puff 07/04/20 10:00 07/04/20 10:43 Spiriva Respimat IH 2 puff DAILY [facility] Administration ASSESSMENT/PLAN: Pt is a 64 year old female with pmhx of CAD s/p stents, COPD, HFpEF, HTN presenting from Dr. Lieberman's office with chest pain that occurs at rest radiating to her L arm, shortness of breath and fatigue that has been going on for 2 week admitted for rule out ACS. #Unstable angina, r/o ACS -EKG with no ischemic changes -Cardiology consulted ; continue all home cardiac meds -s/p multiple stents in the past; continue aspirin and Brillinta -hx of cocaine use; UTox ordered #COPD exacerbation -resolved -Duonebs -Steroids tapered per pulm; on PO prednisone 20mg QD -Consulted Dr. Huang #Hx of HFpEF -Continue Lasix #Hx of HTN -continue home meds FEN -Sodium controlled diet -Monitor electrolytes -No standing fluids PPx Lovenox 40mg SQ dailu Dispo Admit to tele. unstable angina r/o ACS. Trop negative x1, continue to trend. EKG without ischemic changes. Cardio consulted, continue home meds. Visit type - Emergency Visit Emergency Visit: Yes ED Registration Date: 07/03/20 Care time: The patient presented to the Emergency Department on the above date and was hospitalized for further evaluation of their emergent condition. - New Patient This patient is new to me today: Yes Date on this admission: 07/03/20 - Critical Care Critical Care patient: No ATTENDING PHYSICIAN STATEMENT I saw and evaluated the patient. I reviewed the resident's note and discussed the case with the resident. I agree with the resident's findings and plan as documented. SUBJECTIVE: OBJECTIVE: ASSESSMENT AND PLAN:
--- NOTE | 2020-07-04 12:40 | EKG ---
Test Reason : Blood Pressure : / mmHG Vent. Rate : 067 BPM Atrial Rate : 067 BPM P-R Int : 160 ms QRS Dur : 096 ms QT Int : 414 ms P-R-T Axes : 025 -02 094 degrees QTc Int : 437 ms SINUS RHYTHM WITH OCCASIONAL PREMATURE VENTRICULAR COMPLEXES ABNORMAL ECG WHEN COMPARED WITH ECG OF 07-MAR-2019 04:27, PREMATURE VENTRICULAR COMPLEXES ARE NOW PRESENT VENT. RATE HAS DECREASED BY 45 BPM Confirmed by OBDULIA WARNER MD ([id number]) on 07/04/2020 12:40:29 PM Referred By: Confirmed By:OBDULIA WARNER MD
[2020-07-04 14:13] VITALS: BP 142/68; TEMP 98.5
[2020-07-04 15:43] VITALS: PULSE 83
--- NOTE | 2020-07-04 19:20 | DS ---
Physical Exam: SUBJECTIVE: Patient seen and examined at bedside. pt states she still has some shortness of breath but is improved OBJECTIVE: Vital Signs Period Temp Pulse Resp BP Sys/Adan Pulse Ox Last 24 Hr 97.8 F-98.5 F 68-84 16-22 124-158/65-79 95-97 PHYSICAL EXAM GENERAL: The patient is awake, alert, and fully oriented, in no acute distress. HEAD: Normal with no signs of trauma. LUNGS: Breath sounds equal, clear to auscultation bilaterally, no wheezes, no crackles, no accessory muscle use. HEART: Regular rate and rhythm, S1, S2 + systolic murmur ABDOMEN: Soft, nontender, nondistended, normoactive bowel sounds, no guarding, no rebound EXTREMITIES: 2+ pulses, warm, well-perfused, no edema. NEUROLOGICAL: Cranial nerves II through XII grossly intact. Normal speech, gait not observed. PSYCH: Normal mood, normal affect. SKIN: Warm, dry, normal turgor, no rashes or lesions noted. LABS Laboratory Results - last 24 hr 07/03/20 07/03/20 07/03/20 10:10 18:00 20:51 WBC RBC Hgb Hct MCV MCH MCHC RDW Plt Count MPV Sodium Potassium Chloride Carbon Dioxide Anion Gap BUN Creatinine Est GFR (CKD-EPI)AfAm Est GFR (CKD-EPI)NonAf POC Glucometer 278 Random Glucose Calcium Phosphorus Magnesium Troponin I 0.02 COVID-19 ([facility]) Not detected 07/04/20 07/04/20 07/04/20 08:55 08:55 12:01 WBC 10.3 H RBC 4.51 Hgb 12.4 Hct 38.5 MCV 85.4 MCH 27.5 MCHC 32.2 RDW 15.0 Plt Count 217 MPV 8.2 Sodium 140 Potassium 4.4 Chloride 106 Carbon Dioxide 28 Anion Gap 6 L BUN 30.7 H Creatinine 1.4 H Est GFR (CKD-EPI)AfAm 46.55 Est GFR (CKD-EPI)NonAf 40.17 POC Glucometer 206 Random Glucose 282 H Calcium 9.1 Phosphorus 4.5 Magnesium 2.1 Troponin I COVID-19 ([facility]) HOSPITAL COURSE: Date of Admission:07/03/20 Pt eloped without signing AMA form. risks were explained to patient. Date of Discharge: 07/04/20 Discharge Summary Problems reviewed: Yes Reason For Visit: CHEST PAIN Current Active Problems Chest pain, rule out acute myocardial infarction (Acute) Condition: Guarded - Instructions Diet, Activity, Other Instructions: You came into the hospital for trouble breathing. It is likely this was from your COPD. You were treated with Steroids. Please take prednisone as indicated below: On days 07/05-07/07 take 4 tablets ( 20 mg) once a day on days 07/08-07/10 take 3 tablets( 15 mg ) once a day on days 07/11-07/13 take 2 tablets ( 10 mg) once a day 07/14-07/16 take 1 tablet ( 5 mg) once a day Please continue your additional medications as prescribed. Please follow up with your Service Superintendent, Dr. Salomon, to continue to manage your COPD Please follow up with your early breastfeeding care specialist, Dr. Lieberman, to monitor your heart failure Please follow up with your Primary care provider to further manage your healthcare If you have new, worsening, or concerning symptoms please return to the ED or call 911 Referrals: Irving Lieberman MD [Staff Physician] - Radha Solis DO [Primary Care Provider] - Sander Salomon MD, MD [Staff Physician] - Disposition: ELOPED - Home Medications Comprehensive Discharge Medication List: Ambulatory Orders Furosemide [Lasix] 40 mg PO DAILY 12/27/18 Gabapentin 600 mg PO BID 12/27/18 Pantoprazole Sodium 40 mg PO DAILY 12/27/18 Ranolazine [Ranexa] 1,000 mg PO BID 12/27/18 Rosuvastatin [Crestor -] 40 mg PO DAILY 12/27/18 Montelukast Sodium [Singulair] 10 mg PO HS 02/12/19 Amlodipine Besylate [Norvasc -] 10 mg PO DAILY 07/03/20 Aspirin 81 mg PO DAILY 07/03/20 Bupropion HCl [Wellbutrin Xl] 300 mg PO DAILY 07/03/20 Carvedilol 12.5 mg PO BID 07/03/20 Isosorbide Mononitrate [Isosorbide Mononitrate ER] 30 mg PO BID 07/03/20 Levalbuterol HCl [Xopenex] 0.45 mg IH DAILY 07/03/20 Nitroglycerin Sublingual [Nitrostat -] 0.4 mg SL ASDIR 07/03/20 Oxycodone HCl [Oxycontin] 80 mg PO BID 07/03/20 Oxycodone HCl [Roxicodone] 30 mg PO Q6H 07/03/20 Ticagrelor [Brilinta -] 90 mg PO BID 07/03/20 Umeclidinium [place] [Incruse Ellipta] 62.5 mcg IH DAILY 07/03/20 Albuterol 0.083% Nebulizer [place] [Ventolin 0.083% Nebulizer Soln -] 1 vial IH Q6H 07/04/20 Doxepin HCl [Silenor] 3 mg PO HS PRN 07/04/20 Fluticasone/Vilanterol [Breo Ellipta 200-25 Mcg INH] 1 puff IH DAILY 07/04/20 Insulin Degludec [Tresiba Flextouch U-200] 34 unit SQ DAILY 07/04/20 Tizanidine HCl 8 mg PO HS 07/04/20 predniSONE [Deltasone -] See Taper PO DAILY #30 tablet 07/04/20 ATTENDING PHYSICIAN STATEMENT I saw and evaluated the patient. I reviewed the resident's note and discussed the case with the resident. I agree with the resident's findings and plan as documented. SUBJECTIVE: OBJECTIVE: ASSESSMENT AND PLAN:
[2020-07-04] MEDS ORDERED: ROSUVASTATIN CA 20 MG TABLET (FP) PO SCH (22:00)
== END 2020-07-04 18:00 | disposition left against medical advice (07) | DRG 191 ==
LOC: JER 09:06 → JERBED 09:19 → J4S 22:23
PROVIDERS: ATTEND Student in an Organized Health Care Education/Training Program
DX: J44.1 Chronic obstructive pulmonary disease with (acute) exacerbation (principal); I50.32 Chronic diastolic (congestive) heart failure; I11.0 Hypertensive heart disease with heart failure; I25.10 Atherosclerotic heart disease of native coronary artery without angina pectoris; Z95.5 Presence of coronary angioplasty implant and graft; R07.9 Chest pain, unspecified; E78.5 Hyperlipidemia, unspecified; J44.9 Chronic obstructive pulmonary disease, unspecified; E66.01 Morbid (severe) obesity due to excess calories; F32.9 Major depressive disorder, single episode, unspecified; K21.9 Gastro-esophageal reflux disease without esophagitis; Z68.38 Body mass index [BMI] 38.0-38.9, adult; E11.65 Type 2 diabetes mellitus with hyperglycemia
CPT/HCPCS: 36415; 71045-TC-FY; 80048; 80053; 82962; 83735; 83880; 84100; 84484; 85025; 85027; 93005; 93010; 94660; 94761; 99285-25; J1644; U0003

== ENCOUNTER 2021-01-10 11:58 | Observation (INO) | payer OTHER ==
[2021-01-10 12:10] VITALS: BMI 35.5
[2021-01-10] MEDS ORDERED: ASPIRIN 325 MG TABLET PO ONE (12:49)
[2021-01-10] MEDS ORDERED: morphine CARPU-JECT 2 MG/1 ML DISP.SYRIN IVPUSH ONE (12:49)
[2021-01-10] MEDS ORDERED: MORPHINE SULFATE 2 MG/ML VIAL ONE ×2 (12:56→19:41)
[2021-01-10] MEDS ORDERED: ASPIRIN 325 MG ENTERIC COATED TABLET (FP) ONE (12:56)
[2021-01-10 13:30] LABS: BASO % 0.5 % (0-2.0); EOS % 1.9 % (0-4.5); HEMATOCRIT 35.4 % (32.4-45.2); HEMOGLOBIN 11.6 GM/dL (10.7-15.3); LYMPH % 54.8 % (8-40); MCH 28.3 pg (25.7-33.7); MCHC 32.6 g/dl (32.0-36.0); MEAN CELL VOLUME 86.6 fl (80-96); MEAN PLT VOLUME 8.7 fl (7.5-11.1); MONO % 10.1 % (3.8-10.2); NEUT % 32.7 % (42.8-82.8); PLATELET COUNT 185 K/MM3 (134-434); RBC 4.09 M/mm3 (3.60-5.2); RDW 14.9 % (11.6-15.6); WHITE BLOOD COUNT 5.8 K/mm3 (4.0-10.0)
[2021-01-10 13:36] LABS: INR 1.03 (0.83-1.09); PROTHROMBIN TIME (PATIENT) 12.7 SEC (9.7-13.0)
[2021-01-10 13:39] LABS: ACTIVATED PTT 29.7 SECONDS (25.2-36.5)
[2021-01-10 13:42] LABS: POTASSIUM 4.2 mmol/L (3.5-5.1)
[2021-01-10 13:44] LABS: CALCIUM 8.7 mg/dL (8.5-10.1)
[2021-01-10 13:45] LABS: BLOOD UREA NITROGEN 14.1 mg/dL (7-18)
[2021-01-10 13:48] LABS: CREATININE 1.2 mg/dL (0.55-1.3)
[2021-01-10 13:49] LABS: BILIRUBIN,TOTAL 0.2 mg/dL (0.2-1); TOT PROT 6.4 g/dl (6.4-8.2)
[2021-01-10 13:59] LABS: ANISOCYTOSIS 1+; MACROCYTOSIS 0; PLATELET ESTIMATE NORMAL
[2021-01-10] MEDS ORDERED: ACETAMINOPHEN 1000 MG/100 ML VIAL (NON FORMULARY) IVPB ONE (14:19)
[2021-01-10] MEDS ORDERED: ENOXAPARIN NA (PORCINE) 100 MG/1 ML DISP.SYRIN SQ ONE ×2 (14:19→14:23)
[2021-01-10] MEDS ORDERED: ACETAMINOPHEN INJECTION 100 ML IVPB ONE (14:22)
[2021-01-10 15:19] LABS: N-TERMINAL BNP 151.2 pg/ml (5-125)
[2021-01-10 15:34] LABS: N-TERMINAL BNP 146.9 pg/ml (5-125)
[2021-01-10] MEDS ORDERED: ASPIRIN 81 MG CHEWABLE TABLETS ONE ×2 (16:22→16:27)
[2021-01-10] MEDS: ASPIRIN 81 MG CHEWABLE TABLETS PO SCH (16:29)
[2021-01-10] MEDS: INSULIN SLIDING SCALE (NOVOLOG) 1 VIAL SQ SCH ×2 (16:37→22:25)
[2021-01-10 16:53] LABS: MAGNESIUM 1.7 mg/dL (1.8-2.4)
[2021-01-10] MEDS: MORPHINE SULFATE 2 MG/ML VIAL IVPUSH PRN (19:48)
[2021-01-10] MEDS: CARVEDILOL 12.5 MG TABLET (FP) PO SCH (22:26)
[2021-01-10] MEDS ORDERED: RANOLAZINE E.R. 1,000 MG TABLET (FP) PO ONE (22:48)
[2021-01-10] MEDS: GABAPENTIN 300 MG CAPSULE PO SCH (23:10)
[2021-01-10] MEDS: ISOSORBIDE MONONITRATE 30 MG TAB.SR.24H (FP) PO SCH (23:10)
[2021-01-11] MEDS ORDERED: MORPHINE SULFATE 2 MG/ML VIAL ONE (01:41)
[2021-01-11] MEDS: MORPHINE SULFATE 2 MG/ML VIAL IVPUSH PRN ×2 (01:49→21:46)
[2021-01-11 06:31] LABS: BASO % 0.5 % (0-2.0); EOS % 2.4 % (0-4.5); HEMATOCRIT 34.9 % (32.4-45.2); HEMOGLOBIN 11.3 GM/dL (10.7-15.3); LYMPH % 63.2 % (8-40); MCH 28.1 pg (25.7-33.7); MCHC 32.4 g/dl (32.0-36.0); MEAN CELL VOLUME 86.7 fl (80-96); MEAN PLT VOLUME 8.2 fl (7.5-11.1); MONO % 10.6 % (3.8-10.2); NEUT % 23.3 % (42.8-82.8); PLATELET COUNT 171 K/MM3 (134-434); RBC 4.02 M/mm3 (3.60-5.2); RDW 15.1 % (11.6-15.6); WHITE BLOOD COUNT 5.1 K/mm3 (4.0-10.0)
[2021-01-11 06:41] LABS: INR 1.13 (0.83-1.09); PROTHROMBIN TIME (PATIENT) 13.8 SEC (9.7-13.0)
[2021-01-11 06:44] LABS: ACTIVATED PTT 38.5 SECONDS (25.2-36.5)
[2021-01-11 06:48] LABS: CALCIUM 8.6 mg/dL (8.5-10.1)
[2021-01-11 06:49] LABS: ALBUMIN 2.9 g/dl (3.4-5.0); BLOOD UREA NITROGEN 13.1 mg/dL (7-18); MAGNESIUM 1.7 mg/dL (1.8-2.4)
[2021-01-11 06:53] LABS: BILIRUBIN,TOTAL 0.2 mg/dL (0.2-1)
[2021-01-11 07:26] LABS: POTASSIUM 4.1 mmol/L (3.5-5.1)
[2021-01-11] MEDS: INSULIN SLIDING SCALE (NOVOLOG) 1 VIAL SQ SCH ×4 (08:01→21:45)
[2021-01-11] MEDS ORDERED: INSULIN (LEVEMIR) 100 UNITS/ML UNITS SQ ONE (08:26)
[2021-01-11] MEDS: INSULIN (LEVEMIR) 100 UNITS/ML UNITS SQ SCH (08:31)
[2021-01-11 09:27] LABS: ANISOCYTOSIS 1+; MACROCYTOSIS 0; PLATELET ESTIMATE NORMAL
[2021-01-11] MEDS ORDERED: TICAGRELOR 90 MG TABLET PO SCH (11:15)
[2021-01-11] MEDS ORDERED: TICAGRELOR 60 MG TABLET PO SCH (11:15)
[2021-01-11] MEDS ORDERED: oxyCODONE HCL 40 MG SUSTAINED ACTING TABLET PO ONE (11:36)
[2021-01-11] MEDS: oxyCODONE HCL 40 MG SUSTAINED ACTING TABLET PO SCH ×2 (11:43→21:35)
[2021-01-11] MEDS ORDERED: ASPIRIN 81 MG CHEWABLE TABLETS ONE (13:09)
[2021-01-11] MEDS ORDERED: amLODIPine BESYLATE 5 MG TABLET (FP) ONE (13:09)
[2021-01-11] MEDS ORDERED: FUROSEMIDE 40 MG TABLET (FP) ONE (13:09)
[2021-01-11] MEDS ORDERED: ISOSORBIDE MONONITRATE 60 MG TAB.SR.24H (FP) PO ONE (13:10)
[2021-01-11] MEDS ORDERED: CARVEDILOL 12.5 MG TABLET (FP) ONE (13:10)
[2021-01-11] MEDS ORDERED: buPROPion HCL 100 MG TABLET ONE (13:11)
[2021-01-11] MEDS ORDERED: GABAPENTIN 100 MG CAPSULE ONE (13:11)
[2021-01-11] MEDS: CARVEDILOL 12.5 MG TABLET (FP) PO SCH ×2 (13:20→21:34)
[2021-01-11] MEDS: ISOSORBIDE MONONITRATE 30 MG TAB.SR.24H (FP) PO SCH ×2 (13:20→21:34)
[2021-01-11] MEDS: GABAPENTIN 300 MG CAPSULE PO SCH ×2 (13:20→21:34)
[2021-01-11] MEDS: amLODIPine BESYLATE 5 MG TABLET (FP) PO SCH (13:20)
[2021-01-11] MEDS: ASPIRIN 81 MG CHEWABLE TABLETS PO SCH (13:20)
[2021-01-11] MEDS: FUROSEMIDE 40 MG TABLET (FP) PO SCH (13:20)
[2021-01-11] MEDS: RANOLAZINE E.R. 1,000 MG TABLET (FP) PO SCH ×2 (13:41→21:35)
[2021-01-11] MEDS: HEPARIN NA (PORCINE) 5,000 UNITS/ML 1ML VIAL SQ SCH ×2 (15:43→21:33)
[2021-01-11] MEDS: oxyCODONE HCL 5 MG TABLET PO PRN (18:04)
[2021-01-11] MEDS ORDERED: PT OWN MED DRAWER 7, Y5N ONE (20:32)
[2021-01-11] MEDS ORDERED: RANOLAZINE E.R. 500 MG TABLET (FP) ONE (20:32)
[2021-01-11] MEDS: TICAGRELOR 90 MG TABLET PO SCH (23:00)
[2021-01-12] MEDS: INSULIN (LEVEMIR) 100 UNITS/ML UNITS SQ SCH (06:34)
[2021-01-12] MEDS: INSULIN SLIDING SCALE (NOVOLOG) 1 VIAL SQ SCH ×4 (06:34→22:12)
[2021-01-12] MEDS: HEPARIN NA (PORCINE) 5,000 UNITS/ML 1ML VIAL SQ SCH ×3 (06:47→22:01)
[2021-01-12] MEDS: amLODIPine BESYLATE 5 MG TABLET (FP) PO SCH ×2 (07:59→12:16)
[2021-01-12] MEDS ORDERED: REGADENOSON 0.4 MG/5 ML PRE-FILLED SYRINGE IVPUSH ONE ×2 (09:11→09:45)
[2021-01-12] MEDS ORDERED: RANOLAZINE E.R. 500 MG TABLET (FP) ONE ×2 (12:09→21:47)
[2021-01-12] MEDS: ASPIRIN 81 MG CHEWABLE TABLETS PO SCH (12:09)
[2021-01-12] MEDS: oxyCODONE HCL 40 MG SUSTAINED ACTING TABLET PO SCH ×2 (12:10→21:57)
[2021-01-12] MEDS: ISOSORBIDE MONONITRATE 30 MG TAB.SR.24H (FP) PO SCH ×2 (12:10→21:57)
[2021-01-12] MEDS: CARVEDILOL 12.5 MG TABLET (FP) PO SCH ×2 (12:11→22:05)
[2021-01-12] MEDS: FUROSEMIDE 40 MG TABLET (FP) PO SCH (12:11)
[2021-01-12] MEDS: GABAPENTIN 300 MG CAPSULE PO SCH ×2 (12:11→21:59)
[2021-01-12] MEDS: RANOLAZINE E.R. 1,000 MG TABLET (FP) PO SCH ×2 (12:12→22:01)
[2021-01-12] MEDS ORDERED: PT OWN MED DRAWER 7, Y5N ONE ×3 (12:13→21:55)
[2021-01-12] MEDS: TICAGRELOR 90 MG TABLET PO SCH ×2 (12:15→22:04)
[2021-01-12 13:05] LABS: BASO % 0.5 % (0-2.0); EOS % 1.3 % (0-4.5); HEMATOCRIT 36.6 % (32.4-45.2); LYMPH % 55.5 % (8-40); MCH 28.3 pg (25.7-33.7); MCHC 32.9 g/dl (32.0-36.0); MEAN CELL VOLUME 85.9 fl (80-96); MEAN PLT VOLUME 8.3 fl (7.5-11.1); MONO % 7.8 % (3.8-10.2); NEUT % 34.9 % (42.8-82.8); PLATELET COUNT 196 K/MM3 (134-434); RBC 4.26 M/mm3 (3.60-5.2); RDW 14.7 % (11.6-15.6); WHITE BLOOD COUNT 7.2 K/mm3 (4.0-10.0)
[2021-01-12 13:10] LABS: INR 1.11 (0.83-1.09); PROTHROMBIN TIME (PATIENT) 13.6 SEC (9.7-13.0)
[2021-01-12 13:29] LABS: POTASSIUM 3.7 mmol/L (3.5-5.1)
[2021-01-12 13:31] LABS: ALBUMIN 3.4 g/dl (3.4-5.0); CALCIUM 9.3 mg/dL (8.5-10.1); MAGNESIUM 1.7 mg/dL (1.8-2.4)
[2021-01-12 13:32] LABS: BLOOD UREA NITROGEN 16.2 mg/dL (7-18)
[2021-01-12 13:34] LABS: CREATININE 1.2 mg/dL (0.55-1.3)
[2021-01-12 13:36] LABS: BILIRUBIN,TOTAL 0.4 mg/dL (0.2-1); TOT PROT 6.8 g/dl (6.4-8.2)
[2021-01-12] MEDS: oxyCODONE HCL 5 MG TABLET PO PRN (15:14)
[2021-01-12] MEDS: MORPHINE SULFATE 2 MG/ML VIAL IVPUSH PRN (20:23)
[2021-01-12] MEDS ORDERED: ROSUVASTATIN CA 20 MG TABLET (FP) PO SCH (22:00)
[2021-01-13] MEDS: INSULIN (LEVEMIR) 100 UNITS/ML UNITS SQ SCH (06:25)
[2021-01-13] MEDS: HEPARIN NA (PORCINE) 5,000 UNITS/ML 1ML VIAL SQ SCH (06:25)
[2021-01-13] MEDS: INSULIN SLIDING SCALE (NOVOLOG) 1 VIAL SQ SCH ×2 (06:26→10:45)
[2021-01-13] MEDS ORDERED: RANOLAZINE E.R. 500 MG TABLET (FP) ONE (08:41)
[2021-01-13] MEDS ORDERED: PT OWN MED DRAWER 7, Y5N ONE (08:42)
[2021-01-13 08:47] VITALS: BP 124/53; PULSE 67; TEMP 98.8
[2021-01-13] MEDS: amLODIPine BESYLATE 5 MG TABLET (FP) PO SCH (09:18)
[2021-01-13] MEDS: CARVEDILOL 12.5 MG TABLET (FP) PO SCH (09:18)
[2021-01-13] MEDS: ISOSORBIDE MONONITRATE 30 MG TAB.SR.24H (FP) PO SCH (09:18)
[2021-01-13] MEDS: RANOLAZINE E.R. 1,000 MG TABLET (FP) PO SCH (09:19)
[2021-01-13] MEDS: ASPIRIN 81 MG CHEWABLE TABLETS PO SCH (09:19)
[2021-01-13] MEDS: FUROSEMIDE 40 MG TABLET (FP) PO SCH (09:19)
[2021-01-13] MEDS: TICAGRELOR 90 MG TABLET PO SCH (09:19)
[2021-01-13] MEDS: GABAPENTIN 300 MG CAPSULE PO SCH (09:20)
[2021-01-13] MEDS: oxyCODONE HCL 40 MG SUSTAINED ACTING TABLET PO SCH (10:44)
== END 2021-01-13 12:28 | disposition short-term general hospital (02) ==
LOC: JER 11:58 → UNDOADMOB 12:55 → JERBED 12:55 → INTOOBSV 12:55 → JERBED 01-11 15:16 → J4W 01-11 15:16 → JERBED 01-12 10:51
PROVIDERS: ADMIT Internal Medicine; ATTEND Nurse Practitioner Family
PROC: 3E033NZ Introduction of Analgesics, Hypnotics, Sedatives into Peripheral Vein, Percutaneous Approach (ICD-10-PCS; principal; 2021-01-12)
PROC: 3E023GC Introduction of Other Therapeutic Substance into Muscle, Percutaneous Approach (ICD-10-PCS; 2021-01-12)
PROC: 3E013VG Introduction of Insulin into Subcutaneous Tissue, Percutaneous Approach (ICD-10-PCS; 2021-01-12)
DX: I25.10 Atherosclerotic heart disease of native coronary artery without angina pectoris (principal); I11.0 Hypertensive heart disease with heart failure; I50.30 Unspecified diastolic (congestive) heart failure; Z87.891 Personal history of nicotine dependence; E78.5 Hyperlipidemia, unspecified; I25.2 Old myocardial infarction; E66.8 Other obesity; Z68.35 Body mass index [BMI] 35.0-35.9, adult; Z91.013 Allergy to seafood; Z91.018 Allergy to other foods
CPT/HCPCS: 36415; 71045-TC-FY; 78452-TC; 80053; 82550; 82962; 83036; 83735; 83880; 84443; 84484; 85025; 85610; 85730; 93005; 93010; 93017; 93306-TC; 96372; 96374; 96375; 96376; 99285-25; A9502; C9803; G0378; J0131; J1644; J2785; U0003; U0005

== ENCOUNTER 2021-08-06 19:00 | Inpatient (IN) | payer OTHER ==
[2021-08-06] MEDS ORDERED: ASPIRIN 81 MG CHEWABLE TABLETS PO ONE (20:15)
[2021-08-06] MEDS ORDERED: ASPIRIN 81 MG CHEWABLE TABLETS ONE (20:31)
[2021-08-06] MEDS ORDERED: ACETAMINOPHEN 1000 MG/100 ML VIAL IVPB ONE (21:13)
[2021-08-06 21:15] LABS: HEMATOCRIT 35.5 % (32.4-45.2); HEMOGLOBIN 11.6 GM/dL (10.7-15.3); MCH 27.6 pg (25.7-33.7); MCHC 32.6 g/dl (32.0-36.0); MEAN CELL VOLUME 84.8 fl (80-96); PLATELET COUNT 188 10^3/uL (134-434); RBC 4.19 M/mm3 (3.60-5.2); RDW 15.9 % (11.6-15.6); WHITE BLOOD COUNT 9.8 K/mm3 (4.0-10.0)
[2021-08-06] MEDS ORDERED: ACETAMINOPHEN INJECTION 100 ML IVPB ONE (21:27)
[2021-08-06 21:28] LABS: INR 1.18 (0.83-1.09); PROTHROMBIN TIME (PATIENT) 13.2 SEC (9.7-13.0)
[2021-08-06 21:31] LABS: ACTIVATED PTT 32.3 SECONDS (25.2-36.5)
[2021-08-06 21:41] LABS: ALBUMIN 2.9 g/dl (3.4-5.0); BLOOD UREA NITROGEN 13.4 mg/dL (7-18); CALCIUM 8.7 mg/dL (8.5-10.1); MAGNESIUM 1.9 mg/dL (1.8-2.4)
[2021-08-06 21:44] LABS: CREATININE 1.3 mg/dL (0.55-1.3)
[2021-08-06 21:46] LABS: BILIRUBIN,TOTAL 0.4 mg/dL (0.2-1); TOT PROT 6.7 g/dl (6.4-8.2)
[2021-08-06 21:50] LABS: N-TERMINAL BNP 374.5 pg/ml (5-125)
[2021-08-07] MEDS ORDERED: morphine SULFATE 4 MG/ML VIAL IVPUSH ONE (01:04)
[2021-08-07] MEDS ORDERED: morphine SULFATE 4 MG/ML VIAL ONE (01:23)
[2021-08-07] MEDS ORDERED: FUROSEMIDE 40 MG/4 ML INJECTABLE VIAL IVPUSH ONE (04:04)
[2021-08-07] MEDS ORDERED: FUROSEMIDE 40 MG/4 ML INJECTABLE VIAL ONE (04:23)
[2021-08-07 05:45] LABS: EPI CELLS 6 /uL (0-25.1); HYALINE CASTS 0 /uL (0-3.1); URINE APPEARANCE CLEAR; URINE BACTERIA 23 /uL (0-1359); URINE BILIRUBIN NEGATIVE (NEGATIVE); URINE COLOR YELLOW; URINE GLUCOSE (UA) 3+ (NEGATIVE); URINE KETONE NEGATIVE (NEGATIVE); URINE LEUK ESTERASE NEGATIVE (NEGATIVE); URINE NITRITE NEGATIVE (NEGATIVE); URINE PROTEIN NEGATIVE (NEGATIVE); URINE RBC 37 /uL (0-23.9); URINE WBC 14 /uL (0-25.8)
[2021-08-07 05:51] LABS: URINE AMPHETAMINES NEGATIVE (NEGATIVE); URINE BARBITURATES NEGATIVE (NEGATIVE); URINE BENZODIAZEPINES NEGATIVE (NEGATIVE)
[2021-08-07 05:52] LABS: METHADONE, UR NEGATIVE (NEGATIVE); PHENCYCLIDINE,URINE NEGATIVE (NEGATIVE)
[2021-08-07 05:58] LABS: COCAINE, UR POSITIVE (NEGATIVE); OPIATES, URI POSITIVE (NEGATIVE)
[2021-08-07] MEDS ORDERED: CARVEDILOL 25 MG TABLET (FP) PO SCH (10:00)
[2021-08-07] MEDS: NICOTINE 7 MG/24 HOURS TOPICAL PATCH TD SCH (10:00)
[2021-08-07] MEDS ORDERED: ASPIRIN 81 MG CHEWABLE TABLETS ONE (10:34)
[2021-08-07] MEDS ORDERED: CARVEDILOL 12.5 MG TABLET (FP) ONE ×2 (10:34→20:35)
[2021-08-07] MEDS ORDERED: CARVEDILOL 3.125 MG TABLET (FP) ONE (10:35)
[2021-08-07] MEDS ORDERED: CLOPIDOGREL BISULFATE 75 MG TABLET (FP) ONE (10:40)
[2021-08-07] MEDS ORDERED: ISOSORBIDE MONONITRATE 60 MG TAB.SR.24H (FP) PO ONE (10:40)
[2021-08-07] MEDS ORDERED: ENOXAPARIN NA (PORCINE) 40 MG/0.4 ML DISP.SYRIN SQ ONE (10:40)
[2021-08-07] MEDS: ASPIRIN 81 MG CHEWABLE TABLETS PO SCH (11:00)
[2021-08-07] MEDS: ENOXAPARIN NA (PORCINE) 40 MG/0.4 ML DISP.SYRIN SQ SCH (11:00)
[2021-08-07] MEDS: CLOPIDOGREL BISULFATE 75 MG TABLET (FP) PO SCH (11:00)
[2021-08-07] MEDS: CARVEDILOL 12.5 MG, CARVEDILOL 6.25 MG PO SCH ×2 (11:00→21:35)
[2021-08-07] MEDS: ISOSORBIDE MONONITRATE 30 MG TAB.SR.24H (FP) PO SCH (11:00)
[2021-08-07] MEDS: UMECLIDINIUM/VILANTEROL (ANORO) 62.5/25 MCG INHALER IH SCH (14:15)
[2021-08-07] MEDS ORDERED: PATIENT'S OWN MEDICATION (NON-FORMULARY) (Empagliflozin [Jardiance] 25 MG Tablet) PO SCH (14:15)
[2021-08-07] MEDS: LOSARTAN POTASSIUM 25 MG TABLET PO SCH (14:30)
[2021-08-07] MEDS: INSULIN SLIDING SCALE (NOVOLOG) 1 VIAL SQ SCH ×3 (17:53→23:32)
[2021-08-07] MEDS: RANOLAZINE E.R. 1,000 MG TABLET (FP) PO SCH ×2 (17:56→21:44)
[2021-08-07] MEDS: amLODIPine BESYLATE 5 MG TABLET (FP) PO SCH (17:57)
[2021-08-07] MEDS: FUROSEMIDE 40 MG TABLET (FP) PO SCH (17:57)
[2021-08-07] MEDS ORDERED: FUROSEMIDE 40 MG TABLET (FP) ONE (18:03)
[2021-08-07] MEDS ORDERED: RANOLAZINE E.R. 500 MG TABLET (FP) ONE (20:36)
[2021-08-07] MEDS ORDERED: CARVEDILOL 6.25 MG TABLET (FP) ONE (20:36)
[2021-08-07] MEDS ORDERED: ACETAMINOPHEN 1000 MG/100 ML VIAL IVPB PRN (22:00)
[2021-08-07] MEDS ORDERED: ROSUVASTATIN CA 40 MG TABLET PO SCH (22:00)
[2021-08-08 04:04] VITALS: BMI 34.2
[2021-08-08] MEDS: INSULIN SLIDING SCALE (NOVOLOG) 1 VIAL SQ SCH ×2 (06:19→12:05)
[2021-08-08 08:30] LABS: HEMATOCRIT 35.7 % (32.4-45.2); HEMOGLOBIN 11.6 GM/dL (10.7-15.3); MCH 27.7 pg (25.7-33.7); MCHC 32.6 g/dl (32.0-36.0); MEAN PLT VOLUME 8.1 fl (7.5-11.1); PLATELET COUNT 198 10^3/uL (134-434); RDW 15.4 % (11.6-15.6); WHITE BLOOD COUNT 8.3 K/mm3 (4.0-10.0)
[2021-08-08 08:38] LABS: MAGNESIUM 1.7 mg/dL (1.8-2.4)
[2021-08-08 08:39] LABS: CALCIUM 8.8 mg/dL (8.5-10.1)
[2021-08-08 08:43] LABS: CREATININE 1.2 mg/dL (0.55-1.3)
[2021-08-08 09:28] VITALS: BP 134/55; PULSE 67; TEMP 98
[2021-08-08] MEDS ORDERED: CARVEDILOL 6.25 MG TABLET (FP) ONE (09:33)
[2021-08-08] MEDS ORDERED: CARVEDILOL 12.5 MG TABLET (FP) ONE (09:33)
[2021-08-08] MEDS ORDERED: RANOLAZINE E.R. 500 MG TABLET (FP) ONE (09:34)
[2021-08-08] MEDS ORDERED: PT OWN MED DRAWER 7, Y5N ONE (09:36)
[2021-08-08] MEDS: amLODIPine BESYLATE 5 MG TABLET (FP) PO SCH (10:24)
[2021-08-08] MEDS: ASPIRIN 81 MG CHEWABLE TABLETS PO SCH (10:24)
[2021-08-08] MEDS: CARVEDILOL 12.5 MG, CARVEDILOL 6.25 MG PO SCH (10:25)
[2021-08-08] MEDS: NICOTINE 7 MG/24 HOURS TOPICAL PATCH TD SCH (10:25)
[2021-08-08] MEDS: LOSARTAN POTASSIUM 25 MG TABLET PO SCH (10:25)
[2021-08-08] MEDS: ISOSORBIDE MONONITRATE 30 MG TAB.SR.24H (FP) PO SCH (10:25)
[2021-08-08] MEDS: CLOPIDOGREL BISULFATE 75 MG TABLET (FP) PO SCH (10:25)
[2021-08-08] MEDS: FUROSEMIDE 40 MG TABLET (FP) PO SCH (10:25)
[2021-08-08] MEDS: RANOLAZINE E.R. 1,000 MG TABLET (FP) PO SCH (10:26)
[2021-08-08] MEDS: ENOXAPARIN NA (PORCINE) 40 MG/0.4 ML DISP.SYRIN SQ SCH ×2 (10:26→10:38)
[2021-08-08] MEDS ORDERED: oxyCODONE HCL 5 MG TABLET PO PRN (10:30)
[2021-08-08] MEDS ORDERED: oxyCODONE HCL 40 MG SUSTAINED ACTING TABLET PO SCH (10:45)
[2021-08-08] MEDS ORDERED: GABAPENTIN 300 MG CAPSULE PO SCH (10:45)
[2021-08-08] MEDS ORDERED: PANTOPRAZOLE 40 MG TABLET PO SCH (10:45)
[2021-08-08] MEDS ORDERED: MAGNESIUM 1GM/D5W 100ML - 100 ML IVPB IVPB ONE (11:00)
[2021-08-08] MEDS: UMECLIDINIUM/VILANTEROL (ANORO) 62.5/25 MCG INHALER IH SCH (11:56)
[2021-08-08] MEDS ORDERED: FAMOTIDINE 20 MG TABLET PO SCH (22:00)
[2021-08-08] MEDS ORDERED: MONTELUKAST NA 10 MG TABLET PO SCH (22:00)
== END 2021-08-08 15:56 | disposition home or self-care (01) | DRG 291 ==
LOC: JER 19:00 → JERBED 20:50 → J4W 08-07 19:22
PROVIDERS: ADMIT Internal Medicine; ATTEND Internal Medicine
DX: I11.0 Hypertensive heart disease with heart failure (principal); I50.33 Acute on chronic diastolic (congestive) heart failure; I25.10 Atherosclerotic heart disease of native coronary artery without angina pectoris; E11.9 Type 2 diabetes mellitus without complications; Z79.4 Long term (current) use of insulin; E66.01 Morbid (severe) obesity due to excess calories; J44.9 Chronic obstructive pulmonary disease, unspecified; G47.33 Obstructive sleep apnea (adult) (pediatric); Z99.81 Dependence on supplemental oxygen; Z86.711 Personal history of pulmonary embolism; E78.5 Hyperlipidemia, unspecified; Z68.34 Body mass index [BMI] 34.0-34.9, adult; F14.10 Cocaine abuse, uncomplicated; I25.2 Old myocardial infarction; R07.89 Other chest pain
CPT/HCPCS: 36415; 71045-TC-FY; 71275-TC; 80048; 80053; 80061; 80307; 81003; 82550; 82962; 83735; 83880; 84100; 84443; 84484; 85027; 85379; 85610; 85730; 93005; 93010; 93306-TC; 93970-TC; 99285-25; C9803; J0131; Q9967; U0003; U0005

== ENCOUNTER 2022-09-13 17:50 | Inpatient (IN) | payer OTHER ==
[2022-09-13 19:05] VITALS: BMI 30.7
[2022-09-13] MEDS ORDERED: FUROSEMIDE 40 MG/4 ML INJECTABLE VIAL IVPUSH ONE (20:49)
[2022-09-13] MEDS ORDERED: methylPREDNISolone NA SUCC 125 MG/2 ML VIAL IVPB ONE (20:51)
[2022-09-13] MEDS ORDERED: ALBUTEROL SO4 2.5/IPRATROPIUM 0.5 INH SOL 3 ML VIAL.NEB. NEB ONE (20:51)
[2022-09-13] MEDS ORDERED: methylPREDNISolone NA SUCC 125 MG/2 ML VIAL ONE (21:06)
[2022-09-13] MEDS ORDERED: FUROSEMIDE 40 MG/4 ML INJECTABLE VIAL ONE (21:06)
[2022-09-13 21:21] LABS: HEMATOCRIT 40.7 % (32.4-45.2); HEMOGLOBIN 12.7 GM/dL (10.7-15.3); MCH 26.9 pg (25.7-33.7); MCHC 31.1 g/dl (32.0-36.0); MEAN CELL VOLUME 86.4 fl (80-96); MEAN PLT VOLUME 8.8 fl (7.5-11.1); PLATELET COUNT 170 10^3/uL (134-434); RBC 4.71 M/mm3 (3.60-5.2); RDW 16.1 % (11.6-15.6); WHITE BLOOD COUNT 4.9 K/mm3 (4.0-10.0)
[2022-09-13 21:30] LABS: INR 1.46 (0.83-1.09); PROTHROMBIN TIME (PATIENT) 16.8 SEC (9.7-13.0)
[2022-09-13 21:32] LABS: ACTIVATED PTT 39.5 SECONDS (25.2-36.5)
[2022-09-13 21:50] LABS: CHLORIDE 111 mmol/L (98-107); SODIUM 144 mmol/L (136-145)
[2022-09-13 21:52] LABS: CALCIUM 8.3 mg/dL (8.5-10.1)
[2022-09-13 21:53] LABS: ALBUMIN 3.1 g/dl (3.4-5.0); ANION GAP 10 MMOL/L (8-16); BLOOD UREA NITROGEN 24.4 mg/dL (7-18); CO2 23 mmol/L (21-32); GLUCOSE,RANDOM 249 mg/dL (74-106); MAGNESIUM 2.1 mg/dL (1.8-2.4)
[2022-09-13 21:56] LABS: CREATININE 1.5 mg/dL (0.55-1.3); PHOSPHOROUS 3.6 mg/dL (2.5-4.9); SGOT/AST 22 U/L (15-37); SGPT/ALT 30 U/L (13-61)
[2022-09-13 21:58] LABS: BILIRUBIN,TOTAL 0.2 mg/dL (0.2-1); TOT PROT 6.5 g/dl (6.4-8.2)
[2022-09-13 21:59] LABS: ALK PHOS 89 U/L (45-117)
[2022-09-13 22:01] LABS: N-TERMINAL BNP 1666.1 pg/ml (5-125)
[2022-09-13] MEDS ORDERED: REMDESIVIR 200 MG in SODIUM CHLORIDE 250 ML IVPB ONE (22:14)
[2022-09-13] MEDS ORDERED: ASPIRIN 81 MG CHEWABLE TABLETS PO ONE (22:31)
[2022-09-13 22:47] LABS: ANISOCYTOSIS 0; MACROCYTOSIS 0; PLATELET ESTIMATE NORMAL
[2022-09-13] MEDS ORDERED: ASPIRIN 81 MG CHEWABLE TABLETS ONE (23:14)
[2022-09-14] MEDS ORDERED: ALBUTEROL SO4 HFA INHALER IH PRN (02:01)
[2022-09-14] MEDS ORDERED: ALBUTEROL SO4 2.5/IPRATROPIUM 0.5 INH SOL 3 ML VIAL.NEB. NEB PRN (02:01)
[2022-09-14] MEDS ORDERED: REMDESIVIR 200 MG in SODIUM CHLORIDE 250 ML IVPB ONE (04:00)
[2022-09-14] MEDS: HEPARIN NA (PORCINE) 5,000 UNITS/ML 1ML VIAL SQ SCH ×3 (06:24→22:05)
[2022-09-14 06:31] LABS: URINE APPEARANCE CLEAR; URINE BILIRUBIN NEGATIVE (NEGATIVE); URINE COLOR YELLOW; URINE GLUCOSE (UA) 3+ (NEGATIVE); URINE KETONE NEGATIVE (NEGATIVE); URINE LEUK ESTERASE NEGATIVE (NEGATIVE); URINE NITRITE NEGATIVE (NEGATIVE); URINE PROTEIN NEGATIVE (NEGATIVE); URINE UROBILINOGEN 0.2 mg/dL (0.2-1.0)
[2022-09-14 07:11] LABS: COCAINE, UR POSITIVE (NEGATIVE); METHADONE, UR NEGATIVE (NEGATIVE); OPIATES, URI NEGATIVE (NEGATIVE); PHENCYCLIDINE,URINE NEGATIVE (NEGATIVE); URINE AMPHETAMINES NEGATIVE (NEGATIVE); URINE BARBITURATES NEGATIVE (NEGATIVE); URINE BENZODIAZEPINES NEGATIVE (NEGATIVE)
[2022-09-14] MEDS: INSULIN SLIDING SCALE (NOVOLOG) 1 VIAL SQ SCH ×4 (08:04→22:06)
[2022-09-14 09:00] LABS: BASO % 0.1 % (0-2.0); HEMATOCRIT 38.5 % (32.4-45.2); HEMOGLOBIN 12.1 GM/dL (10.7-15.3); LYMPH % 58.3 % (8-40); MCHC 31.5 g/dl (32.0-36.0); MEAN CELL VOLUME 85.8 fl (80-96); MEAN PLT VOLUME 8.9 fl (7.5-11.1); MONO % 2.6 % (3.8-10.2); PLATELET COUNT 166 10^3/uL (134-434); RBC 4.49 M/mm3 (3.60-5.2); WHITE BLOOD COUNT 2.5 K/mm3 (4.0-10.0)
[2022-09-14] MEDS ORDERED: CLOPIDOGREL BISULFATE 75 MG TABLET (FP) ONE (09:01)
[2022-09-14] MEDS ORDERED: APIXABAN 5 MG TABLET ONE (09:01)
[2022-09-14] MEDS ORDERED: ISOSORBIDE MONONITRATE 60 MG TAB.SR.24H (FP) PO ONE (09:01)
[2022-09-14] MEDS ORDERED: CARVEDILOL 25 MG TABLET (FP) ONE (09:02)
[2022-09-14] MEDS ORDERED: FUROSEMIDE 20 MG TABLET (FP) ONE (09:02)
[2022-09-14] MEDS ORDERED: ASPIRIN 81 MG CHEWABLE TABLETS ONE (09:02)
[2022-09-14] MEDS: ASPIRIN 81 MG CHEWABLE TABLETS PO SCH (09:03)
[2022-09-14] MEDS: CLOPIDOGREL BISULFATE 75 MG TABLET (FP) PO SCH (09:04)
[2022-09-14] MEDS: BUDESONIDE/FORMETEROL FUMARATE 80/4.5 mcg INHALER IH SCH ×2 (09:04→22:17)
[2022-09-14] MEDS: APIXABAN 5 MG TABLET PO SCH ×2 (09:04→22:05)
[2022-09-14 09:23] LABS: CALCIUM 8.7 mg/dL (8.5-10.1)
[2022-09-14 09:24] LABS: ALBUMIN 2.9 g/dl (3.4-5.0)
[2022-09-14 09:26] LABS: MAGNESIUM 2.2 mg/dL (1.8-2.4)
[2022-09-14 09:27] LABS: CREATININE 1.3 mg/dL (0.55-1.3); PHOSPHOROUS 3.7 mg/dL (2.5-4.9)
[2022-09-14 09:29] LABS: BILIRUBIN,TOTAL 0.2 mg/dL (0.2-1); TOT PROT 6.4 g/dl (6.4-8.2)
[2022-09-14] MEDS ORDERED: PATIENT'S OWN MEDICATION (NON-FORMULARY) (Empagliflozin 25 MG Tablet) PO SCH (10:00)
[2022-09-14] MEDS ORDERED: SACUBITRIL/VALSARTAN 24 MG-26 MG TABLET PO SCH (10:00)
[2022-09-14] MEDS ORDERED: ISOSORBIDE MONONITRATE 60 MG TAB.SR.24H (FP) PO SCH (10:00)
[2022-09-14] MEDS ORDERED: CARVEDILOL 25 MG TABLET (FP) PO SCH (10:00)
[2022-09-14] MEDS ORDERED: FUROSEMIDE 20 MG TABLET (FP) PO SCH (10:00)
[2022-09-14] MEDS ORDERED: ALBUTEROL SO4 2.5/IPRATROPIUM 0.5 INH SOL 3 ML VIAL.NEB. NEB ONE (13:38)
[2022-09-14] MEDS ORDERED: HEPARIN NA (PORCINE) 5,000 UNITS/ML 1ML VIAL ONE (13:38)
[2022-09-14] MEDS: NITROGLYCERIN SUBLINGUAL 1/150 0.4 MG TAB SL PRN ×2 (17:15→23:20)
[2022-09-14] MEDS: RANOLAZINE E.R. 500 MG TABLET (FP) PO SCH ×2 (17:55→22:05)
[2022-09-14] MEDS: FUROSEMIDE 20 MG TABLET (FP) PO SCH (17:55)
[2022-09-14] MEDS: oxyCODONE HCL 5 MG TABLET PO PRN (22:07)
[2022-09-14] MEDS: predniSONE 20 MG TABLET (UD) PO SCH (22:17)
[2022-09-14] MEDS: ROSUVASTATIN CA 20 MG TABLET PO SCH (22:17)
[2022-09-14] MEDS: SACUBITRIL/VALSARTAN 24 MG-26 MG TABLET PO SCH (22:19)
[2022-09-14] MEDS: CARVEDILOL 12.5 MG TABLET (FP) PO SCH (22:26)
[2022-09-15] MEDS: REMDESIVIR 100 MG in SODIUM CHLORIDE 250 ML IVPB SCH (04:19)
[2022-09-15] MEDS: FUROSEMIDE 20 MG TABLET (FP) PO SCH ×2 (06:46→14:46)
[2022-09-15] MEDS: HEPARIN NA (PORCINE) 5,000 UNITS/ML 1ML VIAL SQ SCH ×3 (06:46→22:00)
[2022-09-15] MEDS: INSULIN SLIDING SCALE (NOVOLOG) 1 VIAL SQ SCH ×4 (07:52→23:00)
[2022-09-15] MEDS: NITROGLYCERIN SUBLINGUAL 1/150 0.4 MG TAB SL PRN ×2 (09:30→09:36)
[2022-09-15] MEDS: ASPIRIN 81 MG CHEWABLE TABLETS PO SCH (09:53)
[2022-09-15] MEDS: CLOPIDOGREL BISULFATE 75 MG TABLET (FP) PO SCH (09:53)
[2022-09-15] MEDS: APIXABAN 5 MG TABLET PO SCH ×2 (09:53→22:00)
[2022-09-15] MEDS: CARVEDILOL 12.5 MG TABLET (FP) PO SCH ×2 (09:53→22:00)
[2022-09-15] MEDS: SACUBITRIL/VALSARTAN 24 MG-26 MG TABLET PO SCH ×2 (09:53→22:00)
[2022-09-15] MEDS: RANOLAZINE E.R. 500 MG TABLET (FP) PO SCH ×2 (09:54→22:00)
[2022-09-15] MEDS: PANTOPRAZOLE 40 MG TABLET PO SCH (09:54)
[2022-09-15] MEDS ORDERED: morphine SULFATE 4 MG/ML VIAL IVPUSH ONE (09:55)
[2022-09-15] MEDS: BUDESONIDE/FORMETEROL FUMARATE 80/4.5 mcg INHALER IH SCH ×2 (09:59→22:10)
[2022-09-15] MEDS ORDERED: ISOSORBIDE MONONITRATE 30 MG TAB.SR.24H (FP) PO SCH (10:00)
[2022-09-15 10:19] LABS: BASO % 0.2 % (0-2.0); HEMATOCRIT 39.6 % (32.4-45.2); HEMOGLOBIN 12.5 GM/dL (10.7-15.3); LYMPH % 33.5 % (8-40); MCH 26.8 pg (25.7-33.7); MCHC 31.6 g/dl (32.0-36.0); MEAN CELL VOLUME 84.9 fl (80-96); MEAN PLT VOLUME 9.2 fl (7.5-11.1); MONO % 6.2 % (3.8-10.2); NEUT % 60.1 % (42.8-82.8); PLATELET COUNT 207 10^3/uL (134-434); RBC 4.66 M/mm3 (3.60-5.2); RDW 15.9 % (11.6-15.6); WHITE BLOOD COUNT 7.3 K/mm3 (4.0-10.0)
[2022-09-15 10:30] LABS: CHLORIDE 110 mmol/L (98-107); SODIUM 144 mmol/L (136-145)
[2022-09-15 10:35] LABS: ALBUMIN 3.1 g/dl (3.4-5.0); ANION GAP 9 MMOL/L (8-16); BLOOD UREA NITROGEN 35.7 mg/dL (7-18); CALCIUM 8.9 mg/dL (8.5-10.1); CO2 24 mmol/L (21-32); CREATININE 1.4 mg/dL (0.55-1.3); GLUCOSE,RANDOM 115 mg/dL (74-106); MAGNESIUM 2.3 mg/dL (1.8-2.4); SGPT/ALT 34 U/L (13-61)
[2022-09-15 10:37] LABS: BILIRUBIN,TOTAL 0.4 mg/dL (0.2-1); TOT PROT 6.8 g/dl (6.4-8.2)
[2022-09-15 10:38] LABS: ALK PHOS 94 U/L (45-117); SGOT/AST 17 U/L (15-37)
[2022-09-15] MEDS: INSULIN (LEVEMIR) 100 UNITS/ML UNITS SQ SCH ×2 (12:19→23:00)
[2022-09-15] MEDS ORDERED: ISOSORBIDE MONONITRATE 30 MG TAB.SR.24H (FP) PO ONE (12:55)
[2022-09-15] MEDS: oxyCODONE HCL 5 MG TABLET PO PRN (14:46)
[2022-09-15] MEDS: predniSONE 20 MG TABLET (UD) PO SCH (22:00)
[2022-09-15] MEDS: ROSUVASTATIN CA 20 MG TABLET PO SCH (22:00)
[2022-09-15] MEDS: ISOSORBIDE MONONITRATE 60 MG TAB.SR.24H (FP) PO SCH (22:00)
[2022-09-16] MEDS: REMDESIVIR 100 MG in SODIUM CHLORIDE 250 ML IVPB SCH (04:05)
[2022-09-16] MEDS: HEPARIN NA (PORCINE) 5,000 UNITS/ML 1ML VIAL SQ SCH ×3 (05:22→22:30)
[2022-09-16] MEDS: oxyCODONE HCL 5 MG TABLET PO PRN ×2 (05:22→16:57)
[2022-09-16] MEDS: FUROSEMIDE 20 MG TABLET (FP) PO SCH ×2 (06:19→15:09)
[2022-09-16] MEDS: NITROGLYCERIN SUBLINGUAL 1/150 0.4 MG TAB SL PRN (07:15)
[2022-09-16] MEDS: INSULIN (LEVEMIR) 100 UNITS/ML UNITS SQ SCH ×2 (08:38→22:30)
[2022-09-16] MEDS: INSULIN SLIDING SCALE (NOVOLOG) 1 VIAL SQ SCH ×4 (08:38→22:30)
[2022-09-16] MEDS: SACUBITRIL/VALSARTAN 24 MG-26 MG TABLET PO SCH ×2 (09:01→22:29)
[2022-09-16] MEDS: PANTOPRAZOLE 40 MG TABLET PO SCH (09:01)
[2022-09-16] MEDS: CLOPIDOGREL BISULFATE 75 MG TABLET (FP) PO SCH (09:01)
[2022-09-16] MEDS: ASPIRIN 81 MG CHEWABLE TABLETS PO SCH (09:01)
[2022-09-16] MEDS: APIXABAN 5 MG TABLET PO SCH ×2 (09:01→22:29)
[2022-09-16] MEDS: ISOSORBIDE MONONITRATE 60 MG TAB.SR.24H (FP) PO SCH ×2 (09:01→22:30)
[2022-09-16] MEDS: CARVEDILOL 12.5 MG TABLET (FP) PO SCH ×2 (09:01→22:29)
[2022-09-16] MEDS: RANOLAZINE E.R. 500 MG TABLET (FP) PO SCH ×2 (09:01→22:30)
[2022-09-16] MEDS: BUDESONIDE/FORMETEROL FUMARATE 80/4.5 mcg INHALER IH SCH ×2 (09:03→22:30)
[2022-09-16] MEDS: ROSUVASTATIN CA 20 MG TABLET PO SCH (22:29)
[2022-09-16] MEDS: predniSONE 20 MG TABLET (UD) PO SCH (22:29)
[2022-09-17] MEDS: REMDESIVIR 100 MG in SODIUM CHLORIDE 250 ML IVPB SCH (03:33)
[2022-09-17] MEDS: FUROSEMIDE 20 MG TABLET (FP) PO SCH ×2 (06:48→13:27)
[2022-09-17] MEDS: INSULIN (LEVEMIR) 100 UNITS/ML UNITS SQ SCH (06:48)
[2022-09-17] MEDS: INSULIN SLIDING SCALE (NOVOLOG) 1 VIAL SQ SCH ×2 (06:48→11:40)
[2022-09-17] MEDS: HEPARIN NA (PORCINE) 5,000 UNITS/ML 1ML VIAL SQ SCH ×2 (06:48→13:25)
[2022-09-17] MEDS: APIXABAN 5 MG TABLET PO SCH (10:24)
[2022-09-17] MEDS: CARVEDILOL 12.5 MG TABLET (FP) PO SCH (10:24)
[2022-09-17] MEDS: SACUBITRIL/VALSARTAN 24 MG-26 MG TABLET PO SCH (10:24)
[2022-09-17] MEDS: ASPIRIN 81 MG CHEWABLE TABLETS PO SCH (10:24)
[2022-09-17] MEDS: CLOPIDOGREL BISULFATE 75 MG TABLET (FP) PO SCH (10:25)
[2022-09-17] MEDS: PANTOPRAZOLE 40 MG TABLET PO SCH (10:25)
[2022-09-17] MEDS: RANOLAZINE E.R. 500 MG TABLET (FP) PO SCH (10:25)
[2022-09-17] MEDS: BUDESONIDE/FORMETEROL FUMARATE 80/4.5 mcg INHALER IH SCH (10:25)
[2022-09-17] MEDS: ISOSORBIDE MONONITRATE 60 MG TAB.SR.24H (FP) PO SCH (10:25)
[2022-09-17 11:00] LABS: HEMATOCRIT 38.1 % (32.4-45.2); HEMOGLOBIN 12.5 GM/dL (10.7-15.3); LYMPH % 38.4 % (8-40); MCH 27.7 pg (25.7-33.7); MCHC 32.7 g/dl (32.0-36.0); MEAN CELL VOLUME 84.8 fl (80-96); MEAN PLT VOLUME 8.8 fl (7.5-11.1); MONO % 7.3 % (3.8-10.2); NEUT % 54.3 % (42.8-82.8); PLATELET COUNT 196 10^3/uL (134-434); RDW 15.5 % (11.6-15.6); WHITE BLOOD COUNT 5.7 K/mm3 (4.0-10.0)
[2022-09-17 11:18] LABS: CALCIUM 8.4 mg/dL (8.5-10.1)
[2022-09-17 11:19] LABS: BLOOD UREA NITROGEN 28.9 mg/dL (7-18)
[2022-09-17 11:22] LABS: CREATININE 1.1 mg/dL (0.55-1.3)
[2022-09-17 13:55] VITALS: BP 120/81; PULSE 70; RESP 20; TEMP 97.7
== END 2022-09-17 16:30 | disposition home or self-care (01) | DRG 177 ==
LOC: JER 17:50 → JERBED 09-14 00:26 → J6W 09-14 14:36
PROVIDERS: ADMIT Family Medicine; ATTEND Nurse Practitioner Family
PROC: XW033E5 Introduction of Remdesivir Anti-infective into Peripheral Vein, Percutaneous Approach, New Technology Group 5 (ICD-10-PCS; principal; 2022-09-13)
DX: U07.1 COVID-19 (principal); I21.4 Non-ST elevation (NSTEMI) myocardial infarction; I50.22 Chronic systolic (congestive) heart failure; J44.0 Chronic obstructive pulmonary disease with (acute) lower respiratory infection; N17.9 Acute kidney failure, unspecified; J98.11 Atelectasis; J44.1 Chronic obstructive pulmonary disease with (acute) exacerbation; I11.0 Hypertensive heart disease with heart failure; I25.10 Atherosclerotic heart disease of native coronary artery without angina pectoris; I44.7 Left bundle-branch block, unspecified; Z95.1 Presence of aortocoronary bypass graft; Z95.5 Presence of coronary angioplasty implant and graft; E11.65 Type 2 diabetes mellitus with hyperglycemia; K21.9 Gastro-esophageal reflux disease without esophagitis; F17.200 Nicotine dependence, unspecified, uncomplicated
CPT/HCPCS: 0241U-QW; 36415; 71045-TC-FY; 80048; 80053; 80061; 80307; 81003; 82436; 82550; 82570; 82962; 83036; 83605; 83735; 83880; 84100; 84133; 84156; 84300; 84439; 84443; 84484; 85025; 85610; 85730; 86140; 87040; 87086; 87186; 93005; 93010; 97116-GP; 97161-GP; 99291; 99292; C9399

== ENCOUNTER 2023-11-21 14:52 | Inpatient (IN) | payer OTHER ==
[2023-11-21] MEDS ORDERED: FUROSEMIDE 40 MG/4 ML INJECTABLE VIAL ONE (20:22)
[2023-11-21] MEDS: FUROSEMIDE 40 MG/4 ML INJECTABLE VIAL IVPUSH ONE (20:44)
[2023-11-21 20:53] LABS: BASO % 1.1 % (0-2.0); EOS % 1.5 % (0-4.5); HEMATOCRIT 42.3 % (32.4-45.2); HEMOGLOBIN 13.5 GM/dL (10.7-15.3); LYMPH % 60.4 % (8-40); MCH 28.3 pg (25.7-33.7); MCHC 31.9 g/dl (32.0-36.0); MEAN CELL VOLUME 88.5 fl (80-96); MEAN PLT VOLUME 9.1 fl (7.5-11.1); MONO % 8.2 % (3.8-10.2); NEUT % 28.8 % (42.8-82.8); PLATELET COUNT 201 10^3/uL (134-434); RBC 4.78 M/mm3 (3.60-5.2); RDW 16.7 % (11.6-15.6); WHITE BLOOD COUNT 4.7 K/mm3 (4.0-10.0)
[2023-11-21 21:10] LABS: CHLORIDE 106 mmol/L (98-107); SODIUM 139 mmol/L (136-145)
[2023-11-21 21:12] LABS: CALCIUM 8.8 mg/dL (8.5-10.1); GLUCOSE,RANDOM 96 mg/dL (74-106)
[2023-11-21 21:14] LABS: BLOOD UREA NITROGEN 22.8 mg/dL (7-18); CO2 26 mmol/L (21-32); MAGNESIUM 1.7 mg/dL (1.8-2.4)
[2023-11-21 21:16] LABS: CREATININE 1.5 mg/dL (0.55-1.3); SGOT/AST 57 U/L (15-37); SGPT/ALT 18 U/L (13-61)
[2023-11-21 21:17] LABS: BILIRUBIN,TOTAL 0.6 mg/dL (0.2-1); TOT PROT 7.1 g/dl (6.4-8.2)
[2023-11-21 21:19] LABS: ALK PHOS 89 U/L (45-117); ANION GAP 7 mmol/L (4-13); POTASSIUM 6.5 mmol/L (3.5-5.1)
[2023-11-21 21:20] LABS: N-TERMINAL BNP 1708.2 pg/ml (5-125)
[2023-11-21 21:35] LABS: ANISOCYTOSIS 1+; MACROCYTOSIS 0; OVALOCYTE 1+
[2023-11-22] MEDS ORDERED: NITROGLYCERIN SUBLINGUAL 1/150 0.4 MG TAB ONE (00:23)
[2023-11-22] MEDS: NITROGLYCERIN SUBLINGUAL 1/200 0.3 MG BTL SL ONE (00:42)
[2023-11-22] MEDS ORDERED: MAGNESIUM SULFATE IN WATER 2 GM/50 ML IVPB IVPB ONE (02:20)
[2023-11-22] MEDS ORDERED: APIXABAN 5 MG TABLET ONE (02:20)
[2023-11-22] MEDS: APIXABAN 5 MG TABLET PO SCH (02:31)
[2023-11-22] MEDS: MAGNESIUM SULF 50% (8.12 MEQ/2 ML-1 GM VIAL) IVPB ONE (02:31)
[2023-11-22] MEDS ORDERED: TRIMETHOBENZAMIDE HCL 200MG/2ML INJ IM ONE (05:37)
[2023-11-22] MEDS ORDERED: RANOLAZINE E.R. 500 MG TABLET (FP) ONE (05:37)
[2023-11-22 06:01] LABS: ALBUMIN 2.8 g/dl (3.4-5.0)
[2023-11-22 06:04] LABS: CREATININE 1.3 mg/dL (0.55-1.3)
[2023-11-22 06:05] LABS: BILIRUBIN,TOTAL 0.5 mg/dL (0.2-1)
[2023-11-22 06:06] LABS: TOT PROT 6.1 g/dl (6.4-8.2)
[2023-11-22] MEDS: TRIMETHOBENZAMIDE HCL 200MG/2ML INJ IM ONE (06:10)
[2023-11-22] MEDS ORDERED: FUROSEMIDE 40 MG TABLET (FP) ONE ×2 (06:12→14:05)
[2023-11-22] MEDS: FUROSEMIDE 40 MG TABLET (FP) PO SCH (06:13)
[2023-11-22 07:40] LABS: POTASSIUM 3.9 mmol/L (3.5-5.1)
[2023-11-22 07:47] LABS: HEMATOCRIT 36.4 % (32.4-45.2); HEMOGLOBIN 12.2 GM/dL (10.7-15.3); MCH 29.4 pg (25.7-33.7); MCHC 33.5 g/dl (32.0-36.0); MEAN CELL VOLUME 87.7 fl (80-96); MEAN PLT VOLUME 9.4 fl (7.5-11.1); PLATELET COUNT 213 10^3/uL (134-434); RBC 4.15 M/mm3 (3.60-5.2); RDW 16.5 % (11.6-15.6); WHITE BLOOD COUNT 4.6 K/mm3 (4.0-10.0)
[2023-11-22 08:03] LABS: BLOOD UREA NITROGEN 21.4 mg/dL (7-18); PHOSPHOROUS 3.4 mg/dL (2.5-4.9)
[2023-11-22 08:04] LABS: ALBUMIN 2.8 g/dl (3.4-5.0); BILIRUBIN,TOTAL 0.7 mg/dL (0.2-1); TOT PROT 6.2 g/dl (6.4-8.2)
[2023-11-22 08:05] LABS: CREATININE 1.3 mg/dL (0.55-1.3)
[2023-11-22 08:06] LABS: MAGNESIUM 2.1 mg/dL (1.8-2.4)
[2023-11-22] MEDS: SPIRONOLACTONE 25 MG TABLET PO SCH (09:35)
[2023-11-22] MEDS: ISOSORBIDE MONONITRATE 60 MG TAB.SR.24H (FP) PO SCH (09:36)
[2023-11-22] MEDS: SACUBITRIL/VALSARTAN 24 MG-26 MG TABLET PO SCH (09:36)
[2023-11-22] MEDS: CLOPIDOGREL BISULFATE 75 MG TABLET (FP) PO SCH (09:36)
[2023-11-22] MEDS: RANOLAZINE E.R. 500 MG TABLET (FP) PO SCH (09:37)
[2023-11-22] MEDS ORDERED: RANOLAZINE E.R. 500 MG TABLET (FP) PO SCH (10:00)
[2023-11-22] MEDS: methylPREDNISolone NA SUCC 40 MG/1 ML VIAL IVPUSH SCH ×2 (11:27→11:56)
[2023-11-22] MEDS: metoPROLOL SUCCINATE 25 MG TAB.SR.24H (FP) PO SCH (11:34)
[2023-11-22] MEDS: ALBUTEROL SO4 2.5/IPRATROPIUM 0.5 INH SOL 3 ML VIAL.NEB. NEB SCH (13:00)
[2023-11-22] MEDS ORDERED: ALBUTEROL SO4 2.5/IPRATROPIUM 0.5 INH SOL 3 ML VIAL.NEB. NEB ONE (15:43)
[2023-11-22] MEDS ORDERED: OXYCODONE HCL 30 MG PO PRN (20:12)
[2023-11-22] MEDS ORDERED: oxyCODONE HCL 5 MG TABLET ONE (20:33)
[2023-11-22] MEDS: oxyCODONE HCL 5 MG TABLET PO ONE (20:39)
[2023-11-22] MEDS: ATORVASTATIN CA 80 MG TABLET (FP) PO SCH (21:48)
[2023-11-23 00:51] VITALS: BMI 28.3
[2023-11-23 07:23] LABS: BASO % 0.2 % (0-2.0); HEMATOCRIT 37.6 % (32.4-45.2); HEMOGLOBIN 12.1 GM/dL (10.7-15.3); LYMPH % 36.8 % (8-40); MCH 28.1 pg (25.7-33.7); MCHC 32.2 g/dl (32.0-36.0); MEAN CELL VOLUME 87.3 fl (80-96); MEAN PLT VOLUME 8.8 fl (7.5-11.1); MONO % 7.3 % (3.8-10.2); NEUT % 55.7 % (42.8-82.8); PLATELET COUNT 189 10^3/uL (134-434); RDW 15.7 % (11.6-15.6); WHITE BLOOD COUNT 5.4 K/mm3 (4.0-10.0)
[2023-11-23 07:30] LABS: POTASSIUM 4.1 mmol/L (3.5-5.1)
[2023-11-23 07:38] LABS: ALBUMIN 2.9 g/dl (3.4-5.0); CALCIUM 8.7 mg/dL (8.5-10.1)
[2023-11-23 07:39] LABS: BLOOD UREA NITROGEN 19.3 mg/dL (7-18)
[2023-11-23 07:43] LABS: BILIRUBIN,TOTAL 0.6 mg/dL (0.2-1)
[2023-11-23] MEDS: oxyCODONE HCL 5 MG TABLET PO PRN (15:35)
[2023-11-23] MEDS: DOCUSATE SODIUM 100 MG CAPSULE (FP) PO SCH (15:36)
[2023-11-23] MEDS: POLYETHYLENE GLYCOL (HEALTHYLAX) 3350 17 GM PACKET PO SCH (15:36)
[2023-11-23] MEDS ORDERED: INSULIN (NOVOLOG) ASPART 100 UNITS/ML 10ML VIAL ONE (18:59)
[2023-11-23] MEDS: INSULIN ASPART SLIDING SCALE (NOVOLOG) 1 VIAL SQ SCH (19:03)
[2023-11-23] MEDS: SENNOSIDES 8.6MG TABLET (FP) PO SCH (21:16)
[2023-11-23] MEDS: ACETAMINOPHEN 1000 MG/100 ML BAG IVPB PRN (21:16)
[2023-11-24] MEDS: LORATADINE 10 MG TABLET PO ONE (03:44)
[2023-11-24 07:59] VITALS: RESP 18
[2023-11-24] MEDS ORDERED: NITROGLYCERIN SUBLINGUAL 1/150 0.4 MG TAB ONE (08:49)
[2023-11-24] MEDS: NITROGLYCERIN SUBLINGUAL 1/200 0.3 MG BTL SL ONE (09:02)
[2023-11-24] MEDS: NITROGLYCERIN SUBLINGUAL 1/150 0.4 MG TAB SL ONE (09:06)
[2023-11-24] MEDS: FAMOTIDINE 20 MG/50 ML IVPB 20 MG/50 ML MG IVPB SCH (09:57)
[2023-11-24] MEDS: ONDANSETRON *ODT* 4 MG TABLET SL ONE (12:46)
[2023-11-25 05:52] VITALS: TEMP 97.8
[2023-11-25 07:24] LABS: BASO % 0.9 % (0-2.0); HEMATOCRIT 36.7 % (32.4-45.2); HEMOGLOBIN 11.6 GM/dL (10.7-15.3); LYMPH % 34.4 % (8-40); MCH 28.2 pg (25.7-33.7); MCHC 31.8 g/dl (32.0-36.0); MEAN CELL VOLUME 88.8 fl (80-96); MEAN PLT VOLUME 8.5 fl (7.5-11.1); MONO % 7.8 % (3.8-10.2); NEUT % 56.9 % (42.8-82.8); PLATELET COUNT 190 10^3/uL (134-434); RBC 4.13 M/mm3 (3.60-5.2); RDW 15.8 % (11.6-15.6); WHITE BLOOD COUNT 7.4 K/mm3 (4.0-10.0)
[2023-11-25 07:32] LABS: POTASSIUM 4.1 mmol/L (3.5-5.1)
[2023-11-25 07:34] LABS: CALCIUM 8.3 mg/dL (8.5-10.1)
[2023-11-25 07:35] LABS: ALBUMIN 2.8 g/dl (3.4-5.0); BLOOD UREA NITROGEN 28.2 mg/dL (7-18)
[2023-11-25 07:38] LABS: CREATININE 1.3 mg/dL (0.55-1.3)
[2023-11-25 07:39] LABS: BILIRUBIN,TOTAL 0.4 mg/dL (0.2-1); TOT PROT 5.9 g/dl (6.4-8.2)
[2023-11-25 11:41] VITALS: BP 95/83; PULSE 66
== END 2023-11-25 11:40 | disposition home or self-care (01) | DRG 291 ==
LOC: JER 14:52 → JERBED 19:20 → OBSVTOIN 23:08 → J4W 11-22 20:48
PROVIDERS: ADMIT Internal Medicine
DX: I11.0 Hypertensive heart disease with heart failure (principal); I50.33 Acute on chronic diastolic (congestive) heart failure; J44.1 Chronic obstructive pulmonary disease with (acute) exacerbation; J96.11 Chronic respiratory failure with hypoxia; N17.9 Acute kidney failure, unspecified; J98.11 Atelectasis; F11.20 Opioid dependence, uncomplicated; I25.119 Atherosclerotic heart disease of native coronary artery with unspecified angina pectoris; G47.33 Obstructive sleep apnea (adult) (pediatric); E78.5 Hyperlipidemia, unspecified; E87.70 Fluid overload, unspecified; F32.A Depression, unspecified; K21.9 Gastro-esophageal reflux disease without esophagitis; G43.909 Migraine, unspecified, not intractable, without status migrainosus; I44.7 Left bundle-branch block, unspecified; Z95.1 Presence of aortocoronary bypass graft; Z99.81 Dependence on supplemental oxygen
CPT/HCPCS: 0241U-QW; 36415; 71046-TC-FY; 71250-TC; 80053; 82962; 83036; 83735; 83880; 84100; 84484; 85025; 85027; 93005; 93010; 94640; 99285-25; G0378; J0131; Q0162